=== PATIENT | male | born 1950 | race Caucasian/White ===

== ENCOUNTER → 2023-07-10 10:11 | Outpatient (REF) | payer MEDICARE, BC, SELFPAY | LOC: RAD 10:11 | PROVIDERS: ATTENDING PHYSICIAN Surgery Vascular Surgery; FAMILY PHYSICIAN Family Medicine | DX: I73.9 Peripheral vascular disease, unspecified (principal) | CPT/HCPCS: 93922; 93925 ==

== ENCOUNTER → 2023-07-12 08:43 | Outpatient (REF) | payer MEDICARE, BC, SELFPAY ==
[2023-07-12 12:59] LABS: ALT (SGPT) 27 U/L (0-50); AST (SGOT) 28 U/L (17-59); Albumin 3.8 g/dl (3.5-5.0); Alkaline Phosphatase 47 U/L (38-126); Blood Urea Nitrogen 25 mg/dl (9-20); Calcium 9.7 mg/dl (8.4-10.2); Carbon Dioxide 27 mmol/L (22-30); Chloride 102 mmol/L (98-107); Glucose 148 mg/dl (70-99); Potassium 4.9 mmol/L (3.5-5.1); Sodium 140 mmol/L (135-145); Total Bilirubin 0.7 mg/dl (0.2-1.3); Total Protein 6.3 g/dl (6.3-8.2); eGFR > 60.00
[2023-07-12 14:54] LABS: Glycohemoglobin (HgbA1c) 6.4 % (4.0-5.6)
== END ==
LOC: HWLAB 08:43
PROVIDERS: ATTENDING PHYSICIAN Family Medicine
DX: R73.01 Impaired fasting glucose (principal); Z12.5 Encounter for screening for malignant neoplasm of prostate
CPT/HCPCS: 36415; 80053; 83036; G0103

== ENCOUNTER → 2023-08-23 13:44 | Outpatient (REF) | payer MEDICARE, BC, SELFPAY ==
[2023-08-23 17:57] LABS: Microalbumin, Random Urine <0.6 mg/dl (0.6-1.7)
== END ==
LOC: CLAB 13:44
PROVIDERS: ATTENDING PHYSICIAN Family Medicine
DX: E11.51 Type 2 diabetes mellitus with diabetic peripheral angiopathy without gangrene (principal)
CPT/HCPCS: 82043; 82570

== ENCOUNTER → 2023-11-27 08:23 | Outpatient (REF) | payer MEDICARE, BC, SELFPAY ==
[2023-11-27 10:53] LABS: ALT (SGPT) 27 U/L (0-50); AST (SGOT) 29 U/L (17-59); Albumin 4.1 g/dl (3.5-5.0); Alkaline Phosphatase 57 U/L (38-126); Blood Urea Nitrogen 17 mg/dl (9-20); Calcium 9.4 mg/dl (8.4-10.2); Carbon Dioxide 26 mmol/L (22-30); Chloride 105 mmol/L (98-107); Glucose 132 mg/dl (70-99); HDL Cholesterol 37 mg/dl; LDL Cholesterol, Calculated 57 mg/dl; Potassium 4.7 mmol/L (3.5-5.1); Sodium 139 mmol/L (135-145); Total Bilirubin 0.5 mg/dl (0.2-1.3); Total Cholesterol 104 mg/dl (50-199); Total Protein 6.7 g/dl (6.3-8.2); Triglyceride 54 mg/dl (10-149); Very Low Density Lipoprotein 10 mg/dl (0-30); eGFR > 60.00
[2023-11-27 11:54] LABS: Glycohemoglobin (HgbA1c) 6.5 % (4.0-5.6)
== END ==
LOC: HWLAB 08:23
PROVIDERS: ATTENDING PHYSICIAN Family Medicine
DX: E11.51 Type 2 diabetes mellitus with diabetic peripheral angiopathy without gangrene (principal); E78.2 Mixed hyperlipidemia
CPT/HCPCS: 36415; 80053; 80061; 83036

== ENCOUNTER → 2024-02-08 08:47 | Outpatient (REF) | payer MEDICARE, BC, SELFPAY | LOC: DHVS 08:47 | PROVIDERS: ATTENDING PHYSICIAN Surgery Vascular Surgery | DX: I73.9 Peripheral vascular disease, unspecified (principal) | CPT/HCPCS: 93922; 93925 ==

== ENCOUNTER → 2024-02-28 12:43 | Outpatient (REF) | payer MEDICARE, BC, SELFPAY | LOC: HWRCS 12:43 | PROVIDERS: ATTENDING PHYSICIAN Internal Medicine Interventional Cardiology; FAMILY PHYSICIAN Family Medicine | DX: Z95.2 Presence of prosthetic heart valve (principal); I35.0 Nonrheumatic aortic (valve) stenosis | CPT/HCPCS: 93306 ==

== ENCOUNTER → 2024-03-25 09:01 | Outpatient (REF) | payer MEDICARE, BC, SELFPAY ==
[2024-03-25 13:34] LABS: ALT (SGPT) 30 U/L (0-50); AST (SGOT) 30 U/L (17-59); Albumin 4.3 g/dl (3.5-5.0); Alkaline Phosphatase 42 U/L (38-126); Blood Urea Nitrogen 19 mg/dl (9-20); Calcium 9.2 mg/dl (8.4-10.2); Carbon Dioxide 27 mmol/L (22-30); Chloride 105 mmol/L (98-107); Glucose 143 mg/dl (70-99); Potassium 4.7 mmol/L (3.5-5.1); Sodium 143 mmol/L (135-145); Total Bilirubin 0.6 mg/dl (0.2-1.3); Total Protein 6.7 g/dl (6.3-8.2); eGFR > 60.00
[2024-03-25 14:52] LABS: Glycohemoglobin (HgbA1c) 6.5 % (4.0-5.6)
== END ==
LOC: HWLAB 09:01
PROVIDERS: ATTENDING PHYSICIAN Family Medicine
DX: E11.51 Type 2 diabetes mellitus with diabetic peripheral angiopathy without gangrene (principal)
CPT/HCPCS: 36415; 80053; 83036

== ENCOUNTER 2024-06-12 01:42 | Inpatient (IN) | payer MEDICARE, BC, SELFPAY ==
[2024-06-11 17:23] VITALS: BP 136/77
[2024-06-11] MEDS: TYLENOL 650 MG PO (17:28)
[2024-06-11 17:49] LABS: % Basophils 0.3 % (0-2); % Eosinophils 0.8 % (0-6); % Immature Granulocytes 0.7 % (0-0.5); % Lymphocytes 7.8 % (20.5-51.1); % Neutrophils 88.4 % (42.2-75.2); Absolute Eosinophils 0.1 10^3/uL (0-0.7); Absolute Immature Granulocytes 0.1 10^3/uL (0-0.05); Absolute Lymphocytes 0.8 10^3/uL (1.2-3.4); Absolute Monocytes 0.2 10^3/uL (0.1-0.6); Absolute Neutrophils 9.3 10^3/uL (1.4-6.5); Hematocrit 39.5 % (39.0-52.0); Hemoglobin 13.2 g/dL (13.0-18.0); Mean Corp Hgb Conc. 33.4 g/dL (33.0-37.0); Mean Corpuscular Hgb 31.9 pg (27.0-31.0); Mean Corpuscular Volume 95.4 fL (80.0-94.0); Mean Platelet Volume 9.5 fL (7.4-10.4); Nucleated Red Blood Cells % 0 % (-); Platelet Count 172 10^3/uL (130-400); Red Blood Cell Count 4.14 10^6/uL (4.70-6.10); Red Cell Dist. Width 13.6 % (11.5-14.5); White Blood Cell Count 10.6 10^3/uL (4.8-10.8)
[2024-06-11 18:05] LABS: ALT (SGPT) 26 U/L (0-50); AST (SGOT) 30 U/L (17-59); Albumin 4.3 g/dl (3.5-5.0); Alkaline Phosphatase 45 U/L (38-126); Blood Urea Nitrogen 21 mg/dl (9-20); Calcium 9.5 mg/dl (8.4-10.2); Carbon Dioxide 22 mmol/L (22-30); Chloride 102 mmol/L (98-107); Glucose 168 mg/dl (70-99); Potassium 4.7 mmol/L (3.5-5.1); Sodium 136 mmol/L (135-145); Total Bilirubin 0.5 mg/dl (0.2-1.3); eGFR > 60.00
[2024-06-11 18:06] LABS: COVID-19 Antigen Negative (Negative)
[2024-06-11 20:50] VITALS: BP 114/61
[2024-06-11 20:52] VITALS: BMI 37.2
[2024-06-11 21:07] VITALS: BP 130/72
--- NOTE | 2024-06-11 21:12 | ED.GENMED ---
History of Present Illness
General
Chief Complaint: Heart Rate Problem
Source: patient
Exam Limitations: none
Time Seen by Provider: 06/11/24 20:51
History of Present Illness
History of Present Illness:
73yoM with a history of peripheral artery disease, aortic stenosis s/p valve replacement, hypertension, and obesity presenting for evaluation after an episode of shakiness. Patient started to have bilateral arm shakiness and chills around 3pm this
afternoon. He states this occurred after drinking a large decaf coffee with pumpkin spice cream and multiple Krimpets. Son states this appeared to be shaking chills and called EMS. Patient also reports shortness of breath during this episode. He now
feels much better after drinking fluids in the waiting room. He denies any current dyspnea. No chest pain or leg swelling. Of note, patient has been having an ongoing cough since .
Past History
Past History
ED Past Medical History: HTN, Valvular disease and Other (Diverticulosis, Kidney stones)
ED Past Surgical History: Other (Hernia repair)
Social History
Tobacco: Former smoker
Alcohol: Former
Drug: None
Personal:
Living: with family
Employment: Employed ([employer])
Family History
Family History: CAD (Mother with [place] at 57 No aneurysm)
Phy Exam
General Physical Exam
General Presentation: no apparent distress
General age: appears stated age
General Skin: warm and dry
General Habitus: elderly and obese
General Mental: alert
Cardiovascular Exam
Cardiovascular Exam: no edema and tachycardia (HR 110-120 throughout exam. Sinus tachycardia on monitor.)
Pulmonary Exam
Pulmonary Exam: lungs clear, no respiratory distress, no rales, no crackles and no rhonchi
Neurological Exam
Neurological Exam: alert
Da[place]an Coma Scale
Eye Opening: Spontaneous
Verbal Response: Oriented
Motor Response: Obeys Commands
GCS Total Score: 15
Skin Exam
Skin Exam: normal color and warm/dry
Psychiatric Exam
Psychiatric Exam: normal mood/affect
Course
Orders/Labs/Results
Orders:
Orders
06/11/24 17:20
EKG [Electrocardiogram (*1)] Urgent
Reason for Study: Tachycardia
EKG- Treatment ONCE
06/11/24 17:27
Acetaminophen [Tylenol] 650 mg .ROUTE .STK-MED ONE
06/11/24 17:28
Acetaminophen [Tylenol] 650 mg PO NOW STA
06/11/24 17:32
COVID-19 Antigen Urgent
Source: Nasal Swab
TSH Urgent
Comment: ADDON
Influenza A+B Rapid Molecular Urgent
JOSEPH Source: Nasal Swab
Specimen Description:
06/11/24 17:41
Complete Blood Count/With Diff Urgent
Comprehensive Metabolic Panel Urgent
Magnesium Urgent
Comment: ADDON
06/11/24 21:07
Cardiac Monitoring- Treatment ONCE
CR Chest - 2 Views Urgent
Comment:
Reason For Exam: SOB, cough
06/11/24 21:15
Add On- LAB Urgent
Tests Added?: TSH, magnesium
D-Dimer Urgent
PTT Urgent
Comment: ADDED
06/11/24 21:31
Magnesium Sulfate 2 Gram/50 ml [Magnesium Sulfate] 2 gram in 50 ml IV NOW
06/11/24 21:44
CT Chest PE Study Urgent
Comment:
Reason For Exam: SOB, elevated D-dimer
06/11/24 21:53
Troponin I Urgent
06/11/24 22:30
Electrocardiogram (*1) Urgent
Reason for Study: Shortness of Breath
EKG- Treatment ONCE
06/11/24 23:00
Flush (0.9% Sodium Chloride) [Flush (Nss)] See Dose Instructions IV PER PROTOCOL
06/11/24 23:22
Heparin 10,000 units IV NOW STA
Nursing to Place Non Medication Order As Directed
Physician Order: PTT 6 hours after initial start of Heparin infusion
Above order entered?: Yes
06/11/24 23:30
Heparin 43344 Units/250 ml 25,000 units in 250 ml IV PER PROTOCOL
Weight to be used for heparin protocol in kilograms (kg):: 127.7
Protocol:: DVT/PE
PTT Goal Range to be used:: PTT 73 to 111 seconds
Order type:: Initial
INITIAL Infusion Dose (UNITS/KG/hr) & then follow protocol:: 18 units/kg/hr
Infusion Dose in UNITS/hr & then follow protocol (UNITS/hr):: 2,000
INFUSION RATE in mL/hr & then follow protocol (mL/hr):: 20
For DVT/PE algorithm, re-bolus for low PTT?: Yes
PTT less than or equal to 64 seconds:: Re-bolus 80 units/kg (max 10,000units). Increase by 500 units/hr
(+ 5mL/hr)
PTT 64.1 to 72.9 seconds:: Re-bolus 40 units/kg (max 5,000 units). Increase by 300 units/hr
(+ 3mL/hr)
PTT 73 to 111 seconds:: Target Range. No change in rate.
PTT 111.1 to 130.9 seconds:: Decrease rate by 300 units/hr (- 3 mL/hr)
PTT 131 to 199.9 seconds:: HOLD for 1 hr. Then decrease by 400 units/hr (- 4mL/hr)
PTT greater than or equal to 200 seconds:: HOLD for 2 hrs & Notify Provider. Then decrease by 500 units/hr
(- 5mL/hr)
Lab follow-up:: Each change, PTT q6h until 2 consecutive are therapeutic. Then
PTT daily.
06/11/24 23:33
Add On- LAB Urgent
Comments:: PTT
Tests Added?: PTT
06/11/24 23:41
Heparin 10,000 units IV PRN PRN
06/11/24 23:44
Heparin 5,000 units IV PRN PRN
06/12/24 01:12
Admit/Transfer Patient As Directed
Co-Sign Provider:
Level of Care: Inpatient admission
Assign to:: Telemetry
Physician / Group: Alex
Diagnosis: PE
Reason for Telemetry: Chest Pain syndromes
Date to Stop Telemetry: 06/14/24
Time to Stop Telemetry: 11:00
Reason for Hospitalization: PE
Expected length of stay greater than two midnights?: Yes
ELOS- Estimated Length of Stay in days: 2
I certify the patient meets the requirements for IP care: Yes
PRN Pain Medication Management As Directed
May give lesser potent ordered pain med per pt: Yes
preference::
Protocol:: Medication orders for pain may be administered in a
manner that supports deferring to patient preference
when the pt is:
- Requesting an ordered lesser potent pain medication.
Least to most potent pain medications are defined
as: acetaminophen < NSAID < tramadol < opioids
(morphine, oxycodone, hydromorphone).
- Requesting a lesser dose of the same medication IF
ORDERED.
- Requesting a less intrusive route of administration
if both routes are prescribed by the provider (PO <
IV).
06/12/24 01:13
Code Status As Directed
Resuscitation Status: Full Code
06/12/24 01:44
Acetaminophen [Tylenol] 650 mg PO Q4HPRN PRN
Ondansetron Injectable [Zofran] 4 mg IV Q6HPRN PRN
06/12/24 01:44
Heparin Protocol- PTT Orders As Directed
PTT per Heparin protocol: -Obtain CBC and baseline PTT - if not already collected.
-Obtain PTT 6 hours from start of infusion. Then, every 6 hours until 2 consecutive
PTT's are therapeutic. Then, PTT Daily.
-With each rate change, obtain PTT every 6 hours until 2 consecutive PTT's are
therapeutic. Then, PTT Daily.
Activity As Directed
Activity Level: Ambulate
With Assistance
Bladder Scan As Directed
Follow Bladder Retention/Intermittent Cath Algorithm?: Yes
PRN if no void in __ hours: 6
Frequency: Per Retention Algorithm
If Bladder Scan Result >: 400
then:: Straight cath
EKG with chest pain [ECG as needed] As Directed
ECG as needed for:: Chest Pain
I/O [Intake/ Output] As Directed
Frequency: Per unit guidelines
Notify MD As Directed
Notify physician if: PTT is greater than or equal to 200.
Straight Cath As Directed
Frequency: Per Retention Algorithm
Additional Instructions: straight cath as needed per acute urinary retention algorithm for 24 hrs
Additional Instructions: for bladder scan greater than 400 mL
Vital Signs As Directed
Frequency: Per unit guidelines
Oxygen Therapy [O2 Therapy] [RESP] Routine
Titrate/Wean O2 to maintain O2 sat greater than (%): 94
Ot Eval And Treat Routine
PT Consult [Pt Eval And Treat] Routine
Activity Level: Ambulate
With Assistance
US Periph Venous LOWER Ext Alvarado Routine
Comment: Not urgent. Already on anticoagulation.
Reason For Exam: LE Weakness, PE
06/12/24 02:11
Glycohemoglobin (HgbA1c) Routine
Troponin I Q6H
06/12/24 04:52
Basic Metabolic Panel IN AM
06/12/24 06:00
EKG [Electrocardiogram (*1)] IN AM
Reason for Study: Chest Pain
Regular
At Your Request: Full Participation
06/12/24 07:19
Urinalysis Reflex To Culture Urgent
Date Specimen was Collected: 06/12/24
Time Specimen was Collected: 07:17
06/12/24 07:40
Troponin I Q6H
06/12/24 08:00
Amlodipine Besylate/Benazepril [Lotrel 10 mg/20 mg] 1 capsule PO DAILY
Aspirin Low Dose EC [Aspir Low (Enteric Coated)] 81 mg PO DAILY
Atorvastatin [Lipitor] 20 mg PO DAILY
Doxazosin Mesylate [Cardura] 8 mg PO DAILY
Multivitamin [Theragran] 1 tablet PO DAILY
06/12/24 13:44
Troponin I Q6H
06/14/24 06:00
Complete Blood Count/No Diff Q2D
Comment: notify provider: Platelet count < 130,000 or decrease by 50% from baseline
06/14/24 11:00
DC Protocol for Telemetry ONCE
06/16/24 06:00
Complete Blood Count/No Diff Q2D
Comment: notify provider: Platelet count < 130,000 or decrease by 50% from baseline
06/18/24 06:00
Complete Blood Count/No Diff Q2D
Comment: notify provider: Platelet count < 130,000 or decrease by 50% from baseline
06/20/24 06:00
Complete Blood Count/No Diff Q2D
Comment: notify provider: Platelet count < 130,000 or decrease by 50% from baseline
06/22/24 06:00
Complete Blood Count/No Diff Q2D
Comment: notify provider: Platelet count < 130,000 or decrease by 50% from baseline
06/24/24 06:00
Complete Blood Count/No Diff Q2D
Comment: notify provider: Platelet count < 130,000 or decrease by 50% from baseline
06/26/24 06:00
Complete Blood Count/No Diff Q2D
Comment: notify provider: Platelet count < 130,000 or decrease by 50% from baseline
06/28/24 06:00
Complete Blood Count/No Diff Q2D
Comment: notify provider: Platelet count < 130,000 or decrease by 50% from baseline
Abnormal Lab Results
06/11/24 06/11/24 06/11/24
17:41 21:15 21:53
RBC 4.14 L 10^6/uL
(4.70-6.10)
MCV 95.4 H fL
(80.0-94.0)
MCH 31.9 H pg
(27.0-31.0)
Abs Immat Gran (auto) 0.1 H 10^3/uL
(0-0.05)
Absolute Neuts (auto) 9.3 H 10^3/uL
(1.4-6.5)
Absolute Lymphs (auto) 0.8 L 10^3/uL
(1.2-3.4)
Immature Gran % 0.7 H %
(0-0.5)
Neutrophils % 88.4 H %
(42.2-75.2)
Lymphocytes % 7.8 L %
(20.5-51.1)
D-Dimer 2.73 H ug/mlFEU
(0.00-0.50)
BUN 21 H mg/dl
(9-20)
Glucose 168 H mg/dl
(70-99)
Magnesium 1.4 L mg/dl
(1.6-2.3)
Troponin I 0.235 H* ng/ml
06/11/24 17:41
06/11/24 17:41
Vital Signs
Initial and Last Documented VS:
Initial Vital Signs
Temp Pulse Resp BP Pulse Ox
100.2 F 140 20 136/77 95
06/11/24 17:23 06/11/24 17:23 06/11/24 17:23 06/11/24 17:23 06/11/24 17:23
Last Documented Vital Signs
Temp Pulse Resp BP Pulse Ox
98 F 96 20 105/65 95
06/12/24 07:15 06/12/24 09:09 06/12/24 07:15 06/12/24 09:09 06/12/24 07:15
MDM/Problems Addressed
MDM/Problems Addressed:
73yoM here after an episode shakiness, chills, and SOB this afternoon. Symptoms now mostly resolved. HR 140 in triage and temperature 100.2. HR 110-120 throughout initial exam. Sinus tachycardia noted on monitor. Differential diagnosis includes but
is not limited to: viral illness, pneumonia, sepsis, ACS, PE
Initial ED plan: Basic labs and COVID/flu testing obtained in triage which are overall unremarkable. EKG shows sinus tachycardia without ischemic changes. Will check TSH, magnesium, troponin, D-dimer, and CXR.
*EKG
Interpreted by ED Provider?: Yes
EKG Intrepretation Date: 06/11/24
Heart Rate: 130
Rate: tachycardiac
Rhythm: sinus
Davy: normal axis
Interval: normal interval
QRS Pattern: normal QRS
Ischemia: no ischemia
*Critical Care Note
Total Time (30-74mins, 75-104mins- exclusive of procedures): Not Applicable
Update Note
Update Note:
Magnesium 1.4 which was replaced. Troponin elevated at 0.2. Repeat EKG obtained and again no ischemic changes noted. D-dimer elevated and CTA chest subsequently obtained. Imaging is limited due contrast timing and artifact. Per discussion with
radiology, there is a possible PE seen in the right upper lobe. Heparin gtt initiated and patient admitted for further management.
ED Attending Note
-
Portions of this chart may have been created with voice recognition software.� Occasional wrong word or��sound alike� substitutions may have occurred due to the inherent limitations of voice recognition software.
Discharge Plan
Departure
Patient Disposition: Admit
Date of Disposition: 06/11/24
Time of Disposition: 23:32
Presentation/result/management discussed w/ accepting MD/DO: Hospitalist
Discharge Problem:
Pulmonary embolism, Elevated troponin
Interventions
Interventions:
*Risk Screen - Suicide Last Done: 06/11/24 17:23
*General Assessment Last Done: 06/11/24 17:23
*Neglect/Abuse Screening Last Done: 06/11/24 17:23
ED- Fall Risk Assessment Last Done: 06/12/24 04:09
*ED COVID-19 Vaccine History Last Done: 06/11/24 17:23
*Nursing Disposition Last Done: 06/12/24 04:09
ED- Cardiac Assessment Last Done: 06/11/24 20:54
ED- Pulmonary Assessment Last Done: 06/11/24 20:54
Discharge Date and Time
Discharge Date/Time: 06/12/24 04:10
[2024-06-11 21:29] LABS: Magnesium 1.4 mg/dl (1.6-2.3)
[2024-06-11 21:33] LABS: D-Dimer 2.73 ug/mlFEU (0.00-0.50)
[2024-06-11 22:02] VITALS: BP 121/77
[2024-06-11] MEDS: MAGNESIUM SULFATE 50 IV (22:04)
[2024-06-11 22:26] LABS: Troponin I 0.235 ng/ml
[2024-06-11 23:21] VITALS: BP 122/61
[2024-06-11 23:50] LABS: APTT 24.2 Sec (23.4-35.0)
[2024-06-12] VITALS (12 sets, daily range): BP systolic 85–171; BP diastolic 54–84; PULSE 101; O2SAT 97; BMI 36.5
[2024-06-12] MEDS: HEPARIN 25000 UNITS/250 ML IV (00:14)
[2024-06-12] MEDS: HEPARIN 10000 UNITS IV (00:15)
--- NOTE | 2024-06-12 01:16 | HPS.HSE ---
Family Physician
-
Family Physician: Turner Guardado
Chief Complaint
-
Shaking
History of Present Illness
Patient is a 73y M with PMH significant for ASCVD / PAD, obesity and hypertension who presents to ED complaining of shaking chills this afternoon. Patient states that he had just consumed a large [employer] coffee with extra sugar and extra
cream as well as a pack of pastries. Shortly thereafter he developed shaking all over and felt cold. His symptoms persisted for about 30-40 minutes and he presented to the ED for further evaluation.
Patient states that he felt nauseated and had two, small episodes of non-bloody emesis at home and in the ambulance.
Patient denies any recent cough, fever, abdominal pain or symptoms.
He has chronic LE weakness and gait dysfunction, but notes that today his legs felt especially weak and he had trouble ambulating.
He notes shortness of breath with exertion and overwhelming fatigue. He denies any chest pain or palpitations.
At the time of my examination, patient is resting comfortably and has no complaints.
No recent surgery or recent travel. He is somewhat sedentary given his ambulatory issues.
No personal history of DVT / PE.
Medical History
Past Medical History
Past Medical History: Reports Other
Additional Past Medical History:
Severe Aortic Stenosis
ASCVD
Hypertension
Nephrolithiasis
DJD / DDD
Obesity
Sensorineural Hearing Loss
Past Surgical History: Reports Other
Additional Past Surgical History:
Umbilical Hernia Repair
Inguinal Hernia Repair
TAVR
Left Femoral Endarterectomy
Left Fem-Fem Bypass
Social History
Tobacco: Former Smoker (Quit smoking in 1997.)
Alcohol: None
Drug: None
Personal:
Family History
Family History: Other (Father: EtOH Mother: CAD)
Allergies / Home Medications
Allergies reflects when Allergies were last updated in [facility].
Home Medications with original date entered in [facility]
Allergy/Medication List:
Allergies
Allergy/AdvReac Type Severity Reaction Status Date / Time
No Known Drug Allergies Allergy Unknown Verified 06/11/24 21:56
Home Medications
aspirin 81 mg tablet,delayed release 81 mg PO DAILY Blood clot prevention/tx 01/24/16
doxazosin 8 mg tablet 8 mg PO DAILY Urinary issue 01/24/16
amlodipine 10 mg-benazepril 20 mg capsule 1 cap PO DAILY Blood pressure 11/25/21
multivitamin 1 tab PO DAILY Supplement 09/15/22
atorvastatin 20 mg tablet 20 mg PO DAILY PAD #30 tabs 09/29/22
Review of Systems
-
History Source: Patient
A 12 point ROS was completed and negative except as noted: Yes
Constitutional: Reports Fatigue and Chills; Denies Fever
EENT: Denies Sore Throat
Respiratory: Reports Trouble Breathing; Denies Cough
Cardiac: Denies Chest Pain, Diaphoresis, Palpitations or Syncope
Abdomen/GI: Reports Nausea and Vomiting; Denies Abdominal Pain or Diarrhea
: Denies Dysuria or Flank Pain
Musculoskeletal: Denies Joint Pain or Edema
Neurological: Reports Weakness; Denies Dizzy or Headache
Psych: Reports Depression; Denies Anxiety
Physical Exam
Vital Signs
Vital Signs
Temp Pulse Resp BP Pulse Ox
98.8 F 102 16 103/62 97
06/11/24 20:50 06/12/24 00:30 06/12/24 00:30 06/12/24 00:00 06/12/24 00:30
Physical Exam
General: Other (73y M in no acute distress.)
HEENT: Moist mucous membranes, PERRLA and Other (Thick neck.)
Respiratory: Clear; No Wheezes, Rales or Rhonchi
Cardiac: S1/S2 and Tachycardia; No Murmur
GI: Non Tender, Non Distended, Normal Bowel Sounds and Other (Obese)
Musculoskeletal: No Clubbing, No Cyanosis and Other (Trace pedal edema. No calf tenderness / cords.)
Neuro: AO x 3
Laboratory Results
-
06/11/24 17:41
06/11/24 17:41
Laboratory Results
APTT Cancelled 06/11/24 23:22
Total Bilirubin 0.5 mg/dl (0.2-1.3) 06/11/24 17:41
AST 30 U/L (17-59) 06/11/24 17:41
ALT 26 U/L (0-50) 06/11/24 17:41
Alkaline Phosphatase 45 U/L (38-126) 06/11/24 17:41
Troponin I 0.235 ng/ml H* 06/11/24 21:53
Impression/Plan
-
A/P: Patient is a 73y M with PMH significant for ASCVD, s/p TAVR and obesity who presents to ED complaining of shaking chills this afternoon.
Possible RUL Pulmonary Embolism
- Admit for further evaluation and treatment.
- CTA in the ED this evening with filling defect / possible PE in the RUL.
- Recent symptoms of dyspnea / fatigue - though no chest pain.
- Mild tachycardia noted in the ED.
- Continue IV heparin for now - change to DAC for 3-6 months of total therapy.
- Check LE dopplers in the AM for completeness.
Shaking Chills
- Unclear etiology - though seems temporally related to very large sugar and caffeine ingestion.
- Follow temperature curve and monitor for any new / focal symptoms.
- CXR unremarkable. COVID / flu negative.
- Check UA.
- Follow for any recurrent symptoms.
ASCVD / PAD
- Chronic LE weakness / fatigue secondary to PAD.
- s/p revascularization surgery in 2022 without significant improvement.
- Continue current CV med regimen including ASA, statin, etc.
- PT / OT evaluations for gait / balance.
Benign Hypertension
- Stable. Continue current regimen with holding parameters.
Hypomagnesemia
- Replacement ordered in the ED.
Obesity due to excess calories
- Affects all aspects of care.
- Encourage healthy diet and increased exercise with goal of weight loss.
DVT Prophylaxis: IV Heparin
Code Status: Full
[2024-06-12 03:27] LABS: Troponin I 0.233 ng/ml
--- NOTE | 2024-06-12 04:43 | W.PN.UPDATE ---
Update Note
Progress Note Update
Reported by the nursing staff that the patient had hematuria started that am with bright red blood. Vital signs within normal limit. Will hold heparin drip, monitor h&h and urology consult was placed.
--- NOTE | 2024-06-12 04:59 | PTCARENOTE ---
Received patient from ED via stretcher. Patient ambulated from stretcher to bed x1 assist. Upon arrival to the floor, patient voided in the bathroom and reported voiding bright red blood. Patient flushed urine before RN could see but blood noted on
underwear and around penis. VSS, offers no complaints of pain. MEDICAL ASSOCIATE made aware, orders to hold IV heparin, Q6 H&H x4, and urology consult added. Patient updated on plan of care. Oriented patient to room and placed call weiss within reach.
[2024-06-12 05:26] LABS: Hematocrit 36.2 % (39.0-52.0); Hemoglobin 12.2 g/dL (13.0-18.0)
[2024-06-12 05:49] LABS: Blood Urea Nitrogen 21 mg/dl (9-20); Carbon Dioxide 22 mmol/L (22-30); Chloride 98 mmol/L (98-107); Estimated Creatinine Clearance 93 ml/min; Glucose 133 mg/dl (70-99); Potassium 4.5 mmol/L (3.5-5.1); Sodium 132 mmol/L (135-145); eGFR > 60.00
[2024-06-12 07:35] LABS: Urine Albumin Trace (Neg - Trace); Urine Bilirubin Negative (Negative); Urine Character Clear (Clear); Urine Color Yellow; Urine Glucose Negative (Negative); Urine Ketone Negative (Negative); Urine Leukocyte Negative (Negative); Urine Nitrite Negative (Negative); Urine Occult Blood 4+ (Negative); Urine Specific Gravity 1.015 (<1.030); Urine Urobilinogen Negative (Neg - 1+)
[2024-06-12 08:17] LABS: Urine Red Blood Cell 26-30 /HPF (0-2); Urine White Cell 0-2 /HPF (0-5)
--- NOTE | 2024-06-12 08:27 | W.PN.HOSP.TC ---
Today's Communication/Plan
-
see bold
Assessment / Plan
Assessment / Plan
73y M with PMH significant for ASCVD, s/p TAVR and obesity who presents to ED complaining of shaking chills this afternoon.
Possible RUL Pulmonary Embolism
- Anticoagulation held secondary to hematuria
- Lower extremity Dopplers negative for DVT
- Unclear if patient actually has PE, consult pulmonology
Hematuria
- Urology consulted
- CT urogram negative
Hypomagnesemia
-Repleted and resolved
Shaking Chills
- Likely due to drinking coffee plus eating sugar
- Resolved
ASCVD / PAD
- Chronic LE weakness / fatigue secondary to PAD.
- s/p revascularization surgery in 2022 without significant improvement.
- Continue current CV med regimen including ASA, statin, etc.
- PT / OT evaluations for gait / balance.
Benign Hypertension
- Stable. Continue current regimen with holding parameters.
Hypomagnesemia
- Replacement ordered in the ED.
Obesity due to excess calories
- Affects all aspects of care.
- Encourage healthy diet and increased exercise with goal of weight loss.
DVT prophylaxis�SCDs secondary to hematuria
Physical Exam
General: Obese, no acute distress
HEENT: Normocephalic, Atraumatic, EOMI, MMM
Respiratory: Clear to Auscultation bilaterally
Cardiac: Normal S1/S2, Regular Rate and Rhythm
GI: Soft, Nontender, Nondistended, Normal Bowel Sounds
Extremities: No Clubbing, Cyanosis, or Edema
Neuro: Nonfocal/Grossly Intact
Psych: Calm, Cooperative
Derm: No Visible lesions
Anticipated Discharge: Within 24 hours
Subjective/Interval History
-
Date of Service: June 12, 2024
Patient reports feeling tired. Chills resolved.
Objective Data
-
Labs:
Laboratory Results
06/11/24 06/11/24 06/12/24
21:15 23:22 04:52
Hgb 12.2 L
Hct 36.2 L
APTT 24.2 Cancelled
Sodium 132 L
Potassium 4.5
Chloride 98
Carbon Dioxide 22
BUN 21 H
Creatinine 1.0
Glucose 133 H
Calcium 9.0
06/12/24 06/12/24 06/12/24
06:15 10:45 16:45
Hgb Pending Pending
Hct Pending Pending
APTT Cancelled
Sodium
Potassium
Chloride
Carbon Dioxide
BUN
Creatinine
Glucose
Calcium
06/12/24
22:45
Hgb Pending
Hct Pending
APTT
Sodium
Potassium
Chloride
Carbon Dioxide
BUN
Creatinine
Glucose
Calcium
Vital Signs:
Vital Signs
Temp Pulse Resp BP Pulse Ox
98.1 F 107 18 122/68 97
06/12/24 04:27 06/12/24 04:27 06/12/24 04:27 06/12/24 04:27 06/12/24 05:06
--- NOTE | 2024-06-12 08:46 | CON.PUL ---
Consultation
Consultation Request
Date/Time Consultation Requested: 06/12/2024830
Date/Time Consultation Performed: 06/12/2024844
Requesting Provider: Dr. Chaney
Performing Provider: Dr. Hernandez
Reason for Consultation: Possible PE
Medical History
-
Chief Complaint: Chills/body aches
History of Present Illness:
73-year-old male former tobacco smoker (quit 1997) with a past medical history of severe aortic stenosis s/p TAVR (01/2022), PAD with history of left femoral endarterectomy interposition bypass graft, DM type II, major depressive disorder, valvular
heart disease, history of COVID-19 (09/2021), nonobstructive CAD, hypertension, hyperlipidemia, history of kidney stone and IBS who presents with shaking chills and body aches. He apparently had just eaten pastries and a large [employer] coffee
with extra sugar/cream prior to his symptoms starting. Symptoms lasted for about 30-40 minutes before coming to the ER. He also endorsed nausea/vomiting (nonbloody). No prior cough, fevers, abdominal pain or difficulty urinating/penile discharge.
He also reported shortness of breath/fatigue without chest pain or palpitations. No recent travel. Initially in the ER he had a low-grade fever to 100.2 �F, tachycardic to 140, breathing at 20 breaths/min, BP 136/77 and saturating 95% on room
air. Initial labs showed Hb 13.2, platelet count 172, D-dimer 2.73, magnesium 1.4, initial troponin 0.235, TSH 3, and COVID-19 antigen negative. Flu A/B swab also negative. CXR showed no acute cardiopulmonary process. CTA chest showed diminished
contrast bolus with respiratory motion degradation with questionable filling defect in the right upper lobe. No evidence of RV strain. Also several small pulmonary nodules which have remained stable compared to prior CT TAVR from November 2021. Given
concern for possible acute PE, he was started on heparin drip, and admitted to telemetry. Pulmonary service now consulted for additional management/recommendations.
When I saw the patient today he was resting in bed on room air breathing comfortably. He mainly endorses fatigue that he's has since he had COVID in 2021. He has been told that he has possible long COVID syndrome. He denies shortness of breath
currently at rest, also denies chest pain, lower extremity pain, or any personal history of clots. He had some burning when he peed last night but that is now resolved. Also no more body shakes. Currently denies AGUSTIN, abdominal pain, nausea,
vomiting, fevers or chills. No family history of clots.
PMHx: Hyperlipidemia, hypertension, IBS, left knee osteoarthritis, history of kidney stone, impaired fasting glucose, history of severe aortic stenosis s/p TAVR, PAD, DM type II, MDD, PVD, mitral valve calcification, history of acute MR, tricuspid
regurgitation, pulmonary valve regurgitation, personal history of COVID-19 (09/2021), nonobstructive CAD, former tobacco smoker (quit 1997), FOND DU LAC
PSHx: Umbilical hernia repair, right inguinal hernia repair, robotic assisted repair of a recurrent right inguinal hernia with mesh, transfemoral approach TAVR (01/2022), L5-S1 ILESI, left femoral endarterectomy interposition bypass graft from [place] to
femoral bifurcation
Past Medical History
Past Medical History: Other (Above as per HPI)
Past Surgical History: Other (Above as per HPI)
Social History
Tobacco: Former Smoker (COVID-19 98, otherwise has a [id number] history)
Alcohol: None
Drug: None
Environmental Exposures: Exposed to agent orange through history of [place] war
Family History
Family History: CAD (Mother: History of WA) and Other (Father: History of alcohol abuse; Sister: Bicuspid aortic valve)
Allergies / Home Medications
Allergies
Allergy/AdvReac Type Severity Reaction Status Date / Time
No Known Drug Allergies Allergy Unknown Verified 06/11/24 21:56
Home Medications
�Medication �Instructions �Recorded �Confirmed �Last Taken �Type
aspirin 81 mg tablet,delayed 81 mg PO DAILY Blood clot 01/24/16 06/11/2409/27/23 07:00 History
release prevention/tx
doxazosin 8 mg tablet 8 mg PO DAILY Urinary issue 01/24/16 06/11/24 09/27/22 07:00 History
amlodipine 10 mg-benazepril 20 mg 1 cap PO DAILY Blood pressure 11/25/21 06/11/24 09/27/22 07:00 History
capsule
multivitamin 1 tab PO DAILY Supplement 09/15/22 06/11/24 09/26/22 08:00 History
atorvastatin 20 mg tablet 20 mg PO DAILY PAD #30 tabs 09/29/22 06/11/24 Unknown Rx
Review of Systems
-
History Source: Patient
All other systems: Negative unless noted
Vitals / Labs / Diagnostic Testing
Vital Signs
Temp Pulse Resp BP Pulse Ox
98 F 102 20 130/68 95
06/12/24 07:15 06/12/24 07:15 06/12/24 07:15 06/12/24 07:15 06/12/24 07:15
Lab Data
06/12/24 22:45
06/12/24 04:52
Laboratory Results
06/11/24 06/11/24 06/12/24
21:15 23:22 06:15
APTT 24.2 Cancelled Cancelled
Microbiology
06/11/24 17:32 Nasal Swab Influenza Types A & B (BENJAMIN) - Final
Negative for Influenza A & B, NAAT
Negative results must be combined with clinical observations
and patient history.
Nucleic Acid Amplification test (NAAT)performed on the
[employer] platform.
Diagnostic Testing:
Physical Exam
-
HEENT: Normocephalic and Anicteric
Cardiovascular: S1/S2, Murmur (PRAVEENA heard best at [facility]) and Peripheral Edema (+1 LE pitting edema b/l)
Respiratory: Wheeze (negative), Rales (negative), Rhonchi (negative) and Non-Labored Respirations
GI: Soft, Distended (Abdominal obesity), Non Tender and Normal Bowel Sounds
Neurology: AO x 3 and Tremors (negative)
Skin: Warm, Dry and Other (Chronic venous stasis dermatitis changes in the bilateral lower extremities)
General: Respiratory Distress (negative), Comfortable, Chills (negative), Sweats (negative) and Good Appetite
Assessment
-
Assessment: 73-year-old male former tobacco smoker (quit 1997) with a past medical history of severe aortic stenosis s/p TAVR (01/2022), PAD with history of left femoral endarterectomy interposition bypass graft, DM type II, major depressive
disorder, valvular heart disease, history of COVID-19 (09/2021), nonobstructive CAD, hypertension, hyperlipidemia, history of kidney stone and IBS who presents with shaking chills and body aches. He apparently had just eaten pastries and a large
[employer] coffee with extra sugar/cream prior to his symptoms starting. Symptoms lasted for about 30-40 minutes before coming to the ER. He also endorsed nausea/vomiting (nonbloody). No prior cough, fevers, abdominal pain or difficulty
urinating/penile discharge. He also reported shortness of breath/fatigue without chest pain or palpitations. No recent travel. Initially in the ER he had a low-grade fever to 100.2 �F, tachycardic to 140, breathing at 20 breaths/min, BP 136/77
and saturating 95% on room air. Initial labs showed Hb 13.2, platelet count 172, D-dimer 2.73, magnesium 1.4, initial troponin 0.235, TSH 3, and COVID-19 antigen negative. Flu A/B swab also negative. CXR showed no acute cardiopulmonary process.
CTA chest showed diminished contrast bolus with respiratory motion degradation with questionable filling defect in the right upper lobe. No evidence of RV strain. Also several small pulmonary nodules which have remained stable compared to prior CT
TAVR from November 2021. Given concern for possible acute PE, he was started on heparin drip, and admitted to telemetry. Pulmonary service now consulted for additional management/recommendations.
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
acute MR, tricuspid regurgitation, pulmonary valve regurgitation, personal history of COVID-19 (09/2021), nonobstructive CAD, former tobacco smoker (quit 1997), FOND DU LAC
Impression:
#Possible segmental PE involving right upper lobe
#Hematuria after being on heparin drip
#Multiple pulmonary nodules (stable, including 6 mm nodule in the posterior right upper lobe, and 2 nodules of 10 mm +8 mm are intrafissural lymph nodes at the right middle lobe, and do not need follow-up)
#Elevated troponin likely due to demand ischemia with type II WA in the setting of tachycardia (initially heart rate to 140 in ER)
#Centrilobular emphysema with suspected COPD
#Acute anemia
#Hyponatremia (mild)
#DM type II (HbA1c: 6.7 on 06/12/2024)
#Former tobacco smoker (quit 1997 with [id number] history)
#History of severe aortic stenosis s/p TAVR
#Personal history of COVID-19 (09/2021)
#Nonobstructive CAD
#PAD
#History depression
#History of hypertension/hyperlipidemia
#History of kidney stone
Plan:
- Given patient's SOB + elevated D-dimer, CTA chest was performed on 06/11/2024 however there was respiratory motion degradation and poor contrast bolus timing and is unable to clearly rule out a acute PE
- Heparin drip was started but unfortunately he developed hematuria so it is now off
- I have low suspicion for a clinically significant PE considering that he is not hypoxic and only borderline tachycardic, however his troponin was elevated and so was proBNP (2069)
- We should check lower extremity duplex + transthoracic echo and if there is presence of a DVT then he may need a retrievable IVC filter depending how his hematuria progresses
- CT urography done today shows no acute pathology in the abdomen/pelvis
- I believe that his initial tachycardia and shakiness was due to acute surgery and sugar/caffeine from him consuming a large coffee and multiple pastries prior to arrival
- His shakiness and tachycardia have now resolved --> continue to monitor
- Maintain SpO2 >90-94% with supplemental O2 as needed
- Incentive spirometer encouraged q1hr while awake
- Troponin peaked at 0.2351 06/11/2024 � no longer need to continue trending
- Replete electrolytes with K>4, Mg>2
- Maintain euglycemia with goal BG >100 and <180
- prn nebulized bronchodilators - not currently bronchospastic
- DVT ppx: SCDs for now given his hematuria
Pulmonary service will continue to follow along. I will also arrange for outpatient PFTs.
Data:
CT urography 06/12/2024:
No acute pathology of the abdomen or pelvis identified.
Hepatic fatty infiltration. Stable
Small bilateral parapelvic renal cysts. Stable on the right.
New on the left.
CTA Chest 06/11/2024:
Limited. Diminished contrast bolus in the segmental and subsegmental vessels in the upper and lower lobes, as well as respiratory motion degradation in the lower lobes.
No central pulmonary artery filling defect to suggest pulmonary embolism.
[place] subtle questionable filling defect in the right upper lobe proximal anterior segmental pulmonary artery, though uncertain if artifact or actual pulmonary embolism.
Total time spent today was 58 minutes for this encounter. Time includes reviewing laboratory test/imaging results, reviewing pertinent medical records, obtaining and reviewing medical history, performing an appropriate exam, ordering medications,
tests and procedures. Time also includes documentation of this encounter, coordinating patient care and communicating with other healthcare professionals. Total time does not include separately billed tests performed on this date of service.
[2024-06-12 08:58] LABS: Troponin I 0.208 ng/ml
[2024-06-12] MEDS: THERAGRAN 1 TABLET PO (09:15)
[2024-06-12] MEDS: LIPITOR 20 MG PO (09:15)
[2024-06-12 09:37] LABS: Glycohemoglobin (HgbA1c) 6.7 % (4.0-5.6)
[2024-06-12 09:52] LABS: NT-proBNP 2070 pg/ml
--- NOTE | 2024-06-12 10:00 | PTCARENOTE ---
Pt's BP 85/61 this am after working with physical therapy. Pt is asymptomatic. Rechecked pt's BP after a few minutes, 105/65. Remains asymptomatic. Dr. Nancy Chaney aware, see hold orders for BP meds, will monitor.
--- NOTE | 2024-06-12 11:10 | CONS.URO ---
Consultation
-
Performing Provider: Wili
Reason for Consultation: Hematuria
Medical History
History of Present Illness
73M with past urologic history of kidney stones, BPH
On doxazosin at baseline
Admitted for sudden shaking chills, weakness, fatigue
Workup revealed a possible small PE on CT and he was started on heparin
Overnight he developed acute onset of gross hematuria with some dysuria. This resolved as of this AM with heparin stopped
He no longer has dysuria or other discomfort
No flank pain or other symptoms similar to prior kidney stone episode
Past Medical History
Past Medical History: Other (Severe Aortic Stenosis ASCVD Hypertension Nephrolithiasis DJD / DDD Obesity Sensorineural Hearing Loss)
Past Surgical History: Other (Umbilical Hernia Repair Inguinal Hernia Repair TAVR Left Femoral Endarterectomy Left Fem-Fem Bypass)
Social History
Tobacco: Former Smoker
Alcohol: None
Drug: None
Family History
Family History: Reviewed & Not Pertinent
Allergies/Home Medications
Allergies
Allergy/AdvReac Type Severity Reaction Status Date / Time
No Known Drug Allergies Allergy Unknown Verified 06/11/24 21:56
Home Medications
�Medication �Instructions �Recorded �Confirmed �Type
aspirin 81 mg tablet,delayed 81 mg PO DAILY Blood clot 01/24/16 06/11/24 History
release prevention/tx
doxazosin 8 mg tablet 8 mg PO DAILY Urinary issue 01/24/16 06/11/24 History
amlodipine 10 mg-benazepril 20 mg 1 cap PO DAILY Blood pressure 11/25/21 06/11/24 History
capsule
multivitamin 1 tab PO DAILY Supplement 09/15/22 06/11/24 History
atorvastatin 20 mg tablet 20 mg PO DAILY PAD #30 tabs 09/29/22 06/11/24 Rx
Physical Exam
Vital Signs
Vital Signs
Temp Pulse Resp BP Pulse Ox
98 F 96 20 105/65 95
06/12/24 07:15 06/12/24 09:09 06/12/24 07:15 06/12/24 09:09 06/12/24 07:15
Lab / Testing Results
Laboratory Results
06/12/24 22:45
06/12/24 04:52
Physical Exam
General: Well Developed, Well Nourished and No Apparent Distress
Respiratory: Clear and Non Labored Respirations
GI: Soft and Non Tender
Genito-urinary: No Costovertebral Tend
Skin: Warm and Dry
Neuro: AO x 3
Psych: Calm and Intact Judgement
Assessment / Plan
-
73M admitted with shaking chills and fatigue
Possible small PE on CT chest
Developed sudden onset gross hematuria
- Hold heparin pending workup
- Pulm consulted to help determine likelihood of PE vs artifact on imaging
- CT Urogram to evaluate upper urinary tract
- If PE is considered likely and patient needs to be on anticoagulation, will proceed to OR today for cystoscopy plus any necessary intervention if source of hematuria is found
- Urinalysis
- NPO for now
Data Reviewed
-
Lab Data: Labs Reviewed
[2024-06-12 11:28] LABS: Magnesium 1.8 mg/dl (1.6-2.3)
[2024-06-12] MEDS: LOTREL 10 MG/20 MG 1 CAPSULE PO (14:07)
--- NOTE | 2024-06-12 14:39 | CM ---
Patient seen bedside.
IA completed.
Patient lives with his son in a 1 story rancher with son.
patient is retired, drives.
patient uses a cane to ambulate.
patient had VN in the past, denies needs at this time.
IMM completed.
PCP: DR Guardado
Ph[facility]: [facility]
Plan: home no needs.
--- NOTE | 2024-06-12 15:02 | W.PN.UPDATE ---
Update Note
Progress Note Update
Negative DVT study and PE considered unlikely by pulmonology
CT urogram unremarkable
With no need for anticoagulation, will cancel procedure for today
Regular diet
[2024-06-12 15:03] LABS: Troponin I 0.137 ng/ml
--- NOTE | 2024-06-12 17:00 | PTCARENOTE ---
Pt's urine pink at the start of the shift, turning yellow until early afternoon and has stayed yellow. No evidence of hematuria. Will continue to monitor.
[2024-06-12 18:02] LABS: Hemoglobin 12.2 g/dL (13.0-18.0)
[2024-06-12] MEDS: BENADRYL 50 MG PO (22:27)
[2024-06-12] MEDS: MELATONIN 5 MG PO (22:27)
[2024-06-13 03:33] VITALS: BP 142/74
[2024-06-13 06:00] VITALS: BMI 34.9
[2024-06-13 07:15] VITALS: BP 140/63
--- NOTE | 2024-06-13 08:35 | W.PN.HOSP.TC ---
Today's Communication/Plan
-
Discharge today
Assessment / Plan
Assessment / Plan
73y M with PMH significant for ASCVD, s/p TAVR and obesity who presents to ED complaining of shaking chills this afternoon.
Possible RUL Pulmonary Embolism
- Chest CT shows '[place] subtle questionable filling defect in the right upper lobe proximal anterior segmental pulmonary artery, though uncertain if artifact or actual pulmonary embolism.'
- Started on IV heparin upon admission, anticoagulation held secondary to hematuria
- Lower extremity Dopplers negative for DVT
- Appreciate pulmonology input, patient is unlikely to have a PE
� Medically stable for discharge off of anticoagulation, follow-up with pulmonology in the office
Hematuria in the setting of receiving IV heparin
- Appreciate urology input, CT urogram negative
- Hematuria resolved now off of IV heparin, follow-up with urology in the office
Hypomagnesemia
-Repleted and resolved
Shaking Chills
- Likely due to drinking coffee plus eating sugar
- Resolved
ASCVD / PAD
- Chronic LE weakness / fatigue secondary to PAD.
- s/p revascularization surgery in 2022 without significant improvement.
- Continue current CV med regimen including ASA, statin, etc.
- PT / OT evaluations for gait / balance.
Benign Hypertension
- Stable. Continue current regimen with holding parameters.
Hypomagnesemia
- Replacement ordered in the ED.
Obesity due to excess calories
- Affects all aspects of care.
- Encourage healthy diet and increased exercise with goal of weight loss.
DVT prophylaxis�SCDs secondary to hematuria
Physical Exam
General: Obese, no acute distress
HEENT: Normocephalic, Atraumatic, EOMI, MMM
Respiratory: Clear to Auscultation bilaterally
Cardiac: Normal S1/S2, Regular Rate and Rhythm
GI: Soft, Nontender, Nondistended, Normal Bowel Sounds
Extremities: No Clubbing, Cyanosis, or Edema
Neuro: Nonfocal/Grossly Intact
Psych: Calm, Cooperative
Derm: No Visible lesions
Anticipated Discharge: Today
Subjective/Interval History
-
Date of Service: June 13, 2024
Hematuria resolved. No chest pain, no shortness of breath. No chills. No fever, no vomiting. He is requesting discharge.
Objective Data
-
Labs:
Laboratory Results
06/13/24
06:00
WBC Pending
Hgb Pending
Hct Pending
Plt Count Pending
Sodium Pending
Potassium Pending
Chloride Pending
Carbon Dioxide Pending
BUN Pending
Creatinine Pending
Glucose Pending
Calcium Pending
Vital Signs:
Vital Signs
Temp Pulse Resp BP Pulse Ox
98.3 F 92 20 142/74 96
06/13/24 03:33 06/13/24 03:33 06/13/24 03:33 06/13/24 03:33 06/13/24 03:33
I&O
06/12/24 06/13/24 06/14/24
06:59 06:59 06:59
Intake Total 1860 / 1860
Output Total 200 / 200
Balance 1660 / 1660
[2024-06-13] MEDS: THERAGRAN 1 TABLET PO (08:57)
[2024-06-13] MEDS: CARDURA 8 MG PO (08:57)
[2024-06-13] MEDS: LIPITOR 20 MG PO (08:58)
[2024-06-13] MEDS: LOTREL 10 MG/20 MG 1 CAPSULE PO (08:58)
[2024-06-13] MEDS: FLUSH (NSS) 1 FLUSH IV (08:58)
--- NOTE | 2024-06-13 09:03 | W.PN.PUL3 ---
Today's Communication / Plan
-
Up OOB as tolerated
Monitor for recurrence of hematuria
No need to treat for an acute PE given normal RV size and function on echo and no DVT seen on lower extremity duplex, essentially ruling out an acute PE
Outpatient PFTs will be arranged
Patient is being prepared for discharge home. No additional recommendations at this time. Pulmonary service will now sign off. Please reconsult if there are any additional questions/concerns, or if patient's respiratory status deteriorates. I
will also arrange for outpatient PFTs.
Assessment
-
Assessment: 73-year-old male former tobacco smoker (quit 1997) with a past medical history of severe aortic stenosis s/p TAVR (01/2022), PAD with history of left femoral endarterectomy interposition bypass graft, DM type II, major depressive
disorder, valvular heart disease, history of COVID-19 (09/2021), nonobstructive CAD, hypertension, hyperlipidemia, history of kidney stone and IBS who presents with shaking chills and body aches. He apparently had just eaten pastries and a large
[employer] coffee with extra sugar/cream prior to his symptoms starting. Symptoms lasted for about 30-40 minutes before coming to the ER. He also endorsed nausea/vomiting (nonbloody). No prior cough, fevers, abdominal pain or difficulty
urinating/penile discharge. He also reported shortness of breath/fatigue without chest pain or palpitations. No recent travel. Initially in the ER he had a low-grade fever to 100.2 �F, tachycardic to 140, breathing at 20 breaths/min, BP 136/77
and saturating 95% on room air. Initial labs showed Hb 13.2, platelet count 172, D-dimer 2.73, magnesium 1.4, initial troponin 0.235, TSH 3, and COVID-19 antigen negative. Flu A/B swab also negative. CXR showed no acute cardiopulmonary process.
CTA chest showed diminished contrast bolus with respiratory motion degradation with questionable filling defect in the right upper lobe. No evidence of RV strain. Also several small pulmonary nodules which have remained stable compared to prior CT
TAVR from November 2021. Given concern for possible acute PE, he was started on heparin drip, and admitted to telemetry. Pulmonary service now consulted for additional management/recommendations.
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
Impression:
#Radiographic suspicion for segmental PE involving right upper lobe --> clinically unlikely to have an acute PE
#Hematuria s/p heparin drip - hematuria now resolved
#Multiple pulmonary nodules (stable, including 6 mm nodule in the posterior right upper lobe, and 2 nodules of 10 mm +8 mm are intrafissural lymph nodes at the right middle lobe, and do not need follow-up)
#Elevated troponin likely due to demand ischemia with type II WI in the setting of tachycardia (initially heart rate to 140 in ER)
#Centrilobular emphysema with suspected COPD
#Acute anemia - stable
#Hyponatremia (mild) - resolved
#DM type II (HbA1c: 6.7 on 06/12/2024)
#Former tobacco smoker (quit 1997 with [id number] history)
#History of severe aortic stenosis s/p TAVR
#Personal history of COVID-19 (09/2021)
#Nonobstructive CAD
#PAD
#History depression
#History of hypertension/hyperlipidemia
#History of kidney stone
Plan:
- Given patient's SOB + elevated D-dimer, CTA chest was performed on 06/11/2024 however there was respiratory motion degradation and poor contrast bolus timing and is unable to clearly rule out a acute PE
- Heparin drip was started but unfortunately he developed hematuria so it is now off
- I have low suspicion for a clinically significant PE considering that he is not hypoxic and only borderline tachycardic, however his troponin was elevated and so was proBNP (2069)
- Lower extremity duplex was negative for DVT; transthoracic echo on 06/12/2023 showed normal RV size and function with preserved LVEF of 55-60% with evidence of well-seated transcatheter aortic valve replacement. PASP was within normal limits at 20
mmHg. This essentially rules out an acute PE
- CT urography done yesterday shows no acute pathology in the abdomen/pelvis
- I believe that his initial tachycardia and shakiness was due to acute surgery and sugar/caffeine from him consuming a large coffee and multiple pastries prior to arrival
- His shakiness and tachycardia have now resolved --> continue to monitor
- Maintain SpO2 >90-94% with supplemental O2 as needed
- Incentive spirometer encouraged q1hr while awake
- Troponin peaked at 0.2351 06/11/2024 � no longer need to continue trending
- Replete electrolytes with K>4, Mg>2
- Maintain euglycemia with goal BG >100 and <180
- prn nebulized bronchodilators - not currently bronchospastic
- DVT ppx: SCDs for now given his hematuria
Patient is being prepared for discharge home. No additional recommendations at this time. Pulmonary service will now sign off. Thank you for allowing us to be involved in the care of this patient. Please reconsult if there are any additional
questions/concerns, or if patient's respiratory status deteriorates. I will also arrange for outpatient PFTs.
Data:
CT urography 06/12/2024:
No acute pathology of the abdomen or pelvis identified.
Hepatic fatty infiltration. Stable
Small bilateral parapelvic renal cysts. Stable on the right.
New on the left.
CTA Chest 06/11/2024:
Limited. Diminished contrast bolus in the segmental and subsegmental vessels in the upper and lower lobes, as well as respiratory motion degradation in the lower lobes.
No central pulmonary artery filling defect to suggest pulmonary embolism.
Vashon subtle questionable filling defect in the right upper lobe proximal anterior segmental pulmonary artery, though uncertain if artifact or actual pulmonary embolism.
Total time spent today was 27 minutes for this encounter. Time includes reviewing laboratory test/imaging results, reviewing pertinent medical records, obtaining and reviewing medical history, performing an appropriate exam, ordering medications,
tests and procedures. Time also includes documentation of this encounter, coordinating patient care and communicating with other healthcare professionals. Total time does not include separately billed tests performed on this date of service.
Subjective Data
-
Date of Service:
Date of Service: June 13, 2024
Chief Complaint: Pulmonary Follow Up
Subjective:
Patient seen and evaluated today at bedside. Denies shortness of breath or chest pain. Eager to go home. Denies AGUSTIN, abdominal pain, nausea, fevers or chills.
Review of Systems
General: Other (Negative unless mentioned above)
Objective Data
Data Reviewed
Vital Signs / I&O / Oxygen:
Vital Signs
Temp Pulse Resp BP Pulse Ox
98 F 83 20 140/63 96
06/13/24 07:15 06/13/24 08:58 06/13/24 07:15 06/13/24 08:58 06/13/24 08:54
Intake and Output
06/12/24 06/13/24 06/14/24
06:59 06:59 06:59
Intake Total 1860 / 1860
Output Total 200 / 200
Balance 1660 / 1660
SaO2 96
Physical Exam
General: Respiratory Distress (negative), Comfortable, Chills (negative) and Sweats (negative)
HEENT: Normocephalic and Anicteric
Cardiovascular: S1-S2, Murmur (PRAVEENA heard best at RUSB) and Peripheral Edema (Trace lower extremity pitting edema bilaterally)
Respiratory: Clear, Wheeze (negative), Crackles (negative), Rhonchi (negative) and Non-Labored Respirations
GI: Soft, Distended (Abdominal obesity), Non Tender and Normal Bowel Sounds
Neurology: AO x 3 and Tremors (negative)
Skin: Warm, Dry, Cyanosis (negative) and Jaundice (negative)
Labs/Micro/Reports
Lab Data
06/13/24 09:01
Microbiology
06/11/24 17:32 Nasal Swab Influenza Types A & B (BENJAMIN) - Final
Negative for Influenza A & B, NAAT
Negative results must be combined with clinical observations
and patient history.
Nucleic Acid Amplification test (NAAT)performed on the
ice platform.
[2024-06-13 09:38] LABS: Hematocrit 37.2 % (39.0-52.0); Hemoglobin 12.6 g/dL (13.0-18.0); Mean Corp Hgb Conc. 33.9 g/dL (33.0-37.0); Mean Corpuscular Hgb 32.2 pg (27.0-31.0); Mean Corpuscular Volume 95.1 fL (80.0-94.0); Mean Platelet Volume 9.7 fL (7.4-10.4); Platelet Count 155 10^3/uL (130-400); Red Blood Cell Count 3.91 10^6/uL (4.70-6.10); Red Cell Dist. Width 14.1 % (11.5-14.5); White Blood Cell Count 13.5 10^3/uL (4.8-10.8)
--- NOTE | 2024-06-13 09:52 | W.DCSUMMARY ---
Discharge Summary
Discharge Data
Date of Admission: 06/12/24
Date of Discharge: 06/13/24
-
Pending Results: No
Hospital Course
Discharge diagnosis:
Pulmonary embolism ruled out
Hematuria in the setting of receiving intravenous heparin
Hypomagnesemia
Shaking chills
Coronary artery disease
Peripheral artery disease
Essential hypertension
Hepatic steatosis
Renal cysts
Obesity due to excess calories
Consults: Pulmonology, cardiology
Chest CT:
Limited. Diminished contrast bolus in the segmental and subsegmental vessels in the upper and lower lobes, as well as respiratory motion degradation in the lower lobes.
No central pulmonary artery filling defect to suggest pulmonary embolism.
Lincoln subtle questionable filling defect in the right upper lobe proximal anterior segmental pulmonary artery, though uncertain if artifact or actual pulmonary embolism.
CT urogram:
No acute pathology of the abdomen or pelvis identified.
Hepatic fatty infiltration. Stable
Small bilateral parapelvic renal cysts. Stable on the right.
New on the left.
Lower extremity Dopplers:
No sonographic evidence for lower extremity venous thrombosis.
Hospital course:
73-year-old male with a past medical history of CAD, PAD, hypertension, and obesity presented with shaking chills after drinking a large [employer] coffee and eating a tasty cake. His infectious workup was negative. Patient had a chest CT in
the ER that was concerning for possible PE. He was started on IV heparin drip.
By the following day, his shaking chills resolved. However, he developed hematuria. His IV heparin drip was discontinued. He was seen in conjunction with pulmonology. Lower extremity Dopplers were negative for DVT. Pulmonology ruled out PE, so
patient does not need anticoagulation.
Patient was seen in conjunction with urology for his hematuria. CT urogram was negative. His hematuria resolved. Patient is medically stable and cleared by both pulmonology and urology for discharge. He can follow-up with pulmonology in the
office for PFTs, and urology in the office for further workup of his transient hematuria.
Disposition: Home self-care
Discharge planning: Required 43 minutes
Discharge Plan
-
Patient Disposition: Home with Home Care
Discharge Diagnosis/Procedures: Shaking chills, transient hematuria
Condition: Good
Diet: Low Fat and Low Cholesterol
Activity: As tolerated
Driving Restrictions: As prior to admission
Activity Restrictions/Additional Instructions:
Follow-up with your primary care doctor in 1 week, pulmonology and urology in the office as directed.
To complete the testing for blood in the urine, you will need a bladder scope procedure
Please schedule an appointment with Dr. Rasheed in the next 2-4 weeks to discuss
[facility]: [phone]
Referrals:
Wes Hernandez MD [Active] - in two to four weeks (full PFTs on day of office visit)
Jon Rasheed MD [Active] - in two to four weeks
Turner Guardado MD [Family Provider] - in one week
Prescriptions:
Continued
aspirin 81 MG tablet,delayed release (DR/EC)
81 mg PO DAILY
doxazosin 8 MG tablet
8 mg PO DAILY
amlodipine-benazepril 1 EACH capsule
1 cap PO DAILY
multivitamin Tablet
1 tab PO DAILY
atorvastatin 20 mg tablet
20 mg PO DAILY Qty: 30 0RF
Rx Instructions:
Resume
Discharge Orders:
Discharge Patient (As Directed); Ordered 06/13/24
Ordered By: Stalin Chaney
Discharge Date and Time
Discharge Date/Time: 06/13/24 10:55
Print Language: UZBEK
[2024-06-13 11:27] LABS: Blood Urea Nitrogen 20 mg/dl (9-20); Calcium 9.1 mg/dl (8.4-10.2); Carbon Dioxide 25 mmol/L (22-30); Chloride 102 mmol/L (98-107); Estimated Creatinine Clearance 91 ml/min; Glucose 144 mg/dl (70-99); Magnesium 2.2 mg/dl (1.6-2.3); Potassium 4.5 mmol/L (3.5-5.1); Sodium 138 mmol/L (135-145); eGFR > 60.00
== END 2024-06-13 10:55 | disposition home health service (06) | DRG 176 ==
LOC: 4 EAST ACU 01:42
PROVIDERS: Nurse Practitioner Family; Physician Assistant; ADMITTING PHYSICIAN Hospitalist; ATTENDING PHYSICIAN Family Medicine; CONSULT PHYSICIAN Internal Medicine Critical Care Medicine; CONSULT PHYSICIAN Urology; EMERGENCY PHYSICIAN Student in an Organized Health Care Education/Training Program; FAMILY PHYSICIAN Family Medicine
DX: I26.99 Other pulmonary embolism without acute cor pulmonale (principal); E87.1 Hypo-osmolality and hyponatremia; Z87.891 Personal history of nicotine dependence; I25.10 Atherosclerotic heart disease of native coronary artery without angina pectoris; I10 Essential (primary) hypertension; E83.42 Hypomagnesemia; E66.09 Other obesity due to excess calories; Z68.34 Body mass index [BMI] 34.0-34.9, adult; N20.0 Calculus of kidney; Z11.52 Encounter for screening for COVID-19
CPT/HCPCS: 93308; 71046; 71275; 74178; 80048; 80053; 81003; 81015; 83036; 83735; 83880; 84443; 84484; 85014; 85018; 85025; 85027; 85379; 85730; 87502; 87811; 93005; 93321; 93325; 93970; 96365; 96366; 96367; 97116; 97162; 97166; 99285; Q9967

== ENCOUNTER 2024-06-15 23:31 | Inpatient (IN) | payer MEDICARE, BC, SELFPAY ==
[2024-06-15] MEDS: TYLENOL/FEVERALL 650 MG RECTAL (19:06)
--- NOTE | 2024-06-15 19:12 | ED.GENMED ---
History of Present Illness
General
Chief Complaint: Change in Mental Status
Source: patient and ambulance crew
Exam Limitations: none
Time Seen by Provider: 06/15/24 19:04
Nursing documentation reviewed up to this point in time: agreed with
History of Present Illness
History of Present Illness:
The patient is a 73-year-old man who reportedly was ' acting weird' while on the phone with his daughter. According to paramedics, his daughter went to check up on him and he had an altered mental status. His blood sugar was found to be low and he
was given juice. On arrival, patient found to have a fever of 105. Patient awake but seems confused at times. He does not remember the course of events of today. He denies headache, shortness of breath, chest pain and sore throat.
Past History
Past History
ED Past Medical History: HTN, Valvular disease and Other (Diverticulosis, Kidney stones)
ED Past Surgical History: Cardiac (TAVR) and Other (Hernia repair)
Social History
Tobacco: Former smoker
Alcohol: Former
Drug: None
Personal: Other
Living: with family (Patient says he lives with his son)
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
Family History
Family History: CAD (Mother with ID at 57 No aneurysm)
Review of Systems
Review of Systems
Allergies reviewed?: Yes
All Other Systems: Not applicable (Limited due to confusion)
Constitutional: Reports fever and fatigue
EENT: Reports no symptoms
Respiratory: Reports no symptoms
Cardiac: Reports no symptoms
ABD/GI: Reports no symptoms
: Reports no symptoms
Musculoskeletal: Reports no symptoms
Skin: Reports no symptoms
Neurological: Reports other
Phy Exam
Physical Exam
Physical Exam:
Physical Exam
General: Patient appears flushed and tired but conversational. Occasionally says things that do not make sense but generally follows simple commands
Neck: supple. no meningeal signs. normal psoterior pharynx
Heart: Tachycardic,
Lungs: no acute respiratory distress. clear bilaterally
Abdomen: normal bowel sounds. not tender. no CVAT
Neuro: alert and orientedx3. no focal neurological deficits
Skin: no rash
Psychiatric: well kept. interactive and cooperative
Extremities: no edema. no calf tenderness. negative homans. good distal pulses
Course
Orders/Labs/Results
Orders:
Orders
06/15/24 19:02
Acetaminophen [Tylenol/Feverall] 650 mg .ROUTE .STK-MED ONE
06/15/24 19:04
Acetaminophen [Tylenol/Feverall] 650 mg RECTAL NOW STA
06/15/24 19:11
0.9% Sodium Chloride 1000 ml [Nss] 1,000 ml IV BOLUS
06/15/24 19:12
Electrocardiogram (*1) Urgent
Reason for Study: Tachycardia
EKG- Treatment ONCE
06/15/24 19:31
COVID-19 Antigen Urgent
Source: Nasal Swab
Complete Blood Count/With Diff Urgent
Comprehensive Metabolic Panel Urgent
Lactic Acid Urgent
Urinalysis Reflex To Culture Urgent
Date Specimen was Collected: 06/15/24
Time Specimen was Collected: 19:23
Urine Microscopic Reflex Cult Urgent
Influenza A+B Rapid Molecular Urgent
JOSEPH Source: Nasal Swab
Specimen Description:
06/15/24 19:36
CR Chest - 2 Views Urgent
Comment:
Reason For Exam: fever
Abnormal Lab Results
06/15/24
19:31
WBC 13.8 H 10^3/uL
(4.8-10.8)
RBC 3.85 L 10^6/uL
(4.70-6.10)
Hgb 12.3 L g/dL
(13.0-18.0)
Hct 35.9 L %
(39.0-52.0)
MCH 31.9 H pg
(27.0-31.0)
Abs Immat Gran (auto) 0.1 H 10^3/uL
(0-0.05)
Absolute Neuts (auto) 12.6 H 10^3/uL
(1.4-6.5)
Absolute Lymphs (auto) 0.4 L 10^3/uL
(1.2-3.4)
Absolute Monos (auto) 0.7 H 10^3/uL
(0.1-0.6)
Immature Gran % 0.6 H %
(0-0.5)
Neutrophils % 91.3 H %
(42.2-75.2)
Lymphocytes % 2.8 L %
(20.5-51.1)
Sodium 129 L D mmol/L
(135-145)
Chloride 97 L mmol/L
(98-107)
Carbon Dioxide 21 L mmol/L
(22-30)
Glucose 164 H mg/dl
(70-99)
Urine Ketones Trace A
(Negative)
Ur Occult Blood Reflex 1+ A
(Negative)
Urine Bacteria (Reflex) Few A
(Negative)
06/15/24 19:31
06/15/24 19:31
Vital Signs
Initial and Last Documented VS:
Initial Vital Signs
Pulse Resp BP Pulse Ox
114 23 163/70 94
06/15/24 19:39 06/15/24 19:39 06/15/24 19:39 06/15/24 19:39
Last Documented Vital Signs
Temp Pulse Resp BP Pulse Ox
103.2 F H 93 19 123/64 95
06/15/24 21:00 06/15/24 21:30 06/15/24 21:30 06/15/24 21:00 06/15/24 21:30
MDM/Problems Addressed
Differential Diagnosis Includes:
Pneumonia, UTI, COVID, influenza
MDM/Problems Addressed:
Patient presents with acute confusion, hypoglycemia, and fever
Chronic conditions affecting care: DM
Acute Exacerbation and/or Progression of Chronic Illness: DM
*Radiology
Radiology exam reviewed: preliminary read by ED provider (Chest x-ray reviewed by me. Left lower lobe pneumonia) and radiology read reviewed
*Pulse Oximetry
Patient hypoxic: no
*EKG
Interpreted by ED Provider?: Yes
Interpretation: abnormal
Comparison EKG: no changes
Rate: tachycardiac
Rhythm: sinus
Kasson: normal axis
Interval: normal interval
QRS Pattern: normal QRS
Ischemia: no ischemia
*Vice President [employer] Engineering Interpretation
Rate: tachycardiac
Interpretation: abnormal
Rhythm: sinus
*Critical Care Note
Total Time (30-74mins, 75-104mins- exclusive of procedures): 35 minutes
comment:
35 minutes critical care given to the patient including frequent reassessments of his mental status, heart rate, reviewing his recent hospitalization and speaking to patient and family
Data Reviewed
Review of Other/Old Records Reveals: Discharge Summary (Discharge summary reviewed from June 13, 2024 which shows that patient was admitted for chills and transient hematuria)
ED Attending Note
-
Portions of this chart may have been created with voice recognition software.� Occasional wrong word or��sound alike� substitutions may have occurred due to the inherent limitations of voice recognition software.
Discharge Plan
Departure
Patient Disposition: Admit
Date of Disposition: 06/15/24
Time of Disposition: 21:51
Admit to: Med/Surg
Presentation/result/management discussed w/ accepting MD/DO: Hospitalist
Patient with high blood pressure during this ER visit?: Yes
Condition: Good
Covid-19: Negative COVID-19
Discharge Problem:
Hospital acquired PNA, Acute hyponatremia, Altered mental status
Prescriptions:
No Action
aspirin 81 MG tablet,delayed release (DR/EC)
81 mg PO DAILY
doxazosin 8 MG tablet
8 mg PO DAILY
amlodipine-benazepril 1 EACH capsule
1 cap PO DAILY
multivitamin Tablet
1 tab PO DAILY
atorvastatin 20 mg tablet
20 mg PO DAILY Qty: 30 0RF
Rx Instructions:
Resume
Referrals:
Turenr Guardado MD [Family Provider] -
Interventions
Interventions:
*Risk Screen - Suicide Last Done: 06/15/24 20:38
*General Assessment Last Done: 06/15/24 19:14
*Neglect/Abuse Screening Last Done: 06/15/24 20:00
ED- Fall Risk Assessment Last Done: 06/15/24 20:00
*ED COVID-19 Vaccine History Last Done: 06/15/24 19:14
ED- Pulmonary Assessment Last Done: 06/15/24 20:00
ED- Neurological Assessment Last Done: 06/15/24 20:00
ED- Cardiac Assessment Last Done: 06/15/24 20:00
Discharge Date and Time
Print Language: MALAY
[2024-06-15] MEDS: NSS 1000 IV (19:29)
[2024-06-15 19:39] VITALS: BP 163/70
[2024-06-15 19:52] LABS: % Basophils 0.5 % (0-2); % Eosinophils 0.1 % (0-6); % Immature Granulocytes 0.6 % (0-0.5); % Lymphocytes 2.8 % (20.5-51.1); % Monocytes 4.7 % (1.7-9.3); % Neutrophils 91.3 % (42.2-75.2); Absolute Basophils 0.1 10^3/uL (0-0.2); Absolute Immature Granulocytes 0.1 10^3/uL (0-0.05); Absolute Lymphocytes 0.4 10^3/uL (1.2-3.4); Absolute Monocytes 0.7 10^3/uL (0.1-0.6); Absolute Neutrophils 12.6 10^3/uL (1.4-6.5); Hematocrit 35.9 % (39.0-52.0); Hemoglobin 12.3 g/dL (13.0-18.0); Mean Corp Hgb Conc. 34.3 g/dL (33.0-37.0); Mean Corpuscular Hgb 31.9 pg (27.0-31.0); Mean Corpuscular Volume 93.2 fL (80.0-94.0); Mean Platelet Volume 9.6 fL (7.4-10.4); Nucleated Red Blood Cells % 0 % (-); Platelet Count 140 10^3/uL (130-400); Red Blood Cell Count 3.85 10^6/uL (4.70-6.10); Red Cell Dist. Width 13.7 % (11.5-14.5); White Blood Cell Count 13.8 10^3/uL (4.8-10.8)
[2024-06-15 19:56] LABS: Urine Albumin Trace (Neg - Trace); Urine Bilirubin Negative (Negative); Urine Character Clear (Clear); Urine Color Yellow; Urine Glucose Negative (Negative); Urine Ketone Trace (Negative); Urine Leukocyte Negative (Negative); Urine Nitrite Negative (Negative); Urine Occult Blood 1+ (Negative); Urine Urobilinogen Negative (Neg - 1+)
[2024-06-15 20:00] VITALS: BP 166/63
[2024-06-15 20:01] LABS: Urine Bacteria Few (Negative); Urine Red Blood Cell 0-2 /HPF (0-2); Urine Squamous Cell 0-2 /LPF (Few); Urine White Cell 0-2 /HPF (0-5)
[2024-06-15 20:05] LABS: Lactic Acid 1.2 mmol/L (0.7-2.0)
[2024-06-15 20:16] LABS: COVID-19 Antigen Negative (Negative)
[2024-06-15 20:17] LABS: ALT (SGPT) 27 U/L (0-50); AST (SGOT) 31 U/L (17-59); Albumin 3.7 g/dl (3.5-5.0); Alkaline Phosphatase 50 U/L (38-126); Blood Urea Nitrogen 19 mg/dl (9-20); Calcium 8.6 mg/dl (8.4-10.2); Carbon Dioxide 21 mmol/L (22-30); Chloride 97 mmol/L (98-107); Glucose 164 mg/dl (70-99); Potassium 4.1 mmol/L (3.5-5.1); Sodium 129 mmol/L (135-145); Total Protein 6.4 g/dl (6.3-8.2); eGFR > 60.00
[2024-06-15 21:00] VITALS: BP 123/64
[2024-06-15 22:00] VITALS: BP 110/63
[2024-06-15 22:06] VITALS: BMI 36.8
[2024-06-15] MEDS: ZOSYN 100 IV (22:36)
--- NOTE | 2024-06-15 22:54 | HPS.HSE ---
Family Physician
-
Family Physician: Turner Guardado
Chief Complaint
-
Shaking chills and confusion
History of Present Illness
This is a 73-year-old with past medical history significant for CAD, PAD, hypertension and obesity who presents to the Emergency Department with recurrent episode of shaking chills.
Patient reports arising today and started having shaking chills. He measured a temperature of 105 at home. He denies any cough. He denies any chest pain. He denies any order or intra-abdominal or urinary process. Patient had a similar
presentation about a week ago for which she was admitted to the hospital. At that time he had shaking chills and fever and had a CT PE study. There was question of PE but ultimately it was ruled out. He had an episode of hematuria and urology
also saw the patient and his hematuria resolved. They did not require further anticoagulation and he was discharged after the second day. He reports not having any cough since discharge from the hospital. He denies any lower extremity swelling.
He denies any palpitations. Patient denies any sore throat, sinus congestions, neck pain or stiffness.
In the emergency department patient was febrile to 103.2, oxygen saturation was 96%. Blood pressure was 110/63 with a pulse of 90. He had leukocytosis to 13,000, hemoglobin and platelets were normal. Sodium was 129 with rest of electrolytes and
BUN/creatinine otherwise normal. UA was negative. COVID test and influenza were negative. Chest x-ray shows a left lower lobe opacity.
Medical History
Past Medical History
Past Medical History: Reports CAD, Valvular Disease (Aortic stenosis status post TAVR) and Other
Additional Past Medical History:
Kidney stones
Past Surgical History: Reports Cardiac (TAVR) and Other (Hernia repair)
Social History
Tobacco: Former Smoker
Alcohol: None
Drug: None
Personal: Other
Living: With Family
Employment: Retired
Family History
Family History: Not pertinent
Allergies / Home Medications
Allergies reflects when Allergies were last updated in [facility].
Home Medications with original date entered in [facility]
Allergy/Medication List:
Allergies
Allergy/AdvReac Type Severity Reaction Status Date / Time
No Known Drug Allergies Allergy Unknown Verified 06/11/24 21:56
Home Medications
aspirin 81 mg tablet,delayed release 81 mg PO DAILY Blood clot prevention/tx 01/24/16
doxazosin 8 mg tablet 8 mg PO DAILY Urinary issue 01/24/16
amlodipine 10 mg-benazepril 20 mg capsule 1 cap PO DAILY Blood pressure 11/25/21
multivitamin 1 tab PO DAILY Supplement 09/15/22
atorvastatin 20 mg tablet 20 mg PO DAILY PAD #30 tabs 09/29/22
Review of Systems
-
History Source: Patient
Constitutional: Reports Fever and Chills
EENT: Reports No Symptoms
Respiratory: Reports No Symptoms
Cardiac: Reports No Symptoms
Abdomen/GI: Reports No Symptoms
: Reports No Symptoms
Musculoskeletal: Reports No Symptoms
Skin: Reports No Symptoms
Neurological: Reports No Symptoms
Endocrine: Reports No Symptoms
Hematologic/Lymphatic: Reports No Symptoms
Psych: Reports No Symptoms
Physical Exam
Vital Signs
Vital Signs
Temp Pulse Resp BP Pulse Ox
103.2 F H 85 20 110/63 97
06/15/24 21:00 06/15/24 22:45 06/15/24 22:45 06/15/24 22:00 06/15/24 22:45
Physical Exam
General: Well Developed, Well Nourished, No Apparent Distress, Comfortable and Conversant
HEENT: NormoCephalic, Anicteric, Moist mucous membranes and Atraumatic
Respiratory: Clear
Cardiac: S1/S2 and Regular Rhythm
Breast: Deferred by me
GI: Soft, Non Tender, Normal Bowel Sounds and Distended
Rectal: Deferred by Provider
Genito-urinary: Deferred by me
Musculoskeletal: No Clubbing, No Cyanosis and No Edema
Skin: Warm
Neuro: AO x 3 and Nonfocal/grossly intact
Hematologic/Lymphatic: No Lymphadenopathy
Psych: Calm
Laboratory Results
-
06/15/24 19:31
06/15/24:
Laboratory Results
Lactic Acid 1.2 mmol/L (0.7-2.0) 06/15/24:
Total Bilirubin 1.0 mg/dl (0.2-1.3) 06/15/24
AST 31 U/L (17-59) 06/15/24
ALT 27 U/L (0-50) 06/15/24
Alkaline Phosphatase 50 U/L (38-126) 06/15/24:
Data Reviewed
-
Diagnostic Radiology: Image Personally Visualized and interpreted and Report Reviewed by me
Lab Data: Labs Reviewed by me
Old Records: Reviewed
Impression/Plan
-
IMPRESSION:
This is a 73-year-old with with past medical history of CAD, status post TAVR, obesity, BPH presenting to the emergency department with shaking chills and fever to as high as 103.2 in the ED. He is not hypoxic. Chest x-ray does show a left
lower lobe opacity. UA is clear. COVID and flu are negative. Was initially confused but now appears to be in normal mental status. Labs notable for a sodium of 129 but otherwise unremarkable. Does have leukocytosis. Patient was seen in the
hospital about a week ago with shaking chills. At the time there was concern for PE but it was negative. He also had hematuria which resolved. Patient was in the hospital overnight for at least 2 days.
PLAN:
Pneumonia -although no cough or shortness of breath, he does have a high fever and left lower lobe opacity with recent hospitalization. Leukocytosis w/ left shift
- admit to med/surg
- check procal
- start vanc/cefepime/doxycycline for now
- blood cultures sent
- check esr, if elevated, will get consider cardiac imaging, recent echo with well seated valves and normal ef.
- given severity of fever and subtle pneumonia (no cough, sob, cp, 'mild left lower lobe), will consult ID
Hyponatremia - Suspect due to acute infection and possible siadh. Acute. HD stable without signs of significant hypovolemia
- give NS overnight, checking urine na and osm
- repeat lytes in am determine if fluid restriction or hypertonic. No indication for either immediately
ASCVD / PAD
- Continue ASA, statin, etc.
Benign Hypertension
- Stable. Continue current regimen with holding parameters.
DVT PPX - lovenox sq
Code status - Full code
[2024-06-15 23:00] VITALS: BP 151/73
[2024-06-15] MEDS: VANCOCIN 540 MG IV (23:20)
[2024-06-16 00:23] LABS: Osmolality Urine 601 mOsm/kg (300-900)
[2024-06-16 00:28] LABS: Urine Sodium 111 mmol/L (30-90)
[2024-06-16] MEDS: NSS 1000 IV ×3 (01:09→20:23)
[2024-06-16] MEDS: ZITHROMAX INFUSION 250 IV (01:09)
[2024-06-16] MEDS: MAXIPIME 2000 MG IV (04:27)
[2024-06-16] MEDS: STERILE WATER FOR INJECTION 10 ML IV (04:29)
[2024-06-16 04:30] VITALS: BP 162/72
[2024-06-16 06:56] LABS: Blood Urea Nitrogen 18 mg/dl (9-20); Calcium 8.1 mg/dl (8.4-10.2); Carbon Dioxide 24 mmol/L (22-30); Chloride 102 mmol/L (98-107); Estimated Creatinine Clearance 103 ml/min; Glucose 160 mg/dl (70-99); Potassium 4.2 mmol/L (3.5-5.1); Sodium 134 mmol/L (135-145); eGFR > 60.00
--- NOTE | 2024-06-16 07:29 | PHA.VAN.IN ---
Assessment
- Assessment
Renal Function: Appears similar to baseline
Maximum Temperature: 103.2 - 06/15/23 @2100
Concomitant Antimicrobials: azithromycin,cefepime
AUC Dosing Plan
- Dosing Variables
Dosing Weight (kg): 126
Dosing CrCl (ml/min): 100
Vd coefficient (L/kg): 0.6
- Empiric Dosing
Initial / Loading Dose: 2000 mg - given 06/15 2319
Maintenance Regimen: 1500 mg q12h - to start this AM
Estimated AUC (mcg*h/mL): 484
Estimated Peak (mcg*h/mL): 30.5
Estimated Trough (mcg/ml): 12.2
Estimated Half Life (H): 7.9
- Monitoring
No levels ordered at this time: consider levels when pt nears steady state
Pharmacokinetics Vancomycin I
- -
Patient Age: 73
Patient Sex: Male
Vancomycin Day #: 1
Indication: Pulmonary/Respiratory
Requesting Provider: Dariusz
Height / Weight:
Height 6 ft 1 in
Actual Weight 126.6 kg
Pertinent Past Medical History: obesity
- Vital Signs / Lab Results
Temp Pulse Resp BP Pulse Ox
99.1 F 110 22 162/72 96
06/16/24 04:30 06/16/24 04:30 06/16/24 04:30 06/16/24 04:30 06/16/24 04:30
Lab Results - Hematology
06/15/24
19:31
WBC 13.8 H
Lab Results - Chemistry
06/15/24 06/16/24
19:31 06:26
BUN 19 18
Creatinine 0.9 0.9
Estimated Creat Clear 103
Albumin 3.7
06/15/24
19:31
Lactic Acid 1.2
Lab Results - Urine
06/15/24
19:31
Urine Nitrite (Reflex) Negative
Leukocyte Esterase Rfl Negative
Urine WBC (Reflex) 0-2
Ur Squamous Epith Cells 0-2
Urine Bacteria (Reflex) Few A
Microbiology Results
06/15/24 19:31 Influenza Types A & B (BENJAMIN) - Final
Nasal Swab Negative for Influenza A & B, NAAT
Negative results must be combined with clinical observations
and patient history.
Nucleic Acid Amplification test (NAAT)performed on the
[employer] platform.
[2024-06-16 08:37] LABS: Erythrocyte Sed Rate 31 mm/hour (0-20)
[2024-06-16 08:48] VITALS: BP 95/76
[2024-06-16 08:48] LABS: Hematocrit 34.9 % (39.0-52.0); Hemoglobin 11.9 g/dL (13.0-18.0); Mean Corp Hgb Conc. 34.1 g/dL (33.0-37.0); Mean Corpuscular Hgb 31.8 pg (27.0-31.0); Mean Corpuscular Volume 93.3 fL (80.0-94.0); Mean Platelet Volume 10.3 fL (7.4-10.4); Platelet Count 145 10^3/uL (130-400); Red Blood Cell Count 3.74 10^6/uL (4.70-6.10); Red Cell Dist. Width 13.8 % (11.5-14.5); White Blood Cell Count 11.6 10^3/uL (4.8-10.8)
--- NOTE | 2024-06-16 09:06 | W.PN.HOSP.TC ---
Today's Communication/Plan
-
Hold antibiotics
Blood cultures
ID consult
Assessment / Plan
Assessment / Plan
Gen-AAOx3, NAD, obese
HEENT-NC, AT, anicteric, clear oral mm
Neck-supple
CV-reg, no M, +S1/S2
Lungs-clear B/L
Abd-soft, NT, ND
Ext-no edema
Musculoskeletal-no cyanosis, clubbing
Skin-warm and dry
Neuro-grossly non-focal
Psych-calm, cooperative
Acute metabolic encephalopathy - likely due to sepsis. Mental status improved.
Sepsis -no clear source. Questionable left lower lobe infiltrate on chest x-ray but minimal pulmonary symptoms. He states he had a sore throat and mild cough since Thanksgi. Denies significant shortness of breath.
Given TAVR, I am most concerned for bacteremia, prosthetic valve endocarditis. Check blood cultures. Unfortunately not sent previously. Hold antibiotics. Consult ID.
Hyponatremia -likely hypovolemic. Improving.
DM2 without hyperglycemia -seems like a new diagnosis for him. Hemoglobin A1c 6.7% recently. Glucose 160 this morning. Not on meds. Use low resistance NovoLog scale for now.
Hx /TAVR
CAD - stable.
Hyperlipidemia -atorvastatin.
Essential hypertension
Hx Nephrolithiasis
Obesity due to excess calories
Full code
Anticipated Discharge: > 48 hours
Subjective/Interval History
-
Date of Service: June 16, 2024
Patient seen and examined. Feeling better. No complaints currently.
Objective Data
-
Labs:
Laboratory Results
06/16/24
06:26
WBC 11.6 H
Hgb 11.9 L
Hct 34.9 L
Plt Count 145
Sodium 134 L
Potassium 4.2
Chloride 102
Carbon Dioxide 24
BUN 18
Creatinine 0.9
Glucose 160 H
Calcium 8.1 L
Vital Signs:
Vital Signs
Temp Pulse Resp BP Pulse Ox
98.7 F 95 22 95/76 96
06/16/24 08:48 06/16/24 08:48 06/16/24 08:48 06/16/24 08:48 06/16/24 04:30
Review of Systems
-
History Source: Patient
All other systems: Reviewed and negative
[2024-06-16] MEDS: CARDURA 8 MG PO (09:11)
[2024-06-16 09:13] VITALS: BP 127/57
[2024-06-16] MEDS: LOTREL 10 MG/20 MG 1 CAPSULE PO (09:14)
[2024-06-16] MEDS: ASPIR LOW (ENTERIC COATED) 81 MG PO (09:14)
[2024-06-16] MEDS: LIPITOR 20 MG PO (09:14)
--- NOTE | 2024-06-16 10:57 | PTCARENOTE ---
pt aaox3. states having a headache. asa given as ordered. pt oob to bathroom self. inc or urine and stool. ivf running as ordered. room air bretah sounds clear.
[2024-06-16 13:02] LABS: Glucose - Point of Care 142 mg/dl (70-99)
--- NOTE | 2024-06-16 13:14 | CON.ID ---
Consultation
-
Date/Time Consultation Requested: 06/15/24 23:35
Date/Time Consultation Performed: 06/16/24 13:15
Requesting Provider: Dr Arzola
Performing Provider: Dr Larson
Reason for Consultation: atypical pneumonia
Chief Complaint / Past History
Chief Complaint
Shaking chills and confusion
History of Present Illness
Mr Noriega is a 73 year old male with history notable for CAD, s/p TAVR (2021), history of renal stones who presented here last night for fevers (105 at home) chills. Of note he also had similar episode with shaking chills 06/12/24 with nausea with
emesis and difficulty ambulating, fatigue. No chest pains or palpitations. He was started on heparin drip and developed hematuria, no penile discharge. He was seen here admitted, CTA negative for PE with pulmonary nodules stable since 2021, covid
and influenza screens negative, CXR unremarkable, UA without pyuria, UT urogram negative, there were no further fevers or shaking or chills attributed to high sugar meal taken shortly before arrival and patient was discharged. He returned home on
06/13 however on 06/15 he noted relapse of fevers to 105 at home and shaking chills. No headache, cough, sinus tenderness, sore throat, sinus congestions, neck pain, nausea, vomiting, diarrhea, constipation, dysuria, ulcers on the penis, rashes, new
joint pains, further hematuria, lower extremity swelling. Spends time with sons dog who is healthy, no farms animals or other animal exposures. 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
PTSA/anxiety. Never known to have lyme disease. 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 Was exposed to agent orange in [place].
Since arrival here Tmax is 103.2 orally, BP stable, wbc initially 13.8 today 11.6, hgb 11.9, plt 145, L shift noted, esr 31, na initially 129 today 134, co2 initially 21 now 24, cr 0.9, lactic acid 1.2, t bili 1.0, ast 31, alt 27, alk phos 50, a
procalcitonin was sent not yet resulted, UA no pyuria, covid ag negative x2 (06/11 and 06/15), blood cultures x2 in progress, legionella urinary ag negative, influenza pcr negative, mrsa screen negative, 06/15 CXR: mild LLL pneumonia vs atelectasis, CT
with oral and IV contrast a/p 06/12 fatty liver, atelectasis vs scarring of the LLL and lingula, 06/12 venous US of the LE: no dvt, 06/11 CT chest PE: no definite PE or infiltrate. Had doses of azithromycin, zosyn, vancomycin so far this admission,
currently no antibiotics ordered.
Past History
Additional Past Medical History:
Severe Aortic Stenosis
ASCVD
Hypertension
Nephrolithiasis
DJD / DDD
Obesity
Sensorineural Hearing Loss
Additional Past Surgical History:
Umbilical Hernia Repair
Inguinal Hernia Repair
TAVR
Left Femoral Endarterectomy
Left Fem-Fem Bypass
Allergy History:
No Known Drug Allergies Allergy (Verified 06/11/24 21:56)
Unknown
Medications Reviewed: Yes
Social History
Tobacco: Former Smoker
Alcohol: None
Drug: None
Employment: Other ( with exposure to agent orange during [place] war )
Family History
Family History: Not Pertinent
Review of Systems
Review of Systems
General: Fever and Chills
All systems: All other systems were reviewed and were negative
Vital Signs
Temp Pulse Resp BP Pulse Ox
98.7 F 95 22 127/57 96
06/16/24 08:48 06/16/24 08:48 06/16/24 08:48 06/16/24 09:14 06/16/24 04:30
Physical Exam
Physical Exam
Constitutional: No Acute Distress and Obese
Cardiovascular: Regular Rate and S1/S2; Negative Murmur or Rub
Pulmonary: Clear and Symmetric; Negative Wheezes, Rales or Rhonchi
Gastrointestinal: Soft, Non Tender, Non Distended and Normal Bowel Sounds
Skin: Warm and Dry; Negative Rash or Jaundice
Lab / Diagnostic Study Results
06/16/24 06:26
06/16/24 06:
Abs Immat Gran (auto) 0.1 10^3/uL (0-0.05) H 06/15/24:31
Absolute Neuts (auto) 12.6 10^3/uL (1.4-6.5) H 06/15/24:
Absolute Lymphs (auto) 0.4 10^3/uL (1.2-3.4) L 06/15/24:
Absolute Monos (auto) 0.7 10^3/uL (0.1-0.6) H 06/15/24:
Absolute Basos (auto) 0.1 10^3/uL (0-0.2) 06/15/24:
Immature Gran % 0.6 % (0-0.5) H 06/15/24:
Neutrophils % 91.3 % (42.2-75.2) H 06/15/24:
Lymphocytes % 2.8 % (20.5-51.1) L 06/15/24:
Monocytes % 4.7 % (1.7-9.3) 06/15/24:
Eosinophils % 0.1 % (0-6) 06/15/24:
Basophils % 0.5 % (0-2) 06/15/24
ESR 31 mm/hour (0-20) H 06/16/24 06:26
Lactic Acid 1.2 mmol/L (0.7-2.0) 06/15/24
Ur Squamous Epith Cells 0-2 /LPF (Few) 06/15/24
Microbiology Results
Micro:
06/16/24 09:30 Nasal Screen MRSA (PCR) - Final
Nose MRSA not detected - performed by PCR methodology.
06/16/24 10:18 Blood Culture - Pending
Blood/Venous
06/16/24 09:30 Blood Culture - Pending
Blood/Venous
06/15/24 19:31 Legionella Urinary Antigen - Final
Urine Negative for Legionella pneumophila Serogroup 1 antigen.
A negative result does not rule out the possiblity of
Legionella infection due to other serogroups or species of
Legionella. Clinical correlation is recommended.
06/15/24 19:31 Influenza Types A & B (BENJAMIN) - Final
Nasal Swab Negative for Influenza A & B, NAAT
Negative results must be combined with clinical observations
and patient history.
Nucleic Acid Amplification test (NAAT)performed on the
[employer] platform.
Assessment / Plan
FUO
H/o TAVR
- blood cultures x2 in progress
- imaging: CTA chest, CT a/p with iv and oral contrast, CXR, 06/12/24 TTE: no definitive cause of fevers
- agree unlikely to have pneumonia given lack of respiratory symptoms
- EKG no new blocks
- covid, flu, legionella testing negative
- HIV screen offered, patient declined, monogamous for decades, currently celibate
- babesia smear, lyme progressive, anaplasma pcr
- GARFIELD, RF ordered; monospot not indicated in this age range
- qft gold - works at a [employer]
- ferritin
- serum protein electrophoresis
- will follow up procalcitonin as it was already sent, however outside of sepsis and pneumonia difficult to interpret; unlikely pneumonia given history
- trial of doxycycline 100 mg PO BID starting this evening
- follow fever curve, would follow overnight, can consider discharge tomorrow with PRN vs standing tylenol for fevers while workup ongoing.
--- NOTE | 2024-06-16 13:46 | PTCARENOTE ---
report sent to floor pt transferred with belongings.
[2024-06-16 13:54] VITALS: BP 126/72; BMI 35.1
[2024-06-16 14:00] VITALS: BP 126/72
[2024-06-16 16:52] LABS: Glucose - Point of Care 125 mg/dl (70-99)
[2024-06-16] MEDS: LOVENOX 40 MG SC (17:13)
--- NOTE | 2024-06-16 18:34 | PTCARENOTE ---
pt presents from ED via stretcher this afternoon. pt is AAO*3, vss room air. pt denies any pain at this time. pt oriented to the room. call weiss within the reach. plan of care ongoing.
[2024-06-16 19:18] LABS: Rheumatoid Agglutinin Less Than 10 IU (<10 IU)
[2024-06-16] MEDS: VIBRAMYCIN 100 MG PO (20:23)
[2024-06-16 21:12] LABS: Glucose - Point of Care 129 mg/dl (70-99)
[2024-06-16 23:29] VITALS: BP 149/74
[2024-06-17 06:00] VITALS: BMI 34.7
[2024-06-17 06:53] LABS: % Basophils 0.5 % (0-2); % Eosinophils 1.5 % (0-6); % Immature Granulocytes 1.1 % (0-0.5); % Lymphocytes 21.9 % (20.5-51.1); Absolute Eosinophils 0.1 10^3/uL (0-0.7); Absolute Immature Granulocytes 0.1 10^3/uL (0-0.05); Absolute Lymphocytes 1.6 10^3/uL (1.2-3.4); Absolute Neutrophils 4.5 10^3/uL (1.4-6.5); Hemoglobin 11.3 g/dL (13.0-18.0); Mean Corp Hgb Conc. 34.2 g/dL (33.0-37.0); Mean Corpuscular Hgb 32.4 pg (27.0-31.0); Mean Corpuscular Volume 94.6 fL (80.0-94.0); Mean Platelet Volume 9.7 fL (7.4-10.4); Nucleated Red Blood Cells % 0 % (-); Platelet Count 131 10^3/uL (130-400); Red Blood Cell Count 3.49 10^6/uL (4.70-6.10); Red Cell Dist. Width 13.9 % (11.5-14.5); White Blood Cell Count 7.3 10^3/uL (4.8-10.8)
[2024-06-17 07:05] VITALS: BP 137/64
[2024-06-17 07:11] LABS: Glucose - Point of Care 134 mg/dl (70-99)
[2024-06-17 07:12] LABS: Blood Urea Nitrogen 16 mg/dl (9-20); Calcium 8.3 mg/dl (8.4-10.2); Carbon Dioxide 25 mmol/L (22-30); Chloride 106 mmol/L (98-107); Estimated Creatinine Clearance 113 ml/min; Glucose 143 mg/dl (70-99); Potassium 4.2 mmol/L (3.5-5.1); Sodium 139 mmol/L (135-145); eGFR > 60.00
[2024-06-17 07:29] LABS: Procalcitonin 5.03 ng/ml (0.0-0.25)
[2024-06-17] MEDS: ASPIR LOW (ENTERIC COATED) 81 MG PO (08:48)
[2024-06-17] MEDS: VIBRAMYCIN 100 MG PO (08:48)
[2024-06-17] MEDS: CARDURA 8 MG PO (08:48)
[2024-06-17] MEDS: LIPITOR 20 MG PO (08:49)
[2024-06-17] MEDS: LOTREL 10 MG/20 MG 1 CAPSULE PO (08:52)
[2024-06-17] MEDS: NSS IV (09:02)
--- NOTE | 2024-06-17 09:45 | W.PN.ID1 ---
Date of Service
Date of Service: June 17, 2024
Today's Communication
- trial of doxycycline 100 mg PO BID x14 days
- can consider discharge with PRN tylenol for fevers while workup ongoing, follow up in my office in one week
Assessment / Plan
FUO
H/o TAVR
- blood cultures x2 in progress - NGTD
- imaging: CTA chest, CT a/p with iv and oral contrast, CXR, 06/12/24 TTE: no definitive cause of fevers
- agree unlikely to have pneumonia given lack of respiratory symptoms
- EKG no new blocks
- covid, flu, legionella testing negative
- HIV screen offered, patient declined, monogamous for decades, currently celibate
- babesia smear prelim negative, lyme progressive pending, anaplasma pcr pending
- GARFIELD pending, RF negative; monospot not indicated in this age range
- qft gold - works at a [employer] - pnding
- ferritin - normal
- serum protein electrophoresis - pending
- elevated procalcitonin - unclear significance
- trial of doxycycline 100 mg PO BID x14 days
- can consider discharge with PRN tylenol for fevers while workup ongoing, follow up in my office in one week
Chief Complaint
-: Fever (FUO)
Subjective / Review of Systems
no further fevers recorded x24 hours
bp stable
headache yesterday am
has appetite
has been intentionally trying to loose weight with dietary changes and has lost about 20 lbs in the last month
no complaints
walking the halls
spoke with adult daughter, stay at home mom of one toddler, says she will not be able to check in on him. patient lives with adult son.
Vital Signs / Physical Exam
Vital Signs
Vital Signs
Temp Pulse Resp BP Pulse Ox
98.2 F 87 20 137/64 99
06/17/24 07:05 06/17/24 07:05 06/17/24 07:05 06/17/24 07:05 06/17/24 07:05
Physical Exam
Constitutional: No Acute Distress and Obese
Cardiovascular: Regular Rate and S1/S2; Negative Murmur or Rub
Pulmonary: Clear and Symmetric; Negative Wheezes or Rales
Gastrointestinal: Soft, Non Tender, Non Distended and Normal Bowel Sounds
Skin: Warm and Dry; Negative Rash or Jaundice
Objective Data
Lab Data
Lab Results
06/17/24 06:39
06/17/24 06:39
ESR 31 mm/hour (0-20) H 06/16/24 06:26
Estimated Creat Clear 113 ml/min 06/17/24 06:39
Lactic Acid 1.2 mmol/L (0.7-2.0) 06/15/24 19:31
Total Bilirubin 1.0 mg/dl (0.2-1.3) 06/15/24 19:31
AST 31 U/L (17-59) 06/15/24 19:31
ALT 27 U/L (0-50) 06/15/24 19:31
Alkaline Phosphatase 50 U/L (38-126) 06/15/24 19:31
C-Reactive Protein 167.20 mg/L (0.0-10.00) H 06/16/24 16:04
Most recent labs reviewed.
notre resolved leukocytosis and L shift
ferritin 326
procalctionin 5
UA 0-2 wbc/hpf
RF negative
GARFIELD and serum protein electrophoresis pending
lyme and qft gold pending
babesia smear neg
Micro Results:
06/16/24 16:04 Blood Parasites Smear - Preliminary
Blood/Venous
06/16/24 09:30 Nasal Screen MRSA (PCR) - Final
Nose MRSA not detected - performed by PCR methodology.
06/16/24 10:18 Blood Culture - Pending
Blood/Venous
06/16/24 09:30 Blood Culture - Pending
Blood/Venous
06/15/24 19:31 Legionella Urinary Antigen - Final
Urine Negative for Legionella pneumophila Serogroup 1 antigen.
A negative result does not rule out the possiblity of
Legionella infection due to other serogroups or species of
Legionella. Clinical correlation is recommended.
06/15/24 19:31 Influenza Types A & B (BENJAMIN) - Final
Nasal Swab Negative for Influenza A & B, NAAT
Negative results must be combined with clinical observations
and patient history.
Nucleic Acid Amplification test (NAAT)performed on the
[employer] platform.
Care Review
Plan reviewed with: Physician (Dr Encarnacion- discussion with daughter, plan)
--- NOTE | 2024-06-17 11:32 | W.PN.HOSP.TC ---
Today's Communication/Plan
-
Discharge
Assessment / Plan
Assessment / Plan
Gen-AAOx3, NAD, obese
HEENT-NC, AT, anicteric, clear oral mm
Neck-supple
CV-reg, no M, +S1/S2
Lungs-clear B/L
Abd-soft, NT, ND
Ext-no edema
Musculoskeletal-no cyanosis, clubbing
Skin-warm and dry
Neuro-grossly non-focal
Psych-calm, cooperative
Acute metabolic encephalopathy - likely due to sepsis. Mental status improved.
Sepsis -no clear source. Questionable left lower lobe infiltrate on chest x-ray but minimal pulmonary symptoms. He states he had a sore throat and mild cough since Thanksgi. Denies significant shortness of breath.
Given TAVR, I am most concerned for bacteremia, prosthetic valve endocarditis. Blood cultures negative so far but unfortunately were drawn after antibiotic administration.
Empiric doxycycline initiated by ID.
Hyponatremia -likely hypovolemic. Resolved.
DM2 without hyperglycemia -not a new diagnosis. Patient aware and states his PCP has been monitoring as an outpatient. Hemoglobin A1c 6.7% recently. Glucose 143 this morning. Not on meds. Use low resistance NovoLog scale for now. Outpatient
follow-up with PCP next week. Diet, exercise, weight loss discussed with patient.
Hx /TAVR
CAD - stable.
Hyperlipidemia -atorvastatin.
Essential hypertension
Hx Nephrolithiasis
Obesity due to excess calories
Full code
Dispo -medically stable for discharge today. Outpatient follow-up with PCP and ID.
Daughter updated on the phone. All questions answered.
32 minutes spent in discharge process.
Anticipated Discharge: Today
Subjective/Interval History
-
Date of Service: June 17, 2024
Patient seen and examined. Feeling much better. No complaints.
Objective Data
-
Labs:
Laboratory Results
06/17/24
06:39
WBC 7.3
Hgb 11.3 L
Hct 33.0 L
Plt Count 131
Sodium 139
Potassium 4.2
Chloride 106
Carbon Dioxide 25
BUN 16
Creatinine 0.8
Glucose 143 H
Calcium 8.3 L
Vital Signs:
Vital Signs
Temp Pulse Resp BP Pulse Ox
98.2 F 87 20 137/64 99
06/17/24 07:05 06/17/24 07:05 06/17/24 07:05 06/17/24 07:05 06/17/24 07:05
I&O
06/16/24 06/17/24 06/18/24
06:59 06:59 06:59
Intake Total 780 / 780 360 / 360
Balance 780 / 780 360 / 360
Review of Systems
-
History Source: Patient
All other systems: Reviewed and negative
--- NOTE | 2024-06-17 11:41 | W.DS.TRANS ---
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
-
Discharge Instructions:
Discharge Diagnosis/Procedures Fever of unknown origin
Diet Low Cholesterol,Low Fat
Activity As tolerated
Driving Restrictions As prior to admission
Bathing Restrictions None
Instructions:
Stand-Alone Forms:
Changes to Home Medications: No
Discharge Medications:
DC Medications w/original date entered in [employer]
aspirin 81 mg tablet,delayed release 81 mg PO DAILY Blood clot prevention/tx 01/24/16
doxazosin 8 mg tablet 8 mg PO DAILY Urinary issue 01/24/16
amlodipine 10 mg-benazepril 20 mg capsule 1 cap PO DAILY Blood pressure 11/25/21
multivitamin 1 tab PO DAILY Supplement 09/15/22
atorvastatin 20 mg tablet 20 mg PO DAILY PAD #30 tabs 09/29/22
doxycycline hyclate 100 mg capsule 100 mg PO Q12 #26 caps 06/17/24
Home Medication Changes
Pending Results: No
[2024-06-17 11:52] LABS: Glucose - Point of Care 127 mg/dl (70-99)
[2024-06-17 13:31] VITALS: BP 132/67
--- NOTE | 2024-06-17 14:44 | CM ---
Alert awake oriented patient who lives with his son Gt who lives in a 1 story home with 2 step to enter and bed and bathroom on first floor. He is independent in driving and in all activities of daily living.He was offered VN he declined need.His
Dgt Shanel will drive him home today. Agrees with dc today.
[facility]N hx / No SNF history
Pharmacy [facility]
PCP DR Guardado
PLAN Home Declined VN
[2024-06-18 21:53] LABS: ANA, IgG Reflex to HEp-2 None Detected (None Detected)
[2024-06-19 06:00] LABS: Quantiferon Mitogen minus NIL 9.97 IU/mL; Quantiferon NIL 0.03 IU/mL; Quantiferon TB Gold Plus Negative (Negative)
[2024-06-19 13:31] LABS: Lyme Antibody Screen, EIA Negative (Negative)
== END 2024-06-17 15:36 | disposition home or self-care (01) | DRG 871 ==
LOC: 4 EAST ACU 23:31
PROVIDERS: ADMITTING PHYSICIAN Internal Medicine; ATTENDING PHYSICIAN Hospitalist; EMERGENCY PHYSICIAN Emergency Medicine; FAMILY PHYSICIAN Family Medicine; OTHER PHYSICIAN Student in an Organized Health Care Education/Training Program
DX: A41.89 Other specified sepsis (principal); G93.41 Metabolic encephalopathy; E87.1 Hypo-osmolality and hyponatremia; I25.10 Atherosclerotic heart disease of native coronary artery without angina pectoris; I10 Essential (primary) hypertension; E11.9 Type 2 diabetes mellitus without complications; E78.5 Hyperlipidemia, unspecified; E66.09 Other obesity due to excess calories; Z79.82 Long term (current) use of aspirin; Z11.52 Encounter for screening for COVID-19; Z87.891 Personal history of nicotine dependence; Z68.34 Body mass index [BMI] 34.0-34.9, adult
CPT/HCPCS: 71046; 80048; 80053; 81003; 81015; 82728; 82962; 83605; 83935; 84145; 84155; 84165; 84300; 85025; 85027; 85652; 86038; 86140; 86430; 86480; 86618; 87015; 87040; 87207; 87449; 87502; 87641; 87811; 93005; 96361; 96374; 99291

== ENCOUNTER 2024-06-20 14:37 | Inpatient (IN) | payer MEDICARE, BC, SELFPAY ==
[2024-06-20] VITALS (11 sets, daily range): BP systolic 87–145; BP diastolic 53–86; BMI 36.5; BMI 35.4
--- NOTE | 2024-06-20 11:31 | ED.GENMED ---
ED Provider Triage
<Nicola Dash PA-C - Last Filed: 06/20/24 11:32>
-
Patient seen by provider in Triage?: Seen in Triage
73-year-old male presents for reevaluation was just discharged 2 days ago. Now has a fever. Temp at triage is 102.1. He is hypotensive and tachycardic at triage.
Ordered septic workup however patient was sent right back to her room.
Seen by healthcare provider triage but warrants further assessment
History of Present Illness
<Nicola Dash PA-C - Last Filed: 06/20/24 11:32>
General
Chief Complaint: Fever
Time Seen by Provider: 06/20/24 11:30
<Nicolette Guerrero PA-C - Last Filed: 06/21/24 15:08>
General
Source: patient
Exam Limitations: none
Nursing documentation reviewed up to this point in time: agreed with
History of Present Illness
History of Present Illness:
73 y/o M with h/o s/p valve replacement
hre 06/11-06/13 for fever/rigors and elevated troponin; was heparinized after possible PE on ct, then he had hematuria during hospitalization
the PE was r/o and hematuria resolved; d/c without any antibiotics
returned 06/15 for fever/AMS; they interpreted his CXR as pna and he was treated with antibiotics and admitted
his blood cutures were drawn after abx started;
they were negative
he had extensive w/u including ID consult and no obvious source identified;
he was emprically started on doxy pending tick borne testing
he has been taking doxy since discharge but today after eating breakfast developed shaking chills again . temp 102
his daughter said he is a little confuse
dhe is feeling very thirsty
no headache, neck pain, rash, chest pain, sob, abdominal pain, vomiting, diarrhea, dysuria
Past History
<Nicola Dash PA-C - Last Filed: 06/20/24 11:32>
Past History
ED Past Medical History: HTN, Valvular disease and Other (Diverticulosis, Kidney stones)
ED Past Surgical History: Cardiac (TAVR) and Other (Hernia repair)
Social History
Tobacco: Former smoker
Alcohol: Former
Drug: None
Personal: Other
Living: with family (Patient says he lives with his son)
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
Family History
Family History: CAD (Mother with HI at 57 No aneurysm)
Review of Systems
<Nicolette Guerrero PA-C - Last Filed: 06/21/24 15:08>
Review of Systems
Allergies reviewed?: Yes
All Other Systems: Not applicable
Phy Exam
<Nicolette Guerrero PA-C - Last Filed: 06/21/24 15:08>
Physical Exam
Physical Exam:
GENERAL: Alert, mild confusion;
HEAD: NCAT
EYE: pupils equal and reactive, no nystagmus
NECK: Supple,full rom, nontender
ENT: o/p clr, EXTREMELY DRY
CARDIAC: tacycardia, mild murmur. no edema
LUNGS: Clear breath sounds bilaterally, no acute respiratory distress, no wheezes/rales/rhonchi
ABDOMEN: Soft, without focal tenderness, no r/g, no cvat
NEUROLOGICAL: Alert and orientedx 4,
SKIN: Warm and dry,
MUSCULOSKELETAL: mild edema, nontender
PSYCH: Normal and appropriate interaction.
Sepsis
<Nicola Dash PA-C - Last Filed: 06/20/24 11:32>
Sepsis Screen
Sepsis Screen: Possible Sepsis
Date: 06/20/24
Time: 11:31
<Nicolette Guerrero PA-C - Last Filed: 06/21/24 15:08>
Sepsis Screening
Sepsis Assessment: Severe Sepsis
Sepsis Screening: Hypotension
Sepsis Screen
Sepsis Screen: Severe Sepsis
Date: 06/21/24
Time: 15:08
Course
<Nicola Dash PA-C - Last Filed: 06/20/24 11:32>
Orders/Labs/Results
Orders:
Orders
06/20/24 11:30
CR Chest - 2 Views Urgent
Comment:
Reason For Exam: fever
06/20/24 11:48
COVID-19 Antigen Urgent
Source: Nasal Swab
Complete Blood Count/With Diff Urgent
Comprehensive Metabolic Panel Urgent
Lactic Acid Q4H
Comment: CANCEL 2nd LACTIC ACID IF 1st LACTIC ACID IS LESS THAN 2
Blood Culture Q30M
JOSEPH Source: Blood/Venous
Specimen Description:
Influenza A+B Rapid Molecular Urgent
JOSEPH Source: Nasal Swab
Specimen Description:
0.9% Sodium Chloride 1000 ml [Nss] 1,000 ml IV BOLUS
Ibuprofen [Motrin] 600 mg PO NOW STA
06/20/24 11:53
Consult Infectious Disease [INFECTIOUS DISEASE CONSULT] Urgent
Consulting Provider: Winnie Osborne
Was physician already notified: Yes
06/20/24 12:12
Urinalysis Reflex To Culture Urgent
Date Specimen was Collected: 06/20/24
Time Specimen was Collected: 12:11
06/20/24 13:13
Blood Culture Q30M
JOSEPH Source: Blood/Venous
Specimen Description:
06/20/24 14:12
0.9% Sodium Chloride 1000 ml [Nss] 1,000 ml IV BOLUS
06/20/24 14:14
Admit/Transfer Patient As Directed
Co-Sign Provider:
Level of Care: Inpatient admission
Assign to:: IMU- Intermediate Care
Physician / Group: Alysha
Diagnosis: Septic shock
Reason for Hospitalization: IVF, ID consult, FUO work up
Expected length of stay greater than two midnights?: Yes
ELOS- Estimated Length of Stay in days: 3
I certify the patient meets the requirements for IP care: Yes
PRN Pain Medication Management As Directed
May give lesser potent ordered pain med per pt: Yes
preference::
Protocol:: Medication orders for pain may be administered in a
manner that supports deferring to patient preference
when the pt is:
- Requesting an ordered lesser potent pain medication.
Least to most potent pain medications are defined
as: acetaminophen < NSAID < tramadol < opioids
(morphine, oxycodone, hydromorphone).
- Requesting a lesser dose of the same medication IF
ORDERED.
- Requesting a less intrusive route of administration
if both routes are prescribed by the provider (PO <
IV).
06/20/24 14:18
Code Status As Directed
Resuscitation Status: Full Code
06/20/24 14:20
Rapid Strep Group A Urgent
JOSEPH Source: Throat/Pharynx
Specimen Description:
Date Specimen was Collected: 06/20/24
Time Specimen was Collected: 14:03
06/20/24 Dinner
Regular
At Your Request: Full Participation
06/20/24 17:47
Acetaminophen [Tylenol] 650 mg PO Q6HPRN PRN
06/20/24 18:19
0.9% Sodium Chloride 1000 ml [Nss] 1,000 ml IV 100 mls/hr
Enoxaparin Sodium [Lovenox] 40 mg SC QPM
06/20/24 18:19
CARDIOLOGY CONSULT Routine
Consulting Provider: Rg Welch
Was physician already notified: Yes
Activity As Directed
Activity Level: Ambulate
DX Deep Vein Thrombosis Video Routine
06/21/24 04:06
CBC/With Diff [Complete Blood Count/With Diff] IN AM
CMP [Comprehensive Metabolic Panel] IN AM
06/22/24 06:00
CBC/With Diff [Complete Blood Count/With Diff] IN AM
06/23/24 06:00
CBC/With Diff [Complete Blood Count/With Diff] IN AM
Abnormal Lab Results
06/20/24
11:48
WBC 19.7 H 10^3/uL
(4.8-10.8)
RBC 3.86 L 10^6/uL
(4.70-6.10)
Hgb 12.4 L g/dL
(13.0-18.0)
Hct 35.9 L %
(39.0-52.0)
MCH 32.1 H pg
(27.0-31.0)
Abs Immat Gran (auto) 0.1 H 10^3/uL
(0-0.05)
Absolute Neuts (auto) 18.8 H 10^3/uL
(1.4-6.5)
Absolute Lymphs (auto) 0.4 L 10^3/uL
(1.2-3.4)
Immature Gran % 0.7 H %
(0-0.5)
Neutrophils % 95.7 H %
(42.2-75.2)
Lymphocytes % 2.0 L %
(20.5-51.1)
Monocytes % 1.2 L %
(1.7-9.3)
BUN 21 H mg/dl
(9-20)
Glucose 131 H mg/dl
(70-99)
06/20/24 11:48
06/20/24 11:48
Vital Signs
Initial and Last Documented VS:
Initial Vital Signs
Temp Pulse Resp BP Pulse Ox
38.8 C H 127 16 98/73 96
06/20/24 11:23 06/20/24 11:23 06/20/24 11:23 06/20/24 11:23 06/20/24 11:23
Last Documented Vital Signs
Temp Pulse Resp BP Pulse Ox
36.4 C 87 23 115/86 94
06/21/24 11:31 06/21/24 10:00 06/21/24 10:00 06/21/24 08:00 06/21/24 10:53
<Nicolette Guerrero PA-C - Last Filed: 06/21/24 15:08>
Orders/Labs/Results
Orders:
Orders
06/20/24 11:30
CR Chest - 2 Views Urgent
Comment:
Reason For Exam: fever
06/20/24 11:48
COVID-19 Antigen Urgent
Source: Nasal Swab
Complete Blood Count/With Diff Urgent
Comprehensive Metabolic Panel Urgent
Lactic Acid Q4H
Comment: CANCEL 2nd LACTIC ACID IF 1st LACTIC ACID IS LESS THAN 2
Blood Culture Q30M
JOSEPH Source: Blood/Venous
Specimen Description:
Influenza A+B Rapid Molecular Urgent
JOSEPH Source: Nasal Swab
Specimen Description:
0.9% Sodium Chloride 1000 ml [Nss] 1,000 ml IV BOLUS
Ibuprofen [Motrin] 600 mg PO NOW STA
06/20/24 11:53
Consult Infectious Disease [INFECTIOUS DISEASE CONSULT] Urgent
Consulting Provider: Winnie Osborne
Was physician already notified: Yes
06/20/24 12:12
Urinalysis Reflex To Culture Urgent
Date Specimen was Collected: 06/20/24
Time Specimen was Collected: 12:11
06/20/24 13:13
Blood Culture Q30M
JOSEPH Source: Blood/Venous
Specimen Description:
06/20/24 14:12
0.9% Sodium Chloride 1000 ml [Nss] 1,000 ml IV BOLUS
06/20/24 14:14
Admit/Transfer Patient As Directed
Co-Sign Provider:
Level of Care: Inpatient admission
Assign to:: IMU- Intermediate Care
Physician / Group: Alysha
Diagnosis: Septic shock
Reason for Hospitalization: IVF, ID consult, FUO work up
Expected length of stay greater than two midnights?: Yes
ELOS- Estimated Length of Stay in days: 3
I certify the patient meets the requirements for IP care: Yes
PRN Pain Medication Management As Directed
May give lesser potent ordered pain med per pt: Yes
preference::
Protocol:: Medication orders for pain may be administered in a
manner that supports deferring to patient preference
when the pt is:
- Requesting an ordered lesser potent pain medication.
Least to most potent pain medications are defined
as: acetaminophen < NSAID < tramadol < opioids
(morphine, oxycodone, hydromorphone).
- Requesting a lesser dose of the same medication IF
ORDERED.
- Requesting a less intrusive route of administration
if both routes are prescribed by the provider (PO <
IV).
06/20/24 14:18
Code Status As Directed
Resuscitation Status: Full Code
06/20/24 14:20
Rapid Strep Group A Urgent
JOSEPH Source: Throat/Pharynx
Specimen Description:
Date Specimen was Collected: 06/20/24
Time Specimen was Collected: 14:03
06/20/24 Dinner
Regular
At Your Request: Full Participation
06/20/24 17:47
Acetaminophen [Tylenol] 650 mg PO Q6HPRN PRN
06/20/24 18:19
0.9% Sodium Chloride 1000 ml [Nss] 1,000 ml IV 100 mls/hr
Enoxaparin Sodium [Lovenox] 40 mg SC QPM
06/20/24 18:19
CARDIOLOGY CONSULT Routine
Consulting Provider: Rg Welch
Was physician already notified: Yes
Activity As Directed
Activity Level: Ambulate
DX Deep Vein Thrombosis Video Routine
06/21/24 04:06
CBC/With Diff [Complete Blood Count/With Diff] IN AM
CMP [Comprehensive Metabolic Panel] IN AM
06/22/24 06:00
CBC/With Diff [Complete Blood Count/With Diff] IN AM
06/23/24 06:00
CBC/With Diff [Complete Blood Count/With Diff] IN AM
Abnormal Lab Results
06/20/24
11:48
WBC 19.7 H 10^3/uL
(4.8-10.8)
RBC 3.86 L 10^6/uL
(4.70-6.10)
Hgb 12.4 L g/dL
(13.0-18.0)
Hct 35.9 L %
(39.0-52.0)
MCH 32.1 H pg
(27.0-31.0)
Abs Immat Gran (auto) 0.1 H 10^3/uL
(0-0.05)
Absolute Neuts (auto) 18.8 H 10^3/uL
(1.4-6.5)
Absolute Lymphs (auto) 0.4 L 10^3/uL
(1.2-3.4)
Immature Gran % 0.7 H %
(0-0.5)
Neutrophils % 95.7 H %
(42.2-75.2)
Lymphocytes % 2.0 L %
(20.5-51.1)
Monocytes % 1.2 L %
(1.7-9.3)
BUN 21 H mg/dl
(9-20)
Glucose 131 H mg/dl
(70-99)
06/20/24 11:48
06/20/24 11:48
Vital Signs
Initial and Last Documented VS:
Initial Vital Signs
Temp Pulse Resp BP Pulse Ox
38.8 C H 127 16 98/73 96
06/20/24 11:23 06/20/24 11:23 06/20/24 11:23 06/20/24 11:23 06/20/24 11:23
Last Documented Vital Signs
Temp Pulse Resp BP Pulse Ox
36.4 C 87 23 115/86 94
06/21/24 11:31 06/21/24 10:00 06/21/24 10:00 06/21/24 08:00 06/21/24 10:53
<Nicolette Guerrero PA-C - Last Filed: 06/21/24 15:08>
MDM/Problems Addressed
Differential Diagnosis Includes:
bacteremia, endocarditis,
MDM/Problems Addressed:
kaleigh barton Jr 73 y/o M h/o AVR, cad; admitted 06/11-06/13 for rigors, no fever, elevated troponin but cleared, INDY neg; d/c home
returned 06/15-06/17 ([facility]) for fever to 105;treated for pna; blood cultures drawn before abx, were neg;
india saw him durng that admission; recommended doxy pending tick borne w/u (periph smear neg, babesia neg, no source identified)
has been on doxy and spiked fever today with mild confusion, transient hypotension but bp stable;
pt defervesced;
soft bp 100/50s
wbc back up from 13 to 19
lactate normal
ua neg
cxr indep reviewed clear
infectiuos disease dr osborne aware; blood cx, urine cx, pending
<Nicolette Guerrero PA-C - Last Filed: 06/21/24 15:08>
*Critical Care Note
Total Time (30-74mins, 75-104mins- exclusive of procedures): Not Applicable
ED Attending Note
<Nicola Dash PA-C - Last Filed: 06/20/24 11:32>
-
Portions of this chart may have been created with voice recognition software.� Occasional wrong word or��sound alike� substitutions may have occurred due to the inherent limitations of voice recognition software.
Discharge Plan
Departure
Patient Disposition: Admit
Date of Disposition: 06/20/24
Time of Disposition:
Admit to: Telemetry
Presentation/result/management discussed w/ accepting MD/DO: Hospitalist
Condition: Fair
Covid-19: Negative COVID-19
Discharge Problem:
Fever, unknown origin
Interventions
Interventions:
*Risk Screen - Suicide Last Done: 06/20/24 11:23
*Neglect/Abuse Screening Last Done: 06/20/24 11:23
ED- Fall Risk Assessment Last Done: 06/20/24 13:28
*ED COVID-19 Vaccine History Last Done: 06/20/24 20:13
*Nursing Disposition Last Done: 06/20/24 19:58
ED- Neurological Assessment Last Done: 06/20/24 12:18
ED-Skin Assessment Last Done: 06/20/24 12:18
Discharge Date and Time
Discharge Date/Time: 06/20/24 19:59
[2024-06-20] MEDS: NSS 1000 IV ×3 (11:57→19:09)
[2024-06-20] MEDS: MOTRIN 600 MG PO (12:00)
[2024-06-20 12:08] LABS: % Basophils 0.3 % (0-2); % Eosinophils 0.1 % (0-6); % Immature Granulocytes 0.7 % (0-0.5); % Monocytes 1.2 % (1.7-9.3); % Neutrophils 95.7 % (42.2-75.2); Absolute Basophils 0.1 10^3/uL (0-0.2); Absolute Immature Granulocytes 0.1 10^3/uL (0-0.05); Absolute Lymphocytes 0.4 10^3/uL (1.2-3.4); Absolute Monocytes 0.2 10^3/uL (0.1-0.6); Absolute Neutrophils 18.8 10^3/uL (1.4-6.5); Hematocrit 35.9 % (39.0-52.0); Hemoglobin 12.4 g/dL (13.0-18.0); Mean Corp Hgb Conc. 34.5 g/dL (33.0-37.0); Mean Corpuscular Hgb 32.1 pg (27.0-31.0); Mean Platelet Volume 9.5 fL (7.4-10.4); Nucleated Red Blood Cells % 0 % (-); Platelet Count 224 10^3/uL (130-400); Red Blood Cell Count 3.86 10^6/uL (4.70-6.10); Red Cell Dist. Width 13.5 % (11.5-14.5); White Blood Cell Count 19.7 10^3/uL (4.8-10.8)
[2024-06-20 12:16] LABS: Lactic Acid 1.9 mmol/L (0.7-2.0)
[2024-06-20 12:17] LABS: ALT (SGPT) 41 U/L (0-50); AST (SGOT) 36 U/L (17-59); Albumin 3.8 g/dl (3.5-5.0); Alkaline Phosphatase 48 U/L (38-126); Blood Urea Nitrogen 21 mg/dl (9-20); Calcium 9.2 mg/dl (8.4-10.2); Carbon Dioxide 26 mmol/L (22-30); Chloride 100 mmol/L (98-107); Estimated Creatinine Clearance 93 ml/min; Glucose 131 mg/dl (70-99); Potassium 4.5 mmol/L (3.5-5.1); Sodium 135 mmol/L (135-145); Total Protein 6.7 g/dl (6.3-8.2); eGFR > 60.00
[2024-06-20 12:25] LABS: COVID-19 Antigen Negative (Negative)
[2024-06-20 13:17] LABS: Urine Albumin Trace (Neg - Trace); Urine Bilirubin Negative (Negative); Urine Character Clear (Clear); Urine Color Yellow; Urine Glucose Negative (Negative); Urine Ketone Negative (Negative); Urine Leukocyte Negative (Negative); Urine Nitrite Negative (Negative); Urine Occult Blood Negative (Negative); Urine Urobilinogen Negative (Neg - 1+)
--- NOTE | 2024-06-20 14:22 | HPS.HSE ---
Family Physician
-
Family Physician: Turner Guardado
Chief Complaint
-
Fever, chills
History of Present Illness
73-year-old man recently hospitalized twice for fever evaluation and discharged on a course of doxycycline for possible tickborne illness.
Return today for recurrence of fever and chills.
When he left the hospital on June 17 he was feeling great.
Other than fever he has not had any new symptoms. Denies confusion.
Medical History
Past Medical History
Past Medical History: Reports Other
Additional Past Medical History:
DM2
Aortic stenosis
CAD
PAD
Hyperlipidemia
Essential hypertension
Nephrolithiasis
Obesity
Past Surgical History: Reports Other
Additional Past Surgical History:
TAVR -January 2022
Hernia repair
Left femoral endarterectomy and bypass -September 2022.
Social History
Tobacco: Former Smoker
Alcohol: None
Drug: None
Family History
Family History: Not pertinent
Allergies / Home Medications
Allergies reflects when Allergies were last updated in [facility].
Home Medications with original date entered in [facility]
Allergy/Medication List:
Allergies
Allergy/AdvReac Type Severity Reaction Status Date / Time
No Known Drug Allergies Allergy Unknown Verified 06/20/24 11:22
Home Medications
aspirin 81 mg tablet,delayed release 81 mg PO DAILY Blood clot prevention/tx 01/24/16
doxazosin 8 mg tablet 8 mg PO DAILY Urinary issue 01/24/16
amlodipine 10 mg-benazepril 20 mg capsule 1 cap PO DAILY Blood pressure 11/25/21
multivitamin 1 tab PO DAILY Supplement 09/15/22
atorvastatin 20 mg tablet 20 mg PO DAILY PAD #30 tabs 09/29/22
doxycycline hyclate 100 mg capsule 100 mg PO Q12 #26 caps 06/17/24
Review of Systems
-
History Source: Patient
A 12 point ROS was completed and negative except as noted: Yes
Physical Exam
Vital Signs
Vital Signs
Temp Pulse Resp BP Pulse Ox
98.1 F 108 23 104/55 95
06/20/24 13:20 06/20/24 13:15 06/20/24 13:15 06/20/24 13:00 06/20/24 13:00
Physical Exam
General: Well Developed, Well Nourished, No Apparent Distress and Comfortable
HEENT: NormoCephalic, Anicteric and Moist mucous membranes
Respiratory: Clear
Cardiac: S1/S2 and Regular Rhythm
Breast: Deferred by me
GI: Soft, Non Tender and Non Distended
Genito-urinary: Deferred by me
Musculoskeletal: No Clubbing, No Cyanosis, Edema, Left Lower Extremity and Edema, Right Lower Extremity
Skin: Warm and Dry
Neuro: AO x 3
Hematologic/Lymphatic: No Lymphadenopathy
Psych: Calm
Laboratory Results
-
06/20/24 11:48
06/20/24 11:48
Laboratory Results
Lactic Acid Cancelled 06/20/24 15:30
Total Bilirubin 1.0 mg/dl (0.2-1.3) 06/20/24 11:48
AST 36 U/L (17-59) 06/20/24 11:48
ALT 41 U/L (0-50) 06/20/24 11:48
Alkaline Phosphatase 48 U/L (38-126) 06/20/24 11:48
Impression/Plan
-
Septic shock -unclear source. FUO workup noted during last hospitalization, discharged on empiric doxycycline without a clear diagnosis.
Admit to IMU. Continue IV fluid bolus for hypotension. Vasopressors if blood pressure does not improve. Blood cultures drawn in the ER. Hold antibiotics for now pending ID consult.
Workup thus far has been unremarkable. Transthoracic echocardiogram done recently was negative. Will consult cardiology for consideration of INDY to get a better look at his TAVR, although so far blood cultures from last hospitalization have been
negative. Unfortunately, antibiotics were administered during his last hospitalization prior to blood culture draw.
Check lower extremity venous Doppler ultrasound given lower extremity edema.
Infectious disease has requested heme/onc consult for FUO workup.
CAD -stable.
PAD -stable.
Aortic stenosis -s/p TAVR 2021.
Hyperlipidemia -Lipitor.
Essential hypertension -hold meds for hypotension.
Nephrolithiasis
Obesity due to excess calories
Full code
Daughter updated at the bedside.
--- NOTE | 2024-06-20 14:48 | CON.ID ---
Consultation
-
Date/Time Consultation Requested: 06/20/24 11:53
Date/Time Consultation Performed: 06/20/24 14:48
Requesting Provider: Yolanda BURGESS
Performing Provider: Dr Larson
Reason for Consultation: FUO
Chief Complaint / Past History
Chief Complaint
fevers and chills
History of Present Illness
Mr Noriega is a 73 year old male with history notable for CAD, s/p TAVR (2021), history of renal stones who presented here last night for fevers (105 at home) chills. Of note he also had similar episode with shaking chills 06/12/24 with nausea with
emesis and difficulty ambulating, fatigue. Reassessed here inpatient 06/15 he noted relapse of fevers to 105 at home and shaking chills. No other symptoms on ROS at that time. FUO workup started, blood cultures from that visit no growth to date at
4 days, babesia smear negative, GARFIELD negative, RF negative, qft gold negative, ferritin normal, covid ag negative, serum protein electrophoresis normal, CTA chest, CT a/p with iv and oral contrast, CXR, 06/12/24 TTE: no definitive cause of fevers.
Leukocytosis and fevers resolved on doxycycline and he was discharged 06/17. Then today, his daughter called to check on him and felt that he was altered, EMS called, found blood glucose low, gave juice and transported here. RN on arrival did note
that he was confused saying he was not wet when he had urinated on himself. On arrival found to be febrile to 105.0 and confused. Patient is now responding appropriately to questions. Redid ID ROS and patient still reports no: headache, cough,
sinus tenderness, sore throat, sinus congestions, neck pain, nausea, vomiting, diarrhea, constipation, dysuria, ulcers on the penis, new rashes, new joint pains, similar to last visit. Has never had a colonoscopy 'I didnt want to.' reportedly
fainted after colonoscopy due to dehydration making him hesitant. Never had a FIT test or alternative assessment for colon cancer. PSAs have been normal.
Spends time with sons dog who is healthy, no farms animals or other animal exposures. 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 Never known to have lyme disease. 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 Was exposed to agent orange in [place].
Since arrival this visit wbc count 19.7, hgb 12.4, plt 224, L shift is noted, na 135, K 4.5, cr 1.0, lactic acid 1.9, t bili 1.0, ast 36, alt 41, alk phos 48, ua no pyuria, covid ag remains negative, CXR: no active CP disease noted, a group A strep
swab was done, negative, blood cultures x2 in progress from today, previous blood cultures no growth to date at 4 days,
Past History
Additional Past Medical History:
DM2
Aortic stenosis
CAD
PAD
Hyperlipidemia
Essential hypertension
Nephrolithiasis
Obesity
Additional Past Surgical History:
TAVR -January 2022
Hernia repair
Left femoral endarterectomy and bypass -September 2022.
Allergy History:
No Known Drug Allergies Allergy (Verified 06/20/24 11:22)
Unknown
Medications Reviewed: Yes
Social History
Tobacco: Former Smoker
Alcohol: None
Drug: None
Family History
Family History: Not Pertinent
Review of Systems
Review of Systems
General: Fever and Chills
All systems: All other systems were reviewed and were negative
Vital Signs
Temp Pulse Resp BP Pulse Ox
98.1 F 94 14 87/53 95
06/20/24 13:20 06/20/24 14:30 06/20/24 14:30 06/20/24 14:00 06/20/24 13:00
Physical Exam
Physical Exam
Constitutional: No Acute Distress
Cardiovascular: Regular Rate and S1/S2; Negative Murmur or Rub
Pulmonary: Clear and Symmetric; Negative Wheezes, Rales or Rhonchi
Gastrointestinal: Soft, Non Tender, Non Distended and Normal Bowel Sounds
Skin: Warm and Dry; Negative Rash or Jaundice
Neurological: Awake and Alert
Psychological: Calm; Negative Confused
Lab / Diagnostic Study Results
06/20/24 11:48
06/20/24 11:48
Abs Immat Gran (auto) 0.1 10^3/uL (0-0.05) H 06/20/24 11:48
Absolute Neuts (auto) 18.8 10^3/uL (1.4-6.5) H 06/20/24 11:48
Absolute Lymphs (auto) 0.4 10^3/uL (1.2-3.4) L 06/20/24 11:48
Absolute Monos (auto) 0.2 10^3/uL (0.1-0.6) 06/20/24 11:48
Absolute Basos (auto) 0.1 10^3/uL (0-0.2) 06/20/24 11:48
Immature Gran % 0.7 % (0-0.5) H 06/20/24 11:48
Neutrophils % 95.7 % (42.2-75.2) H 06/20/24 11:48
Lymphocytes % 2.0 % (20.5-51.1) L 06/20/24 11:48
Monocytes % 1.2 % (1.7-9.3) L 06/20/24 11:48
Eosinophils % 0.1 % (0-6) 06/20/24 11:48
Basophils % 0.3 % (0-2) 06/20/24 11:48
Lactic Acid Cancelled 06/20/24 15:30
Microbiology Results
Micro:
06/20/24 14:20 Streptococcus Screen (JOSEPH) - Pending
Throat/Pharynx Streptococcus Rapid Screen - Final
Rapid Strep Screen (Group A) Negative
06/20/24 13:13 Blood Culture - Pending
Blood/Venous
06/20/24 11:48 Influenza Types A & B (BENJAMIN) - Final
Nasal Swab Negative for Influenza A & B, NAAT
Negative results must be combined with clinical observations
and patient history.
Nucleic Acid Amplification test (NAAT)performed on the
[employer] NOW platform.
06/20/24 11:48 Blood Culture - Pending
Blood/Venous
Assessment / Plan
FUO - interval between fevers may be increasing (06/12, 06/15, 06/20)
Leukocytosis
H/o TAVR
H/o left femoral endarterectomy interposition bypass graft
- blood cultures x2 06/16 no growth to date (note previous antibiotics vanc/ceftriaxone/zosyn/azithromycin) the day before; repeat blood cultures x2 today 06/20
- INDY reasonable culture negative endocarditis would be on the differential
- imaging: CTA chest, CT a/p with iv and oral contrast, CXR, 06/12/24 TTE: no definitive cause of fevers
- EKG no new blocks
- covid, flu, testing repeated today and remains negative
- HIV screen offered, patient declined, monogamous for decades, currently celibate
- babesia smear negative, lyme negative, anaplasma/ehrlichia pcr negative
- GARFIELD negative, RF negative; monospot not indicated in this age range
- qft gold - negative
- ferritin - normal
- serum protein electrophoresis - pending
- elevated procalcitonin 06/17 - repeat today along with ESR and CRP
- mrsa pcr negative 06/16
- PSA 07/12/23 normal
- never had a colonoscopy - daughter asks if it could be done here and states she doesnt believe he would follow through outpatient
- agree with stopping doxycycline
- could have responded to previous ceftriaxone, will restart this visit
- consider hematology input for FUO as well
Care Review
Plan reviewed with: Physician (Dr Alysha CARABALLO)
--- NOTE | 2024-06-20 15:22 | CON.CAR ---
Addendum entered and electronically signed by Rg Welch MD 06/20/24 16:10:
73-year-old man with history of TAVR in 2021. He was admitted June 11 for fever, discharge, readmitted on June 15 with a temp of 105 and discharged June 17, now readmitted again. Cultures have apparently been negative, ID has requested a
transesophageal echo.
PMH: TAVR January 2022, nonobstructive CAD at the time of catheterization, left femoral endarterectomy September 2022, hypertension, hyperlipidemia, sensory neural deafness
Social: Ex-smoker, no alcohol, retired, Reported as
Allergies/meds: Per summary screen
Blood pressure 96/60, pulse 85, resp rate 17, afebrile, hard of hearing, appears somewhat anxious, daughter at bedside, head neck exam unremarkable, lungs are clear, soft systolic murmur at base, no obvious stigmata of endocarditis, abdomen benign,
extremities without clubbing cyanosis or edema distal pulses are palpable
White count is 19.7, hemoglobin is 12.4, BUN and creatinine are 21 and 1.0
Echocardiogram June 12 trace mitral regurgitation, MAC, no aortic regurgitation with 29 mm evolute transcatheter aortic valve, normal right heart, mild TR
Micro: Cultures are negative, influenza A negative, strep negative, thick smear for parasites negative, Legionella negative, MRSA negative, COVID-negative, TB negative, Lyme negative, RF, NAYA and SPEP, GARFIELD all negative, CRP markedly elevated,
procalcitonin is also elevated
Troponin during first admission 0.23
Impression: See below
Plan:
Major issue is recurrent fever with negative cultures, indirect evidence suggest bacterial infection
Given history of transcatheter aortic valve, we will proceed with transesophageal echo on Sunday
With detectable troponin, also proBNP 2069 during initial evaluation, this raises the possibility of an endovascular infection with extension into annulus, possibly of aortic valve. Recheck troponin and EKG in AM.
Original Note:
Consultation
Consultation Request
Date/Time Consultation Performed: 06/20/24
Requesting Provider: Dr. Hawley
Performing Provider: Deirdre Terrell PA-C for Dr. LISA Welch
Reason for Consultation: INDY
Medical History
-
Chief Complaint: fever/chills
History of Present Illness:
Patient is a 73-year-old male with past medical history of hypertension, hyperlipidemia, PVD status post left femoral endarterectomy 09/2022, severe status post TAVR 01/2022 with nonobstructive CAD by cath preprocedure who has now had 3 admissions
for fever of unknown origin. He was admitted 06/11 - 06/13/2024 for chills. Temp on arrival was 100.2. He underwent infectious workup which was unrevealing and also underwent CT a to rule out PE which was negative and was discharged. He then
presented back with recurrent fever up to 105F and chills on 06/15 and was admitted through 06/17/2024. He was discharged on course of doxycycline. He reports for the last 2 days he felt great, however today developed fever and chills again.
Cardiology consulted as ID has recommended INDY for evaluation of fever. During initial admission, trop peaked at 0.23 but no CP.
PMH:
Severe status post TAVR 01/2022
Nonobstructive CAD by cath 2021
PVD status post left femoral endarterectomy 09/2022
Hypertension
Hyperlipidemia
Sensorineural Hearing Loss
Past Medical History
Past Medical History: Other (in HPI)
Social History
Tobacco: Former Smoker
Alcohol: None
Employment: Retired
Family History
Family History: CAD (IN in mother at 57)
Allergies / Home Medications
Allergy/AdvReac Type Severity Reaction Status Date / Time
No Known Drug Allergies Allergy Unknown Verified 06/20/24 11:22
�Medication �Instructions �Recorded �Confirmed �Type
aspirin 81 mg tablet,delayed 81 mg PO DAILY Blood clot 01/24/16 06/20/24 History
release prevention/tx
doxazosin 8 mg tablet 8 mg PO DAILY Urinary issue 01/24/16 06/20/24 History
multivitamin 1 tab PO DAILY Supplement 09/15/22 06/20/24 History
doxycycline hyclate 100 mg capsule 100 mg PO Q12 #26 caps 06/17/24 06/20/24 Rx
acetaminophen 325 mg tablet 650 mg PO Q6HPRN PRN mild pain 06/20/24 06/20/24 History
(Tylenol)
amlodipine 10 mg-benazepril 20 mg 1 cap PO DAILY 06/20/24 06/20/24 History
capsule
atorvastatin 20 mg tablet 20 mg PO DAILY 06/20/24 06/20/24 History
Review of Systems
-
History Source: Patient and Family
All other systems: Negative unless noted
Physical Exam
Vital Signs
Temp Pulse Resp BP Pulse Ox
97.7 F 90 18 96/60 95
06/20/24 15:11 06/20/24 15:15 06/20/24 15:15 06/20/24 15:11 06/20/24 13:00
Lab Results
06/20/24 11:48
06/20/24 11:48
Physical Exam
General: No Apparent Distress and Comfortable
HEENT: Normocephalic, Anicteric and Moist Mucous Membranes
Respiratory: Other (no audible wheezes)
Cardiac: S1/S2 and Regular Rhythm
Skin: Warm and Dry
Neuro: AO x 3
Impression / Plan
-
Primary Machine Operator Hop Worker: Dr. Nielsen
Assessment:
Recurrent admissions for FUO
Leukocytosis
Elevated trop 06/12/24
Severe status post TAVR 01/2022
Nonobstructive CAD by cath 2021
PVD status post left femoral endarterectomy 09/2022
Hypertension
Hyperlipidemia
Sensorineural Hearing Loss
ECHO 06/12/24: EF 55 to 60%, mild MAC, status post number 29 mm evolute R, well-seated with peak/mean gradients 14/9 mmHg, no AR seen, mild TR, PAP 28 mmHg, no significant change compared to prior
Plan:
-This is now third ER visit/admission for fever of unknown origin since 06/11/2024. ID workup ongoing
-Previously tested COVID, flu, and strep negative. Chest CT negative for PE. Chest x-ray without acute abnormalities. UA within normal limits. CT of the abdomen and pelvis without acute abnormalities noted. He was last discharged on course of
doxycycline for possible Lyme disease, however unfortunately recurred with fever earlier today. TTE 06/12/2024 with results as above
-ID requested cardiology consultation for INDY. Procedure described with patient and daughter at bedside. N.p.o. for INDY on 06/23/2024
-Supportive care ongoing
-He had elevated troponin which peaked at 0.23 on 06/12/2024. Last cath in 2021 with nonobstructive CAD. Could consider for outpatient ischemic eval once recovered
Data Reviewed
-
EKG: Tracing Personally Visualized and interpreted
Radiology: Report Reviewed by me
CT Scan: Report Reviewed by me
Medical Tests (Nuc Med, Echo etc): Report Reviewed by me
Labs: Labs Reviewed by me
Old Records: Reviewed
[2024-06-20] MEDS: TYLENOL 650 MG PO (17:53)
[2024-06-20] MEDS: ROCEPHIN 2000 MG IV (19:05)
[2024-06-20] MEDS: LOVENOX SC ×2 (19:06→19:54)
[2024-06-20] MEDS: STERILE WATER FOR INJECTION 20 ML IV (19:06)
[2024-06-20 19:18] LABS: Procalcitonin 3.22 ng/ml (0.0-0.25)
[2024-06-20 19:52] LABS: Erythrocyte Sed Rate 31 mm/hour (0-20)
--- NOTE | 2024-06-20 22:00 | PTCARENOTE ---
Received verbal and written report from DANIEL Magallanes. Pt arrived to IMU from ED via stretcher. Pt walked to the bed with a standby assist, pt had generalized weakness during ambulation. Pt reports using a single point cane at home PRN. Pt aaox3. Sinus
tach on monitor. 96% on RA. Pt admission and assessment completed (see worklist). NSS infusing @ 100 mL/hr. Pt resting in bed with call weiss in reach.
--- NOTE | 2024-06-20 23:35 | PTCARENOTE ---
Pt's blood cx's came back, both of which are positive. Pt rx'd IV Rocephin Q24. Pt voided yellow urine with some blood clots. Notified MOHIT Hare of both. No new Rx's at this time.
--- NOTE | 2024-06-20 23:49 | PTCARENOTE ---
Pt's blood cx's came back, both of which are positive. Pt rx'd IV Rocephin Q24. Pt voided yellow urine with some blood clots. Notified MOHIT Hare of both.
[2024-06-21] VITALS (21 sets, daily range): BP systolic 101–152; BP diastolic 53–86; BMI 34.8
[2024-06-21 01:01] LABS: Glucose - Point of Care 152 mg/dl (70-99)
[2024-06-21 04:49] LABS: % Basophils 0.4 % (0-2); % Eosinophils 0.1 % (0-6); % Immature Granulocytes 0.9 % (0-0.5); % Lymphocytes 7.1 % (20.5-51.1); % Monocytes 4.3 % (1.7-9.3); % Neutrophils 87.2 % (42.2-75.2); Absolute Basophils 0.1 10^3/uL (0-0.2); Absolute Immature Granulocytes 0.2 10^3/uL (0-0.05); Absolute Lymphocytes 1.2 10^3/uL (1.2-3.4); Absolute Monocytes 0.8 10^3/uL (0.1-0.6); Absolute Neutrophils 15.4 10^3/uL (1.4-6.5); Hematocrit 33.4 % (39.0-52.0); Hemoglobin 11.2 g/dL (13.0-18.0); Mean Corp Hgb Conc. 33.5 g/dL (33.0-37.0); Mean Corpuscular Hgb 31.5 pg (27.0-31.0); Mean Corpuscular Volume 94.1 fL (80.0-94.0); Mean Platelet Volume 9.7 fL (7.4-10.4); Nucleated Red Blood Cells % 0 % (-); Platelet Count 163 10^3/uL (130-400); Red Blood Cell Count 3.55 10^6/uL (4.70-6.10); Red Cell Dist. Width 13.6 % (11.5-14.5); White Blood Cell Count 17.6 10^3/uL (4.8-10.8)
[2024-06-21 05:11] LABS: ALT (SGPT) 40 U/L (0-50); AST (SGOT) 37 U/L (17-59); Albumin 3.1 g/dl (3.5-5.0); Alkaline Phosphatase 51 U/L (38-126); Blood Urea Nitrogen 18 mg/dl (9-20); Calcium 8.5 mg/dl (8.4-10.2); Carbon Dioxide 23 mmol/L (22-30); Chloride 106 mmol/L (98-107); Estimated Creatinine Clearance 113 ml/min; Glucose 135 mg/dl (70-99); Potassium 4.4 mmol/L (3.5-5.1); Sodium 138 mmol/L (135-145); Total Bilirubin 0.6 mg/dl (0.2-1.3); Total Protein 5.8 g/dl (6.3-8.2); eGFR > 60.00
[2024-06-21 05:46] LABS: NT-proBNP 1300 pg/ml; Troponin I 0.189 ng/ml
--- NOTE | 2024-06-21 05:51 | PTCARENOTE ---
Troponin 0.189. MOHIT Hare notified.
--- NOTE | 2024-06-21 06:33 | CON.ONC ---
Addendum entered and electronically signed by Amanda Farley MD 06/21/24 15:33:
Consult was performed before order was cancelled today.
Pt seen and examined, chart reviewed.
Leukocytosis, thrombocytopenia attributable to infection, possible endocarditis.
We will sign off, please call if further Q's.
Original Note:
Impression
Impression
Fever, chills, leukocytosis with ANC 15.2
Bcx with gram positive cocci x 2
mild asymptomatic macrocytic anemia -suspect competent of inflammation with elevated ESR and CRP. SPEP with normal pattern. No iron deficiency with ferritin >300
Plan
Plan
abx and further evaluation of gram positive cocci bacteremia per ID
recommend routine malignancy screening with PCP upon hospital recovery
With fever and positive blood culture, I do not believe further hematologic/oncologic evaluation for fever is warranted at this time. We will sign off at this time, however, please feel free to reach out for any further questions or concerns.
Patient History
History of Present Illness
73yo M with persistent recurrent fevers presented to for evaluation of fever and chills. He had a fever to 105F with chills, AMS, and hypoglycemia at home which prompted him to return to the hospital fo futher evaluation. He had a similar
presentation 06/12/2024 with fever, chills, nausea, vomiting, and general weakness. His fever evaluation at that time showed blood cultures with no growth, Babesia smear negative, GARFIELD negative, RF negative, quantiferon gold negative, covid negative.
He also had a CTA chest, CT a/p w contrast, and TTE that revealed no definitive etiology of fevers. He was discharged on doxycycline 06/17/2024.
On admission his labs revealed a wbc count 19.7, hgb 12.4, plt 224, cr 1.0, lactic acid 1.9, t bili 1.0, ast 36, alt 41, alk phos 48, ua no pyuria, covid negative, CXR: no active CP disease noted, a group A strep negative, and repeat Bcx show gram
stain anaerobic and aerobic with gram positive cocci in chains.
Clinically, he denies headache, cough, sinus tenderness, sore throat, sinus congestions, neck pain, nausea, vomiting, diarrhea, constipation, or dysuria. He denies changes in appetite, bowel patterns, or unintentional weight loss. He has never had a
colonoscopy or cologard.
Past-Medical/Surgical History
PMH
DM2
Aortic stenosis
CAD
PAD
Hyperlipidemia
Essential hypertension
Nephrolithiasis
Obesity
PSH
TAVR -January 2022
Hernia repair
Left femoral endarterectomy and bypass -September 2022.
Social former smoker, denies ETOH or recreational drugs. Retired. Former , agent orange exposure in [place]
Patient Medication
�Medication �Instructions �Recorded �Confirmed �Last Taken �Type
aspirin 81 mg tablet,delayed 81 mg PO DAILY Blood clot 01/24/16 06/20/24 06/20/24 History
release prevention/tx
doxazosin 8 mg tablet 8 mg PO DAILY Urinary issue 01/24/16 06/20/24 06/20/24 History
multivitamin 1 tab PO DAILY Supplement 09/15/22 06/20/24 06/20/24 History
doxycycline hyclate 100 mg capsule 100 mg PO Q12 #26 caps 06/17/24 06/20/24 06/20/24 Rx
acetaminophen 325 mg tablet 650 mg PO Q6HPRN PRN mild pain 06/20/24 06/20/24 06/20/24 History
(Tylenol)
amlodipine 10 mg-benazepril 20 mg 1 cap PO DAILY 06/20/24 06/20/24 06/20/24 History
capsule
atorvastatin 20 mg tablet 20 mg PO DAILY 06/20/24 06/20/24 06/20/24 History
Active Medications
Generic Name Dose Route Start Last Admin
Trade Name Freq PRN Reason Stop Dose Admin
Acetaminophen 650 mg 06/20/24 17:47 06/20/24 17:53
Acetaminophen 325 Mg Tablet PO 07/18/24 17:46 650 mg
Q6HPRN PRN Administration
mild pain/ fever>100.5F
Ceftriaxone Sodium 2,000 mg 06/20/24 18:00 06/20/24 19:05
Ceftriaxone 2,000 Mg/20 Ml Vial IV 2,000 mg
Q24H DONOVAN Administration
Enoxaparin Sodium 40 mg 06/20/24 18:19 06/20/24 19:54
Enoxaparin Sodium 40 Mg/0.4 Ml Syringe SC 07/18/24 18:18 Not Given
QPM DONOVAN
Sodium Chloride 1,000 mls @ 100 mls/hr 06/20/24 18:19 06/20/24 19:09
Nss IV 06/21/24 14:18 1,000 mls
.Q10H DONOVAN Administration
Sodium Chloride 0 flush 06/20/24 19:00
Sodium Chloride 0.9% (Flush) Syringe IV 07/18/24 18:59
PER PROTOCOL DONOVAN
Sterile Water 20 ml 06/20/24 18:00 06/20/24 19:06
Sterile Water For Injection 20 Ml Vial IV 07/18/24 17:59 20 ml
Q24H DONOVAN Administration
Review of Systems
-
ROS notable for HPI, otherwise negative
Physical Exam
-
General: No Apparent Distress
HEENT: Moist Mucous Membranes; Negative Jaundice
Cardiology: Normal Sinus Rhythm
Pulmonary: Clear
GI: Soft
Extremities: Pulses Present; Negative Edema
Neurology: Other (speech clear, A&O3)
Skin: Warm
Psych: Calm
Labs
Lab Results
WBC 17.6 10^3/uL (4.8-10.8) H 06/21/24 04:06
RBC 3.55 10^6/uL (4.70-6.10) L 06/21/24 04:06
Hgb 11.2 g/dL (13.0-18.0) L 06/21/24 04:06
Hct 33.4 % (39.0-52.0) L 06/21/24 04:06
MCV 94.1 fL (80.0-94.0) H 06/21/24 04:06
MCH 31.5 pg (27.0-31.0) H 06/21/24 04:06
MCHC 33.5 g/dL (33.0-37.0) 06/21/24 04:06
RDW 13.6 % (11.5-14.5) 06/21/24 04:06
Plt Count 163 10^3/uL (130-400) D 06/21/24 04:06
MPV 9.7 fL (7.4-10.4) 06/21/24 04:06
Abs Immat Gran (auto) 0.2 10^3/uL (0-0.05) H 06/21/24 04:06
Absolute Neuts (auto) 15.4 10^3/uL (1.4-6.5) H 06/21/24 04:06
Absolute Lymphs (auto) 1.2 10^3/uL (1.2-3.4) 06/21/24 04:06
Absolute Monos (auto) 0.8 10^3/uL (0.1-0.6) H 06/21/24 04:06
Absolute Eos (auto) 0.0 10^3/uL (0-0.7) 06/21/24 04:06
Absolute Basos (auto) 0.1 10^3/uL (0-0.2) 06/21/24 04:06
Immature Gran % 0.9 % (0-0.5) H 06/21/24 04:06
Neutrophils % 87.2 % (42.2-75.2) H 06/21/24 04:06
Lymphocytes % 7.1 % (20.5-51.1) L 06/21/24 04:06
Monocytes % 4.3 % (1.7-9.3) 06/21/24 04:06
Eosinophils % 0.1 % (0-6) 06/21/24 04:06
Basophils % 0.4 % (0-2) 06/21/24 04:06
Creatinine 0.8 mg/dL (0.7-1.3) 06/21/24 04:06
Vital Signs
Vital Signs
Temp Pulse Resp BP Pulse Ox
98.6 F 74 17 113/54 90
06/21/24 03:15 06/21/24 05:30 06/21/24 05:30 06/21/24 05:00 06/21/24 05:30
--- NOTE | 2024-06-21 08:20 | W.PN.HOSP.TC ---
Today's Communication/Plan
-
Recheck urinalysis
Assessment / Plan
Assessment / Plan
Gen-AAOx3, NAD
HEENT-NC, AT, anicteric, clear oral mm
Neck-supple
CV-reg, no M, +S1/S2
Lungs-clear B/L
Abd-soft, NT, ND
Ext-no edema
Musculoskeletal-no cyanosis, clubbing
Skin-warm and dry
Neuro-grossly non-focal
Psych-calm, cooperative
Septic shock -positive blood cultures 06/20 for gram-positive cocci in chains noted. Concern for prosthetic valve endocarditis. Awaiting INDY on Sunday. ID and cardiology following. Currently on empiric ceftriaxone that was started last night.
Shock resolved. Blood pressures improved. Did not require vasopressors.
Afebrile today. WBCs trending down. Patient looks and feels great.
Elevated procalcitonin noted but trending down. CRP elevated.
Troponin elevation -suspect acute nonischemic myocardial injury due to sepsis. Troponins were elevated during last hospitalization as well.
Hematuria -noted by nursing. Urinalysis yesterday negative, will repeat today. Reportedly had clots in his urine. This is suggestive of bleeding within the bladder.
CAD -stable.
PAD -stable.
Aortic stenosis -s/p TAVR 2021.
Hyperlipidemia -Lipitor.
Essential hypertension -hold meds for hypotension.
Nephrolithiasis
Obesity due to excess calories
Full code
Anticipated Discharge: > 48 hours
Subjective/Interval History
-
Date of Service: June 21, 2024
Patient seen and examined. Feeling better. No complaints.
Objective Data
-
Labs:
Laboratory Results
06/21/24
04:06
WBC 17.6 H
Hgb 11.2 L
Hct 33.4 L
Plt Count 163 D
Sodium 138
Potassium 4.4
Chloride 106
Carbon Dioxide 23
BUN 18
Creatinine 0.8
Glucose 135 H
Calcium 8.5
Total Bilirubin 0.6
AST 37
ALT 40
Alkaline Phosphatase 51
Vital Signs:
Vital Signs
Temp Pulse Resp BP Pulse Ox
98.6 F 74 17 113/54 90
06/21/24 03:15 06/21/24 05:30 06/21/24 05:30 06/21/24 05:00 06/21/24 05:30
I&O
06/20/24 06/21/24 06/22/24
06:59 06:59 06:59
Intake Total 240 / 240
Output Total 800 / 800
Balance -560 / -560
Review of Systems
-
History Source: Patient
All other systems: Reviewed and negative
--- NOTE | 2024-06-21 09:14 | W.PN.ID1 ---
Date of Service
Date of Service: June 21, 2024
Today's Communication
add ampicillin
continue ceftriaxone
would complete colonoscopy prior to dc
Assessment / Plan
Gram Positive Bacteremia - GPCs in chains
Fevers
Leukocytosis
- repeat blood cultures x2 today
- blood cultures x2 06/20, two separate sets both with gpcs in chains - cause of fevers
- for INDY sunday
- CT a/p with IV contrast - no gross lesions
- would complete colonoscopy - ideally before discharge; patient refusing to consider it this weekend, but willing to do early next week
- UA negative x2
- add ampicillin pending ID of the gram positive
- continue ceftriaxone
- follow fever curve, bp stable, blood cultures and above studies
Chief Complaint
-: Fever and Leukocytosis
Subjective / Review of Systems
febrile to 102
bp stable
blood cultures became positive in two seperate sets overnight
in good spirits
Vital Signs / Physical Exam
Vital Signs
Vital Signs
Temp Pulse Resp BP Pulse Ox
98.6 F 74 17 113/54 90
06/21/24 03:15 06/21/24 05:30 06/21/24 05:30 06/21/24 05:00 06/21/24 05:30
Physical Exam
Constitutional: No Acute Distress and Chronically Ill
Cardiovascular: Regular Rate and S1/S2; Negative Murmur or Rub
Pulmonary: Clear and Symmetric; Negative Wheezes or Rales
Gastrointestinal: Soft, Non Tender, Non Distended and Normal Bowel Sounds
Skin: Warm and Dry; Negative Rash or Jaundice
Objective Data
Lab Data
Lab Results
06/21/24 04:06
06/21/24 04:06
ESR 31 mm/hour (0-20) H 06/20/24 18:36
Estimated Creat Clear 113 ml/min 06/21/24 04:06
Lactic Acid Cancelled 06/20/24 15:30
Total Bilirubin 0.6 mg/dl (0.2-1.3) 06/21/24 04:06
AST 37 U/L (17-59) 06/21/24 04:06
ALT 40 U/L (0-50) 06/21/24 04:06
Alkaline Phosphatase 51 U/L (38-126) 06/21/24 04:06
C-Reactive Protein 58.30 mg/L (0.0-10.00) H 06/20/24 18:36
Most recent labs reviewed.
Micro Results:
06/20/24 11:48 Blood Culture - Preliminary
Blood/Venous Positive culture in progress
Gram Stain - Preliminary
06/20/24 13:13 Blood Culture - Preliminary
Blood/Venous Positive culture in progress
Gram Stain - Preliminary
06/20/24 14:20 Streptococcus Screen (JOSEPH) - Pending
Throat/Pharynx Streptococcus Rapid Screen - Final
Rapid Strep Screen (Group A) Negative
06/20/24 11:48 Influenza Types A & B (BENJAMIN) - Final
Nasal Swab Negative for Influenza A & B, NAAT
Negative results must be combined with clinical observations
and patient history.
Nucleic Acid Amplification test (NAAT)performed on the
[employer] platform.
[2024-06-21] MEDS: NSS 1000 IV (12:07)
[2024-06-21] MEDS: STERILE WATER FOR INJECTION 20 ML IV ×2 (12:08→21:01)
[2024-06-21] MEDS: AMPICILLIN 108 MG IV ×3 (12:08→21:01)
[2024-06-21] MEDS: ROCEPHIN 2000 MG IV ×2 (12:08→21:01)
--- NOTE | 2024-06-21 14:59 | PTCARENOTE ---
"Assumed care of patient at beginning of this shift from previous RN; cannot verify accuracy of vital signs prior to 0700. Patient Ox3, 1 assist to BR. Per patient and report from previous RN, patient had blood clots in his urine. Reviewed with "Deyanira"Alysha who ordered repeat u/a. New condom cath/bag set up as patient states he cannot use the urinal. Repeat BC completed prior to antibiotics today. See worklist for full assessment and vital signs."
[2024-06-21] MEDS: LOVENOX 40 MG SC (17:16)
[2024-06-21 18:10] LABS: Urine Albumin Negative (Neg - Trace); Urine Bilirubin Negative (Negative); Urine Character Clear (Clear); Urine Color Yellow; Urine Glucose Negative (Negative); Urine Ketone Negative (Negative); Urine Leukocyte Negative (Negative); Urine Nitrite Negative (Negative); Urine Occult Blood Negative (Negative); Urine Urobilinogen Negative (Neg - 1+)
[2024-06-21] MEDS: TYLENOL 650 MG PO (21:22)
[2024-06-22] VITALS (22 sets, daily range): BP systolic 103–157; BP diastolic 60–132; BMI 34.4
[2024-06-22] MEDS: AMPICILLIN 108 MG IV ×3 (00:36→08:23)
[2024-06-22 05:08] LABS: % Basophils 0.5 % (0-2); % Eosinophils 1.8 % (0-6); % Immature Granulocytes 0.4 % (0-0.5); % Lymphocytes 21.1 % (20.5-51.1); % Monocytes 9.1 % (1.7-9.3); % Neutrophils 67.1 % (42.2-75.2); Absolute Basophils 0.1 10^3/uL (0-0.2); Absolute Eosinophils 0.2 10^3/uL (0-0.7); Absolute Lymphocytes 2.1 10^3/uL (1.2-3.4); Absolute Monocytes 0.9 10^3/uL (0.1-0.6); Absolute Neutrophils 6.7 10^3/uL (1.4-6.5); Hematocrit 33.8 % (39.0-52.0); Hemoglobin 11.5 g/dL (13.0-18.0); Mean Corpuscular Volume 94.2 fL (80.0-94.0); Mean Platelet Volume 9.8 fL (7.4-10.4); Nucleated Red Blood Cells % 0 % (-); Platelet Count 197 10^3/uL (130-400); Red Blood Cell Count 3.59 10^6/uL (4.70-6.10); Red Cell Dist. Width 13.8 % (11.5-14.5)
--- NOTE | 2024-06-22 08:22 | W.PN.CARDCBS ---
Today's Communication / Plan
-
Transesophageal echo in the a.m.
Impression / Plan
-
Primary Manager Project: Dr. Nielsen
Assessment:
Strep agalactiae bacteremia, suspicion for prosthetic valve endocarditis
Elevated trop 06/12/24
Severe status post TAVR 01/2022
Nonobstructive CAD by cath 2021
PVD status post left femoral endarterectomy 09/2022
Hypertension
Hyperlipidemia
Sensorineural Hearing Loss
ECHO 06/12/24: EF 55 to 60%, mild MAC, status post number 29 mm evolute R, well-seated with peak/mean gradients 14/9 mmHg, no AR seen, mild TR, PAP 28 mmHg, no significant change compared to prior
Plan:
He looks well and feels well, but he has strep agalactiae in blood cultures and there is high level of suspicion for prosthetic valve endocarditis. He is is scheduled for transesophageal echo in a.m. Strategy should be prolonged intravenous
antibiotics in the hopes of eradication of presumed PVE without surgery
Detectable troponin of some concern for annular involvement. proBNP is modestly elevated.
Will await transesophageal echocardiography.
Clinical summary 73-year-old man with history of TAVR in 2021. He was admitted June 11 for fever, discharged, readmitted on June 15 with a temp of 105 and discharged June 17, now readmitted again. Cultures have apparently been negative, ID
has requested a transesophageal echo. Subsequent to this admission, blood cultures now growing out gram-positive cocci in chains
PMH: TAVR January 2022, nonobstructive CAD at the time of catheterization, left femoral endarterectomy September 2022, hypertension, hyperlipidemia, sensorineural deafness
Progress Note - Manager Project
Subjective
Date of Service: June 22, 2024:
Current meds: Lovenox, ceftriaxone, ampicillin, atorvastatin, aspirin 81 mg a day
143/67, pulse 74, respirate 19, afebrile, sats 96%
Intake and output -500 mL
Blood cultures: group B strep agalactiae
EKG June 11, borderline first-degree AV block, repeat EKG pending
White count is 10.0, hemoglobin 11.5, CMP was essentially normal on admission though troponin was 0.189, proBNP 1300, glucose 135
Objective
Labs:
06/22/24 04:09
06/21/24 04:06
Labs
Hgb 11.5 g/dL (13.0-18.0) L 06/22/24 04:09
Hct 33.8 % (39.0-52.0) L 06/22/24 04:09
Plt Count 197 10^3/uL (130-400) D 06/22/24 04:09
Sodium 138 mmol/L (135-145) 06/21/24 04:06
Potassium 4.4 mmol/L (3.5-5.1) 06/21/24 04:06
BUN 18 mg/dl (9-20) 06/21/24 04:06
Creatinine 0.8 mg/dL (0.7-1.3) 06/21/24 04:06
Glucose 135 mg/dl (70-99) H 06/21/24 04:06
Troponins
06/21/24
04:06
Troponin I 0.189 H*
Vital Signs and I&O:
Vital Signs
Temp Pulse Resp BP Pulse Ox
36.7 C 74 19 143/67 96
06/22/24 04:55 06/22/24 06:00 06/22/24 06:00 06/22/24 06:00 06/22/24 03:00
Vital Signs
Temp Pulse Resp BP Pulse Ox
36.7 C 74 19 143/67 96
06/22/24 04:55 06/22/24 06:00 06/22/24 06:00 06/22/24 06:00 06/22/24 03:00
Intake & Output
0106/21/24 06/22/24 06/23/24
07:59 07:59 07:59 07:59
Intake Total 240 / 240 1884 / 1884
Output Total 800 / 800 2400 / 2400
Balance -560 / -560 -516 / -516
Physical Exam
Physical Exam
No distress head neck exam unremarkable, no evidence of splinter hemorrhages lungs clear, regular rate and rhythm without obvious murmur, abdomen benign, extremities without clubbing cyanosis or edema
--- NOTE | 2024-06-22 08:23 | W.PN.HOSP.TC ---
Today's Communication/Plan
-
Continue antibiotics
N.p.o. after midnight
INDY tomorrow
Assessment / Plan
Assessment / Plan
Gen-AAOx3, NAD
HEENT-NC, AT, anicteric, clear oral mm
Neck-supple
CV-reg, no M, +S1/S2
Lungs-clear B/L
Abd-soft, NT, ND
Ext-no edema
Musculoskeletal-no cyanosis, clubbing
Skin-warm and dry
Neuro-grossly non-focal
Psych-calm, cooperative
Septic shock -due to group B strep. Blood cultures positive on 06/20, repeat cultures pending. Continue IV ceftriaxone, ampicillin per ID. Concerning for prosthetic valve endocarditis, does have a TAVR. INDY scheduled for Friday 06/23. N.p.o.
after midnight.
Leukocytosis resolved. Afebrile. Shock resolved.
Troponin elevation -suspect acute nonischemic myocardial injury due to sepsis. Troponins were elevated during last hospitalization as well.
Hematuria -noted by nursing. Urinalysis yesterday negative, will repeat today. Reportedly had clots in his urine. This is suggestive of bleeding within the bladder.
CAD -stable.
PAD -stable.
Aortic stenosis -s/p TAVR 2021.
Hyperlipidemia -Lipitor.
Essential hypertension -hold meds for hypotension.
Nephrolithiasis
Obesity due to excess calories
Full code
Anticipated Discharge: > 48 hours
Subjective/Interval History
-
Date of Service: June 22, 2024
Patient seen and examined. No complaints.
Objective Data
-
Labs:
Laboratory Results
06/22/24
04:09
WBC 10.0
Hgb 11.5 L
Hct 33.8 L
Plt Count 197 D
Vital Signs:
Vital Signs
Temp Pulse Resp BP Pulse Ox
98.0 F 74 19 143/67 96
06/22/24 04:55 06/22/24 06:00 06/22/24 06:00 06/22/24 06:00 06/22/24 03:00
I&O
06/21/24 06/22/24 06/23/24
06:59 06:59 06:59
Intake Total 240 / 240 1884 / 1884
Output Total 800 / 800 2400 / 2400
Balance -560 / -560 -516 / -516
Review of Systems
-
History Source: Patient
All other systems: Reviewed and negative
[2024-06-22] MEDS: ASPIR LOW (ENTERIC COATED) 81 MG PO (08:24)
--- NOTE | 2024-06-22 09:10 | W.PN.ID1 ---
Date of Service
Date of Service: June 22, 2024
Today's Communication
- stopped ampicillin
- continue ceftriaxone - plan 4 week course followed by suppression
- for INDY tomorrow
- outpatient colonoscopy, ideally while on IV antibiotics
Assessment / Plan
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
Fevers
Leukocytosis
TAVR
- repeat blood cultures x2 06/21 - no growth todate
- blood cultures x2 06/20 GBS - cause of fevers
- for INDY sunday; previous TTE not revealing
- CT a/p with IV contrast - no gross lesions
- would complete colonoscopy - patient now confirms that he is willing to get it done, recommend outpatient while on IV antibiotics
- UA negative x2
- stopped ampicillin
- continue ceftriaxone - plan 4 week course followed by suppression
- follow fever curve, bp stable, blood cultures and above studies
Chief Complaint
-: Fever and Leukocytosis
Subjective / Review of Systems
afebrile
bp stable
'I feel great'
Vital Signs / Physical Exam
Vital Signs
Vital Signs
Temp Pulse Resp BP Pulse Ox
97.2 F 86 22 143/67 96
06/22/24 07:15 06/22/24 08:00 06/22/24 08:00 06/22/24 06:00 06/22/24 03:00
Physical Exam
Constitutional: No Acute Distress
Cardiovascular: Regular Rate and S1/S2; Negative Murmur or Rub
Pulmonary: Clear and Symmetric; Negative Wheezes or Rales
Gastrointestinal: Soft, Non Tender, Non Distended and Normal Bowel Sounds
Skin: Warm and Dry; Negative Rash or Jaundice
Objective Data
Lab Data
Lab Results
06/22/24 04:09
06/21/24 04:06
ESR 31 mm/hour (0-20) H 06/20/24 18:36
Estimated Creat Clear 113 ml/min 06/21/24 04:06
Lactic Acid Cancelled 06/20/24 15:30
Total Bilirubin 0.6 mg/dl (0.2-1.3) 06/21/24 04:06
AST 37 U/L (17-59) 06/21/24 04:06
ALT 40 U/L (0-50) 06/21/24 04:06
Alkaline Phosphatase 51 U/L (38-126) 06/21/24 04:06
C-Reactive Protein 58.30 mg/L (0.0-10.00) H 06/20/24 18:36
Most recent labs reviewed.
Micro Results:
06/20/24 13:13 Blood Culture - Preliminary
Blood/Venous Streptococcus agalactiae
Gram Stain - Preliminary
06/20/24 11:48 Blood Culture - Preliminary
Blood/Venous Streptococcus agalactiae
Gram Stain - Final
06/21/24 12:04 Blood Culture - Pending
Blood/Venous
06/20/24 14:20 Streptococcus Screen (JOSEPH) - Preliminary
Throat/Pharynx Culture in Progress
Streptococcus Rapid Screen - Final
Rapid Strep Screen (Group A) Negative
06/21/24 10:39 Blood Culture - Pending
Blood/Venous
06/20/24 11:48 Influenza Types A & B (BENJAMIN) - Final
Nasal Swab Negative for Influenza A & B, NAAT
Negative results must be combined with clinical observations
and patient history.
Nucleic Acid Amplification test (NAAT)performed on the
[employer] platform.
[2024-06-22] MEDS: ROCEPHIN 2000 MG IV ×2 (09:55→22:20)
[2024-06-22] MEDS: STERILE WATER FOR INJECTION 20 ML IV ×2 (09:56→22:20)
--- NOTE | 2024-06-22 16:29 | CM ---
Patient with Dx Septic shock, Concerning for prosthetic valve endocarditis. Plan INDY tomorrow. Room air. Receiving IV ceftriaxone. Per nursing assessment; ambulatory in room.
Messages with Dr Larson; patient will need 4 wks of IV Abx. Per , plan ceftriaxone 2 gm IV q 24; will adjust dose tomorrow.
Met with patient who was too hard of hearing to easily converse with - his hearing aides are at home.
Spoke with patient's daughter Shanel;
the patient resides with his son in a 1 story house with 2 BEATRIZ.
He was independent in ADLs and ambulation without using an assistive device.
The patient is active and volunteers at the [employer].
He is a [place] Vet that sustained hearing loss, is disabled and uses hearing aides.
DME - RW
No prior VN or SNF.
PCP - Turner Guardado
Pharmacy - [facility]
Informed daughter that patient could probably go to the [facility]fusion [facility] for his IV Abx after d/c as they will be once/day and she is relieved about that as she says patient would need assistance with home infusion as he is forgetful, son cannot
assist as he is needle phobic, and daughter lives half hour away/works/has toddler. She will discuss with patient later.
Plan referral to Infusion Center once script is available.
[2024-06-22] MEDS: LOVENOX 40 MG SC (17:58)
[2024-06-23] VITALS (10 sets, daily range): BP systolic 123–147; BP diastolic 66–107; BMI 34.6; BMI 33.8
--- NOTE | 2024-06-23 01:48 | PTCARENOTE ---
Assumed care of patient from daytime RN. Pt aaox3 and KIVALINA. Pt NSR on monitor. OOB with a one person assist to chair and bathroom. Pt resting in bed with call weiss in reach.
[2024-06-23 04:41] LABS: % Basophils 0.6 % (0-2); % Eosinophils 2.1 % (0-6); % Immature Granulocytes 0.4 % (0-0.5); % Lymphocytes 25.3 % (20.5-51.1); % Monocytes 9.3 % (1.7-9.3); % Neutrophils 62.3 % (42.2-75.2); Absolute Eosinophils 0.2 10^3/uL (0-0.7); Absolute Lymphocytes 1.8 10^3/uL (1.2-3.4); Absolute Monocytes 0.7 10^3/uL (0.1-0.6); Absolute Neutrophils 4.4 10^3/uL (1.4-6.5); Hematocrit 34.2 % (39.0-52.0); Hemoglobin 11.6 g/dL (13.0-18.0); Mean Corp Hgb Conc. 33.9 g/dL (33.0-37.0); Mean Corpuscular Volume 94.2 fL (80.0-94.0); Mean Platelet Volume 9.8 fL (7.4-10.4); Nucleated Red Blood Cells % 0 % (-); Platelet Count 221 10^3/uL (130-400); Red Blood Cell Count 3.63 10^6/uL (4.70-6.10); Red Cell Dist. Width 13.7 % (11.5-14.5); White Blood Cell Count 7.1 10^3/uL (4.8-10.8)
[2024-06-23] MEDS: LIPITOR 20 MG PO (08:52)
[2024-06-23] MEDS: ASPIR LOW (ENTERIC COATED) 81 MG PO (08:52)
--- NOTE | 2024-06-23 09:58 | W.PN.HOSP.TC ---
Today's Communication/Plan
-
For INDY today
Stable for med surge
Discharge home tomorrow
Assessment / Plan
Assessment / Plan
Septic shock -due to group B strep. Blood cultures positive on 06/20, repeat cultures NTD. ID recommends 4 weeks of IV Rocephin. Had a TAVR.
Leukocytosis resolved. Afebrile. Shock resolved.
For INDY today
Stable for med surge
Discharge home tomorrow
Troponin elevation -suspect acute nonischemic myocardial injury due to sepsis. Troponins were elevated during last hospitalization as well.
Hematuria -noted by nursing. Urinalysis yesterday negative, will repeat today. Reportedly had clots in his urine. This is suggestive of bleeding within the bladder.
CAD -stable.
PAD -stable.
Aortic stenosis -s/p TAVR 2021.
Hyperlipidemia -Lipitor.
Essential hypertension -hold meds for hypotension.
Nephrolithiasis
Obesity due to excess calories
DVT prophylaxis�subcu Lovenox
Full code
Total time spent to see the patient on the floor, examine the patient, review data and lab results, discuss treatment plan with patient, nursing staff around 39 minutes.
Physical Exam
General: Obese, no acute distress
HEENT: Normocephalic, Atraumatic, EOMI, MMM
Respiratory: Clear to Auscultation bilaterally
Cardiac: Normal S1/S2, Regular Rate and Rhythm
GI: Soft, Nontender, Nondistended, Normal Bowel Sounds
Extremities: No Clubbing, Cyanosis, or Edema
Neuro: Nonfocal/Grossly Intact
Psych: Calm, Cooperative
Derm: No Visible lesions
Anticipated Discharge: Within 24 hours
Subjective/Interval History
-
Date of Service: June 23, 2024
Denies chest pain, shortness of breath. No fever, no vomiting.
Objective Data
-
Labs:
Laboratory Results
06/23/24
03:57
WBC 7.1
Hgb 11.6 L
Hct 34.2 L
Plt Count 221
Vital Signs:
Vital Signs
Temp Pulse Resp BP Pulse Ox
97.8 F 85 17 145/80 94
06/23/24 03:51 06/23/24 04:00 06/23/24 04:00 06/23/24 04:00 06/23/24 04:00
I&O
06/22/24 06/23/24 06/24/24
06:59 06:59 06:59
Intake Total 1884 / 1884 1390 / 1390
Output Total 2400 / 2400
Balance -516 / -516 1390 / 1390
--- NOTE | 2024-06-23 10:37 | W.PN.ID1 ---
Date of Service
Date of Service: June 23, 2024
Today's Communication
- for INDY today; previous TTE not revealing
- for PICC line placement
- continue ceftriaxone 2 gm IV q24 hours - plan 4 week course followed by suppression - script given to case specialist
- outpatient colonoscopy - referral sent to GI front desk agent
Assessment / Plan
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
Fevers
Leukocytosis
TAVR
- repeat blood cultures x2 06/21 - no growth to date
- blood cultures x2 06/20 GBS - cause of fevers
- for INDY today; previous TTE not revealing
- for PICC line placement
- continue ceftriaxone 2 gm IV q24 hours - plan 4 week course followed by suppression - script given to case specialist
- outpatient colonoscopy - referral sent to GI front desk agent
- follow up in my clinic in about 4 weeks to discuss suppression
Chief Complaint
-: Fever and Leukocytosis
Subjective / Review of Systems
afebrile
bp stable
awaiting INDY
Vital Signs / Physical Exam
Vital Signs
Vital Signs
Temp Pulse Resp BP Pulse Ox
97.8 F 85 17 145/80 94
06/23/24 03:51 06/23/24 04:00 06/23/24 04:00 06/23/24 04:00 06/23/24 04:00
Physical Exam
Constitutional: No Acute Distress
Cardiovascular: Regular Rate and S1/S2; Negative Murmur or Rub
Pulmonary: Clear and Symmetric; Negative Wheezes or Rales
Gastrointestinal: Soft, Non Tender, Non Distended and Normal Bowel Sounds
Skin: Warm and Dry; Negative Rash or Jaundice
Objective Data
Lab Data
Lab Results
06/23/24 03:57
06/21/24 04:06
ESR 31 mm/hour (0-20) H 06/20/24 18:36
Estimated Creat Clear 113 ml/min 06/21/24 04:06
Lactic Acid Cancelled 06/20/24 15:30
Total Bilirubin 0.6 mg/dl (0.2-1.3) 06/21/24 04:06
AST 37 U/L (17-59) 06/21/24 04:06
ALT 40 U/L (0-50) 06/21/24 04:06
Alkaline Phosphatase 51 U/L (38-126) 06/21/24 04:06
C-Reactive Protein 58.30 mg/L (0.0-10.00) H 06/20/24 18:36
Most recent labs reviewed.
Micro Results:
06/20/24 11:48 Blood Culture - Final
Blood/Venous Streptococcus agalactiae
Gram Stain - Final
06/21/24 12:04 Blood Culture - Preliminary
Blood/Venous No Growth in 24 hours- Final report to follow
06/20/24 14:20 Streptococcus Screen (JOSEPH) - Final
Throat/Pharynx No Beta Hemolytic Streptococci Isolated
Streptococcus Rapid Screen - Final
Rapid Strep Screen (Group A) Negative
06/21/24 10:39 Blood Culture - Preliminary
Blood/Venous No Growth in 24 hours- Final report to follow
06/20/24 13:13 Blood Culture - Preliminary
Blood/Venous Streptococcus agalactiae
Gram Stain - Preliminary
06/20/24 11:48 Influenza Types A & B (BENJAMIN) - Final
Nasal Swab Negative for Influenza A & B, NAAT
Negative results must be combined with clinical observations
and patient history.
Nucleic Acid Amplification test (NAAT)performed on the
[employer] platform.
[2024-06-23] MEDS: ROCEPHIN IV (11:07)
[2024-06-23] MEDS: STERILE WATER FOR INJECTION IV (11:08)
--- NOTE | 2024-06-23 12:21 | W.PN.CARDCBS ---
Today's Communication / Plan
-
INDY done today without evidence of vegetation.
Cont IV abx course as per ID.
Trop peak 0.2, cont medical therapy of nonMI trop.
Last cath in 2021 with nonobstructive CAD.
Could consider for outpatient ischemic eval once recovered
Cont supportive care
will arrange outpt cardiac follow up.
Please recall if needed
Impression / Plan
-
Primary Building Maintenance Repairer: Dr. Nielsen
Impression:
Strep agalactiae bacteremia, suspicion for prosthetic valve endocarditis
Elevated trop peak 0.2
Severe status post TAVR 01/2022
Nonobstructive CAD by cath 2021
PVD status post left femoral endarterectomy 09/2022
Hypertension
Hyperlipidemia
Sensorineural Hearing Loss
ECHO 06/12/24: EF 55 to 60%, mild MAC, status post number 29 mm evolute R, well-seated with peak/mean gradients 14/9 mmHg, no AR seen, mild TR, PAP 28 mmHg, no significant change compared to prior
Plan:
INDY done today without evidence of vegetation.
Cont IV abx course as per ID.
Trop peak 0.2, cont medical therapy of nonMI trop.
Last cath in 2021 with nonobstructive CAD.
Could consider for outpatient ischemic eval once recovered
Cont supportive care
will arrange outpt cardiac follow up.
Please recall if needed
Additional hx: Previously tested COVID, flu, and strep negative. Chest CT negative for PE. Chest x-ray without acute abnormalities. UA within normal limits. CT of the abdomen and pelvis without acute abnormalities noted. He was last
discharged on course of doxycycline for possible Lyme disease, however unfortunately recurred with fever earlier today. TTE 06/12/2024 with results as above
Clinical summary 73-year-old man with history of TAVR in 2021. He was admitted June 11 for fever, discharged, readmitted on June 15 with a temp of 105 and discharged June 17, now readmitted again. Cultures have apparently been negative, ID
has requested a transesophageal echo. Subsequent to this admission, blood cultures now growing out gram-positive cocci in chains
PMH: TAVR January 2022, nonobstructive CAD at the time of catheterization, left femoral endarterectomy September 2022, hypertension, hyperlipidemia, sensorineural deafness
Progress Note - Building Maintenance Repairer
Subjective
Date of Service: June 23, 2024
Pt seen and examined. No complaints. No chest pain or shortness of breath.
Objective
Labs:
06/23/24 03:57
06/21/24 04:06
Labs
Hgb 11.6 g/dL (13.0-18.0) L 06/23/24 03:57
Hct 34.2 % (39.0-52.0) L 06/23/24 03:57
Plt Count 221 10^3/uL (130-400) 06/23/24 03:57
Sodium 138 mmol/L (135-145) 06/21/24 04:06
Potassium 4.4 mmol/L (3.5-5.1) 06/21/24 04:06
BUN 18 mg/dl (9-20) 06/21/24 04:06
Creatinine 0.8 mg/dL (0.7-1.3) 06/21/24 04:06
Glucose 135 mg/dl (70-99) H 06/21/24 04:06
Troponins
06/21/24
04:06
Troponin I 0.189 H*
Vital Signs and I&O:
Vital Signs
Temp Pulse Resp BP Pulse Ox
97.8 F 85 17 145/80 94
06/23/24 03:51 06/23/24 04:00 06/23/24 04:00 06/23/24 04:00 06/23/24 04:00
Vital Signs
Temp Pulse Resp BP Pulse Ox
97.8 F 85 17 145/80 94
06/23/24 03:51 06/23/24 04:00 06/23/24 04:00 06/23/24 04:00 06/23/24 04:00
Intake & Output
06/21/24 06/22/24 06/23/24 06/24/24
06:59 06:59 06:59 06:59
Intake Total 240 / 240 1884 / 1884 1390 / 1390
Output Total 800 / 800 2400 / 2400
Balance -560 / -560 -516 / -516 1390 / 1390
Physical Exam
Physical Exam
General: No acute distress, AAOX3
Neck: Negative JVD
Heart: Regular, Negative S3 positive S1/S2, Negative S4, No murmur
Lungs: CTA b/l, negative wheezes/rales/rhonchi
Abd: Positive BS, NT/ND, neg rebound/rigidity/guarding
Ext: Negative cyanosis/clubbing/edema
Neuro: nonfocal
[2024-06-23] MEDS: STERILE WATER FOR INJECTION 20 ML IV (13:15)
[2024-06-23] MEDS: ROCEPHIN 2000 MG IV (13:16)
--- NOTE | 2024-06-23 15:11 | CM ---
Addendum entered by Ladan Gonzales RN 06/23/24 15:38:
Provided written Infusion Schedule, [facility] Address and Phone # to patient, and copy given to son.
Original Note:
Patient with Dx Septic shock, suspicion for prosthetic valve endocarditis. INDY today. PICC placed today. Room air. Receiving IV ceftriaxone.
Script received from Dr Larson for ceftriaxone 2 gm IV q 24h, start date day after d/c, end date 07/18/24. Script placed in chart.
Spoke with KAMLESH Rivas; updated script faxed. Dr Larson faxed [facility] Reaction Sheet. They can access PICC info in chart. Patient is cleared to start at D Wed, 10:45am, and Sat-Sun in ED at 7am.
Met with patient and son Gt; both agree to d/c tomorrow to home with [facility]fusion [facility] week 10:45am/ED weekends 7:00am for IV Abx. IMM completed. Patient unhappy about schedule as he preferred afternoon infusion times, so he could continue
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 Patient will drive himself home tomorrow.
Plan home tomorrow with [facility] for IV Abx.
[2024-06-23] MEDS: LOVENOX 40 MG SC (18:20)
--- NOTE | 2024-06-23 21:46 | PTCARENOTE ---
Pt transferred to 4th floor. Report given. No assessment changes.
[2024-06-23] MEDS: ANESTHETIC LOZENGE 1 LOZENGE PO (22:04)
--- NOTE | 2024-06-23 22:24 | PTCARENOTE ---
Patient transferred from IMU via wheelchair. AAOx3. Pleasant and cooperative with care. Vitals stable. Requested throat lozenge due to soreness from INDY earlier in day. Call weiss within reach. Oriented to unit.
[2024-06-24] MEDS: STERILE WATER FOR INJECTION 20 ML IV (05:54)
[2024-06-24] MEDS: ROCEPHIN 2000 MG IV (05:55)
[2024-06-24 07:36] VITALS: BP 144/77
--- NOTE | 2024-06-24 09:14 | W.PN.HOSP.TC ---
Today's Communication/Plan
-
Discharge today
Assessment / Plan
Assessment / Plan
Septic shock -due to group B strep with concern for probable endocarditis.
Blood cultures positive on 06/20, repeat cultures NTD. ID recommends 4 weeks of IV Rocephin. Had a TAVR.
Leukocytosis resolved. Afebrile. Shock resolved.
06/23 INDY negative for vegetation
Stable for med surge
Discharge home tomorrow
Troponin elevation -suspect acute nonischemic myocardial injury due to sepsis. Troponins were elevated during last hospitalization as well.
Hematuria -noted by nursing. Urinalysis yesterday negative, will repeat today. Reportedly had clots in his urine. This is suggestive of bleeding within the bladder.
CAD -stable.
PAD -stable.
Aortic stenosis -s/p TAVR 2021.
Hyperlipidemia -Lipitor.
Essential hypertension -blood pressure sure elevated, resume blood pressure medications upon discharge
Nephrolithiasis
Obesity due to excess calories
DVT prophylaxis�subcu Lovenox
Full code
Physical Exam
General: Obese, no acute distress
HEENT: Normocephalic, Atraumatic, EOMI, MMM
Respiratory: Clear to Auscultation bilaterally
Cardiac: Normal S1/S2, Regular Rate and Rhythm
GI: Soft, Nontender, Nondistended, Normal Bowel Sounds
Extremities: No Clubbing, Cyanosis, or Edema
Neuro: Nonfocal/Grossly Intact
Psych: Calm, Cooperative
Derm: No Visible lesions
Anticipated Discharge: Today
Subjective/Interval History
-
Date of Service: June 24, 2024
Patient denies chest pain, denies shortness of breath. No fever, no vomiting. Patient is eager for discharge today.
Objective Data
-
Vital Signs:
Vital Signs
Temp Pulse Resp BP Pulse Ox
98.7 F 75 18 144/77 98
06/24/24 07:36 06/24/24 07:36 06/24/24 07:36 06/24/24 07:36 06/24/24 07:36
I&O
06/23/24 06/24/24 06/25/24
06:59 06:59 06:59
Intake Total 1390 / 1390 240 / 240
Balance 1390 / 1390 240 / 240
--- NOTE | 2024-06-24 10:24 | W.DCSUMMARY ---
Discharge Summary
Discharge Data
Date of Admission: 06/20/24
Date of Discharge: 06/24/24
-
Pending Results: No
Hospital Course
Discharge diagnosis:
Septic shock
Group B streptococcus bacteremia with concern for endocarditis
Fever
Leukocytosis
Transient hematuria
Nonischemic myocardial injury troponin elevation
Coronary artery disease
Peripheral artery disease
Aortic stenosis status post valve replacement
Essential hypertension
Obesity due to excess calories
Consults: ID, cardiology
INDY:
Normal left ventricular size, thickness, and systolic function. Left
ventricular ejection fraction is 55-60%.
No left atrial appendage thrombus.
Mild mitral regurgitation.
Mild tricuspid regurgitation.
Well-seated #29 mm Evolut TAVR. Trace aortic regurgitation. No evidence of
vegetation.
Mild atherosclerotic plaque along the descending thoracic aorta not mobile.
Compared to the previous 2 D study there is no significant change.
Hospital course:
73-year-old male with a past medical history of hypertension, hyperlipidemia, and obesity presented with fever and chills, and was found to have septic shock secondary to group B streptococcus bacteremia with concern for endocarditis. Patient was
seen in conjunction with ID, and treated with IV antibiotics. His antibiotics were transitioned to IV Rocephin.
Patient has a history of aortic stenosis, and had a TAVR done in 2021. He was seen in conjunction with cardiology. He had a INDY, which was negative for vegetation. ID is concerned about probable endocarditis. ID recommends a 4-week course of IV
Rocephin, followed by immune suppression. ID also recommends an outpatient colonoscopy, ideally while on IV antibiotics. He has been referred to GI for outpatient colonoscopy.
Patient's blood pressure medications were held initially secondary to septic shock. His hypotension resolved. His blood pressure became elevated on the day of discharge. He can resume his usual blood pressure medications upon discharge.
Patient is medically stable for discharge. He needs to follow-up with his primary care doctor in 1 week, GI in the office in 2-3 weeks for outpatient colonoscopy, and ID in the office in 3-4 weeks.
Disposition: Home self-care
Discharge planning: Required 41 minutes
Discharge Plan
-
Patient Disposition: Home (Routine Discharge)
Discharge Diagnosis/Procedures: Bacteremia with probable endocarditis
Condition: Good
Diet: Low Fat and Low Cholesterol
Activity: As tolerated
Driving Restrictions: As prior to admission
Activity Restrictions/Additional Instructions:
Continue IV Rocephin for 4 weeks.
You need an outpatient colonoscopy.
Follow-up with the ID doctor in 2-3 weeks, and your family doctor in 1 week.
Referrals:
Turner Guardado MD [Family Provider] - in one week
Winnie Larson MD [Active] - in two to three weeks
Prescriptions:
New
ceftriaxone 2 gram Recon Soln
2,000 mg IV Q24H 28 Days Qty: 0 0RF
Continued
aspirin 81 MG tablet,delayed release (DR/EC)
81 mg PO DAILY
doxazosin 8 MG tablet
8 mg PO DAILY
multivitamin Tablet
1 tab PO DAILY
amlodipine-benazepril 10-20 mg Capsule
1 cap PO DAILY
acetaminophen [Tylenol] 325 mg Tablet
650 mg PO Q6HPRN PRN (Reason: mild pain)
atorvastatin 20 mg tablet
20 mg PO DAILY
Discontinued
doxycycline hyclate 100 mg Capsule
100 mg PO Q12 Qty: 26 0RF
Discharge Orders:
Discharge Patient (As Directed); Ordered 06/24/24
Ordered By: Stalin Chaney
Discharge Date and Time
Discharge Date/Time: 06/24/24 11:26
Print Language: PORTUGUESE
--- NOTE | 2024-06-24 10:31 | W.PN.ID1 ---
Date of Service
Date of Service: June 24, 2024
Today's Communication
stable for dc from ID perspective
Assessment / Plan
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
Fevers
Leukocytosis
TAVR
- repeat blood cultures x2 06/21 - no growth to date; no further blood cultures needed, expect 06/21 will likely remain clear
- blood cultures x2 06/20 GBS - cause of fevers
- for INDY no definitive vegetation
- for PICC line placement
- continue ceftriaxone 2 gm IV q24 hours - plan 4 week course followed by suppression - script given to family independence case manager
- outpatient colonoscopy - referral sent to GI front desk representative
- follow up in my clinic in about 4 weeks to discuss suppression
- stable for dc from ID perspective
Chief Complaint
-: Fever and Leukocytosis
Subjective / Review of Systems
afebrile
bp stable
some mild sore throat post INDY
Vital Signs / Physical Exam
Vital Signs
Vital Signs
Temp Pulse Resp BP Pulse Ox
98.7 F 75 18 144/77 98
06/24/24 07:36 06/24/24 07:36 06/24/24 07:36 06/24/24 07:36 06/24/24 07:36
Physical Exam
Constitutional: No Acute Distress and Chronically Ill
Cardiovascular: Regular Rate and S1/S2; Negative Murmur or Rub
Pulmonary: Clear and Symmetric; Negative Wheezes or Rales
Gastrointestinal: Soft, Non Tender, Non Distended and Normal Bowel Sounds
Skin: Warm and Dry; Negative Rash or Jaundice
Lines: PICC
Objective Data
Lab Data
Lab Results
06/23/24 03:57
06/21/24 04:06
ESR 31 mm/hour (0-20) H 06/20/24 18:36
Estimated Creat Clear 113 ml/min 06/21/24 04:06
Lactic Acid Cancelled 06/20/24 15:30
Total Bilirubin 0.6 mg/dl (0.2-1.3) 06/21/24 04:06
AST 37 U/L (17-59) 06/21/24 04:06
ALT 40 U/L (0-50) 06/21/24 04:06
Alkaline Phosphatase 51 U/L (38-126) 06/21/24 04:06
C-Reactive Protein 58.30 mg/L (0.0-10.00) H 06/20/24 18:36
Most recent labs reviewed.
Micro Results:
06/24/24 06:29 Blood Culture - Pending
Blood/Venous
06/21/24 12:04 Blood Culture - Preliminary
Blood/Venous No Growth in 48 hours- Final report to follow
06/21/24 10:39 Blood Culture - Preliminary
Blood/Venous No Growth in 48 hours- Final report to follow
06/20/24 11:48 Blood Culture - Final
Blood/Venous Streptococcus agalactiae
Gram Stain - Final
06/20/24 14:20 Streptococcus Screen (JOSEPH) - Final
Throat/Pharynx No Beta Hemolytic Streptococci Isolated
Streptococcus Rapid Screen - Final
Rapid Strep Screen (Group A) Negative
06/20/24 13:13 Blood Culture - Preliminary
Blood/Venous Streptococcus agalactiae
Gram Stain - Preliminary
06/20/24 11:48 Influenza Types A & B (BENJAMIN) - Final
Nasal Swab Negative for Influenza A & B, NAAT
Negative results must be combined with clinical observations
and patient history.
Nucleic Acid Amplification test (NAAT)performed on the
[employer] platform.
--- NOTE | 2024-06-24 10:38 | CM ---
CM reviewed chart, patient seen bedside. Patient for discharge today, scheduled with Infusion Center to start tomorrow. Patient daughter to transport home. CM will continue to follow for all discharge planning needs.
Plan; home with [facility] for IV antibiotics.
OID
[2024-06-24] MEDS: ASPIR LOW (ENTERIC COATED) 81 MG PO (10:58)
[2024-06-24] MEDS: LIPITOR 20 MG PO (10:58)
[2024-06-24 11:20] VITALS: BP 139/80
== END 2024-06-24 11:26 | disposition home or self-care (01) | DRG 314 ==
LOC: 4 WEST ACU 14:37
PROVIDERS: Physician Assistant; ADMITTING PHYSICIAN Hospitalist; ATTENDING PHYSICIAN Family Medicine; CONSULT PHYSICIAN Internal Medicine Cardiovascular Disease; CONSULT PHYSICIAN Student in an Organized Health Care Education/Training Program; EMERGENCY PHYSICIAN Emergency Medicine; FAMILY PHYSICIAN Family Medicine; OTHER PHYSICIAN Nurse Practitioner Acute Care
PROC: 02HV33Z Insertion of Infusion Device into Superior Vena Cava, Percutaneous Approach (ICD-10-PCS; 2024-06-20)
DX: T82.6XXA Infection and inflammatory reaction due to cardiac valve prosthesis, initial encounter (principal); A41.9 Sepsis, unspecified organism; R65.21 Severe sepsis with septic shock; I5A Non-ischemic myocardial injury (non-traumatic); I25.10 Atherosclerotic heart disease of native coronary artery without angina pectoris; E11.51 Type 2 diabetes mellitus with diabetic peripheral angiopathy without gangrene; Z95.2 Presence of prosthetic heart valve; E78.5 Hyperlipidemia, unspecified; I10 Essential (primary) hypertension; N20.0 Calculus of kidney; E66.09 Other obesity due to excess calories; Z68.33 Body mass index [BMI] 33.0-33.9, adult; I35.0 Nonrheumatic aortic (valve) stenosis; Z87.891 Personal history of nicotine dependence; Z79.82 Long term (current) use of aspirin; H90.5 Unspecified sensorineural hearing loss; Z82.49 Family history of ischemic heart disease and other diseases of the circulatory system; Z79.899 Other long term (current) drug therapy; Z11.52 Encounter for screening for COVID-19; Z87.442 Personal history of urinary calculi; F41.9 Anxiety disorder, unspecified; Z77.098 Contact with and (suspected) exposure to other hazardous, chiefly nonmedicinal, chemicals; D53.9 Nutritional anemia, unspecified; K57.30 Diverticulosis of large intestine without perforation or abscess without bleeding
CPT/HCPCS: 71045; 71046; 80053; 81003; 82962; 83605; 83880; 84145; 84484; 85025; 85652; 86140; 87040; 87070; 87077; 87147; 87205; 87502; 87811; 87880; 93005; 93312; 93320; 93325; 93970; 96360; 96361; 99284

== ENCOUNTER 2024-07-11 10:36 | Outpatient (RCR) | payer MEDICARE, BC, SELFPAY ==
[2024-06-25 10:45] VITALS: BP 136/74
[2024-06-25] MEDS: ROCEPHIN 70 MG IV (10:48)
[2024-06-26 11:00] VITALS: BP 137/72
[2024-06-26] MEDS: ROCEPHIN 70 MG IV (11:11)
[2024-06-27] MEDS: ROCEPHIN 70 MG IV (11:18)
[2024-06-28 07:37] VITALS: BP 120/71
[2024-06-28] MEDS: ROCEPHIN 70 MG IV (07:52)
[2024-06-29 07:01] VITALS: BP 141/78
[2024-06-29] MEDS: ROCEPHIN 70 MG IV (07:29)
[2024-06-30 10:55] VITALS: BP 127/70
[2024-06-30] MEDS: ROCEPHIN 70 MG IV (11:29)
[2024-06-30 12:34] LABS: % Basophils 0.6 % (0-2); % Eosinophils 1.9 % (0-6); % Immature Granulocytes 0.4 % (0-0.5); % Lymphocytes 22.6 % (20.5-51.1); % Neutrophils 64.5 % (42.2-75.2); Absolute Eosinophils 0.1 10^3/uL (0-0.7); Absolute Lymphocytes 1.5 10^3/uL (1.2-3.4); Absolute Monocytes 0.7 10^3/uL (0.1-0.6); Absolute Neutrophils 4.4 10^3/uL (1.4-6.5); Hematocrit 33.4 % (39.0-52.0); Hemoglobin 10.9 g/dL (13.0-18.0); Mean Corp Hgb Conc. 32.6 g/dL (33.0-37.0); Mean Corpuscular Hgb 31.6 pg (27.0-31.0); Mean Corpuscular Volume 96.8 fL (80.0-94.0); Mean Platelet Volume 9.4 fL (7.4-10.4); Platelet Count 289 10^3/uL (130-400); Red Blood Cell Count 3.45 10^6/uL (4.70-6.10); Red Cell Dist. Width 13.7 % (11.5-14.5); White Blood Cell Count 6.8 10^3/uL (4.8-10.8)
[2024-06-30 12:46] LABS: ALT (SGPT) 30 U/L (0-50); AST (SGOT) 25 U/L (17-59); Albumin 3.6 g/dl (3.5-5.0); Alkaline Phosphatase 48 U/L (38-126); Blood Urea Nitrogen 21 mg/dl (9-20); Calcium 8.9 mg/dl (8.4-10.2); Carbon Dioxide 26 mmol/L (22-30); Chloride 103 mmol/L (98-107); Glucose 117 mg/dl (70-99); Potassium 4.6 mmol/L (3.5-5.1); Sodium 137 mmol/L (135-145); Total Bilirubin 0.4 mg/dl (0.2-1.3); Total Protein 6.5 g/dl (6.3-8.2); eGFR > 60.00
[2024-07-01 10:15] VITALS: BP 116/69
[2024-07-01] MEDS: ROCEPHIN 70 MG IV (10:15)
[2024-07-02 10:45] VITALS: BP 143/77
[2024-07-02] MEDS: ROCEPHIN 70 MG IV (10:53)
[2024-07-03 10:45] VITALS: BP 109/65
[2024-07-03] MEDS: ROCEPHIN 70 MG IV (10:54)
[2024-07-04 10:40] VITALS: BP 136/73
[2024-07-04] MEDS: ROCEPHIN 70 MG IV (10:46)
[2024-07-05] MEDS: ROCEPHIN 70 MG IV (07:05)
[2024-07-05 08:19] VITALS: BP 124/90
[2024-07-06 07:10] VITALS: BP 146/79
[2024-07-06] MEDS: ROCEPHIN 70 MG IV (07:10)
[2024-07-07 10:45] VITALS: BP 135/64
[2024-07-07] MEDS: ROCEPHIN 70 MG IV (10:49)
[2024-07-07 11:13] LABS: % Eosinophils 3.6 % (0-6); % Immature Granulocytes 0.4 % (0-0.5); % Lymphocytes 25.2 % (20.5-51.1); % Monocytes 10.4 % (1.7-9.3); % Neutrophils 59.4 % (42.2-75.2); Absolute Basophils 0.1 10^3/uL (0-0.2); Absolute Eosinophils 0.3 10^3/uL (0-0.7); Absolute Lymphocytes 1.8 10^3/uL (1.2-3.4); Absolute Monocytes 0.7 10^3/uL (0.1-0.6); Absolute Neutrophils 4.2 10^3/uL (1.4-6.5); Hematocrit 34.6 % (39.0-52.0); Hemoglobin 11.3 g/dL (13.0-18.0); Mean Corp Hgb Conc. 32.7 g/dL (33.0-37.0); Mean Corpuscular Hgb 31.5 pg (27.0-31.0); Mean Corpuscular Volume 96.4 fL (80.0-94.0); Mean Platelet Volume 9.4 fL (7.4-10.4); Nucleated Red Blood Cells % 0 % (-); Platelet Count 194 10^3/uL (130-400); Red Blood Cell Count 3.59 10^6/uL (4.70-6.10); Red Cell Dist. Width 13.9 % (11.5-14.5); White Blood Cell Count 7.1 10^3/uL (4.8-10.8)
[2024-07-07 11:33] LABS: ALT (SGPT) 21 U/L (0-50); AST (SGOT) 23 U/L (17-59); Albumin 3.8 g/dl (3.5-5.0); Alkaline Phosphatase 52 U/L (38-126); Blood Urea Nitrogen 20 mg/dl (9-20); Calcium 9.4 mg/dl (8.4-10.2); Carbon Dioxide 28 mmol/L (22-30); Chloride 103 mmol/L (98-107); Glucose 122 mg/dl (70-99); Potassium 4.6 mmol/L (3.5-5.1); Sodium 136 mmol/L (135-145); Total Bilirubin 0.2 mg/dl (0.2-1.3); Total Protein 6.9 g/dl (6.3-8.2); eGFR > 60.00
[2024-07-08 10:25] VITALS: BP 130/73
[2024-07-08] MEDS: ROCEPHIN 70 MG IV (10:38)
[2024-07-09 10:20] VITALS: BP 116/63
[2024-07-09] MEDS: ROCEPHIN 70 MG IV (10:26)
[2024-07-10] MEDS: ROCEPHIN 70 MG IV (10:49)
[2024-07-10 10:55] VITALS: BP 135/74
[2024-07-11] MEDS: ROCEPHIN 70 MG IV (11:01)
[2024-07-11 11:04] VITALS: BP 128/74
== END 2024-07-11 12:59 | disposition home or self-care (01) ==
LOC: OID 10:36
PROVIDERS: ATTENDING PHYSICIAN Student in an Organized Health Care Education/Training Program; FAMILY PHYSICIAN Family Medicine
DX: I33.9 Acute and subacute endocarditis, unspecified (principal)
CPT/HCPCS: 36591; 80053; 85025; 96365

== ENCOUNTER 2024-07-18 10:27 | Outpatient (RCR) | payer MEDICARE, BC, SELFPAY ==
[2024-07-12] MEDS: ROCEPHIN 70 MG IV (07:23)
[2024-07-12 07:29] VITALS: BP 114/62
[2024-07-13 07:15] VITALS: BP 98/75
[2024-07-13] MEDS: ROCEPHIN 70 MG IV (07:15)
[2024-07-14 10:40] VITALS: BP 110/67
[2024-07-14] MEDS: ROCEPHIN 70 MG IV (10:57)
[2024-07-14 11:08] LABS: % Basophils 0.4 % (0-2); % Eosinophils 2.8 % (0-6); % Immature Granulocytes 0.3 % (0-0.5); % Lymphocytes 21.1 % (20.5-51.1); % Monocytes 10.2 % (1.7-9.3); % Neutrophils 65.2 % (42.2-75.2); Absolute Eosinophils 0.2 10^3/uL (0-0.7); Absolute Lymphocytes 1.4 10^3/uL (1.2-3.4); Absolute Monocytes 0.7 10^3/uL (0.1-0.6); Absolute Neutrophils 4.4 10^3/uL (1.4-6.5); Hematocrit 34.3 % (39.0-52.0); Hemoglobin 11.2 g/dL (13.0-18.0); Mean Corp Hgb Conc. 32.7 g/dL (33.0-37.0); Mean Corpuscular Hgb 31.5 pg (27.0-31.0); Mean Corpuscular Volume 96.6 fL (80.0-94.0); Mean Platelet Volume 9.3 fL (7.4-10.4); Platelet Count 168 10^3/uL (130-400); Red Blood Cell Count 3.55 10^6/uL (4.70-6.10); Red Cell Dist. Width 13.8 % (11.5-14.5); White Blood Cell Count 6.8 10^3/uL (4.8-10.8)
[2024-07-14 11:24] LABS: ALT (SGPT) 20 U/L (0-50); AST (SGOT) 23 U/L (17-59); Albumin 3.8 g/dl (3.5-5.0); Alkaline Phosphatase 52 U/L (38-126); Blood Urea Nitrogen 22 mg/dl (9-20); Calcium 9.2 mg/dl (8.4-10.2); Carbon Dioxide 27 mmol/L (22-30); Chloride 105 mmol/L (98-107); Glucose 109 mg/dl (70-99); Potassium 4.6 mmol/L (3.5-5.1); Sodium 139 mmol/L (135-145); Total Bilirubin 0.5 mg/dl (0.2-1.3); Total Protein 6.7 g/dl (6.3-8.2); eGFR > 60.00
[2024-07-15 10:10] VITALS: BP 138/80
[2024-07-15] MEDS: ROCEPHIN 70 MG IV (10:12)
[2024-07-16] MEDS: ROCEPHIN 70 MG IV (10:57)
[2024-07-16 11:06] VITALS: BP 127/63
[2024-07-17 10:35] VITALS: BP 115/62
[2024-07-17] MEDS: ROCEPHIN 70 MG IV (10:46)
[2024-07-18 10:36] VITALS: BP 105/65
[2024-07-18] MEDS: ROCEPHIN 70 MG IV (10:43)
== END 2024-07-21 10:07 | disposition home or self-care (01) ==
LOC: OID 10:27
PROVIDERS: ATTENDING PHYSICIAN Student in an Organized Health Care Education/Training Program; FAMILY PHYSICIAN Family Medicine
DX: I33.9 Acute and subacute endocarditis, unspecified (principal)
CPT/HCPCS: 36589; 36591; 80053; 85025; 96365

== ENCOUNTER → 2024-08-12 08:49 | Outpatient (REF) | payer MEDICARE, BC, SELFPAY | LOC: RAD 08:49 | PROVIDERS: ATTENDING PHYSICIAN Surgery Vascular Surgery; FAMILY PHYSICIAN Family Medicine | DX: I73.9 Peripheral vascular disease, unspecified (principal) | CPT/HCPCS: 93922; 93925 ==

== ENCOUNTER → 2024-09-02 08:30 | Outpatient (REF) | payer MEDICARE, BC, SELFPAY ==
[2024-09-02 12:58] LABS: ALT (SGPT) 20 U/L (0-50); AST (SGOT) 24 U/L (17-59); Albumin 4.1 g/dl (3.5-5.0); Alkaline Phosphatase 53 U/L (38-126); Blood Urea Nitrogen 20 mg/dl (9-20); Calcium 9.6 mg/dl (8.4-10.2); Carbon Dioxide 28 mmol/L (22-30); Chloride 106 mmol/L (98-107); Glucose 148 mg/dl (70-99); HDL Cholesterol 36 mg/dl; LDL Cholesterol, Calculated 54 mg/dl; Potassium 4.6 mmol/L (3.5-5.1); Sodium 142 mmol/L (135-145); Total Bilirubin 0.6 mg/dl (0.2-1.3); Total Cholesterol 109 mg/dl (50-199); Total Protein 6.9 g/dl (6.3-8.2); Triglyceride 96 mg/dl (10-149); Very Low Density Lipoprotein 19 mg/dl (0-30); eGFR > 60.00
[2024-09-02 13:10] LABS: Microalbumin, Random Urine 5.8 mg/dl (0.6-1.7); Microalbumin/creatinine Ratio 19.7 mg/g
[2024-09-02 13:22] LABS: Glycohemoglobin (HgbA1c) 6.4 % (4.0-5.6)
[2024-09-02 13:43] LABS: PSA, Total - Screen 3.96 ng/ml (0.0-4.0)
== END ==
LOC: HWLAB 08:30
PROVIDERS: ATTENDING PHYSICIAN Family Medicine
DX: E11.51 Type 2 diabetes mellitus with diabetic peripheral angiopathy without gangrene (principal); Z12.5 Encounter for screening for malignant neoplasm of prostate; E78.2 Mixed hyperlipidemia
CPT/HCPCS: 36415; 80053; 80061; 82043; 82570; 83036; G0103

== ENCOUNTER 2024-09-19 18:17 | Inpatient (IN) | payer MEDICARE, BC, SELFPAY ==
[2024-09-19] VITALS (8 sets, daily range): BP systolic 109–132; BP diastolic 51–69; BMI 35.9
[2024-09-19 13:18] LABS: % Basophils 0.4 % (0-2); % Eosinophils 0.4 % (0-6); % Immature Granulocytes 0.3 % (0-0.5); % Lymphocytes 11.7 % (20.5-51.1); % Monocytes 6.2 % (1.7-9.3); Absolute Lymphocytes 1.1 10^3/uL (1.2-3.4); Absolute Monocytes 0.6 10^3/uL (0.1-0.6); Absolute Neutrophils 7.8 10^3/uL (1.4-6.5); Hematocrit 36.8 % (39.0-52.0); Hemoglobin 12.5 g/dL (13.0-18.0); Mean Corpuscular Hgb 31.5 pg (27.0-31.0); Mean Corpuscular Volume 92.7 fL (80.0-94.0); Mean Platelet Volume 9.9 fL (7.4-10.4); Nucleated Red Blood Cells % 0 % (-); Platelet Count 173 10^3/uL (130-400); Red Blood Cell Count 3.97 10^6/uL (4.70-6.10); Red Cell Dist. Width 13.9 % (11.5-14.5); White Blood Cell Count 9.7 10^3/uL (4.8-10.8)
[2024-09-19 13:36] LABS: ALT (SGPT) 19 U/L (0-50); AST (SGOT) 27 U/L (17-59); Albumin 3.7 g/dl (3.5-5.0); Alkaline Phosphatase 54 U/L (38-126); Blood Urea Nitrogen 20 mg/dl (9-20); Calcium 9.7 mg/dl (8.4-10.2); Carbon Dioxide 24 mmol/L (22-30); Chloride 106 mmol/L (98-107); Glucose 138 mg/dl (70-99); Potassium 4.5 mmol/L (3.5-5.1); Sodium 137 mmol/L (135-145); Total Protein 6.7 g/dl (6.3-8.2); eGFR > 60.00
[2024-09-19 13:50] LABS: Troponin I 0.542 ng/ml
--- NOTE | 2024-09-19 14:19 | EDRN ---
Franky POTTS was just in room w/ pt.
--- NOTE | 2024-09-19 14:24 | ED.GENMED ---
History of Present Illness
<Franky Damico PA-C - Last Filed: 09/19/24 16:15>
General
Chief Complaint: Breathing Problem
Time Seen by Provider: 09/19/24 14:06
History of Present Illness
History of Present Illness:
Patient is a 73-year-old male with past medical history of prior tobacco use, sleep apnea, hypertension, hyperlipidemia, diverticulosis, history of kidney stones, anxiety, PTSD, history of TAVR in 2021, history of left-sided endarterectomy in 2022,
and history of sepsis secondary to group B streptococcus bacteremia/endocarditis in June 2024 seen by ID and treated with IV antibiotics discharged with PICC line currently on oral amoxicillin here today for evaluation of approximately 5 days of
progressively worsening dyspnea on exertion. Patient feels that he is short of breath just walking several steps from his bedroom to the bathroom. He also endorses a nonspecific upper back pain worse along his right upper back and shoulder region.
He has had no chest pain. He reports more recent onset of mild swelling along his ankles but denies unilateral lower extremity swelling or pain in his lower extremities. No fevers. No cough. No vomiting or diarrhea. No abdominal pain. The
patient does report several days ago having an episode of spitting up small amounts of blood but this was short-lived and self resolved lasting less than 10 minutes. He denies prior history of PE or DVT. He is not currently on anticoagulation. He
denies acute complaints or problems otherwise. No recent surgeries. No active cancer.
Past History
<Franky Damico PA-C - Last Filed: 09/19/24 16:15>
Past History
ED Past Medical History: HTN, Valvular disease and Other (Diverticulosis, Kidney stones)
ED Past Surgical History: Cardiac (TAVR) and Other (Hernia repair)
Social History
Tobacco: Former smoker
Alcohol: Former
Drug: None
Personal: Other
Living: with family (Patient says he lives with his son)
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
Family History
Family History: CAD (Mother with [place] at 57 No aneurysm)
Review of Systems
<Franky Damico PA-C - Last Filed: 09/19/24 16:15>
Review of Systems
All Other Systems: ROS reviewed and negative except as documented in HPI and ROS
Phy Exam
<Franky Damico PA-C - Last Filed: 09/19/24 16:15>
Physical Exam
Physical Exam:
GENERAL: Alert , in no apparent distress
EYE: pupils equal and reactive
NECK: Supple, no significant adenopathy.
ENT: o/p clr, mmm.
CARDIAC: Regular rate and rhythm .
LUNGS: Clear breath sounds bilaterally, no acute respiratory distress, no wheezes/rales/rhonchi
ABDOMEN: Soft, without focal tenderness, no r/g, no cvat
NEUROLOGICAL: Alert and oriented, no focal neuro deficits
SKIN: Warm and dry, skin intact.
MUSCULOSKELETAL: Well-perfused. Mild swelling along the pedal regions bilaterally. No tenderness including along the calves. No palpable cord. No overlying skin changes.
PSYCH: Normal and appropriate interaction.
Scores
<Franky Damico PA-C - Last Filed: 09/19/24 16:15>
Heart Failure Risk
Heart Failure Risk Score: Yes
History of Stroke or TIA: No
History of intubation for respiratory distress: No
Heart rate on ED arrival >/= 110: No
SaO2 <90% on arrival on room air: No
HR >/=110 during 3min walk test (or too ill to perform test): No
ECG has acute ischemic changes: No
Urea >/=12mmol/L (BUN 33.6mg/dL): No
Serum CO2>/=35mmol/L: No
Troponin I or T elevated to [place] Level (0.4mg/dL): Yes
NT-proBNP >/=5,000ng/L (5,000pg/ml): No
HF Risk Score: 2
Admission Status: MEDIUM RISK 9.2% Consider observation or discharge to home with homecare & f/u visit to PCP/Supervisor [employer], or SNF for treatment
Course
<Franky Damico PA-C - Last Filed: 09/19/24 16:15>
Orders/Labs/Results
Orders:
Orders
09/19/24 12:48
Electrocardiogram (*1) Urgent
Reason for Study: Shortness of Breath
EKG- Treatment ONCE
09/19/24 13:00
Chest [CR Chest - 2 Views ] Urgent
Comment:
Reason For Exam: TRAN, SOB
09/19/24 13:09
Complete Blood Count/With Diff Urgent
Comprehensive Metabolic Panel Urgent
Troponin I Urgent
09/19/24 14:19
CT Chest PE Study Urgent
Comment:
Reason For Exam: sob 5 days
09/19/24 14:28
COVID-19 Antigen Urgent
Source: Nasal Swab
NT-proBNP Urgent
PTT Urgent
Prothrombin Time Urgent
09/19/24 15:36
Aspirin 325 mg PO NOW STA
Furosemide [Lasix] 40 mg IV ONCE ONE
09/19/24 16:09
Electrocardiogram (*1) Urgent
Reason for Study: Shortness of Breath
Troponin I Stat
Abnormal Lab Results
09/19/24
13:09
RBC 3.97 L 10^6/uL
(4.70-6.10)
Hgb 12.5 L g/dL
(13.0-18.0)
Hct 36.8 L %
(39.0-52.0)
MCH 31.5 H pg
(27.0-31.0)
Absolute Neuts (auto) 7.8 H 10^3/uL
(1.4-6.5)
Absolute Lymphs (auto) 1.1 L 10^3/uL
(1.2-3.4)
Neutrophils % 81.0 H %
(42.2-75.2)
Lymphocytes % 11.7 L %
(20.5-51.1)
Glucose 138 H mg/dl
(70-99)
Troponin I 0.542 H* ng/ml
09/19/24 13:09
09/19/24 13:09
Vital Signs
Initial and Last Documented VS:
Initial Vital Signs
Temp Pulse Resp BP Pulse Ox
98.0 F 102 18 121/66 98
09/19/24 12:53 09/19/24 12:53 09/19/24 12:53 09/19/24 12:53 09/19/24 12:53
Last Documented Vital Signs
Temp Pulse Resp BP Pulse Ox
98.0 F 91 21 132/69 93
09/19/24 12:53 09/19/24 14:30 09/19/24 14:30 09/19/24 14:16 09/19/24 14:30
<Jose Alfredo Tracy MD - Last Filed: 09/19/24 15:57>
Orders/Labs/Results
Orders:
Orders
09/19/24 12:48
Electrocardiogram (*1) Urgent
Reason for Study: Shortness of Breath
EKG- Treatment ONCE
09/19/24 13:00
Chest [CR Chest - 2 Views ] Urgent
Comment:
Reason For Exam: TRAN, SOB
09/19/24 13:09
Complete Blood Count/With Diff Urgent
Comprehensive Metabolic Panel Urgent
Troponin I Urgent
09/19/24 14:19
CT Chest PE Study Urgent
Comment:
Reason For Exam: sob 5 days
09/19/24 14:28
COVID-19 Antigen Urgent
Source: Nasal Swab
NT-proBNP Urgent
PTT Urgent
Prothrombin Time Urgent
09/19/24 15:36
Aspirin 325 mg PO NOW STA
Furosemide [Lasix] 40 mg IV ONCE ONE
09/19/24 16:09
Electrocardiogram (*1) Urgent
Reason for Study: Shortness of Breath
Troponin I Stat
Abnormal Lab Results
09/19/24
13:09
RBC 3.97 L 10^6/uL
(4.70-6.10)
Hgb 12.5 L g/dL
(13.0-18.0)
Hct 36.8 L %
(39.0-52.0)
MCH 31.5 H pg
(27.0-31.0)
Absolute Neuts (auto) 7.8 H 10^3/uL
(1.4-6.5)
Absolute Lymphs (auto) 1.1 L 10^3/uL
(1.2-3.4)
Neutrophils % 81.0 H %
(42.2-75.2)
Lymphocytes % 11.7 L %
(20.5-51.1)
Glucose 138 H mg/dl
(70-99)
Troponin I 0.542 H* ng/ml
09/19/24 13:09
09/19/24 13:09
Vital Signs
Initial and Last Documented VS:
Initial Vital Signs
Temp Pulse Resp BP Pulse Ox
98.0 F 102 18 121/66 98
09/19/24 12:53 09/19/24 12:53 09/19/24 12:53 09/19/24 12:53 09/19/24 12:53
Last Documented Vital Signs
Temp Pulse Resp BP Pulse Ox
98.0 F 91 21 132/69 93
09/19/24 12:53 09/19/24 14:30 09/19/24 14:30 09/19/24 14:16 09/19/24 14:30
<Franky Damico PA-C - Last Filed: 09/19/24 16:15>
MDM/Problems Addressed
Differential Diagnosis Includes:
Patient is a 73-year-old male with past medical history of prior tobacco use, sleep apnea, hypertension, hyperlipidemia, diverticulosis, history of kidney stones, anxiety, PTSD, history of TAVR in 2021, history of left-sided endarterectomy in 2022,
and history of sepsis secondary to group B streptococcus bacteremia/endocarditis in June 2024 seen by ID and treated with IV antibiotics discharged with PICC line currently on oral amoxicillin here today for evaluation of approximately 5 days of
progressively worsening dyspnea on exertion. Overall, patient appears very well. Vital signs remarkable for a mildly elevated heart rate to 102. Blood pressure normal at 121/66. Normal respiratory rate of 18. Normal oxygen saturation on room
air 98%. Screening labs were obtained in triage which revealed mild anemia with a hemoglobin of 12.5. Glucose slightly elevated at 138. Troponin 0.542. A chest x-ray was obtained which reveals small new bilateral pleural effusions with increased
bronchovascular markings within the perihilar regions bilaterally which may represent mild pulmonary edema. There is also a subtle more focal opacity in the right upper lobe which may be related to the same process with pneumonia also a
consideration. Patient made aware of findings. Given progressively worsening shortness of breath associated with elevated troponin and a reported episode of coughing up blood I am concerned for a possible pulmonary embolism and therefore will
obtain a CT PE study. Will also add a BNP.
09/19/2024 16:01: CT scan reveals no PE. There is findings consistent with congestive heart failure/pulmonary edema. There are also additional pulmonary nodules. Patient made aware. We will provide IV diuresis as well as aspirin. Will repeat
EKG/troponin. Will admit for monitoring with cardiology consultation.
<Franky Damico PA-C - Last Filed: 09/19/24 16:15>
*Critical Care Note
Total Time (30-74mins, 75-104mins- exclusive of procedures): Not Applicable
ED Attending Note
<Franky Damico PA-C - Last Filed: 09/19/24 16:15>
-
Portions of this chart may have been created with voice recognition software.� Occasional wrong word or��sound alike� substitutions may have occurred due to the inherent limitations of voice recognition software.
<Jose Alfredo Tracy MD - Last Filed: 09/19/24 15:57>
ED Attending Note
Patient seen and examined by attending physician: Yes
ED Attending Note:
I have seen and evaluated the patient with a [id number] encounter. I have spoken to the advance practicer provider and involved in the medical history, the physical exam, medical decision making.
Evaluation and management service: agree unless noted differently below.
Results interpretation: agree unless noted differently below.
Focused HPI: 73-year-old male with history as noted presents to the ER for evaluation of exertional shortness of breath. He has a known history of aortic valve replacement that was complicated by endocarditis requiring admission in June. He
sees Dr. Nielsen for cardiology. He says over the past week or so he has had progressive dyspnea on exertion. He says it has gotten to the point where he cannot walk more than a few steps without being winded. He has not have any chest pain; he
says he did have some back/shoulder pain associated with nausea when he went and walked around the grocery store a few days ago. He denies any palpitations. Has not noticed any weight gain. Denies any significant swelling in the legs. He denies
similar symptoms in the past.
Physical exam: Awake and alert not in distress. Heart rate in the 90s, respiratory rate normal, pulse ox normal on room air. Afebrile. He has a systolic murmur on heart auscultation. Breath sounds diminished at the lung bases. Trace edema on
the feet. No JVD.
Medical Decision Makin-year-old male presents with progressive exertional dyspnea x 1 week. Vitals and exam as above. CBC and CMP no clinically significant abnormalities. proBNP markedly elevated. Troponin elevated. Chest x-ray and CTA
chest reviewed�no PE but signs consistent with congestive heart failure. Will treat with aspirin, Lasix. Trend troponin. Admit for continued management of suspected new onset CHF.
Discharge Plan
Departure
Patient Disposition: Admit
Presentation/result/management discussed w/ accepting MD/DO: Hospitalist
Discharge Problem:
Acute congestive heart failure
Prescriptions:
No Action
aspirin 81 MG tablet,delayed release (DR/EC)
81 mg PO DAILY
doxazosin 8 MG tablet
8 mg PO DAILY
multivitamin Tablet
1 tab PO DAILY
amlodipine-benazepril 10-20 mg Capsule
1 cap PO DAILY
acetaminophen [Tylenol] 325 mg Tablet
650 mg PO Q6HPRN PRN (Reason: mild pain)
atorvastatin 20 mg tablet
20 mg PO DAILY
ceftriaxone 2 gram Recon Soln
2,000 mg IV Q24H 28 Days Qty: 0 0RF
ibuprofen [Advil] 200 mg Tablet
200 mg PO DAILY PRN (Reason: pain)
Referrals:
Turner Guardado MD [Family Provider] -
Interventions
Interventions:
*Risk Screen - Suicide Last Done: 09/19/24 14:34
*General Assessment Last Done: 09/19/24 14:33
*Neglect/Abuse Screening Last Done: 09/19/24 14:34
*ED- Fall Risk Assessment Last Done: 09/19/24 14:33
*ED COVID-19 Vaccine History Last Done: 09/19/24 14:33
ED- Cardiac Assessment Last Done: 09/19/24 14:25
ED- Pulmonary Assessment Last Done: 09/19/24 14:25
Discharge Date and Time
Print Language: ROMANIAN
[2024-09-19 14:45] LABS: INR 1.09; PT 14.4 Sec (11.4-14.6)
[2024-09-19 14:46] LABS: APTT 28.1 Sec (23.4-35.0)
[2024-09-19 15:00] LABS: COVID-19 Antigen Negative (Negative)
[2024-09-19 15:19] LABS: NT-proBNP 4150 pg/ml
[2024-09-19] MEDS: LASIX 40 MG IV (16:18)
[2024-09-19] MEDS: ASPIRIN 325 MG PO (16:20)
--- NOTE | 2024-09-19 16:25 | EDRN ---
repeat troponin drawn and sent
[2024-09-19 16:56] LABS: Troponin I 0.556 ng/ml
--- NOTE | 2024-09-19 17:31 | HPS.HSE ---
Family Physician
-
Family Physician: Turner Guardado
Chief Complaint
-
Shortness of Breath
History of Present Illness
Patient is a 73 y/o male past medical history of severe s/p TAVR and recent endocarditis maintained on amoxicillin who presents with shortness of breath. Patient reports increasing dyspnea on exertion over the past 4 days. He reports slight
lower extremity edema which seems to improve with elevation. He reports he has been eating healthy but notes he has not lost any weight and expresses concern that he is retaining fluid. He denies chest pain.
Medical History
Past Medical History
Past Medical History: Reports Other
Additional Past Medical History:
Severe Aortic Stenosis
ASCVD
Hypertension
Nephrolithiasis
DJD / DDD
Obesity
Sensorineural Hearing Loss
Past Surgical History: Reports Other
Additional Past Surgical History:
Umbilical Hernia Repair
Inguinal Hernia Repair
TAVR
Left Femoral Endarterectomy
Left Fem-Fem Bypass
Social History
Tobacco: Former Smoker (Quit smoking in 1997.)
Alcohol: None
Drug: None
Personal:
Family History
Family History: Other (Father: EtOH Mother: CAD)
Allergies / Home Medications
Allergies reflects when Allergies were last updated in [facility].
Home Medications with original date entered in [facility]
Allergy/Medication List:
Allergies
Allergy/AdvReac Type Severity Reaction Status Date / Time
No Known Drug Allergies Allergy Unknown Verified 09/19/24 12:52
Home Medications
aspirin 81 mg tablet,delayed release 81 mg PO DAILY Blood clot prevention/tx 01/24/16
doxazosin 8 mg tablet 8 mg PO DAILY Urinary issue 01/24/16
multivitamin 1 tab PO DAILY Supplement 09/15/22
acetaminophen 325 mg tablet (Tylenol) 650 mg PO Q6HPRN PRN mild pain 06/20/24
amlodipine 10 mg-benazepril 20 mg capsule 1 cap PO DAILY Blood Pressure 06/20/24
atorvastatin 20 mg tablet 20 mg PO DAILY High Cholesterol 06/20/24
amoxicillin 500 mg tablet 500 mg PO BID 09/19/24
Review of Systems
-
A 12 point ROS was completed and negative except as noted: Yes
Constitutional: Denies Fever or Chills
Respiratory: Reports Trouble Breathing; Denies Cough
Cardiac: Denies Chest Pain or Palpitations
Physical Exam
Vital Signs
Vital Signs
Temp Pulse Resp BP Pulse Ox
98.0 F 86 21 123/61 96
09/19/24 12:53 09/19/24 17:02 09/19/24 17:02 09/19/24 17:02 09/19/24 17:02
Physical Exam
General: Comfortable and Conversant (Slight conversation dyspnea)
HEENT: Anicteric and Moist mucous membranes
Respiratory: Clear and Non Labored Respirations
Cardiac: S1/S2, Regular Rhythm and Murmur (III/ Systolic Murmur)
GI: Soft, Non Tender and Other (Protuberant)
Rectal: Deferred by Provider
Musculoskeletal: No Clubbing, No Cyanosis and Other (Trace / +1 pitting edema bilateral lower extremities)
Skin: Warm and Dry
Neuro: Awake, Alert, Oriented and Nonfocal/grossly intact
Psych: Calm
Laboratory Results
-
09/19/24 13:09
09/19/24 13:09
Laboratory Results
PT 14.4 Sec (11.4-14.6) 09/19/24 14:28
INR 1.09 09/19/24 14:28
APTT 28.1 Sec (23.4-35.0) 09/19/24 14:28
Total Bilirubin 1.0 mg/dl (0.2-1.3) 09/19/24 13:09
AST 27 U/L (17-59) 09/19/24 13:09
ALT 19 U/L (0-50) 09/19/24 13:09
Alkaline Phosphatase 54 U/L (38-126) 09/19/24 13:09
Troponin I 0.556 ng/ml H* 09/19/24 16:17
Data Reviewed
-
CT Scan: Report Reviewed by me
Lab Data: Labs Reviewed by me
Impression/Plan
-
Acute Heart Failure with Preserved EF
-Consult Cardiology
-Recheck echocardiogram given his recent endocarditis
-Patient reports urinating multiple times already following Lasix given in ED
-Continue Lasix 40mg IV Daily
Hx Endocarditis
-Continue suppressive amoxicillin
ASCVD
-Continue aspirin
Essential Hypertension
-Continue amlodipine / benazepril, and doxazosin
Hyperlipidemia
-Continue atorvastatin
Hx Aortic Stenosis s/p TAVR
DVT proph: Lovenox
Code Status: Full Code
--- NOTE | 2024-09-19 17:59 | W.PN.UPDATE ---
Update Note
Progress Note Update
This note serves as an addendum to the H&P by supplier manager YUSRA
Yu KOENIG
73M HX f severe s/p TAVR and recent endocarditis maintained on amoxicillin who presents with shortness of breath.
PE
General: Comfortable and Conversant
HEENT: Anicteric and Moist mucous membranes
Respiratory: Clear and Non Labored Respirations
Cardiac: S1/S2, RRR and Systolic Murmur
GI: Soft, Non Tender and Other (Protuberant)
Rectal: Deferred by Provider
MS: Trace / +1 pitting edema bilateral lower extremities
Skin: Warm and Dry
Neuro: Awake, Alert, Oriented and Nonfocal/grossly intact
Psych: Calm
EKG
NORMAL SINUS RHYTHM
MINIMAL VOLTAGE CRITERIA FOR LVH, MAY BE NORMAL VARIANT ( Sokolow-Duarte )
NONSPECIFIC ST ABNORMALITY
ABNORMAL ECG
WHEN COMPARED WITH ECG OF 19-SEP-2024 12:51,
NONSPECIFIC T WAVE ABNORMALITY, WORSE IN INFERIOR LEADS
CXR:
New small bilateral pleural effusions with increased bronchovascular markings within the perihilar regions bilaterally. Findings may represent mild pulmonary edema. There also is a subtle more focal opacities in the right upper lobe which may be
related to the same process with pneumonia also a consideration.
CT Chest PE Study
1. No evidence for pulmonary embolism.
2. Scattered ill-defined areas of ground glass bilaterally with small bilateral pleural effusions. Findings in keeping with pulmonary edema/congestive heart failure.
3. Unchanged 7 mm nodules in the posterior right upper lobe. Questionable new 8 mm nodule within the lateral left lower lobe versus groundglass opacity related to pulmonary edema. Consider short-term follow-up.
4. Hepatic steatosis.
ASSESSMENT & PLAN
Acute HF - HFpEF ?
-Consult Cardiology
-Recheck echocardiogram given his recent endocarditis
- urinating multiple times already following Lasix given in ED
-Continue Lasix 40mg IV Daily
Hx Endocarditis
s/p 28 days of IV CFTX and now on PO ABX
- 0n [employer]BB[employer] suppressive amoxicillin
ASCVD
- on [employer] aspirin
Essential Hypertension
- on [employer]OUNDER amlodipine / benazepril, and doxazosin
Hyperlipidemia
- on [employer] atorvastatin
Hx Aortic Stenosis s/p TAVR
DVT proph: Lovenox
Code Status: Full Code
IP TLM
--- NOTE | 2024-09-19 18:14 | CON.CAR ---
Consultation
Consultation Request
Date/Time Consultation Requested: 09/19/24 5:30pm
Date/Time Consultation Performed: 09/19/24 6:00pm
Requesting Provider: DELROY Maurer
Performing Provider: Paolo Fuchs MD
Reason for Consultation: CHF
Medical History
-
Chief Complaint: sob
History of Present Illness:
73-year-old male with past medical history of strep agalactiae bacteremia and possible prosthetic valve endocarditis, transcatheter aortic valve replacement January 2022, peripheral vascular use, hypertension hyperlipidemia presents with shortness of
breath for 4 to 5 days. He states he felt a fullness in his chest and also in his back for several days. He has noticed some weight gain, abdominal bloating, and lower extremity edema. He was having difficulty losing weight. He was having
orthopnea and difficulty sleeping at night with increased dyspnea on exertion. He has no fevers or sweats. He has been compliant with his amoxicillin which he was instructed to take forever. He has no new leg pains. He has no syncope. CT scan in
the emergency room revealed no pulmonary embolism but possible vascular congestion and congestive heart failure.
Past Medical History
Past Medical History: HTN, Hypercholesterolemia and Other (Status post transcatheter aortic valve replacement January 2022, strep agalactia bacteremia June 2024 with possible bioprosthetic valve endocarditis but unremarkable INDY, peripheral
vascular disease status post left femoral endarterectomy)
Past Surgical History: Other (TAVR 01/30, Left fem endarterectomy 01/31)
Social History
Tobacco: Non-Smoker
Alcohol: None
Drug: None
Employment: Retired
Family History
Family History: Hypertension
Allergies / Home Medications
Allergy/AdvReac Type Severity Reaction Status Date / Time
No Known Drug Allergies Allergy Unknown Verified 09/19/24 12:52
�Medication �Instructions �Recorded �Confirmed �Type
aspirin 81 mg tablet,delayed 81 mg PO DAILY Blood clot 01/24/16 09/19/24 History
release prevention/tx
doxazosin 8 mg tablet 8 mg PO DAILY Urinary issue 01/24/16 09/19/24 History
multivitamin 1 tab PO DAILY Supplement 09/15/22 09/19/24 History
acetaminophen 325 mg tablet 650 mg PO Q6HPRN PRN mild pain 06/20/24 09/19/24 History
(Tylenol)
amlodipine 10 mg-benazepril 20 mg 1 cap PO DAILY Blood Pressure 06/20/24 09/19/24 History
capsule
atorvastatin 20 mg tablet 20 mg PO DAILY High Cholesterol 06/20/24 09/19/24 History
amoxicillin 500 mg tablet 500 mg PO BID 09/19/24 09/19/24 History
Review of Systems
-
History Source: Patient
Constitutional: Weight Gain and Fatigue
EENT: No Symptoms
Respiratory: Cough and Trouble Breathing
Cardiac: Chest Pain
Abdomen/GI: No Symptoms
: No Symptoms
Musculoskeletal: No Symptoms
Skin: No Symptoms
Neurological: No Symptoms
Endocrine: No Symptoms
Hematologic/Lymphatic: No Symptoms
Physical Exam
Vital Signs
Temp Pulse Resp BP Pulse Ox
98.0 F 86 21 123/61 96
09/19/24 12:53 09/19/24 17:02 09/19/24 17:02 09/19/24 17:02 09/19/24 17:02
Lab Results
09/19/24 13:09
09/19/24 13:09
Troponin I 0.556 ng/ml H* 09/19/24 16:17
Kkd-[id number] Pept 4150 pg/ml 09/19/24 14:28
Physical Exam
General: Well Developed, Well Nourished and No Apparent Distress
HEENT: Normocephalic and Anicteric
Respiratory: Rhonchi and Non Labored Respirations
Cardiac: S1/S2, Regular Rhythm and Murmur (2/6 syst LSB)
GI: Soft, Non Tender and Distended
Genito-urinary: No Costovertebral Tender
Musculoskeletal: Edema (+1 edema)
Skin: Warm and Dry
Neuro: AO x 3
Psych: Calm
Impression / Plan
-
Assess:
Acute heart failure with preserved ejection fraction
Hx Strep agalactiae bacteremia, suspicion for prosthetic valve endocarditis 07/05 On chronic suppressive amoxicillin
Elevated trop peak 0.5
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
Nonobstructive CAD by cath 2021
PVD status post left femoral endarterectomy 09/2022
Hypertension
Hyperlipidemia
Sensorineural Hearing Loss
ECHO 06/12/24: EF 55 to 60%, mild MAC, status post number 29 mm evolute R, well-seated with peak/mean gradients 14/9 mmHg, no AR seen, mild TR, PAP 28 mmHg, no significant change compared to prior
INDY 06/23/24: LVEF 55 to 60%, mild MR, mild TR, #29 evolute TAVR with no evidence of vegetation and trace aortic regurgitation
Plan:
He presents with shortness of breath and acute heart failure with preserved ejection fraction. He has a recent history of possible endocarditis, although his transesophageal echo did not suggest this. He is on chronic suppression antibiotics and I
would continue the amoxicillin. Check blood cultures. Would start Lasix 40 mg IV twice daily and follow creatinine. Check CRP
Will add Toprol 25 mg daily. Okay to continue amlodipine/benazepril.
We will start with a repeat transthoracic echo to reevaluate his aortic valve and look for any change in ejection fraction or his transcatheter valve.
His troponin is now abnormal at 0.5. His EKG does have nonspecific T wave abnormalities. Recommend continuing aspirin, atorvastatin and will add Toprol. He remains on benazepril. His cardiac cath prior to transcatheter valve had nonobstructive
CAD but we may need to reevaluate his coronary arteries this admission as well. He has some atypical back pains but no clear chest tightness.
Data Reviewed
-
EKG: Report Reviewed by me
CT Scan: Report Reviewed by me
Medical Tests (Nuc Med, Echo etc): Report Reviewed by me
Labs: Labs Reviewed by me
Old Records: Reviewed
[2024-09-19] MEDS: LOVENOX 40 MG SC (20:22)
[2024-09-19] MEDS: AMOXIL 500 MG PO (20:22)
[2024-09-19 22:59] LABS: Troponin I 0.643 ng/ml
[2024-09-20 03:36] VITALS: BP 115/54
[2024-09-20 06:00] VITALS: BMI 35.6
[2024-09-20 07:15] VITALS: BP 125/48
[2024-09-20 07:45] LABS: Troponin I 0.504 ng/ml
[2024-09-20 07:54] LABS: TSH Reflex To Free T4 5.25 uIU/ml (0.47-4.68)
[2024-09-20 07:59] LABS: Hemoglobin 12.5 g/dL (13.0-18.0); Mean Corp Hgb Conc. 33.8 g/dL (33.0-37.0); Mean Corpuscular Hgb 31.5 pg (27.0-31.0); Mean Corpuscular Volume 93.2 fL (80.0-94.0); Mean Platelet Volume 10.2 fL (7.4-10.4); Platelet Count 179 10^3/uL (130-400); Red Blood Cell Count 3.97 10^6/uL (4.70-6.10); Red Cell Dist. Width 13.9 % (11.5-14.5); White Blood Cell Count 9.9 10^3/uL (4.8-10.8)
[2024-09-20 08:28] LABS: Free T4 1.07 ng/dl (0.78-2.19)
[2024-09-20 08:28] LABS: Blood Urea Nitrogen 22 mg/dl (9-20); Calcium 9.1 mg/dl (8.4-10.2); Carbon Dioxide 26 mmol/L (22-30); Chloride 108 mmol/L (98-107); Estimated Creatinine Clearance 89 ml/min; Glucose 155 mg/dl (70-99); Magnesium 1.9 mg/dl (1.6-2.3); Potassium 4.5 mmol/L (3.5-5.1); Sodium 141 mmol/L (135-145); eGFR > 60.00
[2024-09-20] MEDS: LOTREL 10 MG/20 MG 1 CAPSULE PO (08:56)
[2024-09-20] MEDS: FLOMAX 0.4 MG PO (08:56)
[2024-09-20] MEDS: ASPIR LOW (ENTERIC COATED) 81 MG PO (08:56)
[2024-09-20] MEDS: LASIX 40 MG IV (08:56)
[2024-09-20] MEDS: AMOXIL 500 MG PO ×2 (08:56→20:15)
[2024-09-20] MEDS: THERAGRAN 1 TABLET PO (08:56)
[2024-09-20] MEDS: LIPITOR 20 MG PO (08:56)
--- NOTE | 2024-09-20 09:24 | W.PN.CARDCBS ---
Today's Communication / Plan
-
Continue Lasix 40 mg IV daily
Plan for transthoracic echocardiogram on Sunday
Impression / Plan
-
Assess:
Acute heart failure with preserved ejection fraction
Hx Strep agalactiae bacteremia, suspicion for prosthetic valve endocarditis 07/05 On chronic suppressive amoxicillin
Elevated trop peak 0.5
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
Nonobstructive CAD by cath 2021
PVD status post left femoral endarterectomy 09/2022
Hypertension
Hyperlipidemia
Sensorineural Hearing Loss
ECHO 06/12/24: EF 55 to 60%, mild MAC, status post number 29 mm evolute R, well-seated with peak/mean gradients 14/9 mmHg, no AR seen, mild TR, PAP 28 mmHg, no significant change compared to prior
INDY 06/23/24: LVEF 55 to 60%, mild MR, mild TR, #29 evolute TAVR with no evidence of vegetation and trace aortic regurgitation
Plan:
He presented on 09/19/24 with shortness of breath and acute heart failure with preserved ejection fraction.
Maintain Lasix 40 mg IV daily which was initiated September 19, 2024 (no diuretic therapy as an outpatient)
Keep potassium between 4 and 5 and magnesium between 2 and 3
Maintain Toprol XL 25 mg daily which was initiated September 19, 2024
He has a recent history of possible endocarditis, although his transesophageal echo did not suggest this. He is on chronic suppression antibiotics
Continue chronic suppressive antibiotic therapy with amoxicillin.
Check blood cultures. Would start Lasix 40 mg IV twice daily and follow creatinine. Check CRP
Repeat transthoracic echo on Sunday to reevaluate his aortic valve and look for any change in ejection fraction or his transcatheter valve.
There is concern for acute coronary syndrome.
He has some atypical back pains but no clear chest tightness.
Presenting EKG does have nonspecific T wave abnormalities although no significant change on serial EKGs this admission
Troponin peaked at 0.643 and down to 0.5 this morning.
Added Toprol-XL 25 mg this admission
Maintain aspirin 81 mg daily
Maintain atorvastatin 20 mg daily
His cardiac cath (2021) prior to transcatheter valve had nonobstructive CAD but we may need to reevaluate his coronary arteries this admission as well.
He has essential hypertension and blood pressure is well-controlled
Maintain amlodipine/benazepril.
I also met with his daughter at the bedside. All of her questions and the patient's questions have been answered.
Total time spent today was 51 minutes in preparing to see the patient, seeing the patient and coordination of care. This included review of recent laboratory evaluations, cardiact testing, imaging studies, primary care rtecords, specialty
consultations, hospital records, as well as personally interviewing and examining the patient, which included discussion of their tests, review/ordering medications, and communicating with other healthcare professionals and also treatment planning
as well as counseling.
Progress Note - Sport Shoe Spike Assembler
Subjective
Date of Service: September 20, 2024
Breathing is much improved. No chest pain or palpitations.
Objective
Labs:
09/20/24 07:37
09/20/24 07:37
Labs
Hgb 12.5 g/dL (13.0-18.0) L 09/20/24 07:37
Hct 37.0 % (39.0-52.0) L 09/20/24 07:37
Plt Count 179 10^3/uL (130-400) 09/20/24 07:37
PT 14.4 Sec (11.4-14.6) 09/19/24 14:28
INR 1.09 09/19/24 14:28
APTT 28.1 Sec (23.4-35.0) 09/19/24 14:28
Sodium 141 mmol/L (135-145) 09/20/24 07:37
Potassium 4.5 mmol/L (3.5-5.1) 09/20/24 07:37
BUN 22 mg/dl (9-20) H 09/20/24 07:37
Creatinine 1.0 mg/dL (0.7-1.3) 09/20/24 07:37
Glucose 155 mg/dl (70-99) H 09/20/24 07:37
Troponins
09/19/24 09/19/24 09/19/24
13:09 16:17 22:26
Troponin I 0.542 H* 0.556 H* 0.643 H*
09/20/24
06:18
Troponin I 0.504 H*
Vital Signs and I&O:
Vital Signs
Temp Pulse Resp BP Pulse Ox
98 F 87 20 125/48 96
09/20/24 07:15 09/20/24 08:56 09/20/24 07:15 09/20/24 08:56 09/20/24 07:15
Vital Signs
Temp Pulse Resp BP Pulse Ox
98 F 87 20 125/48 96
09/20/24 07:15 09/20/24 08:56 09/20/24 07:15 09/20/24 08:56 09/20/24 07:15
Intake & Output
09/18/24 09/19/24 09/20/24 09/21/24
06:59 06:59 06:59 06:59
Intake Total 240 / 240
Output Total 1750 / 1750
Balance -1510 / -1510
Physical Exam
Physical Exam
Elderly gentleman laying in bed, no acute distress
Regular rate and rhythm normal S1 and S2 no S3, no S4 there is a grade 1/6 basal systolic ejection murmur, no rubs. Normal PMI
Lungs are clear to auscultation bilaterally without wheezes rales or
Extremities show trace pretibial edema bilaterally
Neurologic exam is grossly nonfocal
[2024-09-20 11:28] VITALS: BP 119/59
--- NOTE | 2024-09-20 12:39 | W.PN.HOSP.TC ---
Today's Communication/Plan
-
Monitor vital signs see plan
Continue with IV diuresis
Monitor volume status
Assessment / Plan
Assessment / Plan
General: Comfortable, no acute distress
HEENT: Anicteric and Moist mucous membranes
Respiratory: Clear and Non Labored Respirations
Cardiac: S1/S2, Regular Rhythm and Murmur (III/ Systolic Murmur)
GI: Soft, Non Tender
Musculoskeletal: No Clubbing, No Cyanosis and Other (Trace / +1 pitting edema bilateral lower extremities)
Neuro: Awake, Alert, Oriented and Nonfocal/grossly intact
Psych: Calm
Acute Heart Failure with Preserved EF
Cardiology following
Continue with IV Lasix
-Recheck echocardiogram given his recent endocarditis
Monitor volume status
Elevated troponin
Likely nonischemic myocardial injury
Monitor
Hx Endocarditis
Hx Strep agalactiae bacteremia, suspicion for prosthetic valve endocarditis 07/05 On chronic suppressive amoxicillin
ASCVD
-Continue aspirin
Essential Hypertension
-Continue amlodipine / benazepril, and doxazosin
Hyperlipidemia
-Continue atorvastatin
Hx Aortic Stenosis s/p TAVR
DVT proph: Lovenox
Code Status: Full Code
Anticipated Discharge: > 48 hours
Subjective/Interval History
-
Date of Service: September 20, 2024
Denies chest pain
Objective Data
-
Labs:
Laboratory Results
09/20/24 09/20/24
06:18 07:37
WBC Cancelled 9.9
Hgb Cancelled 12.5 L
Hct Cancelled 37.0 L
Plt Count Cancelled 179
Sodium Cancelled 141
Potassium Cancelled 4.5
Chloride Cancelled 108 H
Carbon Dioxide Cancelled 26
BUN Cancelled 22 H
Creatinine Cancelled 1.0
Glucose Cancelled 155 H
Calcium Cancelled 9.1
Vital Signs:
Vital Signs
Temp Pulse Resp BP Pulse Ox
97.9 F 86 22 119/59 95
09/20/24 11:28 09/20/24 11:28 09/20/24 11:28 09/20/24 11:28 09/20/24 11:28
I&O
09/19/24 09/20/24 09/21/24
06:59 06:59 06:59
Intake Total 240 / 240
Output Total 1750 / 1750
Balance -1510 / -1510
[2024-09-20 15:20] VITALS: BP 118/46
--- NOTE | 2024-09-20 17:14 | CM ---
Alert awake oriented patient who lives with his son Gt who lives in a 1 story home with 1 step to enter.He is independent in driving and in all activities of daily living.He uses a cane He was offered VN he declined need.
Has had [facility] hx / No SNF history
Pharmacy [facility]
PCP DR Guardado
PLAN Home Declined VN
[2024-09-20] MEDS: LOVENOX 40 MG SC (17:58)
[2024-09-20 19:34] VITALS: BP 120/60
[2024-09-20 23:46] VITALS: BP 119/73
[2024-09-21 03:42] VITALS: BP 108/58
[2024-09-21 06:00] VITALS: BMI 35.2
[2024-09-21 07:27] VITALS: BP 118/100
[2024-09-21 07:30] LABS: % Basophils 0.4 % (0-2); % Eosinophils 2.4 % (0-6); % Immature Granulocytes 1.3 % (0-0.5); % Lymphocytes 22.3 % (20.5-51.1); % Monocytes 7.7 % (1.7-9.3); % Neutrophils 65.9 % (42.2-75.2); Absolute Eosinophils 0.2 10^3/uL (0-0.7); Absolute Immature Granulocytes 0.1 10^3/uL (0-0.05); Absolute Monocytes 0.7 10^3/uL (0.1-0.6); Hematocrit 35.5 % (39.0-52.0); Mean Corp Hgb Conc. 33.8 g/dL (33.0-37.0); Mean Corpuscular Hgb 31.9 pg (27.0-31.0); Mean Corpuscular Volume 94.4 fL (80.0-94.0); Mean Platelet Volume 10.5 fL (7.4-10.4); Nucleated Red Blood Cells % 0 % (-); Platelet Count 190 10^3/uL (130-400); Red Blood Cell Count 3.76 10^6/uL (4.70-6.10); White Blood Cell Count 9.1 10^3/uL (4.8-10.8)
[2024-09-21 07:35] LABS: Blood Urea Nitrogen 28 mg/dl (9-20); Carbon Dioxide 27 mmol/L (22-30); Chloride 106 mmol/L (98-107); Estimated Creatinine Clearance 88 ml/min; Glucose 150 mg/dl (70-99); Potassium 4.3 mmol/L (3.5-5.1); Sodium 141 mmol/L (135-145); eGFR > 60.00
[2024-09-21] MEDS: LIPITOR 20 MG PO (08:09)
[2024-09-21] MEDS: THERAGRAN 1 TABLET PO (08:09)
[2024-09-21] MEDS: AMOXIL 500 MG PO ×2 (08:09→20:14)
[2024-09-21] MEDS: LOTREL 10 MG/20 MG PO (08:10)
[2024-09-21] MEDS: LASIX 40 MG IV (08:10)
[2024-09-21] MEDS: FLOMAX 0.4 MG PO (08:10)
[2024-09-21] MEDS: ASPIR LOW (ENTERIC COATED) 81 MG PO (08:10)
[2024-09-21 11:00] VITALS: BP 125/50
--- NOTE | 2024-09-21 11:57 | W.PN.CARDCBS ---
Today's Communication / Plan
-
Change to PO lasix
ECHO tomorow
Impression / Plan
-
Primary manager statistical programming Dr. Nielsen
Assess:
Acute heart failure with preserved ejection fraction
Hx Strep agalactiae bacteremia, suspicion for prosthetic valve endocarditis 07/05 On chronic suppressive amoxicillin
Elevated trop peak 0.5
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
Nonobstructive CAD by cath 2021
PVD status post left femoral endarterectomy 09/2022
Hypertension
Hyperlipidemia
Sensorineural Hearing Loss
ECHO 06/12/24: EF 55 to 60%, mild MAC, status post number 29 mm evolute R, well-seated with peak/mean gradients 14/9 mmHg, no AR seen, mild TR, PAP 28 mmHg, no significant change compared to prior
INDY 06/23/24: LVEF 55 to 60%, mild MR, mild TR, #29 evolute TAVR with no evidence of vegetation and trace aortic regurgitation
Plan:
He presented on 09/19/24 with shortness of breath and acute heart failure with preserved ejection fraction. Wt is down 3 lbs overnight and 13 lbs since admission. Slight bump in BUN Creat (08/07)
Will stop Lasix 40 mg IV daily (no diuretic therapy as an outpatient) but will initiate 40 mg Lasix oral
Keep potassium between 4 and 5 and magnesium between 2 and 3
Maintain Toprol XL 25 mg daily which was initiated September 19, 2024
He has a recent history of possible endocarditis, although his transesophageal echo did not suggest this. He is on chronic suppression antibiotics
Continue chronic suppressive antibiotic therapy with amoxicillin.
Check blood cultures. Would start Lasix 40 mg IV twice daily and follow creatinine. Check CRP
Repeat transthoracic echo on Sunday to reevaluate his aortic valve and look for any change in ejection fraction or his transcatheter valve.
There is concern for acute coronary syndrome.
He has some atypical back pains but no clear chest tightness.
Presenting EKG does have nonspecific T wave abnormalities although no significant change on serial EKGs this admission
Troponin peaked at 0.643 and down to 0.5 this morning.
Added Toprol-XL 25 mg this admission
Maintain aspirin 81 mg daily
Maintain atorvastatin 20 mg daily
His cardiac cath (2021) prior to transcatheter valve had nonobstructive CAD but we may need to reevaluate his coronary arteries this admission as well.
He has essential hypertension and blood pressure is well-controlled
Maintain amlodipine/benazepril.
Progress Note - Pipe And Tank Fabricator
Subjective
Date of Service: September 21, 2024
less SOB, no CP
Objective
Labs:
09/21/24 06:31
09/21/24 06:31
Labs
Hgb 12.0 g/dL (13.0-18.0) L 09/21/24 06:31
Hct 35.5 % (39.0-52.0) L 09/21/24 06:31
Plt Count 190 10^3/uL (130-400) 09/21/24 06:31
PT 14.4 Sec (11.4-14.6) 09/19/24 14:28
INR 1.09 09/19/24 14:28
APTT 28.1 Sec (23.4-35.0) 09/19/24 14:28
Sodium 141 mmol/L (135-145) 09/21/24 06:31
Potassium 4.3 mmol/L (3.5-5.1) 09/21/24 06:31
BUN 28 mg/dl (9-20) H 09/21/24 06:31
Creatinine 1.0 mg/dL (0.7-1.3) 09/21/24 06:31
Glucose 150 mg/dl (70-99) H 09/21/24 06:31
Troponins
09/19/24 09/19/24 09/19/24
13:09 16:17 22:26
Troponin I 0.542 H* 0.556 H* 0.643 H*
09/20/24
06:18
Troponin I 0.504 H*
Vital Signs and I&O:
Vital Signs
Temp Pulse Resp BP Pulse Ox
97.9 F 89 18 118/100 95
09/21/24 07:27 09/21/24 08:10 09/21/24 07:27 09/21/24 08:10 09/21/24 10:35
Vital Signs
Temp Pulse Resp BP Pulse Ox
97.9 F 89 18 118/100 95
09/21/24 07:27 09/21/24 08:10 09/21/24 07:27 09/21/24 08:10 09/21/24 10:35
Intake & Output
09/19/24 09/20/24 09/21/24 09/22/24
06:59 06:59 06:59 06:59
Intake Total 240 / 240 1600 / 1600
Output Total 1750 / 1750 1600 / 1600
Balance -1510 / -1510 0 / 0
Physical Exam
Physical Exam
Elderly gentleman laying in bed, no acute distress
Regular rate and rhythm normal S1 and S2 no S3, no S4 there is a grade 1/6 basal systolic ejection murmur, no rubs. Normal PMI
Lungs are clear to auscultation bilaterally without wheezes rales or
Extremities show trace pretibial edema bilaterally
Neurologic exam is grossly nonfocal
--- NOTE | 2024-09-21 12:02 | W.PN.HOSP.TC ---
Today's Communication/Plan
-
Monitor vitals
see plan
Continue with diuresis
Echo tomorrow
Cardiology following
Assessment / Plan
Assessment / Plan
General: Comfortable, no acute distress
HEENT: Anicteric and Moist mucous membranes
Respiratory: Clear and Non Labored Respirations
Cardiac: S1/S2, Regular Rhythm and Murmur (III/ Systolic Murmur)
GI: Soft, Non Tender
Musculoskeletal: No Clubbing, No Cyanosis and Other (Trace / +1 pitting edema bilateral lower extremities)
Neuro: Awake, Alert, Oriented and Nonfocal/grossly intact
Psych: Calm
Acute Heart Failure with Preserved EF
Cardiology following
Continue with diuresis
-Recheck echocardiogram given his recent endocarditis, echocardiogram tomorrow
Monitor volume status
Elevated troponin
Likely nonischemic myocardial injury
Monitor
Hx Endocarditis
Hx Strep agalactiae bacteremia, suspicion for prosthetic valve endocarditis 07/05 On chronic suppressive amoxicillin
ASCVD
-Continue aspirin
Essential Hypertension
-Continue amlodipine / benazepril, and doxazosin
Hyperlipidemia
-Continue atorvastatin
Hx Aortic Stenosis s/p TAVR
DVT proph: Lovenox
Code Status: Full Code
Anticipated Discharge: Within 24 hours
Subjective/Interval History
-
Date of Service: September 21, 2024
Denies chest pain
Objective Data
-
Labs:
Laboratory Results
09/21/24
06:31
WBC 9.1
Hgb 12.0 L
Hct 35.5 L
Plt Count 190
Sodium 141
Potassium 4.3
Chloride 106
Carbon Dioxide 27
BUN 28 H
Creatinine 1.0
Glucose 150 H
Calcium 9.0
Vital Signs:
Vital Signs
Temp Pulse Resp BP Pulse Ox
97.9 F 91 18 125/50 96
09/21/24 11:00 09/21/24 11:00 09/21/24 11:00 09/21/24 11:00 09/21/24 11:00
I&O
09/20/24 09/21/24 09/22/24
06:59 06:59 06:59
Intake Total 240 / 240 1600 / 1600
Output Total 1750 / 1750 1600 / 1600
Balance -1510 / -1510 0 / 0
[2024-09-21 15:07] VITALS: BP 134/60
[2024-09-21] MEDS: LOVENOX 40 MG SC (17:09)
[2024-09-21 19:31] VITALS: BP 125/58
[2024-09-21 23:55] VITALS: BP 125/58
[2024-09-22 03:43] VITALS: BP 129/55
[2024-09-22 06:00] VITALS: BMI 35.1
[2024-09-22 07:00] LABS: % Basophils 0.5 % (0-2); % Eosinophils 2.7 % (0-6); % Immature Granulocytes 0.6 % (0-0.5); % Lymphocytes 26.2 % (20.5-51.1); % Monocytes 7.4 % (1.7-9.3); % Neutrophils 62.6 % (42.2-75.2); Absolute Eosinophils 0.2 10^3/uL (0-0.7); Absolute Immature Granulocytes 0.1 10^3/uL (0-0.05); Absolute Lymphocytes 2.3 10^3/uL (1.2-3.4); Absolute Monocytes 0.7 10^3/uL (0.1-0.6); Absolute Neutrophils 5.6 10^3/uL (1.4-6.5); Hematocrit 39.8 % (39.0-52.0); Hemoglobin 13.5 g/dL (13.0-18.0); Mean Corp Hgb Conc. 33.9 g/dL (33.0-37.0); Mean Corpuscular Hgb 31.9 pg (27.0-31.0); Mean Corpuscular Volume 94.1 fL (80.0-94.0); Mean Platelet Volume 10.3 fL (7.4-10.4); Nucleated Red Blood Cells % 0 % (-); Platelet Count 179 10^3/uL (130-400); Red Blood Cell Count 4.23 10^6/uL (4.70-6.10); Red Cell Dist. Width 13.8 % (11.5-14.5); White Blood Cell Count 8.9 10^3/uL (4.8-10.8)
[2024-09-22 07:20] VITALS: BP 141/53
[2024-09-22 07:35] LABS: Troponin I 0.309 ng/ml
[2024-09-22 07:42] LABS: Blood Urea Nitrogen 24 mg/dl (9-20); Calcium 9.1 mg/dl (8.4-10.2); Carbon Dioxide 23 mmol/L (22-30); Chloride 107 mmol/L (98-107); Estimated Creatinine Clearance 88 ml/min; Glucose 148 mg/dl (70-99); Potassium 4.5 mmol/L (3.5-5.1); Sodium 141 mmol/L (135-145); eGFR > 60.00
[2024-09-22] MEDS: LOTREL 10 MG/20 MG 1 CAPSULE PO (07:50)
[2024-09-22] MEDS: AMOXIL 500 MG PO (07:50)
[2024-09-22] MEDS: ASPIR LOW (ENTERIC COATED) 81 MG PO (07:50)
[2024-09-22] MEDS: LIPITOR 20 MG PO (07:51)
[2024-09-22] MEDS: LASIX 40 MG PO (07:51)
[2024-09-22] MEDS: THERAGRAN 1 TABLET PO (07:51)
[2024-09-22] MEDS: FLOMAX 0.4 MG PO (07:51)
[2024-09-22 11:37] VITALS: BP 126/46
--- NOTE | 2024-09-22 12:39 | CM ---
Received notification that patient is medically stable for discharge. IMM provided. Reviewed it is signed and on chart. Patient stated that he will transport himself home.
Plan: Case management will continue to follow and assist with discharge planning. Home.
--- NOTE | 2024-09-22 13:03 | W.PN.CARDCBS ---
Addendum entered and electronically signed by Douglas Manzanares DO 09/22/24 14:41:
I saw and examined the patient.
The Popcorn Machine Operator's note was reviewed and I agree with the note.
Comment:
Plan:
He remains euvolemic, continue oral Lasix.
Follow-up echo showed preserved LV function with moderate valvular stenosis of his TAVR. Previous echo reviewed.
We discussed checking outpatient follow-up echo
Discussed heart failure teaching including low-sodium diet and checking daily weights and contact our office with weight gain.
Check BMP 1 week
Outpatient follow-up arranged
He is a of the [place] [employer].
Answered all questions.
Please recall if needed.
Addendum entered and electronically signed by Batsheva Umana PA-C 09/22/24 14:35:
GEN: No distress, awake, alert, oriented x3
HEENT: supple, anicteric, mmm
LUNGS: CTA b/l, no wheezes/rales
CV: Reg, S1/S2, 1/6 syst murmur
EXT: No clubbing, cyanosis, or edema
NEURO: Gross non-focal
SKIN: Warm, dry, no rash
Original Note:
Today's Communication / Plan
-
Check echo today.
Continue PO lasix
Consider addition of Toprol as OP.
BMP in 1 week
Follow up visit arranged
Impression / Plan
-
Primary cornice upholsterer: Dr. Nielsen
Impression:
Presented with SOB
Acute HFpEF
h/o Strep agalactiae bacteremia, suspicion for prosthetic valve endocarditis 06/2024
On chronic suppressive amoxicillin
Elevated trop peak 0.6
Severe s/p TAVR 01/2022 #29 Evolute
Nonobstructive CAD by cath 2021
PVD status post left femoral endarterectomy 09/2022
Hypertension
Hyperlipidemia
Sensorineural Hearing Loss
ECHO 06/12/2024: EF 55 to 60%, mild MAC, status post number 29 mm evolute R, well-seated with peak/mean gradients 14/9 mmHg, no AR seen, mild TR, PAP 28 mmHg, no significant change compared to prior
INDY 06/23/2024: LVEF 55 to 60%, mild MR, mild TR, #29 evolute TAVR with no evidence of vegetation and trace aortic regurgitation
Echo 09/22/2024: Study pending
Plan:
-Presented with SOB. Admitted with acute heart failure exacerbation.
-Diuresed with IV lasix this admission, transitioned to PO lasix 40mg daily 09/22
-Weight down another 1lb overnight, down to 258lbs on 09/22.
-Creat overall stable at 1.0. Check BMP in 1 week.
-Echo 06/2023 with preserved EF and stable TAVR as above. For repeat echo today, 09/22.
-Had planned to start Toprol 25mg daily this admission, but was never started. Consider starting at follow up visit
-Troponin elevation noted, managing as nonischemic myocardial infarction for now. Await echo as above.
-Continue aspirin, atorvastatin.
-Prior [facility] in 2021 w/ nonobstructive CAD.
-Continue amlodipine/benazepril.
-Follow up arranged.
Progress Note - College Counselor
Subjective
Date of Service: September 22, 2024
Objective
Labs:
09/22/24 06:16
09/22/24 06:16
Labs
Hgb 13.5 g/dL (13.0-18.0) 09/22/24 06:16
Hct 39.8 % (39.0-52.0) 09/22/24 06:16
Plt Count 179 10^3/uL (130-400) 09/22/24 06:16
PT 14.4 Sec (11.4-14.6) 09/19/24 14:28
INR 1.09 09/19/24 14:28
APTT 28.1 Sec (23.4-35.0) 09/19/24 14:28
Sodium 141 mmol/L (135-145) 09/22/24 06:16
Potassium 4.5 mmol/L (3.5-5.1) 09/22/24 06:16
BUN 24 mg/dl (9-20) H 09/22/24 06:16
Creatinine 1.0 mg/dL (0.7-1.3) 09/22/24 06:16
Glucose 148 mg/dl (70-99) H 09/22/24 06:16
Troponins
09/19/24 09/19/24 09/19/24
13:09 16:17 22:26
Troponin I 0.542 H* 0.556 H* 0.643 H*
09/20/24 09/22/24
06:18 06:16
Troponin I 0.504 H* 0.309 H*
Vital Signs and I&O:
Vital Signs
Temp Pulse Resp BP Pulse Ox
97.5 F 86 18 126/46 96
09/22/24 11:37 09/22/24 11:37 09/22/24 11:37 09/22/24 11:37 09/22/24 11:37
Vital Signs
Temp Pulse Resp BP Pulse Ox
97.5 F 86 18 126/46 96
09/22/24 11:37 09/22/24 11:37 09/22/24 11:37 09/22/24 11:37 09/22/24 11:37
Intake & Output
09/20/24 09/21/24 09/22/24 09/23/24
06:59 06:59 06:59 06:59
Intake Total 240 / 240 1600 / 1600 960 / 960
Output Total 1750 / 1750 1600 / 1600 1500 / 1500
Balance -1510 / -1510 0 / 0 -540 / -540
--- NOTE | 2024-09-22 13:36 | W.PN.HOSP.TC ---
Today's Communication/Plan
-
f/u TTE
discharge planning for home
Assessment / Plan
Assessment / Plan
Acute Heart Failure with Preserved EF
-Recheck echocardiogram given his recent endocarditis, echocardiogram result pending today
-LE swelling has improved
-IV lasix changed to oral lasix 40mg/d
Elevated troponin
-Likely nonischemic myocardial injury
-Monitor
Hx Endocarditis
Hx Strep agalactiae bacteremia, suspicion for prosthetic valve endocarditis 07/05 On chronic suppressive amoxicillin
ASCVD
-Continue aspirin
Essential Hypertension
-Continue amlodipine / benazepril, and doxazosin
Hyperlipidemia
-Continue atorvastatin
Hx Aortic Stenosis s/p TAVR
DVT proph: Lovenox
Code Status: Full Code
More than 30 minutes spent in discharge including
Final examination of the patient
Summarizing hospital stay
Instructions for continuing care to all relevant caregivers
Preparation of discharge records, prescriptions, and referral forms
Total time spent (in minutes): 39 mins
Anticipated Discharge: Today
Subjective/Interval History
-
Date of Service: September 22, 2024
Resting comfortably in bed
Denies chest discomfort/shortness of breath/palpitation
Objective Data
-
Labs:
Laboratory Results
09/22/24
06:16
WBC 8.9
Hgb 13.5
Hct 39.8
Plt Count 179
Sodium 141
Potassium 4.5
Chloride 107
Carbon Dioxide 23
BUN 24 H
Creatinine 1.0
Glucose 148 H
Calcium 9.1
Vital Signs:
Vital Signs
Temp Pulse Resp BP Pulse Ox
97.5 F 86 18 126/46 96
09/22/24 11:37 09/22/24 11:37 09/22/24 11:37 09/22/24 11:37 09/22/24 11:37
I&O
09/21/24 09/22/24 09/23/24
06:59 06:59 06:59
Intake Total 1600 / 1600 960 / 960
Output Total 1600 / 1600 1500 / 1500
Balance 0 / 0 -540 / -540
Review of Systems
-
Respiratory: Reports No Symptoms
Cardiac: Reports No Symptoms
Abdomen/GI: Reports No Symptoms
Physical Exam
-
General: Obese
HEENT: Negative Oxygen
Neuro: Awake, Alert and Oriented
--- NOTE | 2024-09-22 14:36 | W.DCSUMMARY ---
Discharge Summary
Discharge Data
Date of Admission: 09/19/24
Date of Discharge: 09/22/24
-
Pending Results: No
Hospital Course
Discharging Physician : Dr Brock Salazar
Disposition : Home
Primary care physician : Dr Turner Guardado
Principal Discharge diagnosis :
Acute on chronic diastolic heart failure
Nonischemic myocardial injury related troponin elevation
Chronic Discharge diagnosis :
History of prosthetic valve endocarditis
Coronary artery disease
Essential hypertension
Hyperlipidemia
History of aortic stenosis post transcatheter aortic valve replacement
Hospital Course :
Patient is a 73-year-old male with no mentioned past medical history came to ER for having new onset of shortness of breath. Patient was having exertional dyspnea. In ER examination patient was diagnosed to be in volume overload state. Patient
does have history of diastolic heart failure and not on any diuretics. Patient was started on IV diuretics therapy and cardiology was involved in care. Over the next 72hours, patient symptoms improved and at discharge patient was transitioned to
oral Lasix 40 mg daily. Patient has a history of recent prosthetic valve endocarditis and a repeat echocardiogram was done which did not show any new changes. Patient instructed to be maintained on amoxicillin 500mg twice daily dosing. Patient was
discharged to home with plan to follow up with cardiology in office.
Important imaging findings :
None
Procedure findings :
None
Discharge Plan
-
Patient Disposition: Home (Routine Discharge)
Discharge Diagnosis/Procedures: HF exacerbation, h/o prosthetic valve endocarditis
Condition: Fair
Diet: 2 Gram Sodium and Restrict fluids to 48 oz
Activity: As tolerated
Driving Restrictions: As prior to admission
Bathing Restrictions: OK to Shower
Instructions: *[facility] Heart Failure Instructions
Referrals:
Ana Cristina Melton PA-C [Specified Professional Personl] - 09/26/24 8:20 am (You have a follow up visit with Dr. Leavitt's Ana Cristina [facility], at the [facility]. Please call with questions. )
Turner Guardado MD [Family Provider] - in one week
Prescriptions:
New
furosemide 40 mg Tablet
40 mg PO DAILY Qty: 30 2RF
Continued
aspirin 81 MG tablet,delayed release (DR/EC)
81 mg PO DAILY
doxazosin 8 MG tablet
8 mg PO DAILY
multivitamin Tablet
1 tab PO DAILY
amlodipine-benazepril 10-20 mg Capsule
1 cap PO DAILY
acetaminophen [Tylenol] 325 mg Tablet
650 mg PO Q6HPRN PRN (Reason: mild pain)
atorvastatin 20 mg tablet
20 mg PO DAILY
amoxicillin 500 mg tablet
500 mg PO BID
Discharge Orders:
Discharge Patient (As Directed); Ordered 09/22/24
Ordered By: Brock Salazar
Discharge Date and Time
Print Language: NEPALI
--- NOTE | 2024-09-22 14:47 | PTCARENOTE ---
1345 Received patient this am AAOx3. TRAN escudero bilateral hearing aides. Pt off unit this am for Echo. Pt tolerated diet well. OOB ambulating with assistance x1 with single point cane. Pt offered no complaints. Made patient comfortable. Cont to
assess patient status.
--- NOTE | 2024-09-23 09:29 | W.HF.CON ---
Heart Failure
- LV Function
Left ventricular function study result: LV Ejection fraction >/= 50%
Ejection Fraction Percentage: 60-65
- ARNI
Patient already on ARNI: No
Heart Failure ARNI Not Indicated: LV Ejection Fraction >/= 40%
- ACEI/ARB
Patient already on ACEI/ARB: Yes
- Beta Jyoti
Patient already on Evidence Based Beta Jyoti: No
Heart Failure Evidence Based Beta Jyoti Not Indicated: LV Ejection Fraction > 40%
- Mineralocorticord Receptor Antagonist
Patient already on MRA: No
Heart Failure MRA Not Indicated: LV Ejection Fraction > 40%
- SGLT-2 Inhibitor
Patient already on SGLT-2 Inhibitor: No
Heart Failure SGLT-2 Inhibitor Not Indicated: LV Ejection Fraction >40%
- NYHA CHF Classification
NYHA CHF Classification Level: Class III - Symptoms w/ min exertion, interferes w/ nml daily activity
- ACC/AHA Stage
ACC/AHA Stage: Stage C: Symptomatic Heart Failure
== END 2024-09-22 14:38 | disposition home or self-care (01) | DRG 291 ==
LOC: 4 EAST ACU 18:17
PROVIDERS: Emergency Medicine; Internal Medicine; Internal Medicine Cardiovascular Disease; Physician Assistant; Physician Assistant Medical; ADMITTING PHYSICIAN Internal Medicine; ATTENDING PHYSICIAN Hospitalist; CONSULT PHYSICIAN Internal Medicine Cardiovascular Disease; EMERGENCY PHYSICIAN Emergency Medicine; FAMILY PHYSICIAN Family Medicine
DX: I11.0 Hypertensive heart disease with heart failure (principal); I50.33 Acute on chronic diastolic (congestive) heart failure; T82.6XXA Infection and inflammatory reaction due to cardiac valve prosthesis, initial encounter; I38 Endocarditis, valve unspecified; I5A Non-ischemic myocardial injury (non-traumatic); Y71.8 Miscellaneous cardiovascular devices associated with adverse incidents, not elsewhere classified; I25.10 Atherosclerotic heart disease of native coronary artery without angina pectoris; E78.00 Pure hypercholesterolemia, unspecified; H90.5 Unspecified sensorineural hearing loss; E66.9 Obesity, unspecified; Z68.35 Body mass index [BMI] 35.0-35.9, adult; Z79.899 Other long term (current) drug therapy
CPT/HCPCS: 71046; 71275; 80048; 80053; 83735; 83880; 84439; 84443; 84484; 85025; 85027; 85610; 85730; 86140; 87811; 93005; 93306; 96374; 99285; Q9967

== ENCOUNTER → 2024-10-02 13:07 | Outpatient (REF) | payer MEDICARE, BC, SELFPAY ==
[2024-10-02 16:36] LABS: Blood Urea Nitrogen 28 mg/dl (9-20); Calcium 9.5 mg/dl (8.4-10.2); Carbon Dioxide 23 mmol/L (22-30); Chloride 107 mmol/L (98-107); Glucose 127 mg/dl (70-99); Potassium 4.7 mmol/L (3.5-5.1); Sodium 141 mmol/L (135-145); eGFR > 60.00
== END ==
LOC: HWLAB 13:07
PROVIDERS: ATTENDING PHYSICIAN Physician Assistant Medical; FAMILY PHYSICIAN Family Medicine
DX: I50.32 Chronic diastolic (congestive) heart failure (principal)
CPT/HCPCS: 36415; 80048

== ENCOUNTER → 2024-12-17 14:02 | Outpatient (REF) | payer MEDICARE, BC, SELFPAY | LOC: HWRAD 14:02 | PROVIDERS: ATTENDING PHYSICIAN Internal Medicine; FAMILY PHYSICIAN Family Medicine | DX: R91.8 Other nonspecific abnormal finding of lung field (principal) | CPT/HCPCS: 71250 ==

== ENCOUNTER 2024-12-30 14:35 | Inpatient (IN) | payer MEDICARE, BC, SELFPAY ==
[2024-12-30] VITALS (15 sets, daily range): BP systolic 93–143; BP diastolic 40–86; BMI 32.0; BMI 31.8
--- NOTE | 2024-12-30 10:44 | ED.GENMED ---
History of Present Illness
General
Chief Complaint: Breathing Problem
Source: patient and family (Daughter)
Exam Limitations: none
Time Seen by Provider: 12/30/24 10:32
History of Present Illness
History of Present Illness:
Increase shortness of breath over the last few weeks. Does wax and wane for days. Worse the last 2 to 3 days. Worse at night. No chest pain no infectious symptoms. Patient has been on a higher dose of Lasix.
Past History
Past History
ED Past Medical History: CHF, HTN, Hypercholesterolemia, Valvular disease and Other (Diverticulosis, Kidney stones)
ED Past Surgical History: Cardiac (TAVR) and Other (Hernia repair)
Social History
Tobacco: Former smoker
Alcohol: Former
Drug: None
Personal: Other
Living: with family (Patient says he lives with his son)
Employment: Employed ([employer])
Family History
Family History: CAD (Mother with MN at 57 No aneurysm)
Review of Systems
Review of Systems
All Other Systems: Not applicable
Constitutional: Denies fever
ABD/GI: Reports no symptoms
Phy Exam
Physical Exam
Physical Exam:
GENERAL: Alert and oriented. Mild tachypnea at rest and with speaking
EYE: Orbits normal.
NECK: Supple, no significant adenopathy.
ENT: Pharynx without erythema
CARDIAC: Regular rate and rhythm with midsystolic murmur
LUNGS: Crackles in the bases. Mild tachypnea. No wheezing or rhonchi
ABDOMEN: Soft, without focal tenderness or distention
NEUROLOGICAL: Alert and oriented , grossly non-focal
SKIN: Warm and dry, no rash or lesion, no discoloration, skin intact.
MUSCULOSKELETAL: Trace pitting edema bilaterally
PSYCH: Normal and appropriate interaction.
Scores
Heart Failure Risk
Heart Failure Risk Score: Yes
History of Stroke or TIA: No
History of intubation for respiratory distress: No
Heart rate on ED arrival >/= 110: No
SaO2 <90% on arrival on room air: No
HR >/=110 during 3min walk test (or too ill to perform test): Yes
ECG has acute ischemic changes: No
Urea >/=12mmol/L (BUN 33.6mg/dL): No
Serum CO2>/=35mmol/L: No
Troponin I or T elevated to [place] Level (0.4mg/dL): No
NT-proBNP >/=5,000ng/L (5,000pg/ml): Yes
HF Risk Score: 3
Admission Status: HIGH RISK 15.9% Consider SNF treatment or admission to hospital
Course
Orders/Labs/Results
Orders:
Orders
12/30/24 10:25
EKG [Electrocardiogram (*1)] Urgent
Reason for Study: Shortness of Breath
12/30/24 10:26
EKG- Treatment ONCE
12/30/24 10:44
Cardiac Monitoring- Treatment ONCE
IV Insert/Care/Rem.- Treatment PRN
CR Chest - 2 Views Urgent
Comment:
Reason For Exam: sob
Pulse Ox/cont/shift [RESP] Stat
Quantity: 1
12/30/24 11:33
Basic Metabolic Panel Urgent
Complete Blood Count/With Diff Urgent
NT-proBNP Urgent
Troponin I Urgent
12/30/24 12:46
Furosemide [Lasix] 40 mg IV NOW STA
Abnormal Lab Results
12/30/24
11:33
RBC 3.96 L 10^6/uL
(4.70-6.10)
Hgb 12.2 L g/dL
(13.0-18.0)
Hct 37.7 L %
(39.0-52.0)
MCV 95.2 H fL
(80.0-94.0)
MCHC 32.4 L g/dL
(33.0-37.0)
RDW 14.6 H %
(11.5-14.5)
Abs Immat Gran (auto) 0.1 H 10^3/uL
(0-0.05)
Absolute Neuts (auto) 7.4 H 10^3/uL
(1.4-6.5)
Absolute Lymphs (auto) 0.9 L 10^3/uL
(1.2-3.4)
Immature Gran % 0.6 H %
(0-0.5)
Neutrophils % 81.7 H %
(42.2-75.2)
Lymphocytes % 10.4 L %
(20.5-51.1)
Glucose 132 H mg/dl
(70-99)
12/30/24 11:33
12/30/24 11:33
Vital Signs
Initial and Last Documented VS:
Initial Vital Signs
Temp Pulse Resp BP Pulse Ox
97.8 F 95 22 140/61 93
12/30/24 10:21 12/30/24 10:21 12/30/24 10:21 12/30/24 10:21 12/30/24 10:21
Last Documented Vital Signs
Temp Pulse Resp BP Pulse Ox
97.8 F 81 18 125/50 93
12/30/24 10:21 12/30/24 13:01 12/30/24 13:01 12/30/24 13:01 12/30/24 13:01
MDM/Problems Addressed
Differential Diagnosis Includes:
Patient presents with increased shortness of breath. Likely a primary cardiac issue. Doubt infectious. Workup in progress.
*Radiology
Radiology exam reviewed: radiology read reviewed (Increased pleural effusions. Mild CHF)
*Pulse Oximetry
SaO2: 93
Oxygen Mode of Delivery: Room air
Patient hypoxic: no
*EKG
Interpreted by ED Provider?: Yes
Interpretation: abnormal
Comparison EKG: changes noted
Heart Rate: 92
Rate: normal
Rhythm: sinus
[place]: normal axis
Interval: first degree heart block
QRS Pattern: left vent hypertrophy
Ischemia: non-specific ST changes
*Critical Care Note
Total Time (30-74mins, 75-104mins- exclusive of procedures): Not Applicable
Data Reviewed
Review of Other/Old Records Reveals: Labs, Records, Radiology Studies, Operative Reports and Testing
Update Note
Update Note:
Patient with apnea at rest. Refractory CHF outpatient management. Admit for further care
ED Attending Note
-
Portions of this chart may have been created with voice recognition software.� Occasional wrong word or��sound alike� substitutions may have occurred due to the inherent limitations of voice recognition software.
Discharge Plan
Departure
Patient Disposition: Admit
Date of Disposition: 12/30/24
Time of Disposition: 12:46
Presentation/result/management discussed w/ accepting MD/DO: Hospitalist
Discharge Problem:
Respiratory distress/CHF
Prescriptions:
No Action
aspirin 81 MG tablet,delayed release (DR/EC)
81 mg PO DAILY
multivitamin Tablet
1 tab PO DAILY
amlodipine-benazepril 10-20 mg Capsule
1 cap PO DAILY
acetaminophen [Tylenol] 325 mg Tablet
650 mg PO Q6HPRN PRN (Reason: mild pain)
atorvastatin 20 mg tablet
20 mg PO DAILY
amoxicillin 500 mg tablet
500 mg PO BID
furosemide 40 mg Tablet
40 mg PO DAILY Qty: 30 2RF
Referrals:
Turner Guardado MD [Family Provider, Family Practice]
Interventions
Interventions:
*Risk Screen - Suicide Last Done: 12/30/24 10:21
*General Assessment Last Done: 12/30/24 10:21
*Neglect/Abuse Screening Last Done: 12/30/24 11:21
*ED- Fall Risk Assessment Last Done: 12/30/24 11:21
*ED COVID-19 Vaccine History Last Done: 12/30/24 11:21
ED- Cardiac Assessment Last Done: 12/30/24 11:21
ED- Pulmonary Assessment Last Done: 12/30/24 12:30
Discharge Date and Time
Print Language: WALLISIAN
[2024-12-30 11:41] LABS: Hematocrit 37.7 % (39.0-52.0); Hemoglobin 12.2 g/dL (13.0-18.0); Mean Corp Hgb Conc. 32.4 g/dL (33.0-37.0); Mean Corpuscular Volume 95.2 fL (80.0-94.0); Nucleated Red Blood Cells % 0 % (-); Platelet Count 224 10^3/uL (130-400); Red Cell Dist. Width 14.6 % (11.5-14.5)
[2024-12-30 11:58] LABS: Blood Urea Nitrogen 18 mg/dl (9-20); Calcium 9.4 mg/dl (8.4-10.2); Carbon Dioxide 28 mmol/L (22-30); Chloride 105 mmol/L (98-107); Estimated Creatinine Clearance 104 ml/min; Glucose 132 mg/dl (70-99); Potassium 4.5 mmol/L (3.5-5.1); Sodium 138 mmol/L (135-145); eGFR > 60.00
[2024-12-30 12:09] LABS: Troponin I 0.022 ng/ml
[2024-12-30] MEDS: LASIX 40 MG IV ×2 (12:55→19:50)
--- NOTE | 2024-12-30 13:59 | HPS.HSE ---
Family Physician
-
Family Physician: Turner Guardado
Chief Complaint
-
SOB
History of Present Illness
74-year-old male with history of aortic stenosis s/p TAVR, HTN, CHF, who presents with 2 days of increased difficulty breathing, worse with exertion, fatigue, and orthopnea. He denies weight gain or increase in LE edema. patient notes that he
called his network program manager 1 week ago due to difficulty breathing and was advised to increase his oral Lasix from 40mg once daily to 60mg BID, and felt much improved. So 5 days ago he was advised to go down to 40mg BID (but he took 80mg once daily
instead), and 2 days ago he went back down to 40 mg daily of his own volition. After that he started noticing he was unable to sleep due to the SOB, and had severe dyspnea walking to the bathroom. His daughter is at bedside and notes that patient
is compliant with his low-sodium diet and watches his water intake as well as weighs himself daily. He denies recent chest pain, fevers, chills, viral illness, nausea/vomiting or other issues.
Medical History
Past Medical History
Past Medical History: Reports Other
Additional Past Medical History:
Severe Aortic Stenosis
ASCVD
Hypertension
Nephrolithiasis
DJD / DDD
Obesity
Sensorineural Hearing Loss
Past Surgical History: Reports Other
Additional Past Surgical History:
Umbilical Hernia Repair
Inguinal Hernia Repair
TAVR
Left Femoral Endarterectomy
Left Fem-Fem Bypass
Social History
Tobacco: Former Smoker (Quit smoking in 1997.)
Alcohol: None
Drug: None
Personal:
Family History
Family History: Other (Father: EtOH Mother: CAD)
Allergies / Home Medications
Allergies reflects when Allergies were last updated in [employer].
Home Medications with original date entered in [employer]
Allergy/Medication List:
Allergies
Allergy/AdvReac Type Severity Reaction Status Date / Time
No Known Drug Allergies Allergy Unknown Verified 12/30/24 10:25
Home Medications
aspirin 81 mg tablet,delayed release 81 mg PO DAILY Blood clot prevention/tx 01/24/16
multivitamin 1 tab PO DAILY Supplement 09/15/22
acetaminophen 325 mg tablet (Tylenol) 650 mg PO Q6HPRN PRN mild pain 06/20/24
amlodipine 10 mg-benazepril 20 mg capsule 1 cap PO DAILY Blood Pressure 06/20/24
atorvastatin 20 mg tablet 20 mg PO DAILY High Cholesterol 06/20/24
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
furosemide 40 mg tablet 40 mg PO DAILY Heart Failure #30 tabs 09/22/24
Review of Systems
-
A 12 point ROS was completed and negative except as noted: Yes
Constitutional: Reports Sleep Disturbance; Denies Night Sweats or Chills
EENT: Reports No Symptoms
Respiratory: Reports Cough and Trouble Breathing; Denies Hemoptysis
Cardiac: Reports No Symptoms; Denies Chest Pain, Diaphoresis or Palpitations
Abdomen/GI: Reports No Symptoms
: Reports No Symptoms
Musculoskeletal: Reports No Symptoms
Skin: Reports No Symptoms
Neurological: Reports No Symptoms
Endocrine: Reports No Symptoms
Hematologic/Lymphatic: Reports No Symptoms
Psych: Reports No Symptoms
Physical Exam
Vital Signs
Vital Signs
Temp Pulse Resp BP Pulse Ox
97.8 F 81 18 125/50 93
12/30/24 10:21 12/30/24 13:01 12/30/24 13:01 12/30/24 13:01 12/30/24 13:01
Physical Exam
General: Well Developed, Well Nourished, No Apparent Distress and Obese
HEENT: Anicteric, Moist mucous membranes, PERRLA and Hearing Impaired (Wearing hearing aid)
Respiratory: Decreased Breath Sounds (At bases); No Wheezes, Rales or Rhonchi
Cardiac: S1/S2, Regular Rhythm and Murmur (TAVR); No Rub
GI: Soft, Non Tender, Non Distended and Normal Bowel Sounds; No Organomegaly
Rectal: Deferred by Provider
Musculoskeletal: No Clubbing, No Cyanosis, Edema, Left Lower Extremity (1-2+ at ankle) and Edema, Right Lower Extremity (1-2+ at ankle)
Skin: Warm and Dry; No Rash
Neuro: Awake, AO x 3 and Nonfocal/grossly intact
Psych: Calm
Laboratory Results
-
12/30/24 11:33
12/30/24 11:33
Laboratory Results
Troponin I 0.022 ng/ml 12/30/24 11:33
Echo 09/22/24
Mild concentric left ventricular hypertrophy. Normal left ventricular chamber
size. Normal left ventricular systolic function. Left ventricular ejection
fraction is 60-65%.
Mild mitral regurgitation.
TAVR with peak/mean gradients across the aortic valve are 56/32 mmHg. Trace
aortic regurgitation.
Compared to the previous INDY from Jun 2024 , and 2D echo Jun 2024, TAVR
gradients are now noted to be in the moderate stenosis range.
Data Reviewed
-
Diagnostic Radiology: Image Personally Visualized and interpreted (CXR), Discussed with Patient and Discussed with Family
Lab Data: Labs Reviewed by me, Discussed with Patient and Discussed with Family
Old Records: Reviewed
Impression/Plan
-
IMPRESSION:
74-year-old male with CHF, HTN, s/p TAVR space presenting with SOB, found to have acute exacerbation of CHF.
PLAN:
1. Acute Exacerbation of Congestive Heart Failure with Preserved EF
Patient with significant orthopnea, and severe exertional dyspnea but is doing well upright at rest. Patient is stable, not requiring oxygen.
I reviewed his recent echocardiogram. CXR today c/w pulm edema.
Received IV Lasix in ED
Admit to telemetry
Continue with IV Lasix 40 mg twice daily until symptoms improved
Cont aspirin
CHF education given
Low-sodium diet, p.o. fluid restriction
Daily weights, I's and O's
Suspect patient will need higher dose of oral Lasix on discharge than his current prescription
2. Hx AV Endocarditis
Follows with outpatient ID
Continue suppressive amoxicillin lifelong
3. Essential Hypertension
BP controlled
Continue amlodipine/benazepril
4. Hyperlipidemia
Check lipid panel
Continue atorvastatin
5. Hx Aortic Stenosis s/p TAVR
Reviewed recent echo
Follow-up outpatient cardiology
6. Prediabetes
Mildly elevated BG
Check A1c
If abnormal consider SGLT2 inhibitor or GLP-1 receptor agonist
DVT proph: Lovenox
Code Status: Full Code
[2024-12-30] MEDS: AMOXIL 500 MG PO ×2 (14:28→19:51)
[2024-12-30] MEDS: LOVENOX 40 MG SC (19:50)
--- NOTE | 2024-12-30 20:00 | PTCARENOTE ---
Patient arrived from ED, via stretcher. Weight obtained via standing scale. VSS, NSR with first degree AV block, on telemetry. OOB independently. Patient belongings list completed. Additional belongings to include $51 in [place] that patient did not
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 No open wounds noted upon assessment yet, bilateral lower extremities are johanna with +1, pitting lower extremity edema. Patient oriented to room.
Bed in lowest position. Call weiss and personal belongings within reach.
[2024-12-31 03:23] VITALS: BP 90/53
[2024-12-31 06:00] VITALS: BMI 31.4
[2024-12-31 08:13] LABS: Hematocrit 37.9 % (39.0-52.0); Hemoglobin 12.4 g/dL (13.0-18.0); Mean Corp Hgb Conc. 32.7 g/dL (33.0-37.0); Mean Corpuscular Volume 95.7 fL (80.0-94.0); Platelet Count 216 10^3/uL (130-400); Red Cell Dist. Width 14.4 % (11.5-14.5)
[2024-12-31 08:19] VITALS: BP 122/50
[2024-12-31 08:49] LABS: Blood Urea Nitrogen 22 mg/dl (9-20); Calcium 9.3 mg/dl (8.4-10.2); Carbon Dioxide 29 mmol/L (22-30); Chloride 105 mmol/L (98-107); Estimated Creatinine Clearance 82 ml/min; Glucose 117 mg/dl (70-99); HDL Cholesterol 34 mg/dl; LDL Cholesterol, Calculated 63 mg/dl; Potassium 4.3 mmol/L (3.5-5.1); Sodium 141 mmol/L (135-145); Very Low Density Lipoprotein 18 mg/dl (0-30); eGFR > 60.00
[2024-12-31] MEDS: ASPIR LOW (ENTERIC COATED) 81 MG PO (09:17)
[2024-12-31] MEDS: ZESTRIL 20 MG PO (09:18)
[2024-12-31] MEDS: NORVASC 10 MG PO (09:27)
[2024-12-31] MEDS: LASIX 40 MG IV (09:28)
[2024-12-31] MEDS: AMOXIL 500 MG PO (09:30)
[2024-12-31] MEDS: THERAGRAN 1 TABLET PO (09:30)
[2024-12-31] MEDS: LIPITOR 20 MG PO (09:31)
[2024-12-31 09:32] LABS: Glycohemoglobin (HgbA1c) 5.5 % (4.0-5.6)
--- NOTE | 2024-12-31 10:07 | W.PN.HOSP.TC ---
Today's Communication/Plan
-
Discharge today
Assessment / Plan
Assessment / Plan
Assessment:
This is a 74 y/o male with a pmhx of Aortic stenosis s/p TAVR, essential hypertension, CHF who presented to the ED on 12/30/2024 with acute worsening of shortness of breath and was found to be fluid overloaded.
Plan:
Acute Exacerbation of congestive heart failure with preserved EF
-Chest X-ray in ED suggestive for pulmonary edema
-Total cholesterol 115, LDL 63, Triglycerides 92, HDL 34 on Lipid panel (12/31/2024)
-Patient is significantly improved today without shortness of breath while at rest or while walking
-Transitioned patient from IV to oral lasix
-Continue Lasix 40mg BID upon discharge
-Continue low sodium diet and PO fluid restriction at home
-Encouraged follow up with PCP
History of Aortic Valve Endocarditis S/p TAVR
-Continue suppressive amoxicillin
-Continue follow up with outpatient infectious disease physician
-Encouraged follow up with PCP
Essential hypertension
-Continue home medications (amlodipine/benzepril)
-Encouraged follow up with PCP
Hyperlipidemia
-Continue atorvastatin
-Encouraged follow up with PCP
Bilateral pleural Effusion
-Noted on Chest X-ray from 12/31/2024, L>R
-Left pleural effusion increased from prior study
-Patient current free of shortness of breath or chest pain
-Encouraged f/u with PCP
Anticipated Discharge: Today
Subjective/Interval History
-
Date of Service: December 31, 2024
Patient reports doing very well today. He denies any shortness of breath and says that he has been able to get up and move around without any difficulty, which is much better than he was prior to his admission. We reviewed the dosage of Lasix he had
been taking preceding this event of shortness of breath. He says he would like to continue to take a higher dose, as he does not feel that 40mg once a day was adequate to treat his symptoms. He states that he feels ready to leave the hospital today,
and that his son is available for transportation.
Objective Data
-
Labs:
Laboratory Results
12/31/24
07:48
WBC 9.3
Hgb 12.4 L
Hct 37.9 L
Plt Count 216
Sodium 141
Potassium 4.3
Chloride 105
Carbon Dioxide 29
BUN 22 H
Creatinine 1.0
Glucose 117 H
Calcium 9.3
Vital Signs:
Vital Signs
Temp Pulse Resp BP Pulse Ox
98.3 F 93 14 122/50 94
12/31/24 08:19 12/31/24 08:19 12/31/24 08:19 12/31/24 08:19 12/31/24 08:19
I&O
12/30/24 12/31/24 01/01/25
06:59 06:59 06:59
Intake Total 320 / 320
Balance 320 / 320
Review of Systems
-
History Source: Patient
Constitutional: Reports Weight Loss (Due to Lasix); Denies Weight Gain, Fatigue, Chills or Weakness
Respiratory: Denies Cough, Trouble Breathing or Wheezing
Cardiac: Denies Chest Pain, Diaphoresis or Palpitations
Abdomen/GI: Denies Abdominal Pain, Nausea, Vomiting or Diarrhea
Musculoskeletal: Denies Joint Pain, Muscle Pain or Edema
Neuro: Denies Dizzy, Headache, Weakness, Numbness or Lightheadedness
Physical Exam
-
General: Well Developed, Well Nourished, No Apparent Distress, Comfortable and Obese
HEENT: Normocephalic and Atraumatic
Respiratory: Clear to Auscultation
Cardiac: Regular Rhythm and S1/S2
Musculoskeletal: No Edema
Skin: Warm and Dry
Neuro: Awake, Alert and Oriented
Psych: Calm and Intact Judgement/Insight
--- NOTE | 2024-12-31 11:01 | W.DCSUMMARY ---
Documented by User: Roxi Downs DO, Resident 12/31/24 11:02
Discharge Summary
Discharge Data
Date of Admission: 12/30/24
Date of Discharge: 12/31/24
-
Pending Results: No
Hospital Course
This is a 74 y/o male with a smh of Aortic stenosis s/p TAVR, essential hypertension, CHF who presented to the ED on 12/30/2024 with acute worsening of shortness of breath. He had contacted his food stylist 1 week ago, and was advised to increase his
oral Lasix from 40mg once daily to 60mg BID. This improved his symptoms at the time, but he was advised to decrease his Lasix to 40mg BID. Two days ago he decreased his Lasix of his own volition to 40mg once daily. He began to experience difficulty
sleeping, severe shortness of breath at baseline and worsened while ambulating.
In the ED a chest X-ray showed pulmonary edema. He was given IV Lasix and admitted to the hospital. He continued to receive IV lasix 40mb BID, and his symptoms improved by 12/31/2024. He was found to be medically stable and discharged to home with
instructions to follow up with his PCP in less than one week, to follow up with his food stylist for his scheduled appointment in ~1 week, and to continue to take Lasix 40mb twice daily.
Discharge Plan
-
Patient Disposition: Home (Routine Discharge)
Discharge Diagnosis/Procedures: Acute Exacerbation of congestive heart failure with preserved EF, History of Aortic Valve Endocarditis S/p TAVR, Essential hypertension, Hyperlipidemia, Bilateral pleural Effusion
Condition: Good
Diet: 2 Gram Sodium, No added salt and Restrict fluids to 64 oz
Activity: No restrictions
Driving Restrictions: As prior to admission
Bathing Restrictions: None
Blood Work: BMP in 1 week
Referrals:
Turner Guardado MD [Family Provider, Family Practice] - in less than 1 week
Additional Discharge Medication Instructions: We are increasing the dose of furosemide (Lasix) you take from 40mg once a day to 40mg TWICE a day. Please follow up with your food stylist outpatient at your scheduled appointment in ~1 week.
Prescriptions:
Continued
aspirin 81 MG tablet,delayed release (DR/EC)
81 mg PO DAILY
multivitamin Tablet
1 tab PO DAILY
amlodipine-benazepril 10-20 mg Capsule
1 cap PO DAILY
acetaminophen [Tylenol] 325 mg Tablet
650 mg PO Q6HPRN PRN (Reason: mild pain)
atorvastatin 20 mg tablet
20 mg PO DAILY
amoxicillin 500 mg tablet
500 mg PO BID
Changed
furosemide 40 mg Tablet
40 mg PO BID Qty: 60 2RF
Discharge Orders:
Discharge Patient (As Directed); Ordered 12/31/24
Ordered By: Roxi Downs
Discharge Date and Time
Print Language: BRAZILIAN

Documented by User: Getachew Ochoa DO 12/31/24 12:17
Discharge Summary
Discharge Data
Date of Admission: 12/30/24
Date of Discharge: 12/31/24
Total time spent discharging patient (in min): 32
Discharge Plan
-
Patient Disposition: Home (Routine Discharge)
Discharge Diagnosis/Procedures: Acute Exacerbation of congestive heart failure with preserved EF, History of Aortic Valve Endocarditis S/p TAVR, Essential hypertension, Hyperlipidemia, Bilateral pleural Effusion
Condition: Good
Diet: 2 Gram Sodium, No added salt and Restrict fluids to 64 oz
Activity: No restrictions
Driving Restrictions: As prior to admission
Bathing Restrictions: None
Blood Work: BMP in 1 week
Referrals:
Turner Guardado MD [Family Provider, [facility]] - in less than 1 week
Additional Discharge Medication Instructions: We are increasing the dose of furosemide (Lasix) you take from 40mg once a day to 40mg TWICE a day. Please follow up with your food stylist outpatient at your scheduled appointment in ~1 week.
Prescriptions:
Continued
aspirin 81 MG tablet,delayed release (DR/EC)
81 mg PO DAILY
multivitamin Tablet
1 tab PO DAILY
amlodipine-benazepril 10-20 mg Capsule
1 cap PO DAILY
acetaminophen [Tylenol] 325 mg Tablet
650 mg PO Q6HPRN PRN (Reason: mild pain)
atorvastatin 20 mg tablet
20 mg PO DAILY
amoxicillin 500 mg tablet
500 mg PO BID
Changed
furosemide 40 mg Tablet
40 mg PO BID Qty: 60 2RF
Discharge Orders:
Discharge Patient (As Directed); Ordered 12/31/24
Ordered By: Roxi Downs
Discharge Date and Time
Print Language: BRAZILIAN
[2024-12-31 11:05] VITALS: BP 143/71
--- NOTE | 2024-12-31 14:14 | CM ---
manager of regulatory affairs reviewed patient's chart and met with patient and patient lives in a one story home with one step to enter, patient is independent with adl's and uses a cane with ambulation, patient drives, patient with congestive heart failure, and
cyanide case hardener offered patient visiting nurses, however patient declined visiting nurses.
PCP: Dr. Guardado
Pharmacy: [facility] in [place]
== END 2024-12-31 17:15 | disposition home or self-care (01) | DRG 291 ==
LOC: 4 WEST ACU 14:35
PROVIDERS: ADMITTING PHYSICIAN Internal Medicine; ATTENDING PHYSICIAN Internal Medicine; EMERGENCY PHYSICIAN Emergency Medicine; FAMILY PHYSICIAN Family Medicine
DX: I11.0 Hypertensive heart disease with heart failure (principal); I50.33 Acute on chronic diastolic (congestive) heart failure; Z95.2 Presence of prosthetic heart valve; I25.10 Atherosclerotic heart disease of native coronary artery without angina pectoris; Z87.442 Personal history of urinary calculi; E66.9 Obesity, unspecified; Z68.31 Body mass index [BMI] 31.0-31.9, adult; H90.5 Unspecified sensorineural hearing loss; Z87.891 Personal history of nicotine dependence; Z82.49 Family history of ischemic heart disease and other diseases of the circulatory system; Z79.82 Long term (current) use of aspirin; E78.00 Pure hypercholesterolemia, unspecified; R73.03 Prediabetes
CPT/HCPCS: 71046; 80048; 80061; 83036; 83880; 84484; 85025; 85027; 93005; 94760; 96374; 99285

== ENCOUNTER → 2025-01-06 11:34 | Outpatient (REF) | payer MEDICARE, BC, SELFPAY ==
[2025-01-06 15:49] LABS: Blood Urea Nitrogen 24 mg/dl (9-20); Calcium 9.4 mg/dl (8.4-10.2); Carbon Dioxide 29 mmol/L (22-30); Chloride 103 mmol/L (98-107); Glucose 115 mg/dl (70-99); Potassium 4.5 mmol/L (3.5-5.1); Sodium 138 mmol/L (135-145); eGFR > 60.00
== END ==
LOC: HWLAB 11:34
PROVIDERS: FAMILY PHYSICIAN Family Medicine
DX: I50.1 Left ventricular failure, unspecified (principal)
CPT/HCPCS: 36415; 80048

== ENCOUNTER → 2025-01-09 07:40 | Outpatient (REF) | payer MEDICARE, BC, SELFPAY ==
[2025-01-09 09:39] LABS: Blood Urea Nitrogen 21 mg/dl (9-20); Calcium 9.2 mg/dl (8.4-10.2); Carbon Dioxide 28 mmol/L (22-30); Chloride 105 mmol/L (98-107); Glucose 118 mg/dl (70-99); Potassium 4.2 mmol/L (3.5-5.1); Sodium 140 mmol/L (135-145); eGFR > 60.00
== END ==
LOC: HWLAB 07:40
PROVIDERS: ATTENDING PHYSICIAN Family Medicine
DX: I50.32 Chronic diastolic (congestive) heart failure (principal); J90 Pleural effusion, not elsewhere classified
CPT/HCPCS: 36415; 71046; 80048; 83880

== ENCOUNTER → 2025-01-29 10:15 | Outpatient (REF) | payer MEDICARE, BC, SELFPAY | LOC: HWRCS 10:15 | PROVIDERS: ATTENDING PHYSICIAN Internal Medicine Interventional Cardiology; FAMILY PHYSICIAN Family Medicine | DX: I35.1 Nonrheumatic aortic (valve) insufficiency (principal) | CPT/HCPCS: 93306 ==

== ENCOUNTER → 2025-02-02 10:38 | Outpatient (REF) | payer MEDICARE, BC, SELFPAY ==
[2025-02-02 13:47] LABS: ALT (SGPT) 17 U/L (0-50); AST (SGOT) 22 U/L (17-59); Albumin 4.2 g/dl (3.5-5.0); Alkaline Phosphatase 55 U/L (38-126); Blood Urea Nitrogen 28 mg/dl (9-20); Calcium 9.5 mg/dl (8.4-10.2); Carbon Dioxide 28 mmol/L (22-30); Chloride 103 mmol/L (98-107); Glucose 118 mg/dl (70-99); Potassium 4.7 mmol/L (3.5-5.1); Sodium 139 mmol/L (135-145); Total Protein 7.5 g/dl (6.3-8.2); eGFR > 60.00
== END ==
LOC: HWLAB 10:38
PROVIDERS: ATTENDING PHYSICIAN Internal Medicine Interventional Cardiology; FAMILY PHYSICIAN Family Medicine
DX: I10 Essential (primary) hypertension (principal); I50.32 Chronic diastolic (congestive) heart failure
CPT/HCPCS: 36415; 80053; 83880

== ENCOUNTER 2025-02-12 20:24 | Inpatient (IN) | payer MEDICARE, BC, SELFPAY ==
[2025-02-12] VITALS (10 sets, daily range): BP systolic 93–145; BP diastolic 40–93; BMI 31.7; BMI 29.3
--- NOTE | 2025-02-12 18:08 | ED.GENMED ---
History of Present Illness
General
Chief Complaint: Breathing Problem
Source: patient and family
Time Seen by Provider: 02/12/25 17:55
History of Present Illness
History of Present Illness:
This patient is a 74-year-old male with a prior medical history of bacteremia with concern for endocarditis although no vegetations seen at that time in June. He was placed on prolonged antibiotic therapy and is on chronic suppressive oral
antibiotics which he says he is compliant with. He presents the emergency department as directed by his goring cutter because he had a echo which shows rapid progression of aortic insufficiency. Patient has been symptomatic for some time getting
progressively worse. He describes increasing fatigue dyspnea on exertion, orthopnea, intermittent chest pressure, 35 pound weight loss, and overall feeling unwell. He denies fever, chills, diaphoresis, abdominal pain, vomiting. He was so short of
breath yesterday evening that he took an extra dose of Lasix.
Past History
Past History
ED Past Medical History: CHF, HTN, Hypercholesterolemia, Valvular disease and Other (Diverticulosis, Kidney stones)
ED Past Surgical History: Cardiac (TAVR) and Other (Hernia repair)
Social History
Tobacco: Former smoker
Alcohol: Former
Drug: None
Personal: Other
Living: with family (Patient says he lives with his son)
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
Family History
Family History: CAD (Mother with [place] at 57 No aneurysm)
Phy Exam
Physical Exam
Physical Exam:
GENERAL: Alert , in no apparent distress
EYE: pupils equal and reactive
NECK: Supple, no significant adenopathy.
ENT: o/p clr, mmm.
CARDIAC: Regular rate and rhythm, 2 out of 6 systolic murmur noted.
LUNGS: Clear breath sounds bilaterally, no acute respiratory distress, no wheezes/rales/rhonchi
ABDOMEN: Soft, without focal tenderness, no r/g, no cvat
NEUROLOGICAL: Alert and oriented, no focal neuro deficits
SKIN: Warm and dry, skin intact.
MUSCULOSKELETAL: Trace bilateral lower extremity edema, well perfused.
PSYCH: Normal and appropriate interaction.
Course
Orders/Labs/Results
Orders:
Orders
02/12/25 17:20
Electrocardiogram (*1) Urgent
Reason for Study: Shortness of Breath
EKG- Treatment ONCE
02/12/25 17:28
CR Chest - 2 Views Urgent
Comment:
Reason For Exam: SOB/TRAN for 3-4 days
02/12/25 17:57
Complete Blood Count/With Diff Urgent
Comprehensive Metabolic Panel Urgent
NT-proBNP Urgent
Prothrombin Time Urgent
Troponin I Urgent
02/12/25 18:30
CefTRIAXone [Rocephin] 2,000 mg IV NOW STA
02/12/25 18:37
Blood Culture Urgent
JOSEPH Source: Blood/Venous
Specimen Description:
Abnormal Lab Results
02/12/25
17:57
RBC 3.72 L 10^6/uL
(4.70-6.10)
Hgb 11.3 L g/dL
(13.0-18.0)
Hct 35.4 L %
(39.0-52.0)
MCV 95.2 H fL
(80.0-94.0)
MCHC 31.9 L g/dL
(33.0-37.0)
RDW 15.0 H %
(11.5-14.5)
Abs Immat Gran (auto) 0.1 H 10^3/uL
(0-0.05)
Absolute Neuts (auto) 7.2 H 10^3/uL
(1.4-6.5)
Absolute Lymphs (auto) 1.0 L 10^3/uL
(1.2-3.4)
Immature Gran % 0.6 H %
(0-0.5)
Neutrophils % 80.2 H %
(42.2-75.2)
Lymphocytes % 10.8 L %
(20.5-51.1)
PT 15.8 H Sec
(11.4-14.6)
BUN 37 H mg/dl
(9-20)
Glucose 113 H mg/dl
(70-99)
Troponin I 0.041 H* ng/ml
02/12/25 17:57
02/12/25 17:57
Vital Signs
Initial and Last Documented VS:
Initial Vital Signs
Temp Pulse Resp BP Pulse Ox
98.2 F 102 26 116/59 92
02/12/25 17:24 02/12/25 17:24 02/12/25 17:24 02/12/25 17:24 02/12/25 17:24
Last Documented Vital Signs
Temp Pulse Resp BP Pulse Ox
98.2 F 88 21 93/79 93
02/12/25 17:24 02/12/25 19:15 02/12/25 19:15 02/12/25 19:00 02/12/25 19:15
*Pulse Oximetry
SaO2: 88
Nasal Cannula flow liters per minute: 2
Oxygen Mode of Delivery: Room air
Update Note
Update Note:
Patient presents to the Emergency Department with ___fatigue shortness of breath and intermittent chest pain
Number and Complexity of Problems Addressed at the Encounter
� Chronic conditions affecting care:
� Acute Exacerbation and/or Progression of Chronic Illness:
� Differential Diagnosis includes: But not limited to bacteremia, endocarditis, heart failure, ACS, etc. etc.
Amount and/or Complexity of Data to be Reviewed and Analyzed
� I performed an independent evaluation of and my interpretation is:
EKG:
CT:
Xrays:
Laboratory Studies:
Other:
� Review of other/old records reveals: Patient was admitted June 2024 with septic shock and group B Streptococcus bacteremia, was discharged with Rocephin via PICC echo 01/29 SUMMARY
1. Normal left ventricular chamber size with mild LVH preserved LV function ejection fraction 60 to 65%.
2. At least moderate, eccentric, posteriorly directed mitral regurgitation.
3. TAVR with mean gradient 23 mmHg, moderate to severe paravalvular leak and regurgitation.
4. Mild to moderate tricuspid regurgitation with pulmonary artery pressure 58 mmHg.
5. Compared to a prior echo from September 2024, aortic regurgitation and tricuspid regurgitation were previously noted to be trace.
� Clinical information was obtained by an independent historian:
� Prescriptions/Medications Considered but not given:
� Further testing considered but not performed:
Risk of Complications and/or Morbidity or Mortality of Patient Management
� Social determinants of health affecting care:
� Discussion with other providers (PCP, Hospitalists, Consultants, etc):
� Escalation of care including admission/observation vs risk of discharge considered:
ED Attending Note
-
Portions of this chart may have been created with voice recognition software.� Occasional wrong word or��sound alike� substitutions may have occurred due to the inherent limitations of voice recognition software.
Discharge Plan
Departure
Patient Disposition: Admit
Date of Disposition: 02/12/25
Time of Disposition: 19:00
Presentation/result/management discussed w/ accepting MD/DO: Hospitalist
Discharge Problem:
Endocarditis, suspected
Prescriptions:
No Action
aspirin 81 MG tablet,delayed release (DR/EC)
81 mg PO DAILY
multivitamin Tablet
1 tab PO DAILY
amlodipine-benazepril 10-20 mg Capsule
1 cap PO DAILY
acetaminophen [Tylenol] 325 mg Tablet
650 mg PO Q6HPRN PRN (Reason: mild pain)
atorvastatin 20 mg tablet
20 mg PO DAILY
amoxicillin 500 mg tablet
500 mg PO BID
furosemide 40 mg Tablet
40 mg PO BID Qty: 60 2RF
Referrals:
UNKNOWN - PT DOES,NOT KNOW [Family Provider]
Interventions
Interventions:
*Risk Screen - Suicide Last Done: 02/12/25 17:24
*General Assessment Last Done: 02/12/25 17:24
*Neglect/Abuse Screening Last Done: 02/12/25 17:24
*ED- Fall Risk Assessment Last Done: 02/12/25 17:52
ED- Cardiac Assessment Last Done: 02/12/25 17:55
ED- Pulmonary Assessment Last Done: 02/12/25 17:52
Discharge Date and Time
Print Language: NEPALESE
[2025-02-12 18:18] LABS: Hematocrit 35.4 % (39.0-52.0); Hemoglobin 11.3 g/dL (13.0-18.0); Mean Corp Hgb Conc. 31.9 g/dL (33.0-37.0); Mean Corpuscular Volume 95.2 fL (80.0-94.0); Nucleated Red Blood Cells % 0 % (-); Platelet Count 248 10^3/uL (130-400); Red Cell Dist. Width 15.0 % (11.5-14.5)
[2025-02-12 18:29] LABS: INR 1.21; PT 15.8 Sec (11.4-14.6)
[2025-02-12 18:38] LABS: ALT (SGPT) 16 U/L (0-50); AST (SGOT) 22 U/L (17-59); Albumin 4.2 g/dl (3.5-5.0); Alkaline Phosphatase 58 U/L (38-126); Blood Urea Nitrogen 37 mg/dl (9-20); Calcium 9.6 mg/dl (8.4-10.2); Carbon Dioxide 25 mmol/L (22-30); Chloride 105 mmol/L (98-107); Estimated Creatinine Clearance 83 ml/min; Glucose 113 mg/dl (70-99); Potassium 4.5 mmol/L (3.5-5.1); Sodium 138 mmol/L (135-145); Total Protein 7.7 g/dl (6.3-8.2); eGFR > 60.00
[2025-02-12] MEDS: ROCEPHIN 2000 MG IV (18:38)
[2025-02-12 18:50] LABS: Troponin I 0.041 ng/ml
--- NOTE | 2025-02-12 19:18 | HPS.HSE ---
Family Physician
-
Family Physician: NOT KNOW UNKNOWN - PT DOES
Chief Complaint
-
Fatigue, dyspnea on exertion, orthopnea, chest pressure, weight loss
History of Present Illness
74-year-old male complaining of fatigue, dyspnea on exertion, orthopnea, intermittent chest pressure with 35 pound weight loss he was treated in June 2024 for endocarditis with prolonged antibiotic therapy Amoxicillin 500 mg twice daily. He has
had progression of AI on echo in December despite management. He denies current fever, chills, sore throat, headache, palpitations, cough, abdominal pain, nausea, vomiting, diarrhea. He had recent admission December 2024 for CHF. He has Past medical
history CHF preserved EF, aortic valve post TAVR 2021, strep bacteremia/endocarditis June 2024 on chronic suppressive therapy, new severe pulmonary HTN, severe AI December echo,, HTN, HLD nephrolithiasis, DJD/DDD, obesity, sensorineural hearing loss,
left femoral endarterectomy, left fem- fem bypass, former smoker quit 1997
Medical History
Past Medical History
Past Medical History: Reports Other
Additional Past Medical History:
Strep bacteremia in June 2024 with suspected vegetation
CHF new December 2024
Pulm HTN new January 02
Severe Aortic Stenosis
ASCVD
Hypertension
Nephrolithiasis
DJD / DDD
Obesity
Sensorineural Hearing Loss
Past Surgical History: Reports Other
Additional Past Surgical History:
Umbilical Hernia Repair
Inguinal Hernia Repair
TAVR
Left Femoral Endarterectomy
Left Fem-Fem Bypass
Social History
Tobacco: Former Smoker (Quit smoking in 1997.)
Alcohol: None
Drug: None
Personal:
Family History
Family History: Other (Father: EtOH Mother: CAD)
Allergies / Home Medications
Allergies reflects when Allergies were last updated in [facility].
Home Medications with original date entered in [facility]
Allergy/Medication List:
Allergies
Allergy/AdvReac Type Severity Reaction Status Date / Time
No Known Drug Allergies Allergy Unknown Verified 02/12/25 17:45
Home Medications
aspirin 81 mg tablet,delayed release 81 mg PO DAILY Blood clot prevention/tx 01/24/16
multivitamin 1 tab PO DAILY Supplement 09/15/22
acetaminophen 325 mg tablet (Tylenol) 650 mg PO Q6HPRN PRN mild pain 06/20/24
amlodipine 10 mg-benazepril 20 mg capsule 1 cap PO DAILY Blood Pressure 06/20/24
atorvastatin 20 mg tablet 20 mg PO DAILY High Cholesterol 06/20/24
furosemide 40 mg tablet 40 mg PO BID Heart Failure #60 tabs 12/31/24
amoxicillin 500 mg capsule 500 mg PO BID 02/12/25
Review of Systems
-
History Source: Patient
A 12 point ROS was completed and negative except as noted: Yes
Constitutional: Reports Weight Loss and Fatigue
EENT: Denies Sore Throat or Runny Nose
Respiratory: Reports Trouble Breathing and Other (orhtopnea); Denies Cough
Cardiac: Reports Chest Pain; Denies Diaphoresis, Palpitations or Syncope
Abdomen/GI: Denies Abdominal Pain, Nausea, Vomiting or Diarrhea
: Denies Dysuria, Frequency, Flank Pain, Incontinence or Difficulty Voiding
Musculoskeletal: Denies Joint Pain or Edema
Skin: Denies Itching or Rash
Neurological: Denies Dizzy or Headache
Endocrine: Reports No Symptoms
Hematologic/Lymphatic: Reports No Symptoms
Psych: Reports Calm
Physical Exam
Vital Signs
Vital Signs
Temp Pulse Resp BP Pulse Ox
98.2 F 89 16 123/49 92
02/12/25 17:24 02/12/25 18:45 02/12/25 18:45 02/12/25 18:00 02/12/25 18:45
Physical Exam
General: Comfortable and Conversant; No Pain, Fever or Chills
HEENT: NormoCephalic, Anicteric, Moist mucous membranes, PERRLA, Cade Conjunctivae and No Ptosis
Respiratory: Clear; No Wheezes, Rales or Rhonchi
Cardiac: S1/S2 and Regular Rhythm; No Murmur, Rub or Gallop
Breast: Deferred by me
GI: Soft, Non Tender, Non Distended and Normal Bowel Sounds
Genito-urinary: Deferred by me
Musculoskeletal: No Clubbing, No Cyanosis and No Edema
Skin: Warm and Dry; No Rash
Neuro: AO x 3, No Motor Deficits, Nonfocal/grossly intact and No Sensory Deficits; No Slurred Speech, Facial Droop or Tremors
Psych: Calm
Laboratory Results
-
02/12/25 17:57
02/12/25 17:57
Laboratory Results
PT 15.8 Sec (11.4-14.6) H 02/12/25 17:57
INR 1.21 02/12/25 17:57
Total Bilirubin 1.2 mg/dl (0.2-1.3) 02/12/25 17:57
AST 22 U/L (17-59) 02/12/25 17:57
ALT 16 U/L (0-50) 02/12/25 17:57
Alkaline Phosphatase 58 U/L (38-126) 02/12/25 17:57
Troponin I 0.041 ng/ml H* 02/12/25 17:57
Data Reviewed
-
Lab Data: Labs Reviewed by me
Impression/Plan
-
Impression/plan:
Admit to telemetry
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
#Status post TAVR due to endocarditis 2021
Treated for bacteremia trace AI since June 2024 on suppressive [id number] mg twice daily
Increased Sx's sob , orthopnea, cp, wt loss several months
Repeat echo December severe AI severe pulm HTN
- Consult ID who recommends IV Rocephin 2 g every 24 hours after cultures x 3
- Consult [facility] cardiology follows with Dr. Nielsen
- PT/OT
2D echo 01/29/2025:1. Normal left ventricular chamber size with mild LVH preserved LV function ejection fraction 60 to 65%.
2. At least moderate, eccentric, posteriorly directed mitral regurgitation.
3. TAVR with mean gradient 23 mmHg, moderate to severe paravalvular leak and regurgitation.
4. Mild to moderate tricuspid regurgitation with pulmonary artery pressure 58 mmHg.
5. Compared to a prior echo from September 2024, aortic regurgitation and tricuspid regurgitation were previously noted to be trace.
#Pulm HTN
#Acute on chronic persistent troponin elevation
Troponin 0.041 prior 0.022 December 2023 with peak 0.235 June 2024
-Trend troponin
-Continue aspirin 81 mg daily
#Acute on chronic anemia, macrocytic
Hgb 11.3 baseline appears 12.4
# Acute on Chronic heart failure
BNP 5600
I/O, daily weights
-Continue furosemide PO 40 mg twice daily
-Patient took 3 doses total of Lasix yesterday 02/11/2025 per cardiology recommendations
#HTN
-Continue amlodipine/benazepril with hold parameters
#HLD
Continue atorvastatin 20 mg daily
#Left femoral endarterectomy
#Left fem- fem bypass
Former smoker quit 1997
Other PMH:
nephrolithiasis
DJD/DDD
obesity
sensorineural hearing loss
DVT prophylaxis
Subcu Lovenox
Full code
--- NOTE | 2025-02-12 20:41 | W.PN.UPDATE ---
Update Note
Progress Note Update
This is an addendum to H&P written by Connie Loera on 02/12/2025. �Patient seen and examined independently with SOFTWARE PACKAGER.
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
hypertension, CHF, degenerative disease, obesity, sensorineural hearing loss, presenting with progressive shortness of breath, orthopnea and intermittent chest pressure, 35 pound weight loss and feeling unwell. �No fevers or chills.
Patient had TAVR for�severe aortic stenosis in 2021. �In June of this year he was found to have strep agalactiae bacteremia and possible prosthetic valve endocarditis was treated with antibiotics. �He followed up with his outreach manager Dr. Parks
who noticed a new diastolic murmur in December. �Echocardiogram from January showed at least moderate eccentric posteriorly directed mitral regurgitation. �TAVR with moderate to severe paravalvular leak and regurgitation. �Mild to moderate tricuspid
regurgitation with pulmonary artery pressure 58.
Vital signs normal.
Labs show cardiac BNP 5800. �Point 0.041. �Chronic anemia which is stable at 11.3. �Chest x-ray shows mild interstitial edema with increased small bilateral pleural effusions and adjacent atelectasis.
Patient with concern for dyspnea secondary to worsening aortic regurgitation concern for recurrent endocarditis. Blood cultures x 3, ceftriaxone, infectious disease consulted, cardiology consulted.
Not overtly volume overloaded can increase diuresis tomorrow as per cardiology.�
[2025-02-12 20:42] LABS: Troponin I 0.034 ng/ml
--- NOTE | 2025-02-12 22:00 | PTCARENOTE ---
Pt received from ED via stretcher at 2330. Pt pleasant, AAOx3, VSS, and able to ambulate into room with assistance. Pt came up on 2L of O2, increased to 4L as pt was dyspneic at rest and exertion. Pt absent of pain at this time. Pt receptive to room
and call weiss. Pt bed in lowest position and call weiss within reach. Pt educated on importance of call weiss usage, pt relays understanding and cooperation. Will continue with current plan of care.
[2025-02-13] VITALS (7 sets, daily range): BP systolic 99–121; BP diastolic 40–60; PULSE 82; O2SAT 98; BMI 29.3
[2025-02-13 03:05] LABS: Hematocrit 31.8 % (39.0-52.0); Hemoglobin 10.4 g/dL (13.0-18.0); Mean Corp Hgb Conc. 32.7 g/dL (33.0-37.0); Mean Corpuscular Volume 93.0 fL (80.0-94.0); Nucleated Red Blood Cells % 0 % (-); Platelet Count 216 10^3/uL (130-400); Red Cell Dist. Width 15.0 % (11.5-14.5)
[2025-02-13 03:27] LABS: ALT (SGPT) 15 U/L (0-50); AST (SGOT) 22 U/L (17-59); Albumin 3.6 g/dl (3.5-5.0); Alkaline Phosphatase 50 U/L (38-126); Blood Urea Nitrogen 33 mg/dl (9-20); Calcium 9.3 mg/dl (8.4-10.2); Carbon Dioxide 24 mmol/L (22-30); Chloride 109 mmol/L (98-107); Estimated Creatinine Clearance 93 ml/min; Glucose 117 mg/dl (70-99); Potassium 4.6 mmol/L (3.5-5.1); Sodium 139 mmol/L (135-145); Total Protein 6.7 g/dl (6.3-8.2); eGFR > 60.00
[2025-02-13 03:46] LABS: Troponin I 0.038 ng/ml
--- NOTE | 2025-02-13 03:47 | PTCARENOTE ---
Pt troponin level came back at 0.038. RITO Valadez notified via TT at 0347. No other orders at this time. Will continue with current plan of care.
--- NOTE | 2025-02-13 07:36 | CON.CAR ---
Addendum entered and electronically signed by Rg Nielsen MD 02/13/25 15:31:
Attending addendum: Patient seen and examined. He is well-known to me from outpatient setting. I have reviewed the PA note and prior findings on echocardiograms from 01/29/2025, 09/22/2024, 06/23/2024 (INDY) in 06/12/2024. He is admitted with
significant weight loss and malaise as well as exertional dyspnea occurring over the past several months. His most recent echocardiogram was notable for new moderate-severe aortic insufficiency. 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
endocarditis in June 2024 and completed IV antibiotics with chronic oral suppression with amoxicillin 500 mg p.o. twice daily since at least September 2024. He has noticed a marked decline in functional capacity over the past several weeks. During
a blood draw at the [facility] yesterday he needed to have a wheelchair from the parking lot into the facility because he was so short of breath. He denies any fevers or rigors.
GEN: AAO x 3.��Mild dyspnea conversation
HEENT:��NC/AT, sclera are anicteric,
NECK: Supple.��Normal JVP
LUNGS: Clear to bases bilaterally.��No wheezing
CV: Regular rate and rhythm.��Murmur: III/ murmur throughout the precordium
ABD : Soft bowel sounds present
EXT: No CCE
NEURO: No focal neurologic deficits�
RECOMMENDATIONS:
-Blood cultures pending. Not sure yield on blood cultures as he received ABx's in the ED and had been on oral suppression with amoxicillin
-I would ask ID for input
-He will need INDY early next week. Will discuss with INDY physician
-Consult CT surgery
-Likely would benefit from gentle diuresis.
Original Note:
Consultation
Consultation Request
Date/Time Consultation Requested: 02/12/2025
Date/Time Consultation Performed: 02/13/2025
Requesting Provider: 02/13/2025
Performing Provider: Ana Cristina Melton PA-C for Dr. Rg Nielsen
Reason for Consultation: Possible endocarditis,weakness, SOB
Medical History
-
History of Present Illness:
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 hyperlipidemia presents with
progressively worsening fatigue, weakness, shortness of breath, orthopnea and intermittent chest discomfort and weight loss. Patient was treated for presumed endocarditis with prolonged course of IV antibiotics and chronic treatment of amoxicillin
since June 2024. He was seen in cardiology office approximately 4 weeks ago and noted not feeling well and was found to have new diastolic murmur. He underwent an echocardiogram 01/29/2025 which showed new at least moderate mitral regurgitation
and moderate aortic insufficiency. Given progressively worsening symptoms and abnormal findings on echo it was recommended patient be hospitalized for evaluation. proBNP on admission 5800, troponin 0.041. Hemoglobin stable at 11.3. Chest x-ray
showed mild interstitial edema with increased bilateral pleural effusions and adjacent atelectasis. Blood cultures drawn in emergency department. Started on IV Rocephin.
At time of this evaluation patient resting comfortably in chair on oxygen. Still feels weak and dyspneic with activity. He denies recent fevers or chills. He reports he does often eat healthy choice frozen meals but tries to otherwise watch
sodium in his diet.
PMH:
h/o Strep agalactiae bacteremia, suspicion for prosthetic valve endocarditis 06/2024
On chronic suppressive amoxicillin
Severe
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
Nonobstructive CAD by cath 2021
PVD
status post left femoral endarterectomy with interposition of bypass graft from [employer] to femoral bifurcation 09/2022
Hypertension
Hyperlipidemia
Sensorineural Hearing Loss
Nephrolithiasis
DJD/DDD
Past Medical History
Past Medical History: HTN, Hypercholesterolemia and Other (Status post transcatheter aortic valve replacement January 2022, strep agalactia bacteremia June 2024 with possible bioprosthetic valve endocarditis but unremarkable INDY, peripheral
vascular disease status post left femoral endarterectomy)
Past Surgical History: Cardiac (TAVR 01/30) and Other (Left fem endarterectomy 01/31, umbilical hernia repair, inguinal hernia repair)
Social History
Tobacco: Former Smoker (Quit 1987)
Alcohol: None
Drug: None
Personal: ( in April 2023 of lung cancer)
Living: Alone
Employment: Retired
Family History
Family History: Other (Father ETOH abuse, Mother CAD)
Allergies / Home Medications
Allergy/AdvReac Type Severity Reaction Status Date / Time
No Known Drug Allergies Allergy Unknown Verified 02/12/25 17:45
�Medication �Instructions �Recorded �Confirmed �Type
aspirin 81 mg tablet,delayed 81 mg PO DAILY Blood clot 01/24/16 02/12/25 History
release prevention/tx
multivitamin 1 tab PO DAILY Supplement 09/15/22 02/13/25 History
acetaminophen 325 mg tablet 650 mg PO Q6HPRN PRN mild pain 06/20/24 02/12/25 History
(Tylenol)
amlodipine 10 mg-benazepril 20 mg 1 cap PO DAILY Blood Pressure 06/20/24 02/12/25 History
capsule
atorvastatin 20 mg tablet 20 mg PO DAILY High Cholesterol 06/20/24 02/12/25 History
furosemide 40 mg tablet 40 mg PO BID Heart Failure #60 tabs 12/31/24 02/12/25 Rx
amoxicillin 500 mg capsule 500 mg PO BID 02/12/25 02/12/25 History
Review of Systems
-
History Source: Patient
All other systems: Negative unless noted
Physical Exam
Vital Signs
Temp Pulse Resp BP Pulse Ox
98 F 91 18 105/40 97
02/13/25 03:00 02/13/25 03:00 02/13/25 03:00 02/13/25 03:00 02/13/25 03:00
GEN: No distress, awake, Ox3, sitting in chair on O2
HEENT: supple, anicteric, mmm
LUNGS: CTA, no wheezes/rales; on 3 lpm NC
CV: Reg, S1/S2, 2/6 diastolic murmur at apex, 1/6 systolic murmur at RSB
ABD: soft, BS+, NT/ND
EXT:+1 LE edema bilaterally
NEURO: Gross non-focal
SKIN: No rash, warm, dry, pink
Lab Results
02/13/25 02:58
02/13/25 02:58
Troponin I 0.038 ng/ml H* 02/13/25 02:58
Xln-I-Shotmyepqtl Pept 5800 pg/ml 02/12/25 17:57
Impression / Plan
-
PCP: Turner Guardado
Primary jet man: Dr. Nielsen
Impression:
Presented 02/13/2025 with generalized weakness, fatigue, shortness of breath
Concern for endocarditis with new moderate to severe AI and moderate to severe MR (new on echo 01/29/2025)
Acute on chronic heart failure with preserved ejection fraction, proBNP 5800
Abnormal troponin, suspect nonischemic myocardial injury secondary to acute heart failure
h/o Strep agalactiae bacteremia, suspicion for prosthetic valve endocarditis 06/2024
On chronic suppressive amoxicillin
Severe
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
Nonobstructive CAD by cath 2021
PVD
status post left femoral endarterectomy with interposition of bypass graft from [employer] to femoral bifurcation 09/2022
Hypertension
Hyperlipidemia
Pulmonary HTN on echo 01/29/2025
Sensorineural Hearing Loss
Nephrolithiasis
DJD/DDD
ECHO 06/12/2024: EF 55 to 60%, mild MAC, status post number 29 mm evolute R, well-seated with peak/mean gradients 14/9 mmHg, no AR seen, mild TR, PAP 28 mmHg, no significant change compared to prior
INDY 06/23/2024: LVEF 55 to 60%, mild MR, mild TR, #29 evolute TAVR with no evidence of vegetation and trace aortic regurgitation
Echo 09/22/2024: EF 60 to 65%. Mild MR. TAVR with peak/mean gradient 56/32 mmHg, moderate AAS, trace AI.
Echo 01/29/2025: EF 60 to 65%. Mild LVH. Moderate MR which originates through posterior leaflet. PISA radius is 0.9 cm with an ERO 32 mm2. TAVR with peak/mean gradient 43/23 mmHg with moderate to severe AI. Mild to moderate TR with PAP 58 mmHg.
Compared to prior echo from September 2024 AI and TR have now worsened. Previously both were trace
Cardiac catheterization December 2021: Nonobstructive CAD
Plan:
-Presented 02/13/2025 with progressively worsening generalized weakness, fatigue, shortness of breath.
-Concern for endocarditis with new moderate to severe AI and moderate to severe MR on outpatient echo 01/29/2025. He has known h/o Strep agalactiae bacteremia and was treated with IV antibiotics in June 2024 then maintained on amoxicillin 500 mg
twice daily following completion of antibiotics
- Blood cultures pending.
- Currently getting IV Rocephin
- Will need INDY once patient improved from heart failure standpoint, anticipate 02/16/2025
- ID has been consulted.
-Acute on chronic heart failure with preserved ejection fraction, proBNP 5800. This is higher than previous admissions
- Ongoing IV diuresis with Lasix 40 mg twice daily. {Outpatient dose of Lasix 40 mg p.o. twice daily orally}
- Monitor renal function and electrolytes with diuresis
- Creat stable at 0.8, potassium 4.6
-Abnormal troponin, peaked at 0.041. suspect nonischemic myocardial injury secondary to acute heart failure and possible endocarditis. He has non-obstructive CAD on cath in 2021.
- History of hypertension. Patient has lost over 35 pounds since September. May need to reduce antihypertensive agents with weight loss. On amlodipine 10 mg and lisinopril 20 mg as outpatient.
HPI 02/13/2025:
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 hyperlipidemia presents with
progressively worsening fatigue, weakness, shortness of breath, orthopnea and intermittent chest discomfort and weight loss. Patient was treated for presumed endocarditis with prolonged course of IV antibiotics and chronic treatment of amoxicillin
since June 2024. He was seen in cardiology office approximately 4 weeks ago and noted not feeling well and was found to have new diastolic murmur. He underwent an echocardiogram 01/29/2025 which showed new at least moderate mitral regurgitation
and moderate aortic insufficiency. Given progressively worsening symptoms and abnormal findings on echo it was recommended patient be hospitalized for evaluation. proBNP on admission 5800, troponin 0.041. Hemoglobin stable at 11.3. Chest x-ray
showed mild interstitial edema with increased bilateral pleural effusions and adjacent atelectasis. Blood cultures drawn in emergency department. Started on IV Rocephin.
At time of this evaluation patient resting comfortably in chair on oxygen. Still feels weak and dyspneic with activity. He denies recent fevers or chills. He reports he does often eat healthy choice frozen meals but tries to otherwise watch
sodium in his diet.
Data Reviewed
-
EKG: Report Reviewed by me, Discussed with Physician and Discussed with Patient
Radiology: Report Reviewed by me, Discussed with Physician and Discussed with Patient
Medical Tests (Nuc Med, Echo etc): Report Reviewed by me, Discussed with Physician and Discussed with Patient
Labs: Labs Reviewed by me, Discussed with Physician and Discussed with Patient
Old Records: Reviewed
--- NOTE | 2025-02-13 07:44 | W.PN.HOSP.TC ---
Today's Communication/Plan
-
Continue diuretic.
PT/OT.
INDY 02/16.
Continue Rocephin
Assessment / Plan
Assessment / Plan
Impression:
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
hypertension, CHF, degenerative disease, obesity, sensorineural hearing loss, presenting with progressive shortness of breath, orthopnea and intermittent chest pressure, 35 pound weight loss and feeling unwell. �No fevers or chills.
Patient had TAVR for�severe aortic stenosis in 2021. �In June of this year he was found to have strep agalactiae bacteremia and possible prosthetic valve endocarditis was treated with antibiotics. 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
who noticed a new diastolic murmur in December. �Echocardiogram from January showed at least moderate eccentric posteriorly directed mitral regurgitation. �TAVR with moderate to severe paravalvular leak and regurgitation. �Mild to moderate tricuspid
regurgitation with pulmonary artery pressure .
Seen by cardiology recommended INDY once improved heart failure perspective possible 02/16
Assessment/plan:
Concern for endocarditis with new moderate to severe AI and moderate to severe MR
#Status post TAVR due to endocarditis 2021
Treated for bacteremia trace AI since June 2024 on suppressive [id number] mg twice daily
Increased Sx's sob , orthopnea, cp, wt loss several months
Repeat echo December severe AI severe pulm HTN
- Consulted ID who recommends IV Rocephin 2 g every 24 hours after cultures x 3
- Consult [facility]ology follows with Dr. Nielsen
- PT/OT
2D echo 01/29/2025:1. Normal left ventricular chamber size with mild LVH preserved LV function ejection fraction 60 to 65%.
2. At least moderate, eccentric, posteriorly directed mitral regurgitation.
3. TAVR with mean gradient 23 mmHg, moderate to severe paravalvular leak and regurgitation.
4. Mild to moderate tricuspid regurgitation with pulmonary artery pressure 58 mmHg.
5. Compared to a prior echo from September 2024, aortic regurgitation and tricuspid regurgitation were previously noted to be trace.
Acute on Chronic diastolic heart failure
BNP 5600
I/O, daily weights
-Continue furosemide PO 40 mg twice daily
-Patient took 3 doses total of Lasix yesterday 02/11/2025 per cardiology recommendations
#Pulm HTN
Acute on chronic persistent troponin elevation
Troponin 0.041 prior 0.022 December 2023 with peak 0.235 June 2024
-Trend troponin
-Continue aspirin 81 mg daily
Acute on chronic anemia, macrocytic
Hgb 11.3 baseline appears 12.4
History of hypertension
Continue amlodipine/benazepril with hold parameters
History of hyperlipidemia
Continue atorvastatin 20 mg daily
#Left femoral endarterectomy
#Left fem- fem bypass
Former smoker quit 1997
Other PMH:
nephrolithiasis
DJD/DDD
obesity
sensorineural hearing loss
CODE STATUS: Full code
DVT prophylaxis: Lovenox
Diet: Regular diet
Disposition: INDY 02/16
Total time spent on today's encounter was 65 minutes which included time spent in counseling the patient/family regarding diagnosis and treatment plan as listed above, goals of care, and symptom management. Case was discussed with nursing staff,
specialists, and care coordinators/case management. All labs and imaging personally reviewed by me. Remainder the time spent in detailed review of previous records, lab data, imaging, and other medical provider documentation.
Anticipated Discharge: > 48 hours
Subjective/Interval History
-
Date of Service: February 13, 2025
Patient seen and examined at bedside, denies any chest pain , shortness of breath Improved, no abdominal pain, no nausea, no vomiting, no diarrhea or constipation.
lower extremity edema improved.
Objective Data
-
Labs:
Laboratory Results
02/13/25
02:58
WBC 9.9
Hgb 10.4 L
Hct 31.8 L
Plt Count 216
Sodium 139
Potassium 4.6
Chloride 109 H
Carbon Dioxide 24
BUN 33 H
Creatinine 0.8
Glucose 117 H
Calcium 9.3
Total Bilirubin 1.0
AST 22
ALT 15
Alkaline Phosphatase 50
Vital Signs:
Vital Signs
Temp Pulse Resp BP Pulse Ox
98 F 91 18 105/40 97
02/13/25 03:00 02/13/25 03:00 02/13/25 03:00 02/13/25 03:00 02/13/25 03:00
I&O
02/12/25 02/13/25 02/14/25
06:59 06:59 06:59
Intake Total 240 / 240
Balance 240 / 240
Physical Exam
-
General: Well Developed, Well Nourished, No Apparent Distress and Comfortable
HEENT: Normocephalic, Atraumatic, Moist Mucous Membranes, No Ptosis, PERRLA and Nose Appears Normal
Respiratory: Rales, Rhonchi and Non Labored Respirations
Cardiac: Regular Rhythm and S1/S2
Breast: Deferred by me
GI: Soft, Nontender, Nondistended and Normal Bowel Sounds
Genito-urinary: No Costovertebral Tender
Musculoskeletal: No Clubbing, No Cyanosis, Edema, Right Lower Extrem and Edema, Left Lower Extrem
Skin: Warm
Neuro: Awake, Alert, Oriented, AO x 3 and No Motor Deficits
Psych: Calm
Data Reviewed
-
Diagnostic Radiology: Image personally visualized and interpreted and Report Reviewed by me
CT Scan: Image personally visualized and interpreted and Report Reviewed by me
Ultrasound: Image personally visualized and interpreted and Report Reviewed by me
MRI: Image personally visualized and interpreted and Report Reviewed by me
Medical Tests (Nuc Med, Echo etc): Image personally visualized and interpreted and Report Reviewed by me
Labs: Labs Reviewed by me
Old Records: Reviewed
[2025-02-13] MEDS: ASPIR LOW (ENTERIC COATED) 81 MG PO (09:12)
[2025-02-13] MEDS: ZESTRIL PO (09:12)
[2025-02-13] MEDS: THERAGRAN 1 TABLET PO (09:12)
[2025-02-13] MEDS: LASIX 40 MG PO ×2 (09:12→15:06)
[2025-02-13] MEDS: NORVASC PO (09:12)
[2025-02-13] MEDS: LIPITOR 20 MG PO (09:12)
--- NOTE | 2025-02-13 09:41 | CON.ID ---
Consultation
-
Date/Time Consultation Requested: February 12, 20251935
Date/Time Consultation Performed: February 13, 2025 [id number]
Requesting Provider: Dr. Chinmay Cadet
Performing Provider: Dr. Magaly Taylor
Reason for Consultation: History of TAVR, endocarditis on chronic oral antibiotic now withCHF
Chief Complaint / Past History
Chief Complaint
Shortness of breath
History of Present Illness
74-year-old male with history of aortic stenosis status post TAVR 2021, hypertension, history of group B Streptococcus bacteremia in June 2024, INDY without obvious vegetation, with 4 weeks of IV ceftriaxone, followed by chronic suppression with
amoxicillin 500 mg twice daily, follows with his infectious disease physician Dr. Larson. However, since September 2024, he has been having progressive shortness of breath, fatigue, poor appetite, 35 pound weight loss. He was admitted September 2024
with acute on chronic diastolic heart failure. TTE at that time showed EF 60-65%, TAVR trace aortic regurgitation. He was again readmitted December 2024 with acute CHF, discharged to follow-up with cardiology. He had outpatient TTE 01/29 which showed
TAVR with moderate to severe paravalvular leak and regurgitation, new moderate mitral regurgitation. Over the past few days patient's shortness of breath became significantly worse. SOB worse when he was lying down. No fevers or chills. He
called his drill foreman who recommended hospital admission and therefore he came to the hospital February 12. Blood cultures x 3 obtained and he started on ceftriaxone. Patient reports he has been compliant with the amoxicillin. No recent dental
work done. He continues to have shortness of breath. No significant cough.
Past History
Additional Past Medical History:
s/p TAVR 2021
Group B strep bacteremia in June 2024 with suspected IE on suppressive amoxicillin (follows with Dr. Larson)
CHF new December 2024
Pulm HTN January 02
ASCVD
Hypertension
Nephrolithiasis
DJD / DDD
Obesity
Sensorineural Hearing Loss
PAD s/p Left Femoral Endarterectomy. Left Fem-Fem Bypass
Allergy History:
No Known Drug Allergies Allergy (Verified 02/12/25 17:45)
Unknown
Medications Reviewed: Yes
Current Antibiotics:
Ceftriaxone
Social History
Tobacco: Former Smoker
Alcohol: None
Drug: None
Personal:
Family History
Family History: Not Pertinent
Review of Systems
Review of Systems
General: Change in Appetite; Negative Fever or Chills
HEENT: Negative Sinus Problems or Headache
Cardiovascular: Dyspnea; Negative Chest Pain
Respiratory: Negative Cough or Sputum Production
Gasteroenterology: Negative Nausea, Vomiting or Diarrhea
Genital / Urological: Negative Dysuria or Flank Pain
Endocrine: Weakness and Fatigue
Neurological: Negative Dizziness
All systems: All other systems were reviewed and were negative
Vital Signs
Temp Pulse Resp BP Pulse Ox
97.8 F 90 16 102/51 97
02/13/25 07:00 02/13/25 07:00 02/13/25 07:00 02/13/25 07:00 02/13/25 09:17
Physical Exam
Physical Exam
Constitutional: Non-toxic
Head: Other (No frontal or maxillary sinus tenderness)
Eyes: No Conjunctival Hemorrhage and Sclera Anicteric
Cardiovascular: Regular Rate, S1/S2 and Murmur (3/6 RUSB)
Pulmonary: Rales (mild crackles bases)
Gastrointestinal: Soft, Non Tender and Non Distended
Genito-Urinary: Negative CVA Tenderness
Extremities: Negative Edema
Musculoskeletal: Negative Spinal Tenderness
Neurological: AO x 3
Lab / Diagnostic Study Results
02/13/25 02:58
02/13/25 02:58
Abs Immat Gran (auto) 0.0 10^3/uL (0-0.05) 02/13/25 02:58
Absolute Neuts (auto) 7.5 10^3/uL (1.4-6.5) H 02/13/25 02:58
Absolute Lymphs (auto) 1.5 10^3/uL (1.2-3.4) 02/13/25 02:58
Absolute Monos (auto) 0.7 10^3/uL (0.1-0.6) H 02/13/25 02:58
Absolute Basos (auto) 0.1 10^3/uL (0-0.2) 02/13/25 02:58
Immature Gran % 0.4 % (0-0.5) 02/13/25 02:58
Neutrophils % 75.8 % (42.2-75.2) H 02/13/25 02:58
Lymphocytes % 15.0 % (20.5-51.1) L 02/13/25 02:58
Monocytes % 7.3 % (1.7-9.3) 02/13/25 02:58
Eosinophils % 1.0 % (0-6) 02/13/25 02:58
Basophils % 0.5 % (0-2) 02/13/25 02:58
PT 15.8 Sec (11.4-14.6) H 02/12/25 17:57
INR 1.21 02/12/25 17:57
Microbiology Results
Micro:
02/12/25 20:00 Blood Culture - Pending
Blood/Venous
02/12/25 20:08 Blood Culture - Pending
Blood/Venous
02/12/25 18:37 Blood Culture - Pending
Blood/Venous
02/12/25 CXR: Mild interstitial edema with increased small bilateral pleural effusions and adjacent atelectasis.
Assessment / Plan
# New TAVR severe aortic insufficiency
# New MR
# acute on chronic CHF
# Hx Group B strep bacteremia (06/2024), suspected IE (INDY no gross vege), s/p 4 weeks ceftriaxone followed by suppressive amox 500mg bid; follow Dr. Larson
- Concern for relapse IE
- Follow repeat blood cx's x 3
- For INDY
- Will need eventual CTS evaluation.
- Ceftriaxone 2g IV q24h
# Conditions [employer]
s/p TAVR 2021
Group B strep bacteremia in June 2024 with suspected IE on suppressive amoxicillin (follows with Dr. Larson)
CHF new December 2024
Pulm HTN new January 02
ASCVD
Hypertension
Nephrolithiasis
DJD / DDD
Obesity
Sensorineural Hearing Loss
PAD s/p Left Femoral Endarterectomy. Left Fem-Fem Bypass
[2025-02-13 10:03] LABS: Troponin I 0.031 ng/ml
--- NOTE | 2025-02-13 12:00 | CM ---
Patient seen bedside, initial assessment completed. Patient is a 74-year-old male complaining of fatigue, dyspnea on exertion, orthopnea, intermittent chest pressure with 35 pound weight loss.
Patient resides w/ son in a single story rancher, 1 step to enter from the outside. Patient is independent w/ cane, independent w/ ADLs. Denies SNF/HC hx. Cardiac rehab 3 years following heart valve. OP therapy hx.
Address, points of contact and insurance verified
PCP: Turner Guardado
Pharmacy: [facility]
Therapy assessed, is determining SNF vs home. Patient is hopeful he can d/c home
Plan: CM will cont to follow for d/c needs
--- NOTE | 2025-02-13 14:10 | CONSULT.CT ---
Consultation
-
Date/Time Consultation Requested: 02/13/25
Date/Time Consultation Performed: 02/13/25
Requesting Provider: Morales
Performing Provider: Leticia Veloz PA-C for Dr. Dallin Pantoja
Reason for Consultation: endocarditis, hx TAVR 2021
Patient History
Physicians
Family Physician: Turner Guardado
Outpatient Flavor Tank Tender: Glenna
Inpatient Flavor Tank Tender: ISRRAEL
History of Present Illness
Patient is a 74-year-old male well-known to us who underwent a right transfemoral 29 mm Medtronic evolut TAVR on 01/12/[address] Pantoja. 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
TAVR valve. At that time echo demonstrated no significant vegetation and trace AI. He received a 4-week course of IV ceftriaxone followed by continued suppression with amoxicillin 500 mg p.o. twice daily for which patient reports compliance. In
September of this year he was readmitted for congestive heart failure, echo at that time demonstrated moderate stenosis of his TAVR valve with no significant AI. Repeat echo 2 weeks ago unfortunately now demonstrating moderate to severe paravalvular
leak with moderately elevated aortic valve gradients with a mean of 23 mmHg. Patient reports worsening chronic shortness of breath that has been intermittently temporarily improved by increasing his oral diuretics, but he now presents to the
hospital for further workup as his shortness of breath has become unmanageable.
At the bedside today he reports feeling somewhat better since admission, but remains on oxygen 3L nasal cannula. He denies fevers or chills or chest pain.
Past Medical History
h/o Strep agalactiae bacteremia, suspicion for prosthetic valve endocarditis 06/2024, on chronic suppressive amoxicillin 500mg BID
hx Severe s/p TAVR 01/2022 #29 Medtronic Evolut- Drs. Pantoja & Morales
PAD s/p left femoral endarterectomy with interposition of bypass graft from OFFICE MESSENGER to femoral bifurcation 09/2022
Hypertension
Hyperlipidemia
chronic heart failure with preserved EF
Sensorineural Hearing Loss
Nephrolithiasis
DJD/DDD
Past Surgical History
R transfemoral TAVR #29mm Medtronic Evolut 01/12/22 (Pantoja/Morales)
Left femoral endarterectomy wtih transposition graft 2022
umbilical hernia repair
inguinal hernia repair
Social History
Alcohol: None
Drug: None
Tobacco: Former Smoker (quit 25 years ago)
Personal: ( passed 2022)
Living: With Family (son lives with him)
Allergies
Allergy/AdvReac Type Severity Reaction Status Date / Time
No Known Drug Allergies Allergy Unknown Verified 02/12/25 17:45
Home Medications
�Medication �Instructions �Recorded �Confirmed �Type
aspirin 81 mg tablet,delayed 81 mg PO DAILY Blood clot 01/24/16 02/12/25 History
release prevention/tx
multivitamin 1 tab PO DAILY Supplement 09/15/22 02/13/25 History
acetaminophen 325 mg tablet 650 mg PO Q6HPRN PRN mild pain 06/20/24 02/12/25 History
(Tylenol)
amlodipine 10 mg-benazepril 20 mg 1 cap PO DAILY Blood Pressure 06/20/24 02/12/25 History
capsule
atorvastatin 20 mg tablet 20 mg PO DAILY High Cholesterol 06/20/24 02/12/25 History
furosemide 40 mg tablet 40 mg PO BID Heart Failure #60 tabs 12/31/24 02/12/25 Rx
amoxicillin 500 mg capsule 500 mg PO BID Infection 02/12/25 02/12/25 History
Review of Systems
-
History Source: Patient
General: Reports Weight Loss (36lb over past 6 months), Fatigue and Other (poor appetite); Denies Fever
HEENT: Reports No Symptoms
Respiratory: Reports SOB and TRAN
Cardiac: Reports Edema; Denies Chest Pain, Palpitations or Diaphoresis
Abdomen/GI: Reports No Symptoms
: Reports No Symptoms
Musculoskeletal: Reports No Symptoms
Skin: Reports No Symptoms
Neurological: Reports No Symptoms
Vascular: Reports No Symptoms
Physical Exam
Vital Signs
Temp 98 F 02/13/25 11:00
Temp route: Oral 02/13/25 11:00
Pulse 88 02/13/25 11:00
Rhythm: Normal sinus rhythm 02/13/25 09:17
Resp Rate 16 02/13/25 11:00
Blood pressure 115/52 02/13/25 11:00
Blood pressure extremity used: Left upper arm 02/13/25 11:00
Position: Lying 02/13/25 11:00
MAP (cuff-Sabiha Monitor) 76 02/12/25 20:02
SaO2 95 02/13/25 11:00
Nasal Cannula flow liters per minute 3 02/13/25 11:00
Oxygen Mode of Delivery Room air 02/12/25 20:00
Pulse Ox at Rest 98 02/13/25 10:08
Can the patient verbally communicate their pain? Yes 02/13/25 09:17
Actual Weight 100.868 kg 02/13/25 03:24
Body Mass Index (BMI) 29.3 02/13/25 03:24
Sitting- Blood Pressure 99/55 02/13/25 10:08
Sitting- Pulse 82 02/13/25 10:08
Heart rate after activity 98 02/13/25 10:08
Blood pressure after activity 108/56 02/13/25 10:08
Oxygen Saturation with Activity 91 02/13/25 10:08
Labs
02/13/25 02:58
02/13/25 02:58
PT 15.8 Sec (11.4-14.6) H 02/12/25 17:57
Troponin I 0.031 ng/ml 02/13/25 09:05
Sxq-G-Mbejntlcjbv Pept 5800 pg/ml 02/12/25 17:57
Exam
General: Well Developed, Well Nourished and No Apparent Distress
HEENT: Normocephalic
Respiratory: Clear; Negative Wheezes, Crackles or Rhonchi
Cardiac: Regular Rhythm and Murmur
GI: Soft and Non Tender
Skin: Warm and Dry
Neuro: Nonfocal/Grossly Intact
Extremities: Lower Level Edema (trace LLE edema)
Psych: Calm
Assessment / Plan
-
Recent strep bacteremia (06/2024) with concern for endocarditis status post TAVR in 2021, now with severe paravalvular bioprosthetic AI
Acute on chronic heart failure with preserved EF
Blood cultures from yesterday are still pending, no growth to date
Cardiology plans for INDY Sunday per patient
IV ceftriaxone per ID
We will continue to follow results of INDY Sunday.
Data Reviewed
-
Echo: Report Reviewed by me
Labs: Labs Reviewed by me
[2025-02-13] MEDS: LOVENOX 40 MG SC (17:23)
[2025-02-13] MEDS: ROCEPHIN 2000 MG IV (17:23)
[2025-02-14 07:10] VITALS: BP 123/59
[2025-02-14 07:52] LABS: Hematocrit 32.1 % (39.0-52.0); Hemoglobin 10.9 g/dL (13.0-18.0); Mean Corp Hgb Conc. 34.0 g/dL (33.0-37.0); Mean Corpuscular Volume 92.8 fL (80.0-94.0); Nucleated Red Blood Cells % 0 % (-); Platelet Count 219 10^3/uL (130-400); Red Cell Dist. Width 14.8 % (11.5-14.5)
[2025-02-14 08:21] LABS: ALT (SGPT) 15 U/L (0-50); AST (SGOT) 21 U/L (17-59); Albumin 3.8 g/dl (3.5-5.0); Alkaline Phosphatase 54 U/L (38-126); Blood Urea Nitrogen 30 mg/dl (9-20); Calcium 9.5 mg/dl (8.4-10.2); Carbon Dioxide 27 mmol/L (22-30); Chloride 105 mmol/L (98-107); Estimated Creatinine Clearance 83 ml/min; Glucose 118 mg/dl (70-99); Potassium 4.5 mmol/L (3.5-5.1); Sodium 139 mmol/L (135-145); Total Protein 7.0 g/dl (6.3-8.2); eGFR > 60.00
[2025-02-14] MEDS: LIPITOR 20 MG PO (08:35)
[2025-02-14] MEDS: ASPIR LOW (ENTERIC COATED) 81 MG PO (08:35)
[2025-02-14] MEDS: LASIX 40 MG PO (08:35)
[2025-02-14] MEDS: THERAGRAN 1 TABLET PO (08:35)
[2025-02-14] MEDS: ZESTRIL 20 MG PO (08:35)
[2025-02-14] MEDS: NORVASC 10 MG PO (08:36)
[2025-02-14 11:24] VITALS: BP 99/41
--- NOTE | 2025-02-14 12:23 | W.PN.CARDCBS ---
Today's Communication / Plan
-
Changed IV diuretic
INDY Sunday
I have no objection to low-dose anxiolytic or melatonin
Long discussion in terms of goals of care with patient and daughter
ID consult and antibiotics as you are
Impression / Plan
-
PCP: Turner Guardado
Primary strategic sourcing consultant: Dr. Nielsen
Impression:
Presented 02/13/2025 with generalized weakness, fatigue, shortness of breath
Concern for endocarditis with new moderate to severe AI and moderate to severe MR (new on echo 01/29/2025)
Acute on chronic heart failure with preserved ejection fraction, proBNP 5800
Abnormal troponin, suspect nonischemic myocardial injury secondary to acute heart failure
h/o Strep agalactiae bacteremia, suspicion for prosthetic valve endocarditis 06/2024
On chronic suppressive amoxicillin
Severe
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
Nonobstructive CAD by cath 2021
PVD
status post left femoral endarterectomy with interposition of bypass graft from V BELT BUILDER to femoral bifurcation 09/2022
Hypertension
Hyperlipidemia
Pulmonary HTN on echo 01/29/2025
Sensorineural Hearing Loss
Nephrolithiasis
DJD/DDD
ECHO 06/12/2024: EF 55 to 60%, mild MAC, status post number 29 mm evolute R, well-seated with peak/mean gradients 14/9 mmHg, no AR seen, mild TR, PAP 28 mmHg, no significant change compared to prior
INDY 06/23/2024: LVEF 55 to 60%, mild MR, mild TR, #29 evolute TAVR with no evidence of vegetation and trace aortic regurgitation
Echo 09/22/2024: EF 60 to 65%. Mild MR. TAVR with peak/mean gradient 56/32 mmHg, moderate AAS, trace AI.
Echo 01/29/2025: EF 60 to 65%. Mild LVH. Moderate MR which originates through posterior leaflet. PISA radius is 0.9 cm with an ERO 32 mm2. TAVR with peak/mean gradient 43/23 mmHg with moderate to severe AI. Mild to moderate TR with PAP 58 mmHg.
Compared to prior echo from September 2024 AI and TR have now worsened. Previously both were trace
Cardiac catheterization December 2021: Nonobstructive CAD
Plan:
-Presented 02/13/2025 with progressively worsening generalized weakness, fatigue, shortness of breath.
-Concern for endocarditis with new moderate to severe AI and moderate to severe MR on outpatient echo 01/29/2025. He has known h/o Strep agalactiae bacteremia and was treated with IV antibiotics in June 2024 then maintained on amoxicillin 500 mg
twice daily following completion of antibiotics
- Blood cultures pending.
- Currently getting IV Rocephin
- Will need INDY once patient improved from heart failure standpoint, anticipate 02/16/2025. I increased Lasix to 40 mg IV twice daily and changed to IV from p.o.
- ID has been consulted.
- I spoke with patient and daughter. She is upset that the echo was performed a few weeks ago and he has been struggling at home. We talked through treatment plan management and I took time to answer all their questions. He is open to intubation
if his respiratory status were to become worse. I did mention that he likely will need procedural evaluation pending the results of his INDY on Sunday.
-Acute on chronic heart failure with preserved ejection fraction, proBNP 5800. This is higher than previous admissions
- Monitor renal function and electrolytes with diuresis. I changed Lasix to IV
- Creat stable at 0.8, potassium 4.6
-His anxiety level is elevated and I have no objection to melatonin or low-dose anxiolytic as long as he is compensated from a respiratory perspective
-Abnormal troponin, peaked at 0.041. suspect nonischemic myocardial injury secondary to acute heart failure and possible endocarditis. He has non-obstructive CAD on cath in 2021.
- History of hypertension. Patient has lost over 35 pounds since September. May need to reduce antihypertensive agents with weight loss. On amlodipine 10 mg and lisinopril 20 mg as outpatient.
HPI 02/13/2025:
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 hyperlipidemia presents with
progressively worsening fatigue, weakness, shortness of breath, orthopnea and intermittent chest discomfort and weight loss. Patient was treated for presumed endocarditis with prolonged course of IV antibiotics and chronic treatment of amoxicillin
since June 2024. He was seen in cardiology office approximately 4 weeks ago and noted not feeling well and was found to have new diastolic murmur. He underwent an echocardiogram 01/29/2025 which showed new at least moderate mitral regurgitation
and moderate aortic insufficiency. Given progressively worsening symptoms and abnormal findings on echo it was recommended patient be hospitalized for evaluation. proBNP on admission 5800, troponin 0.041. Hemoglobin stable at 11.3. Chest x-ray
showed mild interstitial edema with increased bilateral pleural effusions and adjacent atelectasis. Blood cultures drawn in emergency department. Started on IV Rocephin.
At time of this evaluation patient resting comfortably in chair on oxygen. Still feels weak and dyspneic with activity. He denies recent fevers or chills. He reports he does often eat healthy choice frozen meals but tries to otherwise watch
sodium in his diet.
Progress Note - Recharger
Subjective
Date of Service: February 14, 2025
Dyspneic with any activity
Objective
Labs:
02/14/25 07:33
02/14/25 07:33
Labs
Hgb 10.9 g/dL (13.0-18.0) L 02/14/25 07:33
Hct 32.1 % (39.0-52.0) L 02/14/25 07:33
Plt Count 219 10^3/uL (130-400) 02/14/25 07:33
PT 15.8 Sec (11.4-14.6) H 02/12/25 17:57
INR 1.21 02/12/25 17:57
Sodium 139 mmol/L (135-145) 02/14/25 07:33
Potassium 4.5 mmol/L (3.5-5.1) 02/14/25 07:33
BUN 30 mg/dl (9-20) H 02/14/25 07:33
Creatinine 0.9 mg/dL (0.7-1.3) 02/14/25 07:33
Glucose 118 mg/dl (70-99) H 02/14/25 07:33
Troponins
02/12/25 02/12/25 02/13/25
17:57 20:08 02:58
Troponin I 0.041 H* 0.034 0.038 H*
02/13/25
09:05
Troponin I 0.031
Vital Signs and I&O:
Vital Signs
Temp Pulse Resp BP Pulse Ox
97.8 F 89 18 99/41 98
02/14/25 11:24 02/14/25 11:24 02/14/25 11:24 02/14/25 11:24 02/14/25 11:24
Vital Signs
Temp Pulse Resp BP Pulse Ox
97.8 F 89 18 99/41 98
02/14/25 11:24 02/14/25 11:24 02/14/25 11:24 02/14/25 11:24 02/14/25 11:24
Intake & Output
02/12/25 02/13/25 02/14/25 02/15/25
06:59 06:59 06:59 06:59
Intake Total 240 / 240 480 / 480
Balance 240 / 240 480 / 480
Physical Exam
Physical Exam
����Physical Exam
���������������������General:�Feels appears in mild to moderate respiratory distress
���������������������������Neck:��supple. no meningeal signs. normal psoterior pharynx
������������������������
���������������������������Heart:�Loud diastolic murmur with regular S1-S2
��������������������������Lungs: ��Rales at the bases
����������������������Abdomen:�normal bowel sounds. not tender. no CVAT
Abdomen is slightly distended suspicious for edema
��������������������������Neuro:��alert and oriented. no focal neurological deficits
������������������������������Skin: ��no rash
�����������������������Psychiatric:�well kept. interactive and cooperative
�����������������������Extremities:��no edema. no calf tenderness. negative homans. good distal pulses
��
�
--- NOTE | 2025-02-14 12:27 | W.PN.ID1 ---
Date of Service
Date of Service: February 14, 2025
Today's Communication
Continue ceftriaxone
Assessment / Plan
# New TAVR severe aortic insufficiency
# New MR
# acute on chronic CHF
# Hx Group B strep bacteremia (06/2024), suspected IE (INDY no gross vege), s/p 4 weeks ceftriaxone followed by suppressive amox 500mg bid; follows Dr. Larson
- Repeat blood cx's x 3 neg to date
- For INDY Sunday
- Eventual valve surgery per CTS
- Ceftriaxone 2g IV q24h (d3)
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
s/p TAVR 2021
Group B strep bacteremia in June 2024 with suspected IE on suppressive amoxicillin (follows with Dr. Larson)
CHF new December 2024
Pulm HTN January 02
ASCVD
Hypertension
Nephrolithiasis
DJD / DDD
Obesity
Sensorineural Hearing Loss
PAD s/p Left Femoral Endarterectomy. Left Fem-Fem Bypass
Chief Complaint
-: Other
Subjective / Review of Systems
Unable to sleep last night due to SOB. Also + sweats.
Vital Signs / Physical Exam
Vital Signs
Vital Signs
Temp Pulse Resp BP Pulse Ox
97.8 F 89 18 99/41 98
02/14/25 11:24 02/14/25 11:24 02/14/25 11:24 02/14/25 11:24 02/14/25 11:24
Physical Exam
Constitutional: No Acute Distress
Eyes: No Conjunctival Hemorrhage and Sclera Anicteric
Cardiovascular: Regular Rate, S1/S2 and Murmur (3/6 RUSB)
Pulmonary: Rales (bases)
Gastrointestinal: Soft, Non Tender, Non Distended and Normal Bowel Sounds
Extremities: Negative Edema
Neurological: AO x 3
Objective Data
Lab Data
Lab Results
02/14/25 07:33
02/14/25 07:33
PT 15.8 Sec (11.4-14.6) H 02/12/25 17:57
INR 1.21 02/12/25 17:57
Estimated Creat Clear 83 ml/min 02/14/25 07:33
Total Bilirubin 1.1 mg/dl (0.2-1.3) 02/14/25 07:33
AST 21 U/L (17-59) 02/14/25 07:33
ALT 15 U/L (0-50) 02/14/25 07:33
Alkaline Phosphatase 54 U/L (38-126) 02/14/25 07:33
Most recent labs reviewed.
Micro Results:
02/12/25 20:00 Blood Culture - Preliminary
Blood/Venous No Growth in 24 hours- Final report to follow
02/12/25 20:08 Blood Culture - Preliminary
Blood/Venous No Growth in 24 hours- Final report to follow
02/12/25 18:37 Blood Culture - Preliminary
Blood/Venous No Growth in 24 hours- Final report to follow
02/12/25 CXR: Mild interstitial edema with increased small bilateral pleural effusions and adjacent atelectasis.
--- NOTE | 2025-02-14 12:41 | W.PN.HOSP.TC ---
Today's Communication/Plan
-
Continue diuretic.
INDY 02/16.
Continue Rocephin
Assessment / Plan
Assessment / Plan
Impression:
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
hypertension, CHF, degenerative disease, obesity, sensorineural hearing loss, presenting with progressive shortness of breath, orthopnea and intermittent chest pressure, 35 pound weight loss and feeling unwell. �No fevers or chills.
Patient had TAVR for�severe aortic stenosis in 2021. �In June of this year he was found to have strep agalactiae bacteremia and possible prosthetic valve endocarditis was treated with antibiotics. 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
who noticed a new diastolic murmur in December. �Echocardiogram from January showed at least moderate eccentric posteriorly directed mitral regurgitation. �TAVR with moderate to severe paravalvular leak and regurgitation. �Mild to moderate tricuspid
regurgitation with pulmonary artery pressure .
Seen by cardiology recommended INDY once improved heart failure perspective possible 02/16
Assessment/plan:
Concern for endocarditis with new moderate to severe AI and moderate to severe MR
#Status post TAVR due to endocarditis 2021
Treated for bacteremia trace AI since June 2024 on suppressive [id number] mg twice daily
Increased Sx's sob , orthopnea, cp, wt loss several months
Repeat echo December severe AI severe pulm HTN
- Consulted ID who recommends IV Rocephin 2 g every 24 hours after cultures x 3
- Consult [facility] cardiology follows with Dr. Nielsen
- PT/OT
2D echo 01/29/2025:1. Normal left ventricular chamber size with mild LVH preserved LV function ejection fraction 60 to 65%.
2. At least moderate, eccentric, posteriorly directed mitral regurgitation.
3. TAVR with mean gradient 23 mmHg, moderate to severe paravalvular leak and regurgitation.
4. Mild to moderate tricuspid regurgitation with pulmonary artery pressure 58 mmHg.
5. Compared to a prior echo from September 2024, aortic regurgitation and tricuspid regurgitation were previously noted to be trace.
Acute on Chronic diastolic heart failure
BNP 5600
I/O, daily weights
-Continue furosemide PO 40 mg twice daily
-Patient took 3 doses total of Lasix yesterday 02/11/2025 per cardiology recommendations
#Pulm HTN
Acute on chronic persistent troponin elevation
Troponin 0.041 prior 0.022 December 2023 with peak 0.235 June 2024
-Trend troponin
-Continue aspirin 81 mg daily
Insomnia.
Added melatonin.
Ambien if no response with melatonin
Acute on chronic anemia, macrocytic
Hgb 11.3 baseline appears 12.4
History of hypertension
Continue amlodipine/benazepril with hold parameters
History of hyperlipidemia
Continue atorvastatin 20 mg daily
#Left femoral endarterectomy
#Left fem- fem bypass
Former smoker quit 1997
Other PMH:
nephrolithiasis
DJD/DDD
obesity
sensorineural hearing loss
CODE STATUS: Full code
DVT prophylaxis: Lovenox
Diet: Regular diet
Disposition: INDY 02/16
Total time spent on today's encounter was 65 minutes which included time spent in counseling the patient/family regarding diagnosis and treatment plan as listed above, goals of care, and symptom management. Case was discussed with nursing staff,
specialists, and care coordinators/case management. All labs and imaging personally reviewed by me. Remainder the time spent in detailed review of previous records, lab data, imaging, and other medical provider documentation.
Anticipated Discharge: > 48 hours
Subjective/Interval History
-
Date of Service: February 14, 2025
Patient has insomnia last night and feeling tired but otherwise no chest pain.
Shortness of breath secondary to anxiety.
Objective Data
-
Labs:
Laboratory Results
02/14/25
07:33
WBC 9.1
Hgb 10.9 L
Hct 32.1 L
Plt Count 219
Sodium 139
Potassium 4.5
Chloride 105
Carbon Dioxide 27
BUN 30 H
Creatinine 0.9
Glucose 118 H
Calcium 9.5
Total Bilirubin 1.1
AST 21
ALT 15
Alkaline Phosphatase 54
Vital Signs:
Vital Signs
Temp Pulse Resp BP Pulse Ox
97.8 F 89 18 99/41 98
02/14/25 11:24 02/14/25 11:24 02/14/25 11:24 02/14/25 11:24 02/14/25 11:24
I&O
02/13/25 02/14/25 02/15/25
06:59 06:59 06:59
Intake Total 240 / 240 480 / 480
Balance 240 / 240 480 / 480
Physical Exam
-
General: Well Developed, Well Nourished, No Apparent Distress and Comfortable
HEENT: Normocephalic, Atraumatic, Moist Mucous Membranes, No Ptosis, PERRLA and Nose Appears Normal
Respiratory: Rales, Rhonchi and Non Labored Respirations
Cardiac: Regular Rhythm and S1/S2
Breast: Deferred by me
GI: Soft, Nontender, Nondistended and Normal Bowel Sounds
Genito-urinary: No Costovertebral Tender
Musculoskeletal: No Clubbing, No Cyanosis, Edema, Right Lower Extrem and Edema, Left Lower Extrem
Skin: Warm
Neuro: Awake, Alert, Oriented, AO x 3 and No Motor Deficits
Psych: Calm
[2025-02-14 15:33] VITALS: BP 103/67
[2025-02-14 16:18] VITALS: BP 115/50; PULSE 87; O2SAT 94
[2025-02-14] MEDS: LASIX 40 MG IV (16:38)
[2025-02-14] MEDS: LOVENOX 40 MG SC (17:38)
[2025-02-14] MEDS: ROCEPHIN 2000 MG IV (17:39)
[2025-02-14] MEDS: STERILE WATER FOR INJECTION 20 ML IV (17:39)
[2025-02-14 19:00] VITALS: BP 108/46
[2025-02-14] MEDS: MELATONIN 5 MG PO (21:39)
[2025-02-14 23:00] VITALS: BP 117/58
[2025-02-15 05:10] VITALS: BMI 29.6
[2025-02-15 06:00] LABS: Hematocrit 34.1 % (39.0-52.0); Hemoglobin 10.5 g/dL (13.0-18.0); Mean Corp Hgb Conc. 30.8 g/dL (33.0-37.0); Mean Corpuscular Volume 97.2 fL (80.0-94.0); Nucleated Red Blood Cells % 0 % (-); Platelet Count 215 10^3/uL (130-400); Red Cell Dist. Width 15.0 % (11.5-14.5)
[2025-02-15 06:35] LABS: ALT (SGPT) 16 U/L (0-50); AST (SGOT) 21 U/L (17-59); Albumin 3.6 g/dl (3.5-5.0); Alkaline Phosphatase 53 U/L (38-126); Blood Urea Nitrogen 32 mg/dl (9-20); Calcium 9.2 mg/dl (8.4-10.2); Carbon Dioxide 28 mmol/L (22-30); Chloride 106 mmol/L (98-107); Estimated Creatinine Clearance 74 ml/min; Glucose 123 mg/dl (70-99); Potassium 4.7 mmol/L (3.5-5.1); Sodium 140 mmol/L (135-145); Total Protein 6.7 g/dl (6.3-8.2); eGFR > 60.00
[2025-02-15 07:37] VITALS: BP 123/50
[2025-02-15] MEDS: NORVASC 10 MG PO (08:44)
[2025-02-15] MEDS: LIPITOR 20 MG PO (08:44)
[2025-02-15] MEDS: LASIX 40 MG IV ×2 (08:44→15:41)
[2025-02-15] MEDS: ZESTRIL 20 MG PO (08:44)
[2025-02-15] MEDS: ASPIR LOW (ENTERIC COATED) 81 MG PO (08:44)
[2025-02-15] MEDS: THERAGRAN 1 TABLET PO (08:44)
--- NOTE | 2025-02-15 11:32 | W.PN.CARDCBS ---
Today's Communication / Plan
-
Continue IV diuresis
INDY on February 16
Likely will require intervention on his valve prior to discharge
Impression / Plan
-
PCP: Turner Guardado
Primary life insurance sales: Dr. Nielsen
Impression:
Presented 02/13/2025 with generalized weakness, fatigue, shortness of breath
Concern for endocarditis with new moderate to severe AI and moderate to severe MR (new on echo 01/29/2025)
Acute on chronic heart failure with preserved ejection fraction, proBNP 5800
Abnormal troponin, suspect nonischemic myocardial injury secondary to acute heart failure
h/o Strep agalactiae bacteremia, suspicion for prosthetic valve endocarditis 06/2024
On chronic suppressive amoxicillin
Severe
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
Nonobstructive CAD by cath 2021
PVD
status post left femoral endarterectomy with interposition of bypass graft from PROPERTY DAMAGE CLAIMS ADJUSTOR to femoral bifurcation 09/2022
Hypertension
Hyperlipidemia
Pulmonary HTN on echo 01/29/2025
Sensorineural Hearing Loss
Nephrolithiasis
DJD/DDD
ECHO 06/12/2024: EF 55 to 60%, mild MAC, status post number 29 mm evolute R, well-seated with peak/mean gradients 14/9 mmHg, no AR seen, mild TR, PAP 28 mmHg, no significant change compared to prior
INDY 06/23/2024: LVEF 55 to 60%, mild MR, mild TR, #29 evolute TAVR with no evidence of vegetation and trace aortic regurgitation
Echo 09/22/2024: EF 60 to 65%. Mild MR. TAVR with peak/mean gradient 56/32 mmHg, moderate AAS, trace AI.
Echo 01/29/2025: EF 60 to 65%. Mild LVH. Moderate MR which originates through posterior leaflet. PISA radius is 0.9 cm with an ERO 32 mm2. TAVR with peak/mean gradient 43/23 mmHg with moderate to severe AI. Mild to moderate TR with PAP 58 mmHg.
Compared to prior echo from September 2024 AI and TR have now worsened. Previously both were trace
Cardiac catheterization December 2021: Nonobstructive CAD
Plan:
-Presented 02/13/2025 with progressively worsening generalized weakness, fatigue, shortness of breath.
-Concern for endocarditis with new moderate to severe AI and moderate to severe MR on outpatient echo 01/29/2025. He has known h/o Strep agalactiae bacteremia and was treated with IV antibiotics in June 2024 then maintained on amoxicillin 500 mg
twice daily following completion of antibiotics
- Blood cultures pending.
- Currently getting IV Rocephin
- Will need INDY once patient improved from heart failure standpoint, he is n.p.o. after midnight for INDY on Sunday. I increased Lasix to 40 mg IV twice daily and changed to IV from p.o. he is much better after switch to IV Lasix
- ID has been consulted.
- I spoke with patient and daughter. She is upset that the echo was performed a few weeks ago and he has been struggling at home. We talked through treatment plan management and I took time to answer all their questions. He is open to intubation
if his respiratory status were to become worse. I did mention that he likely will need procedural evaluation pending the results of his INDY on Sunday.
-Acute on chronic heart failure with preserved ejection fraction, proBNP 5800. This is higher than previous admissions
- Monitor renal function and electrolytes with diuresis. I changed Lasix to IV
- Creat stable at 0.8, potassium 4.6
-His anxiety level is elevated and I have no objection to melatonin or low-dose anxiolytic as long as he is compensated from a respiratory perspective
-Abnormal troponin, peaked at 0.041. suspect nonischemic myocardial injury secondary to acute heart failure and possible endocarditis. He has non-obstructive CAD on cath in 2021.
- History of hypertension. Patient has lost over 35 pounds since September. May need to reduce antihypertensive agents with weight loss. On amlodipine 10 mg and lisinopril 20 mg as outpatient.
HPI 02/13/2025:
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 hyperlipidemia presents with
progressively worsening fatigue, weakness, shortness of breath, orthopnea and intermittent chest discomfort and weight loss. Patient was treated for presumed endocarditis with prolonged course of IV antibiotics and chronic treatment of amoxicillin
since June 2024. He was seen in cardiology office approximately 4 weeks ago and noted not feeling well and was found to have new diastolic murmur. He underwent an echocardiogram 01/29/2025 which showed new at least moderate mitral regurgitation
and moderate aortic insufficiency. Given progressively worsening symptoms and abnormal findings on echo it was recommended patient be hospitalized for evaluation. proBNP on admission 5800, troponin 0.041. Hemoglobin stable at 11.3. Chest x-ray
showed mild interstitial edema with increased bilateral pleural effusions and adjacent atelectasis. Blood cultures drawn in emergency department. Started on IV Rocephin.
At time of this evaluation patient resting comfortably in chair on oxygen. Still feels weak and dyspneic with activity. He denies recent fevers or chills. He reports he does often eat healthy choice frozen meals but tries to otherwise watch
sodium in his diet.
Progress Note - Developmental Services Worker
Subjective
Date of Service: February 15, 2025
Breathing is improved today
Objective
Labs:
02/15/25 04:11
02/15/25 04:11
Labs
Hgb 10.5 g/dL (13.0-18.0) L 02/15/25 04:11
Hct 34.1 % (39.0-52.0) L 02/15/25 04:11
Plt Count 215 10^3/uL (130-400) 02/15/25 04:11
PT 15.8 Sec (11.4-14.6) H 02/12/25 17:57
INR 1.21 02/12/25 17:57
Sodium 140 mmol/L (135-145) 02/15/25 04:11
Potassium 4.7 mmol/L (3.5-5.1) 02/15/25 04:11
BUN 32 mg/dl (9-20) H 02/15/25 04:11
Creatinine 1.0 mg/dL (0.7-1.3) 02/15/25 04:11
Glucose 123 mg/dl (70-99) H 02/15/25 04:11
Troponins
02/12/25 02/12/25 02/13/25
17:57 20:08 02:58
Troponin I 0.041 H* 0.034 0.038 H*
02/13/25
09:05
Troponin I 0.031
Vital Signs and I&O:
Vital Signs
Temp Pulse Resp BP Pulse Ox
97.5 F 90 20 123/50 93
02/15/25 07:37 02/15/25 07:37 02/15/25 07:37 02/15/25 07:37 02/15/25 07:37
Vital Signs
Temp Pulse Resp BP Pulse Ox
97.5 F 90 20 123/50 93
02/15/25 07:37 02/15/25 07:37 02/15/25 07:37 02/15/25 07:37 02/15/25 07:37
Intake & Output
02/13/25 02/14/25 02/15/25 02/16/25
06:59 06:59 06:59 06:59
Intake Total 240 / 240 480 / 480 240 / 240
Balance 240 / 240 480 / 480 240 / 240
Physical Exam
Physical Exam
����Physical Exam
���������������������General:��no apparent distress, not acutely ill
���������������������������Neck:��supple. no meningeal signs. normal psoterior pharynx
������������������������
���������������������������Heart:��s1/s2 regular rate and rhythm, diastolic murmur 2 out of 6
��������������������������Lungs: ��no acute respiratory distress. clear bilaterally
����������������������Abdomen:�normal bowel sounds. not tender. no CVAT
��������������������������Neuro:��alert and oriented. no focal neurological deficits
������������������������������Skin: ��no rash
�����������������������Psychiatric:�well kept. interactive and cooperative
�����������������������Extremities:��no edema. no calf tenderness. negative homans. good distal pulses
��
�
[2025-02-15 11:45] VITALS: BP 88/39
--- NOTE | 2025-02-15 12:22 | W.PN.ID1 ---
Date of Service
Date of Service: February 15, 2025
Today's Communication
Await INDY. Continue ceftriaxone.
Assessment / Plan
# New TAVR severe aortic insufficiency
# New MR
# acute on chronic CHF
# Hx Group B strep bacteremia (06/2024), suspected IE (INDY no gross vege), s/p 4 weeks ceftriaxone followed by suppressive amox 500mg bid; follows Dr. Larson
- Repeat blood cx's x 3 neg to date
- For INDY tomorrow
- Cardiothoracic following.
- Ceftriaxone 2g IV q24h (d4)
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
s/p TAVR 2021
Group B strep bacteremia in June 2024 with suspected IE on suppressive amoxicillin (follows with Dr. Larson)
CHF new December 2024
Pulm HTN January 02
ASCVD
Hypertension
Nephrolithiasis
DJD / DDD
Obesity
Sensorineural Hearing Loss
PAD s/p Left Femoral Endarterectomy. Left Fem-Fem Bypass
Chief Complaint
-: Other
Subjective / Review of Systems
Slept well last night. SOB improved.
Vital Signs / Physical Exam
Vital Signs
Vital Signs
Temp Pulse Resp BP Pulse Ox
98.3 F 84 14 88/39 93
02/15/25 11:45 02/15/25 11:45 02/15/25 11:45 02/15/25 11:45 02/15/25 11:45
Physical Exam
Constitutional: No Acute Distress
Eyes: No Conjunctival Hemorrhage and Sclera Anicteric
Cardiovascular: Regular Rate, S1/S2 and Murmur (3/6 RUSB)
Pulmonary: Clear
Gastrointestinal: Soft, Non Tender, Non Distended and Normal Bowel Sounds
Extremities: Negative Edema
Neurological: AO x 3
Objective Data
Lab Data
Lab Results
02/15/25 04:11
02/15/25 04:11
PT 15.8 Sec (11.4-14.6) H 02/12/25 17:57
INR 1.21 02/12/25 17:57
Estimated Creat Clear 74 ml/min 02/15/25 04:11
Total Bilirubin 0.7 mg/dl (0.2-1.3) 02/15/25 04:11
AST 21 U/L (17-59) 02/15/25 04:11
ALT 16 U/L (0-50) 02/15/25 04:11
Alkaline Phosphatase 53 U/L (38-126) 02/15/25 04:11
Most recent labs reviewed.
Micro Results:
02/12/25 20:08 Blood Culture - Preliminary
Blood/Venous No Growth in 48 hours- Final report to follow
02/12/25 20:00 Blood Culture - Preliminary
Blood/Venous No Growth in 48 hours- Final report to follow
02/12/25 18:37 Blood Culture - Preliminary
Blood/Venous No Growth in 48 hours- Final report to follow
02/12/25 CXR: Mild interstitial edema with increased small bilateral pleural effusions and adjacent atelectasis.
--- NOTE | 2025-02-15 12:39 | W.PN.HOSP.TC ---
Today's Communication/Plan
-
Continue diuretic.
INDY 02/16.
Continue Rocephin
Assessment / Plan
Assessment / Plan
Impression:
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
hypertension, CHF, degenerative disease, obesity, sensorineural hearing loss, presenting with progressive shortness of breath, orthopnea and intermittent chest pressure, 35 pound weight loss and feeling unwell. �No fevers or chills.
Patient had TAVR for�severe aortic stenosis in 2021. �In June of this year he was found to have strep agalactiae bacteremia and possible prosthetic valve endocarditis was treated with antibiotics. 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
who noticed a new diastolic murmur in December. �Echocardiogram from January showed at least moderate eccentric posteriorly directed mitral regurgitation. �TAVR with moderate to severe paravalvular leak and regurgitation. �Mild to moderate tricuspid
regurgitation with pulmonary artery pressure .
Seen by cardiology recommended INDY once improved heart failure perspective possible 02/16
Assessment/plan:
Concern for endocarditis with new moderate to severe AI and moderate to severe MR
#Status post TAVR due to endocarditis 2021
Treated for bacteremia trace AI since June 2024 on suppressive [id number] mg twice daily
Increased Sx's sob , orthopnea, cp, wt loss several months
Repeat echo December severe AI severe pulm HTN
- Consulted ID who recommends IV Rocephin 2 g every 24 hours after cultures x 3
- Consult [facility]ology follows with Dr. Nielsen
- PT/OT
2D echo 01/29/2025:1. Normal left ventricular chamber size with mild LVH preserved LV function ejection fraction 60 to 65%.
2. At least moderate, eccentric, posteriorly directed mitral regurgitation.
3. TAVR with mean gradient 23 mmHg, moderate to severe paravalvular leak and regurgitation.
4. Mild to moderate tricuspid regurgitation with pulmonary artery pressure 58 mmHg.
5. Compared to a prior echo from September 2024, aortic regurgitation and tricuspid regurgitation were previously noted to be trace.
Acute on Chronic diastolic heart failure
BNP 5600
I/O, daily weights
-Continue furosemide PO 40 mg twice daily
-Patient took 3 doses total of Lasix yesterday 02/11/2025 per cardiology recommendations
#Pulm HTN
Acute on chronic persistent troponin elevation
Troponin 0.041 prior 0.022 December 2023 with peak 0.235 June 2024
-Trend troponin
-Continue aspirin 81 mg daily
Insomnia.
Added melatonin.
Ambien if no response with melatonin
Acute on chronic anemia, macrocytic
Hgb 11.3 baseline appears 12.4
History of hypertension
Continue amlodipine/benazepril with hold parameters
History of hyperlipidemia
Continue atorvastatin 20 mg daily
#Left femoral endarterectomy
#Left fem- fem bypass
Former smoker quit 1997
Other PMH:
nephrolithiasis
DJD/DDD
obesity
sensorineural hearing loss
CODE STATUS: Full code
DVT prophylaxis: Lovenox
Diet: Regular diet
Disposition: INDY 02/16
Total time spent on today's encounter was 65 minutes which included time spent in counseling the patient/family regarding diagnosis and treatment plan as listed above, goals of care, and symptom management. Case was discussed with nursing staff,
specialists, and care coordinators/case management. All labs and imaging personally reviewed by me. Remainder the time spent in detailed review of previous records, lab data, imaging, and other medical provider documentation.
Anticipated Discharge: > 48 hours
Subjective/Interval History
-
Date of Service: February 15, 2025
Patient seen and examined at bedside, denies any chest pain or shortness of breath, no abdominal pain, no nausea, no vomiting, no diarrhea or constipation.
Objective Data
-
Labs:
Laboratory Results
02/15/25
04:11
WBC 8.5
Hgb 10.5 L
Hct 34.1 L
Plt Count 215
Sodium 140
Potassium 4.7
Chloride 106
Carbon Dioxide 28
BUN 32 H
Creatinine 1.0
Glucose 123 H
Calcium 9.2
Total Bilirubin 0.7
AST 21
ALT 16
Alkaline Phosphatase 53
Vital Signs:
Vital Signs
Temp Pulse Resp BP Pulse Ox
98.3 F 84 14 88/39 93
02/15/25 11:45 02/15/25 11:45 02/15/25 11:45 02/15/25 11:45 02/15/25 11:45
I&O
02/14/25 02/15/25 02/16/25
06:59 06:59 06:59
Intake Total 480 / 480 240 / 240
Balance 480 / 480 240 / 240
Physical Exam
-
General: Well Developed, Well Nourished, No Apparent Distress and Comfortable
HEENT: Normocephalic, Atraumatic, Moist Mucous Membranes, No Ptosis, PERRLA and Nose Appears Normal
Respiratory: Rales, Rhonchi and Non Labored Respirations
Cardiac: Regular Rhythm and S1/S2
Breast: Deferred by me
GI: Soft, Nontender, Nondistended and Normal Bowel Sounds
Genito-urinary: No Costovertebral Tender
Musculoskeletal: No Clubbing, No Cyanosis, Edema, Right Lower Extrem and Edema, Left Lower Extrem
Skin: Warm
Neuro: Awake, Alert, Oriented, AO x 3 and No Motor Deficits
Psych: Calm
[2025-02-15 12:57] VITALS: BP 105/49
[2025-02-15 15:45] VITALS: BP 99/43
[2025-02-15] MEDS: LOVENOX 40 MG SC (17:27)
[2025-02-15] MEDS: ROCEPHIN 2000 MG IV (17:32)
[2025-02-15] MEDS: STERILE WATER FOR INJECTION 20 ML IV (17:33)
[2025-02-15 19:53] VITALS: BP 129/53
[2025-02-15] MEDS: MELATONIN 5 MG PO (22:33)
[2025-02-15 23:18] VITALS: BP 101/56
[2025-02-16] VITALS (16 sets, daily range): BP systolic 86–141; BP diastolic 40–64; BMI 29.5
--- NOTE | 2025-02-16 08:06 | W.PN.ID1 ---
Date of Service
Date of Service: February 16, 2025
Today's Communication
- Await INDY report
- Cardiothoracic surgery following - if taken to the OR please send valve for aerobic, anaerobic, fungal and AFB culture
- c/w Ceftriaxone 2g IV q24h (d5)
- outpatient recommend screening for colon cancer, ideally with colonoscopy however as he is refusing FIT testing could be considered
Assessment / Plan
# New TAVR severe aortic insufficiency; TAVR placed 2021
# New MR
# acute on chronic CHF
# Hx Group B strep bacteremia (06/2024), suspected IE (INDY no gross vege), s/p 4 weeks ceftriaxone followed by suppressive amox 500mg bid
# Anemia
- Repeat blood cx's x 3 neg to date
- Await INDY report
- Cardiothoracic surgery following - if taken to the OR please send valve for aerobic, anaerobic, fungal and AFB culture
- c/w Ceftriaxone 2g IV q24h (d5)
- outpatient recommend screening for colon cancer, ideally with colonoscopy however as he is refusing FIT testing could be considered
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
s/p TAVR 2021
Group B strep bacteremia in June 2024 with suspected IE on suppressive amoxicillin (follows with Dr. Larson)
CHF December 2024
Pulm HTN January 02
ASCVD
Hypertension
Nephrolithiasis
DJD / DDD
Obesity
Sensorineural Hearing Loss
PAD s/p Left Femoral Endarterectomy. Left Fem-Fem Bypass
Chief Complaint
-: Other (Prosthetic Valve Endocarditis)
Subjective / Review of Systems
remains afebrile
bp stable
'I just keep getting worse'
note some shortness of breath - he just returned from INDY
Vital Signs / Physical Exam
Vital Signs
Vital Signs
Temp Pulse Resp BP Pulse Ox
97.5 F 96 18 141/58 95
02/16/25 07:14 02/16/25 07:14 02/16/25 07:14 02/16/25 07:14 02/16/25 07:14
Physical Exam
Constitutional: No Acute Distress and Chronically Ill
Cardiovascular: Regular Rate (distant heart sounds) and S1/S2; Negative Murmur or Rub
Pulmonary: Clear, Symmetric and Other (mildly dyspneic ); Negative Wheezes or Rales
Gastrointestinal: Soft, Non Tender, Non Distended and Normal Bowel Sounds
Skin: Warm and Dry; Negative Rash or Jaundice
Neurological: Awake
Objective Data
Lab Data
PT 15.8 Sec (11.4-14.6) H 02/12/25 17:57
INR 1.21 02/12/25 17:57
Estimated Creat Clear 74 ml/min 02/15/25 04:11
Total Bilirubin 0.7 mg/dl (0.2-1.3) 02/15/25 04:11
AST 21 U/L (17-59) 02/15/25 04:11
ALT 16 U/L (0-50) 02/15/25 04:11
Alkaline Phosphatase 53 U/L (38-126) 02/15/25 04:11
Most recent labs reviewed.
Micro Results:
02/12/25 20:00 Blood Culture - Preliminary
Blood/Venous No Growth in 72 hours- Final report to follow
02/12/25 20:08 Blood Culture - Preliminary
Blood/Venous No Growth in 72 hours- Final report to follow
02/12/25 18:37 Blood Culture - Preliminary
Blood/Venous No Growth in 72 hours- Final report to follow
02/12/25 CXR: Mild interstitial edema with increased small bilateral pleural effusions and adjacent atelectasis.
[2025-02-16] MEDS: ZESTRIL 20 MG PO (10:10)
[2025-02-16] MEDS: NORVASC 10 MG PO (10:10)
[2025-02-16] MEDS: THERAGRAN 1 TABLET PO (10:10)
[2025-02-16] MEDS: ASPIR LOW (ENTERIC COATED) 81 MG PO (10:10)
[2025-02-16] MEDS: LIPITOR 20 MG PO (10:11)
[2025-02-16] MEDS: LASIX 40 MG IV (10:11)
--- NOTE | 2025-02-16 10:21 | CM ---
Patient chart reviewed
INDY today
PT/OT to eval
PLAN: TBD, follow hospital progress, CM to follow for needs
--- NOTE | 2025-02-16 12:32 | W.PN.CARDCBS ---
Addendum entered and electronically signed by Douglas Manzanares DO 02/16/25 14:14:
I saw and examined the patient.
The Production Inspector's note was reviewed and I agree with the note.
Comment:
Plan:
Reviewed INDY with pt and discussed with CT surgery and primary data analytics architect
Agree that pt would benefit from CT surgical intervention of deteriorated TAVR with significant wide open AR. INDY reviewed
Cont IV diuresis for decompression
Pt would be at risk for further decompensated HF without timely intervention of the valve.
Cont IV abx, BC currently negative.
Pt has lost wt since September he states.
Cont supportive care
pt transferred to CVICU.
Original Note:
Today's Communication / Plan
-
INDY today
Multidisciplinary team discussion with CT surgery, cardiology, patient and family with plan for OR on 02/18/2025
labs pending
Continue IV diuresis per CTS
Amlodipine and lisinopril have now been placed on hold
Impression / Plan
-
PCP: Turner Guardado
Primary data analytics architect: Dr. Nielsen
Impression:
Presented 02/13/2025 with generalized weakness, fatigue, shortness of breath
Concern for endocarditis with new moderate to severe AI and moderate to severe MR (new on echo 01/29/2025)
Acute on chronic heart failure with preserved ejection fraction, proBNP 5800
Abnormal troponin, suspect nonischemic myocardial injury secondary to acute heart failure
h/o Strep agalactiae bacteremia, suspicion for prosthetic valve endocarditis 06/2024
On chronic suppressive amoxicillin
Severe
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
Nonobstructive CAD by cath 2021
PVD
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
Hypertension
Hyperlipidemia
Pulmonary HTN on echo 01/29/2025
Sensorineural Hearing Loss
Nephrolithiasis
DJD/DDD
ECHO 06/12/2024: EF 55 to 60%, mild MAC, status post number 29 mm evolute R, well-seated with peak/mean gradients 14/9 mmHg, no AR seen, mild TR, PAP 28 mmHg, no significant change compared to prior
INDY 06/23/2024: LVEF 55 to 60%, mild MR, mild TR, #29 evolute TAVR with no evidence of vegetation and trace aortic regurgitation
Echo 09/22/2024: EF 60 to 65%. Mild MR. TAVR with peak/mean gradient 56/32 mmHg, moderate AAS, trace AI.
Echo 01/29/2025: EF 60 to 65%. Mild LVH. Moderate MR which originates through posterior leaflet. PISA radius is 0.9 cm with an ERO 32 mm2. TAVR with peak/mean gradient 43/23 mmHg with moderate to severe AI. Mild to moderate TR with PAP 58 mmHg.
Compared to prior echo from September 2024 AI and TR have now worsened. Previously both were trace
INDY 02/16/2025: pending. Per preliminary report there is severe aortic regurgitation of TAVR and moderate to severe mitral regurgitation
Cardiac catheterization December 2021: Nonobstructive CAD
Plan:
-Presented 02/13/2025 with progressively worsening generalized weakness, fatigue, shortness of breath.
-Concern for endocarditis with new moderate to severe AI and moderate to severe MR on outpatient echo 01/29/2025. He has known h/o Strep agalactiae bacteremia and was treated with IV antibiotics in June 2024 then maintained on amoxicillin 500 mg
twice daily following completion of antibiotics. ID is following
- Blood cultures with no growth in 72 hours
- Currently getting IV Rocephin
- Preliminary results of INDY show severe aortic regurgitation of TAVR and moderate to severe MR. Official report is pending.
- CT surgery consult reviewed. Multidisciplinary team discussion with conclusion patient will proceed with explant of TAVR, possible aortic valve replacement, possible root placement possible mitral valve replacement on 02/18/2025. Dr. Pantoja
discussed with patient, Dr. Nielsen, his daughters. I reviewed with patient's 2 sons who were in the room and nursing
-Acute on chronic heart failure with preserved ejection fraction, proBNP 5800. This is higher than previous admissions
- Ongoing diuresis with Lasix 40 mg IV twice daily. Weight down 10 pounds since admission. Lasix placed on hold 02/16 and started on Bumex gtt by CTS
- Monitor renal function and electrolytes with diuresis. Labs pending
-Abnormal troponin, peaked at 0.041. suspect nonischemic myocardial injury secondary to acute heart failure and possible endocarditis. He has non-obstructive CAD on cath in 2021.
- History of hypertension. Patient has lost over 35 pounds since September. May need to reduce antihypertensive agents with weight loss. On amlodipine 10 mg and lisinopril 20 mg as outpatient. Amlodipine and Lisinopril placed on hold 02/17/2025.
Continue to monitor and trend and follow closely following surgery
[facility] 02/13/2025:
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 hyperlipidemia presents with
progressively worsening fatigue, weakness, shortness of breath, orthopnea and intermittent chest discomfort and weight loss. Patient was treated for presumed endocarditis with prolonged course of IV antibiotics and chronic treatment of amoxicillin
since June 2024. He was seen in cardiology office approximately 4 weeks ago and noted not feeling well and was found to have new diastolic murmur. He underwent an echocardiogram 01/29/2025 which showed new at least moderate mitral regurgitation
and moderate aortic insufficiency. Given progressively worsening symptoms and abnormal findings on echo it was recommended patient be hospitalized for evaluation. proBNP on admission 5800, troponin 0.041. Hemoglobin stable at 11.3. Chest x-ray
showed mild interstitial edema with increased bilateral pleural effusions and adjacent atelectasis. Blood cultures drawn in emergency department. Started on IV Rocephin.
At time of this evaluation patient resting comfortably in chair on oxygen. Still feels weak and dyspneic with activity. He denies recent fevers or chills. He reports he does often eat healthy choice frozen meals but tries to otherwise watch
sodium in his diet.
Progress Note - Rn Maternal Child
Subjective
Date of Service: February 16, 2025
Patient seen and examined. Patient sitting comfortably in bed. Still wearing oxygen. Detailed discussion with patient and 2 sons in office regarding results of INDY and plan moving forward with surgery on 02/19
Objective
Labs:
Labs
Hgb 10.5 g/dL (13.0-18.0) L 02/15/25 04:11
Hct 34.1 % (39.0-52.0) L 02/15/25 04:11
Plt Count 215 10^3/uL (130-400) 02/15/25 04:11
PT 15.8 Sec (11.4-14.6) H 02/12/25 17:57
INR 1.21 02/12/25 17:57
Sodium 140 mmol/L (135-145) 02/15/25 04:11
Potassium 4.7 mmol/L (3.5-5.1) 02/15/25 04:11
BUN 32 mg/dl (9-20) H 02/15/25 04:11
Creatinine 1.0 mg/dL (0.7-1.3) 02/15/25 04:11
Glucose 123 mg/dl (70-99) H 02/15/25 04:11
Vital Signs and I&O:
Vital Signs
Temp Pulse Resp BP Pulse Ox
97.7 F 90 16 125/55 94
02/16/25 11:59 02/16/25 11:59 02/16/25 11:59 02/16/25 11:59 02/16/25 11:59
Vital Signs
Temp Pulse Resp BP Pulse Ox
97.7 F 90 16 125/55 94
02/16/25 11:59 02/16/25 11:59 02/16/25 11:59 02/16/25 11:59 02/16/25 11:59
Intake & Output
02/14/25 02/15/25 02/16/25 02/17/25
06:59 06:59 06:59 06:59
Intake Total 480 / 480 240 / 240 720 / 720
Output Total 300 / 300
Balance 480 / 480 240 / 240 420 / 420
Physical Exam
Physical Exam
GEN: No distress, awake, Ox3, sitting in chair on O2
HEENT: supple, anicteric, mmm
LUNGS: CTA, no wheezes/rales; on 3 lpm NC
CV: Reg, S1/S2, 2/6 diastolic murmur at apex, 1/6 systolic murmur at RSB
ABD: soft, BS+, NT/ND
EXT:trace to +1 LE edema bilaterally
NEURO: Gross non-focal
SKIN: No rash, warm, dry, pink
--- NOTE | 2025-02-16 12:48 | W.PN.HOSP.TC ---
Today's Communication/Plan
-
CVICU (tele status) transfer for diuresis
potential CTS intervention for Aortic, mitral valves
Assessment / Plan
Assessment / Plan
Assessment:
History of strep agalactiae bacteremia with suspicion for prosthetic valve endocarditis 06/2024
Possible new acute bacterial endocarditis
- on chronic suppressive amoxicillin (s/p 4 weeks Rocephin) in 06/2024
- continue Rocephin per ID
- awaiting final INDY report
- may need surgical intervention - CTS consulted
Acute on chronic heart failure with preserved ejection fraction
- continue IV Lasix - requires intensive monitoring of I/Os, weights, lytes
- CTS planning Bumex drip
- Echo: 01/29/25: EF 60-65%, moderate MR, TAVR regurgitation, TR
- DCA cards following
nonischemic myocardial injury secondary to acute heart failure
severe s/p TAVR 2021 (due to endocarditis)
- now with severe AR on INDY
- may need surgical intervention - CTS consulted
Nonobstructive CAD
PVD s/p left femoral endarterectomy with interposition of bypass graft from MANAGER OF DATA to femoral bifurcation 09/2022
Essential HTN
Pulm HTN
HLD
Sensorineural Hearing Loss
Acute on chronic anemia, macrocytic
DVT ppx: Lovenox
Code: Full
Anticipated Discharge: > 48 hours
Subjective/Interval History
-
Date of Service: February 16, 2025
resting comfortably
s/p INDY which revealed significant AR
Objective Data
-
Vital Signs:
Vital Signs
Temp Pulse Resp BP Pulse Ox
97.7 F 90 16 125/55 94
02/16/25 11:59 02/16/25 11:59 02/16/25 11:59 02/16/25 11:59 02/16/25 11:59
I&O
02/15/25 02/16/25 02/17/25
06:59 06:59 06:59
Intake Total 240 / 240 720 / 720
Output Total 300 / 300
Balance 240 / 240 420 / 420
Physical Exam
-
General: No Apparent Distress
HEENT: Normocephalic and Atraumatic
Respiratory: Clear to Auscultation
Cardiac: Regular Rhythm, S1/S2 and Murmur (diastolic 2/6)
GI: Soft
Musculoskeletal: No Edema
Neuro: AO x 3
Psych: Calm
Data Reviewed
-
Total Time Spent with Patient (in minutes): 51
Labs: Labs Reviewed by me
--- NOTE | 2025-02-16 13:33 | W.PN.UPDATE ---
Update Note
Progress Note Update
I had a very rohith discussion with Mr. Noriega, I reviewed his transesophageal echocardiogram and also discussed his case with his outpatient inspector agricultural commodities. 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 He has been on
antibiotics for long period and likely receive antibiotics here on admission. Fortunately his cultures have been negative. His transesophageal echocardiogram demonstrates essentially wide-open aortic valve insufficiency with total destruction of
his TAVR valve. There is also a piece of calcification that is mobile intra valvular bleed. This is likely an old burned-out vegetation. He has mitral valve insufficiency that to me looks mild to moderate maybe moderate at worst but is
functional. I do not appreciate a significant paravalvular leak. Cardiac function otherwise is preserved at this particular time. On my consultation with him, he was clinically overloaded and requiring oxygenation which is understandable given
his level of aortic valve insufficiency. My recommendation would be to move forward with TAVR explant, possible aortic valve replacement, possible root placement possible mitral valve replacement. This is likely going to give him the best shot in
the meaningful recovery and quality of life. I quoted him a 5% risk of mortality within 30 days and a 2 to 3% risk of stroke. He does have significant arch calcification which may necessitate axillary cutdown for peripheral cannulation. I also
discussed this case with his daughter and answered all questions. Share decision making between Mr. Noriega, Dr. Nielsen, me, and his daughters to move forward with surgery. Will plan for surgery on Sunday, we will have 3 units of PRBCs and 3
units of platelets on hold for him.
Thank you for involving me in the care of this patient. Please feel free to contact me with any questions or concerns.
Dallin Pantoja MD, MS
Cardiothoracic Surgeon
[facility]
This dictation was created using the [employer] dictation system. Please excuse any grammatical, typographical, or 'sound alike' errors.
[2025-02-16] MEDS: BUMEX 100 IV (13:43)
[2025-02-16] MEDS: BUMEX 1 MG IV (13:43)
[2025-02-16 13:54] LABS: Hematocrit 35.4 % (39.0-52.0); Hemoglobin 11.5 g/dL (13.0-18.0); Mean Corp Hgb Conc. 32.5 g/dL (33.0-37.0); Mean Corpuscular Volume 95.9 fL (80.0-94.0); Platelet Count 241 10^3/uL (130-400); Red Cell Dist. Width 14.7 % (11.5-14.5)
[2025-02-16 14:06] LABS: Blood Urea Nitrogen 29 mg/dl (9-20); Calcium 9.4 mg/dl (8.4-10.2); Carbon Dioxide 28 mmol/L (22-30); Chloride 105 mmol/L (98-107); Estimated Creatinine Clearance 83 ml/min; Glucose 119 mg/dl (70-99); Magnesium 2.0 mg/dl (1.6-2.3); Potassium 4.5 mmol/L (3.5-5.1); Sodium 140 mmol/L (135-145); eGFR > 60.00
--- NOTE | 2025-02-16 14:26 | W.PN.UPDATE ---
Update Note
Progress Note Update
Procedure Type:�Isolated AVR
Perioperative Outcome Estimate %
Operative Mortality 1.35%
Morbidity & Mortality 9.86%
Stroke 2.18%
Renal Failure 1.6%
Reoperation 4.46%
Prolonged Ventilation 6.27%
Deep Sternal Wound Infection 0.143%
Long Hospital Stay (>14 days) 6.7%
Short Hospital Stay (<6 days)* 27.3%
[2025-02-16] MEDS: ROCEPHIN 2000 MG IV (18:21)
[2025-02-16] MEDS: STERILE WATER FOR INJECTION 20 ML IV (18:21)
[2025-02-16 20:27] LABS: Blood Urea Nitrogen 38 mg/dl (9-20); Calcium 9.2 mg/dl (8.4-10.2); Carbon Dioxide 29 mmol/L (22-30); Chloride 105 mmol/L (98-107); Estimated Creatinine Clearance 62 ml/min; Glucose 128 mg/dl (70-99); Potassium 4.1 mmol/L (3.5-5.1); Sodium 140 mmol/L (135-145); eGFR > 60.00
--- NOTE | 2025-02-16 21:00 | PTCARENOTE ---
Report received from DANIEL Coronel. Walking rounds completed. Pt sitting in chair. Awake, alert, oriented x 4. + VIEJAS, wearing hearing aids. Speech clear. On 2L/NC. Sats 95%. BBS present. More Decreased L posterior base. R posterior base mildly decreased
with fine rales on inspiration. Helped ambulate to BR while remaining on 2L/NC/O2. +TRAN on return from BR. Sats 88-89% on 2L after walking. O2 increased to 3L. Sats up to 95%. Pt in SR with occasional PACs, PVCs. BP 100's/40-50's in R arm. Audible
heart tones. + Murmur auscultated to 2ICS at R and L sternal border. Bumex gtt at 0.5 mg/hr. + diuresis. Pt c/o burning on urination. Voided 350 mls clear, yellow urine. Removed top hat in toilet stating he thinks that caused his dysuria. PA
notified of dysuria. UA ordered. Afebrile. Belly soft, obese, nontender. Pt had BM 9/8. Passing flatus. No c/o pain. Ongoing plan of care.
[2025-02-16] MEDS: KCL 20 MEQ PO (21:11)
[2025-02-17] VITALS (10 sets, daily range): BP systolic 104–143; BP diastolic 35–73; BMI 29.2
--- NOTE | 2025-02-17 01:30 | PTCARENOTE ---
Assisted to BR multiple times. Remains on 3L/NC while in BR. Voids clear, yellow urine. PA offered monroy catheter. Pt refused. he also refused a condom catheter. Assisted pt in getting UA. UA sent.
[2025-02-17 02:04] LABS: Urine Character Clear (Clear)
--- NOTE | 2025-02-17 02:45 | PTCARENOTE ---
Assisted to BR to void. CHG bath done. Helped back to bed. Attempting to go back to sleep. Remains in SR. O2 at 3L/NC.
--- NOTE | 2025-02-17 04:36 | PTCARENOTE ---
Pt helped to BR to void clear, yellow urine. Assisted to standing scale, weighed and helped back to bed. labs drawn and sent. Ed, PA in to assess pt. VS done. Remains in SR with some PACs. Sats 97% on 3L/NC. States he feels TRAN is mildly better.
[2025-02-17 05:04] LABS: INR 1.22; PT 15.7 Sec (11.4-14.6)
[2025-02-17 05:05] LABS: APTT 29.7 Sec (23.4-35.0)
[2025-02-17 05:22] LABS: Blood Urea Nitrogen 40 mg/dl (9-20); Calcium 9.1 mg/dl (8.4-10.2); Carbon Dioxide 29 mmol/L (22-30); Chloride 104 mmol/L (98-107); Estimated Creatinine Clearance 68 ml/min; Glucose 118 mg/dl (70-99); Potassium 4.5 mmol/L (3.5-5.1); Sodium 141 mmol/L (135-145); eGFR > 60.00
--- NOTE | 2025-02-17 05:33 | W.PN.CT ---
Today's Communication / Plan
-
Plan:
-Cont. medical optimization
-On Lasix gtt @ 0.5 mg/hr
-Cont. abx therapy with Rocephin
-Holding Lisinopril and Norvasc in preparation for OR
-For TAVR explant, possible aortic valve replacement, possible root placement possible mitral valve replacement by Dr. Pantoja tomorrow, 02/18/25
Assessment / Plan
-
Assessment: 74 y/o Male S/P Trans femoral (right) TAVR with a 29mm [employer]onic Evolut device by Dr. Pantoja on 01/12/22. Readmitted on 02/12/25 with c/o increasing fatigue, TRAN, orthopnea, generalized malaise. Hx of suspected endocarditis treated with Abx,
recent cultures negative. INDY obtained yesterday 02/16/25 showed Severe AI, Moderate MR, Mild TR, EF 50-55%. Calcified, mobile echodensity at RCC position, which may represent calcified vegetation.
-Severe symptomatic aortic stenosis S/p Right TF TAVR �01/12/22
-Severe AI
-Moderate MR
-Mild TR
-LVEF 50-55%
-Acute Systolic/Diastolic CHF
-Hx group B strep bactremia/Suspected endocarditis
-TRAN
-HTN
-HLD
Discussed patient care with: Cardiology, Nursing, Respiratory Therapy, Pharmacy and Care Team
Subjective
-
Date of Service: February 17, 2025
C/o mild SOB, Denies CP
Objective Data
-
Lab Results
02/16/25 13:36
02/17/25 04:23
PT 15.7 Sec (11.4-14.6) H 02/17/25 04:23
INR 1.22 02/17/25 04:23
APTT 29.7 Sec (23.4-35.0) 02/17/25 04:23
Vital Signs
Vital Signs
Temp Pulse Resp BP Pulse Ox
97.7 F 81 16 114/48 97
02/17/25 04:17 02/17/25 04:17 02/17/25 04:17 02/17/25 04:17 02/17/25 04:17
CT Intake/Output/Weight
02/16/25 02/16/25 02/17/25
06:59 18:59 06:59
Intake Total 480 / 500 20 / 500
Output Total 500 / 850 350 / 850
Balance -20 / -350 -330 / -350
SaO2: 97 (2L NC)
Physical Exam
-
General: Awake, Oriented and AOx3
Cardiovascular: Regular rate & rhythm and Murmur (3/6 diastolic )
Respiratory: Decreased Breath Sounds (at bases)
Extremities: Other (+trace edema)
Data Reviewed
-
Lab Results: Results Reviewed
Medications: Active Meds Reviewed
Chest X-Ray: Report Reviewed and Image Reviewed
ECG: Report Reviewed and Image Reviewed
--- NOTE | 2025-02-17 07:00 | PTCARENOTE ---
Pt helped to BR. Voided 450 mls clear,yellow urine. Report to DANIEL Padilla. Walking rounds done.
--- NOTE | 2025-02-17 08:16 | PTCARENOTE ---
Received pt from captain/airline pilot RN; pt AAOx3 and resting comfortably in chair; NSR and VSS; Lungs diminished with fine rails in bases; Bumex drip infusing see flow sheet for details; positive bowel sounds; pt voiding yellow urine; palpable pulses
throughout; no edema noted; see nursing documentation for further details.
--- NOTE | 2025-02-17 08:25 | W.PN.ID1 ---
Date of Service
Date of Service: February 17, 2025
Today's Communication
- Cardiothoracic surgery following - if taken to the OR please send valve tissue for aerobic, anaerobic, fungal and AFB culture if feasible
- outpatient recommend screening for colon cancer, ideally with colonoscopy to prevent relapse with new organism
Assessment / Plan
# New TAVR severe aortic insufficiency; TAVR placed 2021
# New MR
# acute on chronic CHF
# Hx Group B strep bacteremia (06/2024), suspected IE (INDY no gross vege), s/p 4 weeks ceftriaxone followed by suppressive amox 500mg bid
# Anemia
- Repeat blood cx's x 3 neg to date
- INDY report - severe aortic regurgitation (intra-valvular), Calcified, mobile echodensity at RCC position, which may represent calcified vegetation. Moderate mitral regurgitation.
- Cardiothoracic surgery following - if taken to the OR please send valve tissue for aerobic, anaerobic, fungal and AFB culture if feasible; note plans for explant tomorrow
- c/w Ceftriaxone 2g IV q24h (d6)
- outpatient recommend screening for colon cancer, ideally with colonoscopy to prevent relapse with new organism - rediscussed with patient today
# Dysuria
- negative UA
-
# Conditions [employer]
s/p TAVR 2021
Group B strep bacteremia in June 2024 with suspected IE on suppressive amoxicillin (follows with Dr. Larson)
CHF new December 2024
Pulm HTN January 02
ASCVD
Hypertension
Nephrolithiasis
DJD / DDD
Obesity
Sensorineural Hearing Loss
PAD s/p Left Femoral Endarterectomy. Left Fem-Fem Bypass
Chief Complaint
-: Other (Prosthetic Valve Endocarditis)
Subjective / Review of Systems
afebrile
BP stable
some improvement in dyspnea on exertion
complained of dysuria and had negative UA last night
'I just dont want a colonoscopy, I dont think its necessary.' Rediscussed and explained GI transloction as risk for future relapse of endocarditis
Vital Signs / Physical Exam
Vital Signs
Vital Signs
Temp Pulse Resp BP Pulse Ox
97.7 F 80 16 114/48 97
02/17/25 04:17 02/17/25 07:00 02/17/25 04:17 02/17/25 04:17 02/17/25 06:37
Physical Exam
Constitutional: No Acute Distress and Chronically Ill
Cardiovascular: Regular Rate and S1/S2; Negative Murmur or Rub
Pulmonary: Clear and Symmetric; Negative Wheezes or Rales
Gastrointestinal: Soft, Non Tender, Non Distended and Normal Bowel Sounds
Extremities: Negative Edema
Skin: Warm and Dry; Negative Rash or Jaundice
Objective Data
Lab Data
Lab Results
02/16/25 13:36
02/17/25 04:23
PT 15.7 Sec (11.4-14.6) H 02/17/25 04:23
INR 1.22 02/17/25 04:23
APTT 29.7 Sec (23.4-35.0) 02/17/25 04:23
Estimated Creat Clear 68 ml/min 02/17/25 04:23
Total Bilirubin 0.7 mg/dl (0.2-1.3) 02/15/25 04:11
AST 21 U/L (17-59) 02/15/25 04:11
ALT 16 U/L (0-50) 02/15/25 04:11
Alkaline Phosphatase 53 U/L (38-126) 02/15/25 04:11
Most recent labs reviewed.
Micro Results:
02/12/25 20:00 Blood Culture - Preliminary
Blood/Venous No Growth in 4 days- Final report to follow
02/12/25 20:08 Blood Culture - Preliminary
Blood/Venous No Growth in 4 days- Final report to follow
02/12/25 18:37 Blood Culture - Preliminary
Blood/Venous No Growth in 4 days- Final report to follow
02/12/25 CXR: Mild interstitial edema with increased small bilateral pleural effusions and adjacent atelectasis.
[2025-02-17] MEDS: THERAGRAN 1 TABLET PO (08:33)
[2025-02-17] MEDS: ASPIR LOW (ENTERIC COATED) 81 MG PO (08:33)
[2025-02-17] MEDS: LIPITOR 20 MG PO (08:33)
--- NOTE | 2025-02-17 12:16 | PTCARENOTE ---
NSR on monitor and VSS; assessment unchanged and pt resting comfortably in chair.
--- NOTE | 2025-02-17 13:41 | W.PN.CARDCBS ---
Addendum entered and electronically signed by Getachew Leavitt MD 02/17/25 14:21:
I saw and examined the patient.
The PENS AND PENCILS DIPPER or PA's note was reviewed and I agree with the note.
Comment: General: Well developed, well nourished in NAD.
Neck: Supple, no JVD, HJR, carotids +2 B/L, no bruits bilaterally.
Heart: Non displaced PMI, RRR, 2/6 basal systolic murmur, No S3, S4, no rubs.
Lungs: Scattered rhonchi
Extremities: No clubbing, cyanosis or edema bilaterally.
Neuro: Grossly nonfocal, awake, alert and oriented x3.
Continue attempts at diuresis with IV Bumex drip. For AVR and removal of TAVR on Sunday 02/18.
Original Note:
Today's Communication / Plan
-
Continue IV Bumex drip
Plan for OR 02/18/2025
Impression / Plan
-
PCP: Turner Guardado
Primary senior visual designer: Dr. Nielsen
Impression:
Presented 02/13/2025 with generalized weakness, fatigue, shortness of breath
Concern for endocarditis with new moderate to severe AI and moderate to severe MR (new on echo 01/29/2025)
Acute on chronic heart failure with preserved ejection fraction, proBNP 5800
Abnormal troponin, suspect nonischemic myocardial injury secondary to acute heart failure
h/o Strep agalactiae bacteremia, suspicion for prosthetic valve endocarditis 06/2024
On chronic suppressive amoxicillin
Severe
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
Nonobstructive CAD by cath 2021
PVD
status post left femoral endarterectomy with interposition of bypass graft from [employer] to femoral bifurcation 09/2022
Hypertension
Hyperlipidemia
Pulmonary HTN on echo 01/29/2025
Sensorineural Hearing Loss
Nephrolithiasis
DJD/DDD
ECHO 06/12/2024: EF 55 to 60%, mild MAC, status post number 29 mm evolute R, well-seated with peak/mean gradients 14/9 mmHg, no AR seen, mild TR, PAP 28 mmHg, no significant change compared to prior
INDY 06/23/2024: LVEF 55 to 60%, mild MR, mild TR, #29 evolute TAVR with no evidence of vegetation and trace aortic regurgitation
Echo 09/22/2024: EF 60 to 65%. Mild MR. TAVR with peak/mean gradient 56/32 mmHg, moderate AAS, trace AI.
Echo 01/29/2025: EF 60 to 65%. Mild LVH. Moderate MR which originates through posterior leaflet. PISA radius is 0.9 cm with an ERO 32 mm2. TAVR with peak/mean gradient 43/23 mmHg with moderate to severe AI. Mild to moderate TR with PAP 58 mmHg.
Compared to prior echo from September 2024 AI and TR have now worsened. Previously both were trace
INDY 02/16/2025: EF preserved at 50 to 55% with normal LV size and function. Ssevere intra valvular aortic regurgitation, calcified mobile echodensity at RCC position which may represent calcified vegetation. Thickening and calcified mitral valve
leaflets with moderate mitral regurgitation, central jet. PISA radius 0.8cm. EROA 0.34 cm2. RV 47 cc. Mean gradient 3 mmHg. Mild to moderate TR.
Cardiac catheterization December 2021: Nonobstructive CAD
Plan:
-Presented 02/13/2025 with progressively worsening generalized weakness, fatigue, shortness of breath.
-Concern for endocarditis with new moderate to severe AI and moderate to severe MR on outpatient echo 01/29/2025.
- INDY 02/16/2025 with severe intra valvular aortic regurgitation, calcified mobile echodensity at RCC position which may represent calcified vegetation.
- Multidisciplinary team discussion with CT surgery, primary senior visual designer, patient and family with conclusion patient will proceed with explant of TAVR, possible aortic valve replacement, possible root placement possible mitral valve replacement on
02/18/2025.
He has known h/o Strep agalactiae bacteremia and was treated with IV antibiotics in June 2024 then maintained on amoxicillin 500 mg twice daily following completion of antibiotics. ID is following
- Blood cultures with no growth x 4 days
- Continue IV Rocephin per ID
- Per recommendations of ID please send explanted valve tissue for aerobic, anaerobic, fungal and AFB culture if feasible
- ID also recommending outpatient colonoscopy once patient has recovered from valve surgery
-Acute on chronic heart failure with preserved ejection fraction, proBNP 5800. This is higher than previous admissions
- Ongoing diuresis: Initially placed on IV Lasix. Transition to Bumex drip on 02/16/2025 by CTS. Weight down 13 pounds since admission.
- Stable renal function and electrolytes. Continue to monitor renal function and electrolytes with diuresis
-Abnormal troponin, peaked at 0.041. suspect nonischemic myocardial injury secondary to acute heart failure and possible endocarditis. He has non-obstructive CAD on cath in 2021.
- History of hypertension. Patient has lost over 50 pounds since September. May need to reduce antihypertensive agents with weight loss. On amlodipine 10 mg and lisinopril 20 mg as outpatient. Amlodipine and Lisinopril placed on hold 02/17/2025.
Continue to monitor and trend and follow closely following surgery
HPI 02/13/2025:
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 hyperlipidemia presents with
progressively worsening fatigue, weakness, shortness of breath, orthopnea and intermittent chest discomfort and weight loss. Patient was treated for presumed endocarditis with prolonged course of IV antibiotics and chronic treatment of amoxicillin
since June 2024. He was seen in cardiology office approximately 4 weeks ago and noted not feeling well and was found to have new diastolic murmur. He underwent an echocardiogram 01/29/2025 which showed new at least moderate mitral regurgitation
and moderate aortic insufficiency. Given progressively worsening symptoms and abnormal findings on echo it was recommended patient be hospitalized for evaluation. proBNP on admission 5800, troponin 0.041. Hemoglobin stable at 11.3. Chest x-ray
showed mild interstitial edema with increased bilateral pleural effusions and adjacent atelectasis. Blood cultures drawn in emergency department. Started on IV Rocephin.
At time of this evaluation patient resting comfortably in chair on oxygen. Still feels weak and dyspneic with activity. He denies recent fevers or chills. He reports he does often eat healthy choice frozen meals but tries to otherwise watch
sodium in his diet.
Progress Note - Doctor Osteopathic
Subjective
Date of Service: February 17, 2025
Patient seen and examined. Patient sitting up in chair reports he is feeling well. Reports he had excellent diuretic response to IV Bumex. Feels less short of breath and bloated.
Objective
Labs:
02/16/25 13:36
02/17/25 04:23
Labs
Hgb 11.5 g/dL (13.0-18.0) L 02/16/25 13:36
Hct 35.4 % (39.0-52.0) L 02/16/25 13:36
Plt Count 241 10^3/uL (130-400) 02/16/25 13:36
PT 15.7 Sec (11.4-14.6) H 02/17/25 04:23
INR 1.22 02/17/25 04:23
APTT 29.7 Sec (23.4-35.0) 02/17/25 04:23
Sodium 141 mmol/L (135-145) 02/17/25 04:23
Potassium 4.5 mmol/L (3.5-5.1) 02/17/25 04:23
BUN 40 mg/dl (9-20) H 02/17/25 04:23
Creatinine 1.1 mg/dL (0.7-1.3) 02/17/25 04:23
Glucose 118 mg/dl (70-99) H 02/17/25 04:23
Vital Signs and I&O:
Vital Signs
Temp Pulse Resp BP Pulse Ox
97.9 F 85 20 120/35 96
02/17/25 08:00 02/17/25 13:00 02/17/25 08:00 02/17/25 12:39 02/17/25 10:30
Vital Signs
Temp Pulse Resp BP Pulse Ox
97.9 F 85 20 120/35 96
02/17/25 08:00 02/17/25 13:00 02/17/25 08:00 02/17/25 12:39 02/17/25 10:30
Intake & Output
02/15/25 02/16/25 02/17/25 02/18/25
06:59 06:59 06:59 06:59
Intake Total 240 / 240 720 / 720 500 / 506 6 / 6
Output Total 300 / 300 1200 / 1650 800 / 800
Balance 240 / 240 420 / 420 -700 / -1144 -794 / -794
Physical Exam
Physical Exam
GEN: No distress, awake, Ox3, sitting in chair on O2
HEENT: supple, anicteric, mmm
LUNGS: CTA, no wheezes/rales; on 3 lpm NC
CV: Reg, S1/S2, 2/6 diastolic murmur at apex, 1/6 systolic murmur at RSB
ABD: soft, BS+, NT/ND
EXT:No significant lower extremity edema bilaterally
NEURO: Gross non-focal
SKIN: No rash, warm, dry, pink
--- NOTE | 2025-02-17 13:45 | CM ---
Chart reviewed. Patient is independent of ADLS, lives with his son in a 1 STH, 1 BEATRIZ, 0 DME. Reviewed preoperative and postoperative instructions and restrictions, along with showering guidelines. Patient is agreeable to a home visit by CT
Transitional RN. Plan is for the patient to return home with his son and CT Transitional RN. CM to follow
--- NOTE | 2025-02-17 14:31 | PTCARENOTE ---
Assumed care of pt from previous RN. AAOx3. NSR with PACs on cardiac tech, HR 80s. VSS. Continues on Bumex gtt at this time. Assessment documented. NPO at midnight for CVOR tomorrow. Pt OOB to chair, call weiss in reach.
[2025-02-17] MEDS: STERILE WATER FOR INJECTION 20 ML IV (17:24)
[2025-02-17] MEDS: ROCEPHIN 2000 MG IV (17:24)
--- NOTE | 2025-02-17 19:30 | PTCARENOTE ---
Report received from Lui SANCHEZ. Walking rounds done. Pt sitting in chair. Awake, alert, oriented x 4. Speech clear. On 3L/NC. Sats 96-97%. BBS present. More decreased to L posterior base compared to R . Pt walked to BR, voided clear yellow urine, then
was helped to bed while on room air. O2 sats after activity were 83%. Pt denies dyspnea. O2 reapplied at 6 L briefly. Sats up to 100%. Then O2 down to 3L/NC. Sats 97%.
Murmur present. See VS flowsheet for BPs. Pt in SR with occasional PVCs. Palpable +2 pulses to B radials and DPs/PTs. +1 pitting edema to pedal areas bilaterally. Afebrile. Belly soft, nontender. Normoactive bs x 4. No c/o pain. Bumex gtt turned off
on day shift. Sister at bedside. Ongoing plan of care.
--- NOTE | 2025-02-17 23:15 | PTCARENOTE ---
Pt clipped and prepped for CVOR per protocol. CHG bed bath and wipe bath given. Linens, gown, and EKG lead change done. VS done. Pt going to sleep for evening. Remains in SR. On 3L/NC. Sats 97%. No c/o pain or dyspnea.
[2025-02-18] VITALS (13 sets, daily range): BP systolic 89–136; BP diastolic 43–61; BMI 28.8
--- NOTE | 2025-02-18 05:00 | PTCARENOTE ---
VS done. Labs drawn and sent. Pt with no complaints.
[2025-02-18 05:45] LABS: Blood Urea Nitrogen 47 mg/dl (9-20); Calcium 9.6 mg/dl (8.4-10.2); Carbon Dioxide 32 mmol/L (22-30); Chloride 104 mmol/L (98-107); Estimated Creatinine Clearance 74 ml/min; Glucose 103 mg/dl (70-99); Potassium 4.3 mmol/L (3.5-5.1); Sodium 142 mmol/L (135-145); eGFR > 60.00
--- NOTE | 2025-02-18 06:14 | W.CVOR.SURPR ---
CVOR Surgeon Immed Pre Op
-
I have examined this patient prior to performance of the scheduled procedure.
The patient's condition is unchanged from the time of the dictated/written History and
Physical and the patient is able to undergo the scheduled procedure.
Sternotomy TAVR explant possible root, possible mitral valve surgery as well. Preserved EF with torrential AI. In acute on chronic heart failure.
--- NOTE | 2025-02-18 06:42 | PTCARENOTE ---
2nd CHG bath done. Pt weighed. Remains NPO since MN. No complaints.
--- NOTE | 2025-02-18 07:59 | W.PN.ID1 ---
Date of Service
Date of Service: February 18, 2025
Today's Communication
- please send valve tissue for aerobic, anaerobic, fungal and AFB culture if feasible
- c/w Ceftriaxone 2g IV q24h (d7)
- outpatient recommend screening for colon cancer, ideally with colonoscopy to prevent relapse with new organism
Assessment / Plan
# New TAVR severe aortic insufficiency; TAVR placed 2021
# New MR
# acute on chronic CHF
# Hx Group B strep bacteremia (06/2024), suspected IE (INDY no gross vege), s/p 4 weeks ceftriaxone followed by suppressive amox 500mg bid
# Anemia
- Repeat blood cx's x 3 neg to date
- INDY report - severe aortic regurgitation (intra-valvular), Calcified, mobile echodensity at RCC position, which may represent calcified vegetation. Moderate mitral regurgitation.
- please send valve tissue for aerobic, anaerobic, fungal and AFB culture if feasible
- c/w Ceftriaxone 2g IV q24h (d7)
- outpatient recommend screening for colon cancer, ideally with colonoscopy to prevent relapse with new organism
# Conditions [employer]QUIFIED [employer]IST
s/p TAVR 2021
Group B strep bacteremia in June 2024 with suspected IE on suppressive amoxicillin (follows with Dr. Larson)
CHF new December 2024
Pulm HTN January 02
ASCVD
Hypertension
Nephrolithiasis
DJD / DDD
Obesity
Sensorineural Hearing Loss
PAD s/p Left Femoral Endarterectomy. Left Fem-Fem Bypass
Chief Complaint
-: Other (Prosthetic Valve Endocarditis)
Subjective / Review of Systems
afebrile
no events overnight
for the OR
no complaints
Vital Signs / Physical Exam
Vital Signs
Vital Signs
Temp Pulse Resp BP Pulse Ox
97.7 F 90 16 134/48 95
02/18/25 04:59 02/18/25 05:00 02/18/25 04:59 02/18/25 04:59 02/18/25 05:00
Physical Exam
Constitutional: No Acute Distress and Chronically Ill
Cardiovascular: Regular Rate and S1/S2; Negative Murmur or Rub
Pulmonary: Clear and Symmetric; Negative Wheezes or Rales
Gastrointestinal: Soft, Non Tender, Non Distended and Normal Bowel Sounds
Extremities: Negative Splinter Hemorrhage or [place]ay Lesions
Skin: Warm and Dry; Negative Rash or Jaundice
Neurological: Awake
Objective Data
Lab Data
Lab Results
02/16/25 13:36
02/18/25 05:07
PT 15.7 Sec (11.4-14.6) H 02/17/25 04:23
INR 1.22 02/17/25 04:23
APTT 29.7 Sec (23.4-35.0) 02/17/25 04:23
Estimated Creat Clear 74 ml/min 02/18/25 05:07
Total Bilirubin 0.7 mg/dl (0.2-1.3) 02/15/25 04:11
AST 21 U/L (17-59) 02/15/25 04:11
ALT 16 U/L (0-50) 02/15/25 04:11
Alkaline Phosphatase 53 U/L (38-126) 02/15/25 04:11
Most recent labs reviewed.
Micro Results:
02/12/25 20:00 Blood Culture - Final
Blood/Venous No Growth - Final Report
02/12/25 20:08 Blood Culture - Final
Blood/Venous No Growth - Final Report
02/12/25 18:37 Blood Culture - Final
Blood/Venous No Growth - Final Report
02/12/25 CXR: Mild interstitial edema with increased small bilateral pleural effusions and adjacent atelectasis.
Chest X-Ray: Image Reviewed and Report Reviewed (small bl pleural effusions)
Other: Report Reviewed (orthopantogram - few remaining teeth no caries, carotid US - minimal stenosis)
[2025-02-18] MEDS: ASPIR LOW (ENTERIC COATED) PO (08:44)
[2025-02-18] MEDS: THERAGRAN PO (08:44)
[2025-02-18] MEDS: LIPITOR PO (08:44)
--- NOTE | 2025-02-18 09:00 | PTCARENOTE ---
Patient received from coconut candy maker RN; AAOx3, responds spontaneously to RN and follows commands; MOHEGAN and hearing aids present; VSS; NSR with PVC's on monitor; Murmur present; +2 radial pulses and DP pulses present; TRAN; Non-productive, occasional
cough; Lung sounds diminished at bases; SpO2 97-100% on 3L NC; Normoactive BS; Patient urinating in bathroom; Skin CDI; PIVx1 - #20 right forearm; See nursing documentation for further information
[2025-02-18] MEDS: PROTONIX 40 MG PO (10:15)
[2025-02-18] MEDS: LOPRESSOR 25 MG PO (10:15)
[2025-02-18] MEDS: MAGNESIUM OXIDE 400 MG PO (10:15)
--- NOTE | 2025-02-18 10:41 | PTCARENOTE ---
Patient sent over to CVOR at 1030 - report given to GC; Patient wiped down with CHG wipes and given ordered pre-op PO medications; Bactroban not present before sending patient over to CVOR - MD Pantoja notified and aware; Patient belongings left on
patient's bedside table
--- NOTE | 2025-02-18 10:41 | W.PN.CARDCBS ---
Today's Communication / Plan
-
Ongoing diuresis
Impression / Plan
-
PCP: Turner Guardado
Primary pattern vault clerk: Dr. Nielsen
Impression:
Presented 02/13/2025 with generalized weakness, fatigue, shortness of breath
Concern for endocarditis with new moderate to severe AI and moderate to severe MR (new on echo 01/29/2025)
Acute on chronic heart failure with preserved ejection fraction, proBNP 5800
Abnormal troponin, suspect nonischemic myocardial injury secondary to acute heart failure
h/o Strep agalactiae bacteremia, suspicion for prosthetic valve endocarditis 06/2024
On chronic suppressive amoxicillin
Severe
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
Nonobstructive CAD by cath 2021
PVD
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
Hypertension
Hyperlipidemia
Pulmonary HTN on echo 01/29/2025
Sensorineural Hearing Loss
Nephrolithiasis
DJD/DDD
ECHO 06/12/2024: EF 55 to 60%, mild MAC, status post number 29 mm evolute R, well-seated with peak/mean gradients 14/9 mmHg, no AR seen, mild TR, PAP 28 mmHg, no significant change compared to prior
INDY 06/23/2024: LVEF 55 to 60%, mild MR, mild TR, #29 evolute TAVR with no evidence of vegetation and trace aortic regurgitation
Echo 09/22/2024: EF 60 to 65%. Mild MR. TAVR with peak/mean gradient 56/32 mmHg, moderate AAS, trace AI.
Echo 01/29/2025: EF 60 to 65%. Mild LVH. Moderate MR which originates through posterior leaflet. PISA radius is 0.9 cm with an ERO 32 mm2. TAVR with peak/mean gradient 43/23 mmHg with moderate to severe AI. Mild to moderate TR with PAP 58 mmHg.
Compared to prior echo from September 2024 AI and TR have now worsened. Previously both were trace
INDY 02/16/2025: EF preserved at 50 to 55% with normal LV size and function. Severe intra valvular aortic regurgitation, calcified mobile echodensity at RCC position which may represent calcified vegetation. Thickening and calcified mitral valve
leaflets with moderate mitral regurgitation, central jet. PISA radius 0.8cm. EROA 0.34 cm2. RV 47 cc. Mean gradient 3 mmHg. Mild to moderate TR.
Cardiac catheterization December 2021: Nonobstructive CAD
Plan:
-Presented 02/13/2025 with progressively worsening generalized weakness, fatigue, shortness of breath. Patient eventually had explant of previously placed TAVR followed by SAVR. Patient had concern for endocarditis with new moderate to severe AI and
moderate to severe MR on outpatient echo 01/29/2025.
-INDY 02/16/2025 with severe intra valvular aortic regurgitation, calcified mobile echodensity at RCC position which may represent calcified vegetation. Multidisciplinary team discussions resulting in explant of TAVR and then SAVR on 02/18/2025.
-CT surgery note reviewed by me on 02/23/2025 and remains HD stable following dobutamine being weaned off 02/22/2025
-Patient with paroxysmal A-fib and now the dobutamine is off he has been restarted on Toprol-XL 12.5 mg twice daily. Also ordered amiodarone 200 mg 3 times daily
-Not currently anticoagulated due to the overall low burden of A-fib.
-Diuresing with Lasix 40 mg IV twice daily and is still about 10 lbs above his dry weight. Patient weighs 228 lbs on 02/23/2025
-Troponin peaked 0.041 this admission.
HPI 02/13/2025:
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 hyperlipidemia presents with
progressively worsening fatigue, weakness, shortness of breath, orthopnea and intermittent chest discomfort and weight loss. Patient was treated for presumed endocarditis with prolonged course of IV antibiotics and chronic treatment of amoxicillin
since June 2024. He was seen in cardiology office approximately 4 weeks ago and noted not feeling well and was found to have new diastolic murmur. He underwent an echocardiogram 01/29/2025 which showed new at least moderate mitral regurgitation
and moderate aortic insufficiency. Given progressively worsening symptoms and abnormal findings on echo it was recommended patient be hospitalized for evaluation. proBNP on admission 5800, troponin 0.041. Hemoglobin stable at 11.3. Chest x-ray
showed mild interstitial edema with increased bilateral pleural effusions and adjacent atelectasis. Blood cultures drawn in emergency department. Started on IV Rocephin.
At time of this evaluation patient resting comfortably in chair on oxygen. Still feels weak and dyspneic with activity. He denies recent fevers or chills. He reports he does often eat healthy choice frozen meals but tries to otherwise watch
sodium in his diet.
Progress Note - Nude Model
Subjective
Date of Service: February 18, 2025
Less SOB
Objective
Labs:
02/16/25 13:36
02/18/25 05:07
Labs
Hgb 11.5 g/dL (13.0-18.0) L 02/16/25 13:36
Hct 35.4 % (39.0-52.0) L 02/16/25 13:36
Plt Count 241 10^3/uL (130-400) 02/16/25 13:36
PT 15.7 Sec (11.4-14.6) H 02/17/25 04:23
INR 1.22 02/17/25 04:23
APTT 29.7 Sec (23.4-35.0) 02/17/25 04:23
Sodium 142 mmol/L (135-145) 02/18/25 05:07
Potassium 4.3 mmol/L (3.5-5.1) 02/18/25 05:07
BUN 47 mg/dl (9-20) H 02/18/25 05:07
Creatinine 1.0 mg/dL (0.7-1.3) 02/18/25 05:07
Glucose 103 mg/dl (70-99) H 02/18/25 05:07
Vital Signs and I&O:
Vital Signs
Temp Pulse Resp BP Pulse Ox
97.9 F 89 17 136/54 98
02/18/25 08:47 02/18/25 10:17 02/18/25 08:47 02/18/25 10:17 02/18/25 09:00
Vital Signs
Temp Pulse Resp BP Pulse Ox
97.9 F 89 17 136/54 98
02/18/25 08:47 02/18/25 10:17 02/18/25 08:47 02/18/25 10:17 02/18/25 09:00
Intake & Output
02/16/25 02/17/25 02/18/25 02/19/25
06:59 06:59 06:59 06:59
Intake Total 720 / 720 500 / 506 6 / 6
Output Total 300 / 300 1200 / 1650 1500 / 1500
Balance 420 / 420 -700 / -1144 -1494 / -1494
Physical Exam
Physical Exam
GEN: NAD
LUNGS: RA. No wheeze
CV: SR on tele.
--- NOTE | 2025-02-18 11:19 | CM ---
Chart reviewed. Patient is in the OR today. Patient is independent of ADLS, lives with his son in a 1 STH, 1 BEATRIZ, 0 DME. Plan is for the patient to return home with CT Transitional RN. CM to follow
[2025-02-18 11:20] LABS: Urine Character Clear (Clear)
[2025-02-18 11:24] LABS: ACT+ - POC 123 Seconds (82-134)
[2025-02-18 11:30] LABS: Urine Red Blood Cell 0-2 /HPF (0-2); Urine Urothelial Cell 0-2 /LPF (FEW); Urine White Cell 0-2 /HPF (0-5)
[2025-02-18 12:03] LABS: B.E. - POC 4.8 mmol/L; Glucose - POC 108 mg/dl (70-99); HCO3 - POC 29 mmol/L (21-28); Hematocrit - POC 29 % PCV (42-52); Hemodilution- POC No; Hemoglobin Calculated - POC 9.8; Ionized Calcium - POC 1.14 mmol/L (1.15-1.33); Lactate - POC 1.06 mmol/L (0.36-0.75); O2 Saturation %Calculated-POC 99.4 % (94-98); PCO2 - POC 43 mmHg (35-48); PO2 - POC 148 mmHg (83-108); POC Comment PRE; Potassium - POC 3.8 mmol/L (3.5-5.1); Sodium - POC 142 mmol/L (136-145); Specimen Type - POC Arterial; pH - POC 7.44 (7.35-7.45)
[2025-02-18 12:08] LABS: ACT+ - POC 459 Seconds (82-134)
[2025-02-18 12:20] LABS: ACT+ - POC 482 Seconds (82-134)
[2025-02-18 12:40] LABS: ACT+ - POC 545 Seconds (82-134)
[2025-02-18 13:07] LABS: ACT+ - POC 527 Seconds (82-134)
[2025-02-18 14:00] LABS: B.E. - POC 8.7 mmol/L; Glucose - POC 123 mg/dl (70-99); HCO3 - POC 33 mmol/L (21-28); Hematocrit - POC 29 % PCV (42-52); Hemodilution- POC Yes; Hemoglobin Calculated - POC 9.7; Ionized Calcium - POC 1.09 mmol/L (1.15-1.33); Lactate - POC 0.40 mmol/L (0.36-0.75); O2 Saturation %Calculated-POC 99.9 % (94-98); PCO2 - POC 43 mmHg (35-48); PO2 - POC 322 mmHg (83-108); Potassium - POC 4.5 mmol/L (3.5-5.1); Sodium - POC 145 mmol/L (136-145); Specimen Type - POC Arterial; pH - POC 7.50 (7.35-7.45)
[2025-02-18 14:09] LABS: ACT+ - POC 140 Seconds (82-134)
[2025-02-18 14:33] LABS: B.E. - POC 4.6 mmol/L; Glucose - POC 138 mg/dl (70-99); HCO3 - POC 29 mmol/L (21-28); Hematocrit - POC 24 % PCV (42-52); Hemodilution- POC Yes; Hemoglobin Calculated - POC 8.2; Ionized Calcium - POC 1.18 mmol/L (1.15-1.33); Lactate - POC 1.69 mmol/L (0.36-0.75); O2 Saturation %Calculated-POC 99.2 % (94-98); PCO2 - POC 40 mmHg (35-48); PO2 - POC 131 mmHg (83-108); Potassium - POC 3.8 mmol/L (3.5-5.1); Sodium - POC 145 mmol/L (136-145); Specimen Type - POC Arterial; pH - POC 7.47 (7.35-7.45)
--- NOTE | 2025-02-18 14:35 | W.PN.CT.SURG ---
CT Surgery Operative Note
-
CARDIAC SURGERY OPERATIVE REPORT
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
Postoperative Diagnosis: Same
Procedure(s) Performed:
1. Status and arm with aortic and right atrial cannulation
2. Epiaortic ultrasound for edification of soft spot for cannulation
3. Explant of prior CoreValve
4. Debridement of heavy calcification in the root and ascending thoracic aorta
5. Surgical aortic valve replacement [23 mm Linares Inspiris Resilia valve]
6. Limited Endarterectomy of ascending thoracic aorta
7. Placement of temporary atrial ventricular pacing wires
8. Drainage of bilateral pleural effusions (left side 1 L, right side 300 mL)
9. Transesophageal echocardiography
Date of Surgery: 02/18/2025
Comorbidities:
1. Acute on chronic congestive heart failure secondary to torrential aortic valve insufficiency
2. 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
3. Nonischemic cardiomyopathy
4. Dilated left ventricle with reduced left ventricular ejection fraction of 40%
5. Diabetes mellitus type 2
6. Hypertension
7. CAD, nonobstructive
8. PAD
9. Hyperlipidemia
Attending Surgeon: Dallin Pantoja MD, MS
Assistants: Leticia Veloz PA-C (present and necessary to heel sprayer first, retraction, suction, exposure, suture management, and wound closure under my direction), Joleen Estes MD (Did portion of the AVR), Eliazar Romero, PGY 2 (Cardiac Surgery Resident,
Opened and Closed)
Anesthesiology: Tyler Lopez MD and Dinorah Mariscal CRNA
Scrub and Circulating RNs: Sona Oneill, RN, Melony Krueger, DANIEL
Hole Digger Truck Driver: Anitha Stoner CCP
Anesthesia: GETA
EBL: per perfusion records
Products: None
CPB Time: 93 minutes
Aortic Cross Clamp Time: 74 minutes
Indication(s) for Procedures: This is a 74-year-old male who had an echo as a follow-up for his prior TAVR. He has suspected endocarditis with his prior TAVR valve as he was bacteremic. On his recent transthoracic echocardiogram he had severe
degeneration of the valve and had torrential aortic valve insufficiency. Transesophageal echocardiogram demonstrated that there was no significant paravalvular leak however he had torrential intra valvular leak. He was in acute heart failure and
was symptomatic and was admitted to the hospital for optimization and workup. Given the findings and calcified mobile vegetation on the aortic valve leaflets, he was referred to surgery for consideration of high risk TAVR explant and aortic valve
replacement. I offered him high risk surgery in the form of an AVR with possible root replacement hypoxia mitral valve replacement. However given that it appeared to be functional I opted to see if it would improve preoperatively with diuresis and
then with offloading from his aortic valve insufficiency.
Aortic Valve Description: TAVR valve, heavily incorporated into the root and ascending thoracic aorta. Fibrinous exudate with endothelialization of the valve into the [place] aorta. The leaflets were essentially destroyed with pieces of vegetation
and torn resulting in severe insufficiency. The [place] aorta was also densely calcified in certain parts including the sinuses and along the greater curve. The [place] aortic valve leaflets were calcified as expected with dense infiltration into
the annulus. The left and right coronary ostia within normal anatomic positions.
Findings: His left ventricular ejection fraction preoperatively was not normal approximately 45% with a dilated left ventricle. Following surgery his EF did not significantly improve and did appear to be 45% but as his LV appeared to be more
vigorous and his contractions. LV was still mildly to moderately dilated. The previous TAVR valve was heavily incorporated into the root as well ascending thoracic aorta as the tines reach past the sinotubular junction. A suture was looped around
the upper portions of the tines and then cinched down with the Rumel in order to provide space and leverage for separation from the [place] anatomy. Once the TAVR valve was removed, the needed leaflets were excised accordingly. There was some
endothelialization of the previous TAVR valve as well as some fibrinous exudate around that area. The area was thoroughly irrigated and then a total of 13 nonpledgeted 2 Ethibond sutures were placed in the usual fashion circumferentially. This
secured a 23 mm bioprosthesis using core knots. Any additional flaps or fibrous tissue was resected sharply. Upon closing the ascending thoracic aorta, there was a dense amount of calcification along the greater curve so a small portion of the
calcium was removed in the form of an endarterectomy. This area was then cleaned up and the aorta was closed in the usual 2 layers. After coming off cardiopulmonary bypass, his cardiac index was greater than 2 on low-dose dobutamine. He did
regain his [place] sinus rhythm after short period of ventricular pacing. He did not require blood products. His EF remained around 45% with mild dilation of his LV however his mitral valve insufficiency did appear to be improved and looked more
mild at this point. Cultures were sent of both his [place] aortic valve tissue and the bioprosthetic tissue from the TAVR valve. Mean gradient across the new bioprosthetic aortic valve was 5 mmHg
Specimen(s): Previous TAVR valve, aortic valve leaflets [[place]].
Prosthesis:
23 mm Linares Inspira's Resilia aortic valve bioprosthesis, serial #[id number].
Description of Procedure: The patient was taken to the operating room. Their identity and procedure to be performed were verified and they were positioned supine on the operating table. Induction via general anesthesia with endotracheal intubation
was performed and central venous access and arterial monitoring were inserted. A preoperative transesophageal echocardiogram was performed to assess cardiac function and valvular function. The patient was then prepped and draped from chin to feet in
a sterile fashion. A preoperative time-out was performed with all members of the team present. A midline chest incision was performed along with median sternotomy. The innominate vein was isolated. Before opening the pericardium, the innominate
artery was isolated and double looped with a vessel loop. Full heparinization was given (a total of 60,000 units). We created a pericardial well. The aortic cannulation site was chosen where it was soft, pliable, and free of calcium. Epiaortic
ultrasound was utilized as he had a heavy degree of arch calcifications so I wanted to avoid any dangerous cannulation sites. Cannulation was performed with an arterial cannula in the ascending aorta and a triple-stage venous cannula through the
right atrial appendage. The arterial cannula line had an appropriate bounce and correlating pressures with test dosing. Next, a retrograde coronary sinus cannula was inserted into the coronary sinus under echo and manual guidance. The ACT was
confirmed to be over 400 and retrograde autologous priming was performed before commencing cardiopulmonary bypass. The pulmonary artery was away from the aorta to facilitate a clamp site and aortotomy. A left ventricular vent was placed at
the right superior pulmonary vein and secured. The aortic cross-clamp was placed after decreasing the flow on the bypass and mean arterial pressure. A total of 1L initial dose of retrograde [place] cardioplegia solution was given and planned for
re-dosing every 75 minutes as necessary. There was rapid electro-mechanical arrest of the heart at 400-500 cc of cardioplegia. The left ventricle was observed for distention on echocardiogram and manual palpation. Cold slush was placed into a sponge
and topically on the RV while we systemically cooled to 34 degrees centigrade.
Carbon dioxide was used to flood the field. We had used the echo identified the beginning of the tines on the TAVR valve. The aortotomy was made just above this and beveled in an oblique fashion. A 2-0 Ethibond was then looped around the tines
and then cinched down the Rumel in order to provide some space to start our dissection. Cold saline was injected over top of the valve and allowed to sit for approximately 15 to [address] Work[address] my way circumferentially using a freer elevator
and with a rongeur for leverage and retraction. The valve was extracted from the root. The area was then further debrided of any fibrinous exudate or endothelialized tissue. The location of both left and right coronary vessels were visualized in
the root and did not appear to be injured. The leaflets of the [place] aortic valve were excised and sent for pathological assessment. The annulus was debrided of any calcium being mindful of the annulus and membranous septum. The root and left
ventricular outflow tract were thoroughly irrigated to remove any debris. A total of 13 non-pledgeted 2-0 ethibond inverted annular sutures were placed [id number] circumferentially. These were brought through the sewing cuff of the prosthetic
valve which as then parachuted into place. The left and right coronary ostia were visualized and were unobstructed by the valve. A Cor-Knot device was used to secure the annular sutures. The valve was inspected and was well seated. The aortotomy was
approximated with 4-0 prolene in two layers. I had to be careful as there was significant calcification of the ascending thoracic aorta at the greater curve. A limited endarterectomy was then performed along the greater curve nor to allow sutures
to pass through. De-airing maneuvers were performed and temporary bipolar ventricular pacing wires were placed on the base of the right ventricle along with temporary atrial pacing wires at the SVC right atrial junction. Root vent was then
inserted. The retrograde coronary sinus catheter was then removed and tied down. The patient was placed in a Trendelenburg position and flows on bypass were lowered. The aortic cross clamp was removed and flows were slowly brought back up. The
aortotomy appeared hemostatic. Transesophageal echocardiography revealed no paravalvular leak and appropriate prosthetic function. Once de-airing was satisfactory, the left ventricular and root vents were removed. After verifying acceptable
parameters, we initiated weaning from cardiopulmonary bypass. Once we were off cardiopulmonary bypass, the venous cannula was clamped and removed. A test dose of protamine was administered and the patient was monitored for any adverse reaction
before resuming protamine. Once half of the protamine dose was delivered, pump suckers were turned off and the systolic blood pressure was lowered for aortic decannulation. The aortic cannula was removed and pursestrings were tied down. All
cannulation sites were oversewn with a 4-0 prolene. The aortotomy suture line was inspected and hemostasis was confirmed. Bilateral pleural cavities were drained. Mediastinal hemostasis was obtained. Two 24Fr Wei drains were placed within the
pericardium along with 219 [place] Wei since each hemithorax. The sternum was approximated with 4#7 single and 3 #8 double stainless steel wires. Fascia was approximated with #1 vicryl suture. The subcutaneous, dermis and epidermis were closed in
layers in a running fashion. The skin wound was cleansed and dressed.
All instrument, sponge, and needle counts were confirmed to be correct x 2 at the end of the operation. The patient was transferred to the cardiac intensive care unit in critical but stable condition.
I, Dr. Dallin Pantoja, was present, scrubbed for, and performed all critical elements of this procedure.
Dallin Pantoja MD, MS
Cardiothoracic Surgeon
[facility]
This operative dictation was created using the [employer] dictation system. Please excuse any grammatical, typographical, or 'sound alike' errors
--- NOTE | 2025-02-18 14:57 | CON.INTV ---
Consultation
Consultation Request
Date/Time Consultation Requested: 02/18/2025 - 1421
Date/Time Consultation Performed: 02/18/2025 - 1443
Requesting Provider: Leticia Veloz PA-C
Performing Provider: Dr. Hernandez
Reason for Consultation: s/p SAVR
Medical History
-
Chief Complaint: SOB
History of Present Illness:
74-year-old male former tobacco smoker (quit 1997 with 35-wdad-fodx history) with a PMHx of chronic HFpEF, history of aortic stenosis s/p TAVR (2021) complicated by severe paravalvular leak and regurgitation, pulmonary hypertension, history of
endocarditis (group B streptococcus bacteremia � June 2024), PAD, pulmonary nodules, hypertension, hyperlipidemia, nonobstructive CAD, hard of hearing with bilateral hearing aids, osteoarthritis, kidney stone, PTSD, and MDD who presents with
worsening SOB for several days. In June 2024 he had septic shock due to group B streptococcus bacteremia with concern for endocarditis, and he also had an acute heart failure exacerbation in September 2024. His most recent echo on 01/29/2025 showed
preserved LVEF at 60-65% with at least moderate, eccentric posteriorly directed mitral regurgitation with evidence of TAVR with mean gradient of 23 mmHg, with moderate to severe paravalvular leak and regurgitation. The aortic insufficiency as well
as tricuspid regurgitation were previously noted to be trace on prior echo in September 2024. Initial troponin slightly elevated at 0.041, proBNP 5800, and CXR showed mild interstitial edema with increased small bilateral pleural effusions. Patient
was admitted to telemetry and cardiology was consulted. ID as well as CT surgery were also consulted. Given the preceding echo results on 01/29/2025, there was concern for relapse of infective endocarditis. Ceftriaxone was started. INDY was
performed on 02/16/2025 showing severe aortic regurgitation which was intra valvular, and a calcified, mobile echodensity at RCC position which may represent a calcified vegetation. CT surgeon reviewed echo findings with the patient as well as his
outpatient senior windows systems administrator, explained that he has essentially wide open aortic valve insufficiency and total destruction of his TAVR valve. Although there is mitral regurgitation, it is functional and does not need to be intervened at this time.
He was changed from intermittent Lasix to Bumex drip on 02/16/2025, and was consented for surgical intervention. Today, patient underwent explantation of his prior CoreValve, debridement of heavy calcification in the root and ascending thoracic
aorta, surgical aortic valve replacement with a 23 mm Linares Inspiris Resilia valve, limited endarterectomy of ascending thoracic aorta and drainage of bilateral pleural effusions (1 L on left, 300 cc on right). There were no complications, and
patient was transferred to the CVICU postoperatively with Real Estate Associate Attorney/Pulmonary service consulted for additional management/recommendations.
When I saw the patient, he was intubated on SIMV at 12/600/40%/5, with PIP 11 cmH2O, VTe 587 cc and breathing at 20 breaths/min. Bilateral pleural chest tubes + mediastinal chest tubes x [address]. Current heart rate 74, BP via A-line 94/46, PAP
34/16, CO/CI: 6.38/2.86, respectively, saturating 99% and BP via NIBP: 109/56. Currently on insulin drip at 4 units/hr, epinephrine at 3.5 mcg/min, Levophed at 12 mcg/min, and dobutamine at 5 mcg/kg/min. Lightly being sedated with Precedex at 0.3
mcg/kg/h.
PMHx: Chronic HFpEF, history of aortic stenosis s/p TAVR (2021) complicated by severe paravalvular leak and regurgitation, pulmonary hypertension, history of endocarditis (group B streptococcus � June 2024), PAD, history of tobacco smoking (quit
in 1997 with approximately a 57-kmht-ufwb history), pulmonary nodules, hypertension, hyperlipidemia, nonobstructive CAD, hard of hearing with bilateral hearing aids, osteoarthritis, kidney stone, inguinal hernia, bilateral knee arthritis, PTSD, MDD
PSHx: Umbilical hernia repair, robotic assisted repair of recurrent right inguinal hernia with mesh (09/2021), TAVR with Evolut Pro Plus valve (01/2022)
Past Medical History
Past Medical History: Other (Above as per HPI)
Past Surgical History: Other (Above as per HPI)
Social History
Tobacco: Former Smoker (Quit in 1997 with approximate 15-iuxw-umsy history)
Alcohol: Former (No alcohol since 1987)
Drug: None
Employment: Employed ([employer] and also works at [employer])
Environmental Exposures: Agent orange while in [employer]
Family History
Family History: CAD (Mother: History of [place]) and Other (Father: Alcohol abuse; Sister: Bicuspid aortic valve)
Allergies / Home Medications
Allergies
Allergy/AdvReac Type Severity Reaction Status Date / Time
No Known Drug Allergies Allergy Unknown Verified 02/12/25 17:45
Home Medications
�Medication �Instructions �Recorded �Confirmed �Last Taken �Type
aspirin 81 mg tablet,delayed 81 mg PO DAILY Blood clot 01/24/16 02/12/25 02/12/25 09:00 History
release prevention/tx
multivitamin 1 tab PO DAILY Supplement 09/15/22 02/13/25 02/12/25 09:00 History
acetaminophen 325 mg tablet 650 mg PO Q6HPRN PRN mild pain 06/20/24 02/12/25 02/10/25 10:00 History
(Tylenol)
amlodipine 10 mg-benazepril 20 mg 1 cap PO DAILY Blood Pressure 06/20/24 02/12/25 02/12/25 09:00 History
capsule
atorvastatin 20 mg tablet 20 mg PO DAILY High Cholesterol 06/20/24 02/12/25 02/12/25 09:00 History
furosemide 40 mg tablet 40 mg PO BID Heart Failure #60 tabs 12/31/24 02/12/25 02/12/25 09:00 Rx
amoxicillin 500 mg capsule 500 mg PO BID Infection 02/12/25 02/12/25 02/12/25 09:00 History
Review of Systems
-
Unable to Obtain full review of systems at this time due to: Patient Intubation
Vitals / Labs / Diagnostic Testing
Vital Signs
Temp Pulse Resp BP Pulse Ox
97.9 F 89 17 136/54 98
02/18/25 08:47 02/18/25 10:17 02/18/25 08:47 02/18/25 10:17 02/18/25 09:00
Microbiology
02/18/25 13:15 Chest - Unspecified Fungal Culture - Preliminary
Culture in progress.
Positive cultures are reported as soon as detected.
Final report to follow in four to five weeks.
02/18/25 13:15 Valve Fungal Culture - Preliminary
Culture in progress.
Positive cultures are reported as soon as detected.
Final report to follow in four to five weeks.
02/12/25 20:00 Blood/Venous Blood Culture - Final
No Growth - Final Report
02/12/25 20:08 Blood/Venous Blood Culture - Final
No Growth - Final Report
02/12/25 18:37 Blood/Venous Blood Culture - Final
No Growth - Final Report
Diagnostic Testing:
Physical Exam
-
HEENT: Normocephalic, Anicteric and Other (ETT in place)
Cardiovascular: S1/S2, Rub (present across anterior precordium) and Peripheral Edema (negative)
Respiratory: Wheeze (negative), Rales (negative), Rhonchi (negative), Non-Labored Respirations and Other (Mechanical breath sounds heard bilaterally)
GI: Soft, Non Distended, Non Tender and Normal Bowel Sounds
Neurology: Tremors (negative) and Other (Sedated)
Skin: Warm and Dry
General: Respiratory Distress (negative), Comfortable, Fever (negative), Chills (negative) and Sweats (negative)
Assessment
-
Assessment: 74-year-old male former tobacco smoker (quit 1997 with 20-dafz-khqu history) with a PMHx of chronic HFpEF, history of aortic stenosis s/p TAVR (2021) complicated by severe paravalvular leak and regurgitation, pulmonary hypertension,
history of endocarditis (group B streptococcus bacteremia � June 2024), PAD, pulmonary nodules, hypertension, hyperlipidemia, nonobstructive CAD, hard of hearing with bilateral hearing aids, osteoarthritis, kidney stone, PTSD, and MDD who
presents with worsening SOB for several days. Patient has history of septic shock in June 2024 due to group B streptococcus bacteremia with concern for endocarditis. Given his worsening aortic insufficiency with increased mean gradient of the
TAVR, ID was consulted and antibiotics were started due to concern for relapse of infective endocarditis. CT surgery consulted, and INDY was performed on 02/16/2025 showing essentially wide-open aortic insufficiency. CT surgery believes that the
patient's TAVR valve is significantly destroyed. Patient was continued on diuresis due to his acute CHF. On 02/18/2025, patient underwent explantation of his prior CoreValve, debridement of heavy calcification in the root and ascending thoracic
aorta, surgical aortic valve replacement with a 23 mm Linares Inspiris Resilia valve, limited endarterectomy of ascending thoracic aorta and drainage of bilateral pleural effusions (1 L on left, 300 cc on right). There were no complications, and
the patient was transferred to the CVICU postoperatively with Real Estate Associate Attorney/Pulmonary service consulted for additional management/recommendations.
Chronic conditions STOCK COUNTER: Chronic HFpEF, history of aortic stenosis s/p TAVR (2021) complicated by severe paravalvular leak and regurgitation, pulmonary hypertension, history of endocarditis (group B streptococcus � June 2024), PAD, history of
tobacco smoking (quit in 1997 with approximately a 37-vkwr-tjru history), pulmonary nodules, hypertension, hyperlipidemia, nonobstructive CAD, hard of hearing with bilateral hearing aids, osteoarthritis, kidney stone, inguinal hernia, bilateral knee
arthritis, PTSD, MDD
Impression:
#Bioprosthetic aortic valve degeneration with severe aortic valve insufficiency secondary to prior endocarditis + moderate mitral valve insufficiency s/p surgical aortic valve replacement (#23 Linares Inspiris Resilia valve) with debridement of
heavy calcification in the root and ascending thoracic aorta, limited endarterectomy of the ascending thoracic aorta and explant of prior CoreValve (POD#0)
#Acute on chronic anemia
#Acute thrombocytopenia
#Mild acute respiratory acidosis while on mechanical ventilation postoperatively
#DM type II c/b hyperglycemia (HbA1C: 5.3 - 02/12/2025)
#Acute on chronic HFpEF in the setting of torrential aortic valve insufficiency s/p bilateral pleural fluid drainage during CVOR on 02/18/2025
#History of group B streptococcus (Streptococcus agalactiae) bacteremia in June 2024
#NICM with dilated CM with chronic systolic CHF
#HTN
#CAD (non-obstructive)
#PAD
#HLD
Plan:
Ventilator settings reviewed
FiO2 will be weaned to maintain SpO2 >90-94%
Minute ventilation will be adjusted
Arterial blood gases will be monitored
Spontaneous breathing trial will be attempted with hopeful extubation after anesthesia/sedation wear off
prn nebulized bronchodilators - not currently bronchospastic
Pulmonary artery catheter parameters will be followed
Pressors/antihypertensive/inotropes/diuretics will be provided as needed
Maintain MAP>65
Replete electrolytes with K>4, Mg>2
Continue with antibiotics as per ID - today ceftriaxone was changed to Ancef; he had been on ceftriaxone since evening of 02/12/2025
Follow-up tissue cultures from the OR
Blood cultures collected on day of admission have shown NGTD
Monitor chest tube output
Monitor hemoglobin
Monitor platelet count and coags
Transfuse blood products as needed to maintain Hb>7g/dL, plt>50k (given post-operative status)
CT surgery managing chest tubes
Monitor blood sugar to maintain euglycemia with goal BG 110-140
Insulin drip per protocol
Aspiration precautions
VAP prevention protocol
DVT prophylaxis
Early nutrition
Early mobilization
Critical care statement: A total of 46 minutes of critical care time was provided for this patient today. This includes management of ventilator, spontaneous breathing trial, arterial blood gases, pressors, of unstable vital signs, evaluation of the
patient at bedside, reviewing the patient's pertinent medical records including radiographs, microbiology, laboratory evaluations, and discussion with primary team and critical care nursing.
[2025-02-18] MEDS: NEURONTIN PO ×3 (15:10→22:12)
[2025-02-18] MEDS: PACERONE PO (15:11)
[2025-02-18] MEDS: TYLENOL PO ×2 (15:11→21:25)
[2025-02-18 15:31] LABS: Glucose - Point of Care 179 mg/dl (70-99)
[2025-02-18 15:41] LABS: B.E. 3.1 mmol/L; HCO3 29.3 mmol/L (21-28); O2 Saturation % 99.2 % (94-98); PCO2 53 mmHg (35-48); PO2 102 mmHg (83-108); Potassium 4.2 mMOL/L (3.5-5.1); Sodium 139 mMOL/L (136-145)
[2025-02-18 15:48] LABS: Hematocrit 25.6 % (39.0-52.0); Hemoglobin 8.2 g/dL (13.0-18.0); Platelet Count 138 10^3/uL (130-400)
[2025-02-18 15:49] LABS: INR 1.67; PT 20.2 Sec (11.4-14.6)
[2025-02-18] MEDS: ANCEF 10 IV ×2 (15:49)
[2025-02-18] MEDS: ADRENALIN 250 IV (15:49)
[2025-02-18] MEDS: NSS 500 IV (15:49)
[2025-02-18 15:50] LABS: APTT 32.3 Sec (23.4-35.0)
--- NOTE | 2025-02-18 15:50 | W.PN.CARDCBS ---
Addendum entered and electronically signed by Daniel Gómez MD 02/18/25 16:42:
I saw and examined the patient.
The Blade Boner's note was reviewed and I agree with the note.
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 Recent transthoracic echocardiogram showed moderate to severe bioprosthetic
aortic regurgitation for which he underwent surgical AVR earlier today.
Patient seen postoperatively in the CVICU where he remained intubated and sedated
Currently on pressor/inotrope support with epi, norepi and dobutamine
Appears euvolemic on exam and filling pressures are reasonable based on invasive hemodynamics
Telemetry reviewed showing normal sinus rhythm with brief run of nonsustained VT
Agree with current cardiac meds
Appreciate infectious disease input regarding possible prosthetic valve endocarditis�cultures pending
Discussed with nursing
Original Note:
Today's Communication / Plan
-
continue post op care
in SR
continue treatment of endocarditis per ID, cultures pending
Impression / Plan
-
PCP: Turner Guardado
Primary principal librarian: Dr. Nielsen
Impression:
Presented 02/13/2025 with generalized weakness, fatigue, shortness of breath
Concern for endocarditis with new moderate to severe AI and moderate to severe MR (new on echo 01/29/2025)
Acute on chronic heart failure with preserved ejection fraction, proBNP 5800
Abnormal troponin, suspect nonischemic myocardial injury secondary to acute heart failure
Status post surgical AVR #23 Linares Inspiris Resilia valve and drainage of bilateral pleural effusions on 02/18/2025
h/o Strep agalactiae bacteremia, suspicion for prosthetic valve endocarditis 06/2024
On chronic suppressive amoxicillin
Severe
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
Nonobstructive CAD by cath 2021
PVD
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
Hypertension
Hyperlipidemia
Pulmonary HTN on echo 01/29/2025
Sensorineural Hearing Loss
Nephrolithiasis
DJD/DDD
ECHO 06/12/2024: EF 55 to 60%, mild MAC, status post number 29 mm evolute R, well-seated with peak/mean gradients 14/9 mmHg, no AR seen, mild TR, PAP 28 mmHg, no significant change compared to prior
INDY 06/23/2024: LVEF 55 to 60%, mild MR, mild TR, #29 evolute TAVR with no evidence of vegetation and trace aortic regurgitation
Echo 09/22/2024: EF 60 to 65%. Mild MR. TAVR with peak/mean gradient 56/32 mmHg, moderate AAS, trace AI.
Echo 01/29/2025: EF 60 to 65%. Mild LVH. Moderate MR which originates through posterior leaflet. PISA radius is 0.9 cm with an ERO 32 mm2. TAVR with peak/mean gradient 43/23 mmHg with moderate to severe AI. Mild to moderate TR with PAP 58 mmHg.
Compared to prior echo from September 2024 AI and TR have now worsened. Previously both were trace
INDY 02/16/2025: EF preserved at 50 to 55% with normal LV size and function. Ssevere intra valvular aortic regurgitation, calcified mobile echodensity at RCC position which may represent calcified vegetation. Thickening and calcified mitral valve
leaflets with moderate mitral regurgitation, central jet. PISA radius 0.8cm. EROA 0.34 cm2. RV 47 cc. Mean gradient 3 mmHg. Mild to moderate TR.
Cardiac catheterization December 2021: Nonobstructive CAD
Plan:
- Presented 02/13/2025 with progressively worsening generalized weakness, fatigue, shortness of breath.
- Concern for endocarditis with new moderate to severe AI and moderate to severe MR on outpatient echo 01/29/2025.
- INDY 02/16/2025 with severe intra valvular aortic regurgitation, calcified mobile echodensity at RCC position which may represent calcified vegetation.
- Abnormal troponin, peaked at 0.041. suspect nonischemic myocardial injury secondary to acute heart failure and possible endocarditis. He has non-obstructive CAD on cath in 2021.
- Status post surgical AVR #23 Linares Inspiris Resilia valve and drainage of bilateral pleural effusions (1L on L and 300cc on R) on 02/18/2025
- intubated, sedated
- on levo@6, epi @2. CI 1.91. wean as able
- He has known h/o Strep agalactiae bacteremia and was treated with IV antibiotics in June 2024 then maintained on amoxicillin 500 mg twice daily following completion of antibiotics. ID following. intraop cultures pending
- post op EKG SR/SB with 1st degree AV block, LVH, and prolonged QTc
- was diuresed pre op. follow volume status post op. 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
- On amlodipine 10 mg and lisinopril 20 mg as outpatient, but has lost over 50 pounds since 09/2024. follow BP trends post op
- ID also recommending outpatient colonoscopy once patient has recovered from valve surgery
- d/w nursing and CT surg PA
HPI 02/13/2025:
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 hyperlipidemia presents with
progressively worsening fatigue, weakness, shortness of breath, orthopnea and intermittent chest discomfort and weight loss. Patient was treated for presumed endocarditis with prolonged course of IV antibiotics and chronic treatment of amoxicillin
since June 2024. He was seen in cardiology office approximately 4 weeks ago and noted not feeling well and was found to have new diastolic murmur. He underwent an echocardiogram 01/29/2025 which showed new at least moderate mitral regurgitation
and moderate aortic insufficiency. Given progressively worsening symptoms and abnormal findings on echo it was recommended patient be hospitalized for evaluation. proBNP on admission 5800, troponin 0.041. Hemoglobin stable at 11.3. Chest x-ray
showed mild interstitial edema with increased bilateral pleural effusions and adjacent atelectasis. Blood cultures drawn in emergency department. Started on IV Rocephin.
At time of this evaluation patient resting comfortably in chair on oxygen. Still feels weak and dyspneic with activity. He denies recent fevers or chills. He reports he does often eat healthy choice frozen meals but tries to otherwise watch
sodium in his diet.
Progress Note - Early Interventionist
Subjective
Date of Service: February 18, 2025
intubated, sedated
Objective
Labs:
Labs
Hgb 8.2 g/dL (13.0-18.0) L D 02/18/25 15:27
Hct 25.6 % (39.0-52.0) L 02/18/25 15:27
Plt Count 138 10^3/uL (130-400) D 02/18/25 15:27
PT 15.7 Sec (11.4-14.6) H 02/17/25 04:23
INR 1.22 02/17/25 04:23
APTT 29.7 Sec (23.4-35.0) 02/17/25 04:23
Sodium 142 mmol/L (135-145) 02/18/25 05:07
Potassium 4.3 mmol/L (3.5-5.1) 02/18/25 05:07
BUN 47 mg/dl (9-20) H 02/18/25 05:07
Creatinine 1.0 mg/dL (0.7-1.3) 02/18/25 05:07
Glucose 103 mg/dl (70-99) H 02/18/25 05:07
Vital Signs and I&O:
Vital Signs
Temp Pulse Resp BP Pulse Ox
97.9 F 69 12 89/57 95
02/18/25 08:47 02/18/25 15:40 02/18/25 15:40 02/18/25 15:39 02/18/25 15:36
Vital Signs
Temp Pulse Resp BP Pulse Ox
97.9 F 69 12 89/57 95
02/18/25 08:47 02/18/25 15:40 02/18/25 15:40 02/18/25 15:39 02/18/25 15:36
Intake & Output
02/16/25 02/17/25 02/18/25 02/19/25
07:59 07:59 07:59 07:59
Intake Total 720 / 720 506 / 506 0 / 0
Output Total 300 / 300 1650 / 2000 1050 / 1050 0 / 0
Balance 420 / 420 -1144 / -1494 -1050 / -1050 0 / 0
Physical Exam
Physical Exam
GEN: No distress, intubated, sedated
HEENT: supple, mmm
LUNGS: CTA B/L, no wheezes/rales
CV: Reg, S1/S2, no murmur, + rub
ABD: soft, ND
EXT: No cyanosis, clubbing, edema
NEURO: sedated
SKIN: Warm, pink, dry. No rash. Sternotomy incision c/d/i. CTs in place
[2025-02-18 15:58] LABS: Blood Urea Nitrogen 37 mg/dl (9-20); Estimated Creatinine Clearance 93 ml/min; Glucose 168 mg/dl (70-99); Magnesium 2.5 mg/dl (1.6-2.3)
[2025-02-18 16:15] LABS: Glucose - Point of Care 197 mg/dl (70-99)
--- NOTE | 2025-02-18 16:27 | W.PN.UPDATE ---
Update Note
Progress Note Update
74-year-old male well-known to us who underwent a right transfemoral 29 mm Medtronic evolut TAVR on 01/12/[address] Pantoja. He unfortunately presented to the hospital in June 2024 with group B strep bacteremia and endocarditis of his TAVR valve.
He received a 4-week course of IV ceftriaxone followed by continued suppression with amoxicillin 500 mg p.o. BID. In September of this year he was readmitted for congestive heart failure, echo at that time demonstrated moderate stenosis of his TAVR
valve with no significant AI. Repeat echo 2 weeks ago unfortunately now demonstrating moderate to severe paravalvular leak with moderately elevated aortic valve gradients with a mean of 23 mmHg. Patient was admitted 02/12/25 for worsening chronic
shortness of breath. INDY on 02/16 reported severe AI and functional MR.
IV fluids: 1500
U.O.:� 500
Blood:� none
Wires:� A + V
Drips: Levo @ 4, Epi @ 2, Dobut @ 5, Precedex, Insulin
�
NEURO: sedated, pupils +2mm B/L
RESP: #8OT @23cm> 500/60%/14/5. Lungs clear B/L. 2 mediastinal (35cc on arrival) and R/L pleural (5cc on arrival) chest tubes to -20cm suction. Sanguineous drainage
CV: RRR +S1, S2, no S3, no�rub, no murmur. Dermabond to median sternotomy. RIJ w/[place] locked @ 49cm. PA 36/13; CVP 8
ABD: round, soft, no BS
EXT: no edema, +2/4 DP pulses B/L, no femoral bruit, left radial A-line intact
: Aviles with clear yellow urine
�
A/P: POD #0 s/p Explant of prior CoreValve, debridement of heavy calcification in the root and ascending thoracic aorta, aortic valve replacement [#23 mm Linares Inspiris Resilia valve], limited Endarterectomy of ascending thoracic aorta, drainage
of bilateral pleural effusions (left side 1 L, right side 300 mL)
INDY: report pending
- wean and extubate
- will need instruction regarding antibiotic prophylaxis for dental and invasive procedures
- wean Levo first
- goal SBP 90-110mmHg
- keep Dobutamine 2 5
- wean Epi
- Insulin x 24 hours (A1C 5.3)
- chronic suppression Amoxil 500mg BID for subacute endocarditis (Strep agalactiae)
- continue Cefritaxone 2G IV q24h post-op per ID
- OR pathology cultures from explanted TAVR sent to lab
- hold Amio/Metoprolol while on Epi/Dobut
�
# acute surgical blood loss anemia-expected
- trend CBC
�
# Hyperlipidemia
- resume�Lipitor when taking solids
[2025-02-18] MEDS: LR 250 ML IV (16:46)
--- NOTE | 2025-02-18 16:46 | PTCARENOTE ---
Patient received from CVOR at 1525; Sedated and intubated; SR with 1st AVB and prolonged QT rhythm on monitor; VSS; Epicardial AV wires present with settings DDI 40/10/0.5 40/10/2.0; +1 B/L ankle edema; +2 DP and radial pulses present; Lungs
diminished at bases; ETT size 8 positioned and secured at 23 cm at center lip; Ventilator settings SIMV 12/600/5/5 FiO2 40%; CTx4 to -20 cm wall suction draining bloody drainage - no air leak, tidaling, or crepitus noted; Hypoactive BS; Aviles
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
insulin, precedex, dobutamine, and epinephrine infusing - see nursing flowsheets for further details; LR bolus given x1; see nursing documentation for further details.
CO: 4.86
CI: 2.18
SVR: 987
[2025-02-18 16:58] LABS: Glucose - Point of Care 187 mg/dl (70-99)
[2025-02-18] MEDS: FLEXBUMIN 50 IV (17:34)
[2025-02-18] MEDS: LR 1000 IV (17:35)
[2025-02-18] MEDS: CALCIUM GLUCONATE 100 IV (18:10)
[2025-02-18 18:12] LABS: Glucose - Point of Care 174 mg/dl (70-99)
[2025-02-18] MEDS: FLUSH (NSS) 1 FLUSH IV ×3 (18:16→18:17)
[2025-02-18] MEDS: ROCEPHIN 2000 MG IV (18:16)
[2025-02-18 18:27] LABS: Hematocrit 25.5 % (39.0-52.0); Hemoglobin 8.2 g/dL (13.0-18.0); Platelet Count 170 10^3/uL (130-400)
[2025-02-18 19:14] LABS: Glucose - Point of Care 166 mg/dl (70-99)
--- NOTE | 2025-02-18 19:22 | PTCARENOTE ---
Patient able to wake up at 1720 and move all extremities; Pupils round, equal, and reactive, +2 B/L; Patient's BP labile and pressors increased as per orders - CVNP Prabha Pro notified and LR bolus given x1, Albumin 25% given, LR infusion started,
Calcium Gluconate 2 gm given, and 1 U PRBC's given; Labs sent for H&H and PLT; Report given to Minor SANCHEZ
--- NOTE | 2025-02-18 19:42 | PTCARENOTE ---
Patient received from RN @1900. Patient intubated and drowsy. Pupils +2 and reactive to light. Responds to verbal stimuli and moves all extremity's. SR on monitor w/ first degree block and prolonged QT. BP 95/50 HR 72. Heart sounds audible w/
rub noted. A/V wires set to DDD V-40/10/2 A-10/10/0.5. Radial and pedal pulses present. +1 bilateral leg edema noted. Lungs diminished bilaterally in bases. Patient intubated 8.0 and 23 @ the lip. POX 99% Vent settings 600/12/50/5/40. 2x
mediastinal and R/L pleural CT set to -20 suction draining red fluid. No crepitus, tidaling, or air leaks noted. Bowel sounds hypoactive. Aviles draining clear yellow urine. Sternal Incision well approximated SUPERVISOR [employer]ESSING. 1 PIV patent and intact. RIJ
cordis w/ swan @ 48 PAP 37/21 CVP 11 CI 2.86 CO 6.38. Left radial A-Line patent and intact. All lines leveled and zeroed. Insulin, Epi, Dobut, Levo, and Precedex infusing per order.
[2025-02-18] MEDS: LEVOPHED 250 IV (20:02)
[2025-02-18 20:06] LABS: Glucose - Point of Care 149 mg/dl (70-99)
--- NOTE | 2025-02-18 20:35 | PTCARENOTE ---
CPAP trial started at 2034.
[2025-02-18] MEDS: PITRESSIN 100 IV (20:48)
[2025-02-18 21:23] LABS: B.E. -0.5 mmol/L; HCO3 24.9 mmol/L (21-28); O2 Saturation % 99.7 % (94-98); PCO2 43 mmHg (35-48); PO2 138 mmHg (83-108); Potassium 3.8 mMOL/L (3.5-5.1)
[2025-02-18] MEDS: SENOKOT PO (21:24)
[2025-02-18] MEDS: BACTROBAN 2% OINTMENT 1 APPLIC NASAL (21:25)
--- NOTE | 2025-02-18 21:40 | PTCARENOTE ---
Addendum entered by Minor Yang RN 02/18/25 21:49:
Extubated to 6L NC POX 98%.
Original Note:
Respiratory therapist at bedside. Patient successfully extubated @ 2140. No complications.
--- NOTE | 2025-02-18 21:58 | RESPNOTE ---
Patient extubated to 6L nasal cannula after succesful weaning trial. No complications during procedure. Pt has strong cough and bilat BS throughout.
[2025-02-18 22:03] LABS: Glucose - Point of Care 173 mg/dl (70-99)
[2025-02-18] MEDS: KCL 50 IV (22:29)
[2025-02-18] MEDS: LOW STRENGTH ASPIRIN 81 MG PO (22:56)
[2025-02-18] MEDS: ROXICODONE 2.5 MG PO (23:20)
--- NOTE | 2025-02-18 23:30 | PTCARENOTE ---
Patient reassessed. SR w/ first degree and prolonged QT. BP 102/50 HR 80 POX 99 6L NC. Patient tolerating ice chips.
[2025-02-18 23:56] LABS: Glucose - Point of Care 156 mg/dl (70-99)
[2025-02-19] VITALS (13 sets, daily range): BP systolic 99–135; BP diastolic 51–74; BMI 29.7
[2025-02-19] MEDS: KCL 50 IV (00:01)
[2025-02-19 00:59] LABS: Glucose - Point of Care 170 mg/dl (70-99)
[2025-02-19 01:01] LABS: Glucose - Point of Care 159 mg/dl (70-99)
[2025-02-19] MEDS: LEVOPHED 250 IV (01:04)
[2025-02-19] MEDS: FLEXBUMIN 50 IV ×2 (01:06→10:22)
[2025-02-19] MEDS: OFIRMEV 100 IV (01:35)
[2025-02-19] MEDS: NOVOLIN R INSULIN INFUSION 100 IV (01:55)
[2025-02-19 02:06] LABS: Glucose - Point of Care 186 mg/dl (70-99)
[2025-02-19 03:15] LABS: Glucose - Point of Care 158 mg/dl (70-99)
[2025-02-19 03:42] LABS: Hematocrit 25.2 % (39.0-52.0); Hemoglobin 8.3 g/dL (13.0-18.0); Mean Corp Hgb Conc. 32.9 g/dL (33.0-37.0); Mean Corpuscular Volume 92.6 fL (80.0-94.0); Platelet Count 142 10^3/uL (130-400); Red Cell Dist. Width 15.7 % (11.5-14.5)
[2025-02-19 04:04] LABS: Blood Urea Nitrogen 33 mg/dl (9-20); Calcium 8.7 mg/dl (8.4-10.2); Carbon Dioxide 27 mmol/L (22-30); Chloride 108 mmol/L (98-107); Estimated Creatinine Clearance 83 ml/min; Glucose 146 mg/dl (70-99); Magnesium 2.2 mg/dl (1.6-2.3); Potassium 4.7 mmol/L (3.5-5.1); Sodium 140 mmol/L (135-145); eGFR > 60.00
[2025-02-19 04:09] LABS: Glucose - Point of Care 137 mg/dl (70-99)
--- NOTE | 2025-02-19 04:48 | PTCARENOTE ---
Patient reassessed. SR on monitor. Labs and EKG obtained. BP 105/55 HR 79 POX 95% 2L NC. Patient states they are comfortable. Insulin, Levo, Dobut, Vaso, and Epi infusing per protocol.
[2025-02-19] MEDS: LR IV ×2 (05:07→13:35)
[2025-02-19 06:07] LABS: Glucose - Point of Care 113 mg/dl (70-99)
[2025-02-19] MEDS: DOBUTREX 500 MG 250 IV (06:29)
[2025-02-19] MEDS: TYLENOL 975 MG PO ×3 (06:45→20:14)
--- NOTE | 2025-02-19 07:38 | W.PN.CT ---
Today's Communication / Plan
-
-pod #1
-no issues overnight
-CI 2.77, CO 6.19. Drips: Epi off, Levo 2, Vaso 0.02, Dobut 4, Insulin
-CT outputs: 2 meds 160/290, 2 pleur 70/130 in 12/24 hrs
-got 1500 LR total postop and 25% Albumin x3
-s/p 1 pRBC on 02/18
-wean off drips as tolerated
-hold BB and Amio while on inotrops
-maintain Aviles while on drips
-current meds (ASA, Lipitor, Gabapentin, Protonix)
-encourage IS, OOB
Assessment / Plan
-
HPI: 74 y/o Male S/P Trans femoral (right) TAVR with a 29mm Medtronic Evolut device by Dr. Pantoja on 01/12/22. Readmitted on 02/12/25 with c/o increasing fatigue, TRAN, orthopnea, generalized malaise. Hx of suspected endocarditis treated with Abx, recent
cultures negative. INDY obtained yesterday 02/16/25 showed Severe AI, Moderate MR, Mild TR, EF 50-55%. Calcified, mobile echodensity at RCC position, which may represent calcified vegetation.
-s/p Explant of prior CoreValve TAVR valve; Debridement of heavy calcification in the root and ascending thoracic aorta; Surgical aortic valve replacement [23 mm Linares Inspiris Resilia valve]; Limited Endarterectomy of ascending thoracic aorta;
Drainage of bilateral pleural effusions (left side 1 L, right side 300 mL) by Dr. Pantoja on 02/18/25, pod #1
-Intraop INDY: LVEF preop was not normal approximately 45% with a dilated left ventricle. Following surgery, his EF did not significantly improve and did appear to be 45% but as his LV appeared to be more vigorous and his contractions. LV was still
mildly to moderately dilated. His EF remained around 45% with mild dilation of his LV however his mitral valve insufficiency did appear to be improved and looked more mild at this point. Mean gradient across the new bioprosthetic aortic valve was 5
mmHg
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
-Acute on chronic congestive heart failure secondary to torrential aortic valve insufficiency
-Nonischemic cardiomyopathy
-Severe symptomatic aortic stenosis S/p Right TF TAVR �01/12/22
-Severe AI
-Moderate MR
-Mild TR
-Dilated left ventricle with reduced left ventricular ejection fraction of 40%
-LVEF 56% by Echo 01/29/25
-Hx group B strep bacteremia/Suspected endocarditis
-TRAN
-HTN
-HLD
-CAD, nonobstructive
-PAD
-Hearing loss
-DDD/DJD
-Acute postop blood loss anemia- s/p 1 pRBC
-Acute postop pulmonary insufficiency/atelectasis
-Acute postop hypovolemia with subsequent hypervolemia
-Suspected acute postop pericarditis/+rub
Discussed patient care with: Nursing and Care Team
Subjective
-
Date of Service: February 19, 2025
Objective Data
-
PT 20.2 Sec (11.4-14.6) H 02/18/25 15:27
INR 1.67 02/18/25 15:27
APTT 32.3 Sec (23.4-35.0) 02/18/25 15:27
Vital Signs
Vital Signs
Temp Pulse Resp BP Pulse Ox
98 F 81 14 113/64 97
02/19/25 01:57 02/19/25 01:00 02/19/25 01:57 02/19/25 01:00 02/19/25 01:57
CT Intake/Output/Weight
02/18/25 02/18/25 02/19/25
06:59 18:59 06:59
Intake Total 1480.0 / 2667.7 1187.7 / 2667.7
Output Total 480 / 1075 595 / 1075
Balance 1000.0 / 1592.7 592.7 / 1592.7
SaO2: 97
Physical Exam
-
General: Awake and AOx3
Cardiovascular: Regular rate & rhythm, No Murmurs and Rub
Respiratory: Decreased Breath Sounds
Sternum: Stable
Incision: Clean, Dry, Intact and Dressing Intact
Extremities: Other (trace edema, 1+ DPs b/l.)
Abdomen: soft, nontender, nondistended, + decreased bowel sounds
Data Reviewed
-
Lab Results: Results Reviewed
Medications: Active Meds Reviewed
Chest X-Ray: Report Reviewed and Image Reviewed
ECG: Report Reviewed and Image Reviewed
--- NOTE | 2025-02-19 07:45 | W.PN.ANS.POP ---
Anesthesia Post Operative
- Anesthesia Post Op Note
Vital Signs Stable-See Nursing Note: Yes
Airway Patent: Yes
Adequate Pain Control: Yes
Change in Mental Status: No
Current Postoperative Nausea & Vomiting: No
Anesthesia Complications: No
General Anesthetic Recall: No
Unplanned Admission: No
Post Op Hydration Adequate: Yes
- -
Pt awake and alert, resting comfortably with no anesthesia related c/o at time of post op visit. No n/v
[2025-02-19 08:08] LABS: Glucose - Point of Care 71 mg/dl (70-99)
[2025-02-19] MEDS: MAGNESIUM OXIDE 400 MG PO ×2 (08:11→20:12)
[2025-02-19] MEDS: PROTONIX 40 MG PO (08:11)
[2025-02-19] MEDS: LIPITOR 20 MG PO (08:11)
[2025-02-19] MEDS: LOW STRENGTH ASPIRIN 81 MG PO (08:11)
[2025-02-19] MEDS: NEURONTIN 100 MG PO ×3 (08:11→22:05)
[2025-02-19] MEDS: BACTROBAN 2% OINTMENT 1 APPLIC NASAL ×2 (08:12→20:12)
[2025-02-19] MEDS: SENOKOT 8.6 MG PO ×2 (08:12→20:12)
--- NOTE | 2025-02-19 08:18 | W.PN.INTV ---
Today's Communication / Plan
Recommendations
Up OOB as tolerated
Continue weaning down dobutamine drip while trending MVO2 with goal >65
Removal of mediastinal chest tubes per CT surgery team
Continue insulin drip per protocol
Goal BG 110�140
Pain control
Encourage incentive spirometer
Cardiac rehab consult
Textile Science Technician services will continue to follow along while patient remains CVICU status. Once transferred to CVICU�telemetry status then we will sign off at that time.
Assessment
-
Assessment: 74-year-old male former tobacco smoker (quit 1997 with 60-[id number] history) with a PMHx of chronic HFpEF, history of aortic stenosis s/p TAVR (2021) complicated by severe paravalvular leak and regurgitation, pulmonary hypertension,
history of endocarditis (group B streptococcus bacteremia � June 2024), PAD, pulmonary nodules, hypertension, hyperlipidemia, nonobstructive CAD, hard of hearing with bilateral hearing aids, osteoarthritis, kidney stone, PTSD, and MDD who
presents with worsening SOB for several days. Patient has history of septic shock in June 2024 due to group B streptococcus bacteremia with concern for endocarditis. Given his worsening aortic insufficiency with increased mean gradient of the
TAVR, ID was consulted and antibiotics were started due to concern for relapse of infective endocarditis. CT surgery consulted, and INDY was performed on 02/16/2025 showing essentially wide-open aortic insufficiency. CT surgery believes that the
patient's TAVR valve is significantly destroyed. Patient was continued on diuresis due to his acute CHF. On 02/18/2025, patient underwent explantation of his prior CoreValve, debridement of heavy calcification in the root and ascending thoracic
aorta, surgical aortic valve replacement with a 23 mm Linares Inspiris Resilia valve, limited endarterectomy of ascending thoracic aorta and drainage of bilateral pleural effusions (1 L on left, 300 cc on right). There were no complications, and
the patient was transferred to the CVICU postoperatively with Textile Science Technician/Pulmonary service consulted for additional management/recommendations.
Chronic conditions SAMPLE STITCHER: Chronic HFpEF, history of aortic stenosis s/p TAVR (2021) complicated by severe paravalvular leak and regurgitation, pulmonary hypertension, history of endocarditis (group B streptococcus � June 2024), PAD, history of
tobacco smoking (quit in 1997 with approximately a 82-tdoq-purr history), pulmonary nodules, hypertension, hyperlipidemia, nonobstructive CAD, hard of hearing with bilateral hearing aids, osteoarthritis, kidney stone, inguinal hernia, bilateral knee
arthritis, PTSD, MDD
Impression:
#Bioprosthetic aortic valve degeneration with severe aortic valve insufficiency secondary to prior endocarditis + moderate mitral valve insufficiency s/p surgical aortic valve replacement (#23 Linares Inspiris Resilia valve) with debridement of
heavy calcification in the root and ascending thoracic aorta, limited endarterectomy of the ascending thoracic aorta and explant of prior CoreValve (POD#1)
#Acute on chronic anemia
#Acute thrombocytopenia
#Mild acute respiratory acidosis while on mechanical ventilation postoperatively
#DM type II c/b hyperglycemia (HbA1C: 5.3 - 02/12/2025)
#Acute on chronic HFpEF in the setting of torrential aortic valve insufficiency s/p bilateral pleural fluid drainage during CVOR on 02/18/2025
#History of group B streptococcus (Streptococcus agalactiae) bacteremia in June 2024
#NICM with dilated CM with chronic systolic CHF
#HTN
#CAD (non-obstructive)
#PAD
#HLD
Plan:
Patient was extubated to nasal cannula on 02/18/2025, and is currently breathing comfortably on 1 L/min saturating 93-94%
Continue weaning down supplemental O2 flow rate while maintaining SpO2 >90-94%
prn nebulized bronchodilators - not currently bronchospastic
Encourage incentive spirometer q1hr while awake
Pulmonary artery catheter parameters will be followed
Pressors/antihypertensive/inotropes/diuretics will be provided as needed
Maintain MAP>65
Replete electrolytes with K>4, Mg>2
Continue with antibiotics as per ID - ceftriaxone, which he has been on since evening of 02/12/2025
Follow-up tissue cultures from the OR
Blood cultures collected on day of admission have shown NGTD
Monitor chest tube output (mediastinal chest tubes x 2)
Monitor hemoglobin
Monitor platelet count and coags
Transfuse blood products as needed to maintain Hb>7g/dL, plt>50k (given post-operative status)
CT surgery managing chest tubes
Monitor blood sugar to maintain euglycemia with goal BG 110-140
Insulin drip per protocol
Aspiration precautions
DVT prophylaxis
Early nutrition
Early mobilization
Textile Science Technician services will continue to follow along while patient remains CVICU status. Once transferred to CVICU�telemetry status then we will sign off at that time.
Critical care statement: A total of 41 minutes of critical care time was provided for this patient today. This includes management of ventilator, spontaneous breathing trial, arterial blood gases, pressors, of unstable vital signs, evaluation of the
patient at bedside, reviewing the patient's pertinent medical records including radiographs, microbiology, laboratory evaluations, and discussion with primary team and critical care nursing.
Subjective Dataa
Subjective Data
Date of Service:
Date of Service: February 19, 2025
Chief Complaint: Textile Science Technician Follow Up
Subjective:
Patient seen and evaluated today at bedside. On dobutamine at 3 mcg/kg/min and insulin drip at 2.6 units/h. Heart rate 92, BP via A-line 137/60, PAP 33/15. Saturating 94% on 1 L/min nasal cannula. He is sitting in chair no acute distress.
Review of Systems
General: Other (Negative unless mentioned above)
Objective Data
Data Reviewed
Vital Signs / I&O / Oxygen:
Vital Signs
Temp Pulse Resp BP Pulse Ox
97.9 F 83 20 106/71 94
02/19/25 10:29 02/19/25 09:50 02/19/25 10:29 02/19/25 08:00 02/19/25 10:29
Intake and Output
02/18/25 02/19/25 02/20/25
06:59 06:59 06:59
Intake Total 6 / 6 3106.9 / 3106.9 98.5 / 98.5
Output Total 1500 / 1500 1540 / 1540 870 / 870
Balance -1494 / -1494 1566.9 / 1566.9 -771.5 / -771.5
SaO2 [CPAP] 99
SaO2 [SIMV] 99
SaO2 94
Nasal Cannula flow liters per 1
minute
Physical Exam
General: Respiratory Distress (negative), Comfortable, Chills (negative) and Sweats (negative)
HEENT: Normocephalic and Anicteric
Cardiovascular: S1-S2 and Peripheral Edema (negative)
Respiratory: Clear, Wheeze (negative), Crackles (negative), Rhonchi (negative) and Non-Labored Respirations
GI: Soft, Non Distended, Non Tender and Normal Bowel Sounds
Neurology: AO x 3 and Tremors (negative)
Skin: Warm, Dry, Cyanosis (negative) and Jaundice (negative)
Labs/Micro/Reports
Lab Data
02/19/25 03:29
02/19/25 03:29
Laboratory Results
02/18/25 02/18/25
15:27 21:12
PT 20.2 H
INR 1.67
APTT 32.3
pH 7.35 7.37
pCO2 53 H 43
pO2 102 138 H
HCO3 29.3 H 24.9
O2 Delivery Level
Microbiology
02/18/25 13:15 Chest - Unspecified Anaerobic Culture - Preliminary
Culture pending. Anaerobic cultures are examined after 3
days incubation. Additional information to follow.
02/18/25 13:15 Chest - Unspecified Tissue Culture - Preliminary
No Growth After 18-24 Hours
02/18/25 13:15 Chest - Unspecified Gram Stain - Preliminary
02/18/25 13:15 Valve Anaerobic Culture - Preliminary
Culture pending. Anaerobic cultures are examined after 3
days incubation. Additional information to follow.
02/18/25 13:15 Valve Tissue Culture - Preliminary
No Growth After 18-24 Hours
02/18/25 13:15 Valve Gram Stain - Preliminary
02/18/25 13:15 Chest - Unspecified Fungal Culture - Preliminary
Culture in progress.
Positive cultures are reported as soon as detected.
Final report to follow in four to five weeks.
02/18/25 13:15 Valve Fungal Culture - Preliminary
Culture in progress.
Positive cultures are reported as soon as detected.
Final report to follow in four to five weeks.
02/12/25 20:00 Blood/Venous Blood Culture - Final
No Growth - Final Report
02/12/25 20:08 Blood/Venous Blood Culture - Final
No Growth - Final Report
02/12/25 18:37 Blood/Venous Blood Culture - Final
No Growth - Final Report
[2025-02-19] MEDS: LASIX 40 MG IV (08:20)
--- NOTE | 2025-02-19 08:30 | W.PN.ID1 ---
Date of Service
Date of Service: February 19, 2025
Today's Communication
- thus far, no evidence of relapse of endocarditis though will continue to follow tissue cultures to finalize the assessment which will direct future suppression/prophylaxis
- continue ceftriaxone for present
Assessment / Plan
# New TAVR severe aortic insufficiency; TAVR placed 2021
# New MR
# acute on chronic CHF
# Hx Group B strep bacteremia (06/2024), suspected IE (INDY no gross vege), s/p 4 weeks ceftriaxone followed by suppressive amox 500 mg bid
# Anemia
- Repeat blood cx's x 3 negative
- INDY report - severe aortic regurgitation (intra-valvular), Calcified, mobile echodensity at RCC position, which may represent calcified vegetation. Moderate mitral regurgitation.
- will follow valve tissue for aerobic, anaerobic, fungal and AFB culture
- gram stains/smears nonrevealing
- c/w Ceftriaxone 2g IV q24h (d8)
- outpatient recommend screening for colon cancer, ideally with colonoscopy to prevent relapse with new organism
- thus far, no evidence of relapse of endocarditis though will continue to follow tissue cultures to finalize the assessment which will direct future suppression/prophylaxis
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
s/p TAVR 2021
Group B strep bacteremia in June 2024 with suspected IE on suppressive amoxicillin (follows with Dr. Larson)
CHF new December 2024
Pulm HTN January 02
ASCVD
Hypertension
Nephrolithiasis
DJD / DDD
Obesity
Sensorineural Hearing Loss
PAD s/p Left Femoral Endarterectomy. Left Fem-Fem Bypass
Chief Complaint
-: Other (Prosthetic Valve Endocarditis)
Subjective / Review of Systems
afebrile
remains on pressors
extubated post op
in good spirits
Vital Signs / Physical Exam
Vital Signs
Vital Signs
Temp Pulse Resp BP Pulse Ox
97.6 F 79 23 100/69 97
02/19/25 07:50 02/19/25 07:50 02/19/25 07:50 02/19/25 07:00 02/19/25 07:50
Physical Exam
Constitutional: No Acute Distress and Chronically Ill
Cardiovascular: Regular Rate and S1/S2; Negative Murmur or Rub
Pulmonary: Clear and Symmetric; Negative Wheezes or Rales
Gastrointestinal: Soft, Non Tender, Non Distended and Normal Bowel Sounds
Skin: Warm and Dry; Negative Rash or Jaundice
Objective Data
Lab Data
Lab Results
02/19/25 03:29
02/19/25 03:29
PT 20.2 Sec (11.4-14.6) H 02/18/25 15:27
INR 1.67 02/18/25 15:27
APTT 32.3 Sec (23.4-35.0) 02/18/25 15:27
Estimated Creat Clear 83 ml/min 02/19/25 03:29
Total Bilirubin 0.7 mg/dl (0.2-1.3) 02/15/25 04:11
AST 21 U/L (17-59) 02/15/25 04:11
ALT 16 U/L (0-50) 02/15/25 04:11
Alkaline Phosphatase 53 U/L (38-126) 02/15/25 04:11
Most recent labs reviewed.
Micro Results:
02/18/25 13:15 Tissue Culture - Pending
Valve Gram Stain - Preliminary
02/18/25 13:15 Tissue Culture - Pending
Chest - Unspecified Gram Stain - Preliminary
02/18/25 13:15 Fungal Smear - Pending
Chest - Unspecified Fungal Culture - Preliminary
Culture in progress.
Positive cultures are reported as soon as detected.
Final report to follow in four to five weeks.
02/18/25 13:15 Fungal Smear - Pending
Valve Fungal Culture - Preliminary
Culture in progress.
Positive cultures are reported as soon as detected.
Final report to follow in four to five weeks.
02/18/25 13:15 Acid Fast Bacilli Smear - Pending
Valve Acid Fast Bacilli Culture - Pending
02/18/25 13:15 Anaerobic Culture - Pending
Valve
02/18/25 13:15 Anaerobic Culture - Pending
Chest - Unspecified
02/18/25 13:15 Acid Fast Bacilli Smear - Pending
Chest - Unspecified Acid Fast Bacilli Culture - Pending
02/12/25 20:00 Blood Culture - Final
Blood/Venous No Growth - Final Report
02/12/25 20:08 Blood Culture - Final
Blood/Venous No Growth - Final Report
02/12/25 18:37 Blood Culture - Final
Blood/Venous No Growth - Final Report
02/12/25 CXR: Mild interstitial edema with increased small bilateral pleural effusions and adjacent atelectasis.
Chest X-Ray: Image Reviewed
[2025-02-19 09:22] LABS: Glucose - Point of Care 119 mg/dl (70-99)
[2025-02-19 10:34] LABS: Glucose - Point of Care 121 mg/dl (70-99)
[2025-02-19] MEDS: TORADOL 15 MG IV (11:26)
--- NOTE | 2025-02-19 11:34 | CM ---
Chart reviewed. Patient was lying in bed with good spirits. Patient is independent of ADLS, lives with his son in a [address], 1 [address]RI[address], 0 DME. Plan is for the patient to return home with CT Transitional RN. CM to follow
--- NOTE | 2025-02-19 12:00 | PTCARENOTE ---
Rec'd pt this shift awake and alert in bed. Pt with Rt IJ swan and left radial A-line. AM meds given. 40mg IV lasix given this am as ordered. Vasopressin weaned to off in am. Dobutamine decreased to 3 mcg/kg/min. Insulin drip titrated according to
glycemic protocol. Plural CT d/c'd and pt assisted OOB up in chair. Aviles cath patent draining clear yellow urine. See worklist for VS/I and O and assessments.
[2025-02-19 12:22] LABS: Glucose - Point of Care 128 mg/dl (70-99)
--- NOTE | 2025-02-19 13:46 | W.PN.CARDCBS ---
Addendum entered and electronically signed by Douglas Manzanares DO 02/19/25 21:04:
I saw and examined the patient.
The Pharmacy Technician Instructor's note was reviewed and I agree with the note.
Comment:
Plan:
Status post surgical AVR #23 Linares Inspiris Resilia valve and drainage of bilateral pleural effusions (1L on L and 300cc on R) on 02/18/2025
Presented 02/13/2025 with progressively worsening generalized weakness, fatigue, shortness of breath.
- Concern for endocarditis with new moderate to severe AI and moderate to severe MR on outpatient echo 01/29/2025.
- INDY 02/16/2025 with severe intra valvular aortic regurgitation, calcified mobile echodensity at RCC position which may represent calcified vegetation.
Cont post op care
Cont abx as per ID
Wean Dobutamine as tolerated.
Remains sinus
He was diuresed pre op. Cont to follow volume status post op.
Prior to admit, was taking po lasix 40mg BID
Original Note:
Today's Communication / Plan
-
continue post op care
abx per ID
Impression / Plan
-
PCP: Turner Guardado
Primary tallow maker: Dr. Nielsen
Impression:
Presented 02/13/2025 with generalized weakness, fatigue, shortness of breath
Concern for endocarditis with new moderate to severe AI and moderate to severe MR (new on echo 01/29/2025)
Acute on chronic heart failure with preserved ejection fraction, proBNP 5800
Abnormal troponin, suspect nonischemic myocardial injury secondary to acute heart failure
Status post surgical AVR #23 Linares Inspiris Resilia valve and drainage of bilateral pleural effusions on 02/18/2025
h/o Strep agalactiae bacteremia, suspicion for prosthetic valve endocarditis 06/2024
On chronic suppressive amoxicillin
Severe
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
Nonobstructive CAD by cath 2021
PVD
status post left femoral endarterectomy with interposition of bypass graft from URBAN ANTHROPOLOGIST to femoral bifurcation 09/2022
Hypertension
Hyperlipidemia
Pulmonary HTN on echo 01/29/2025
Sensorineural Hearing Loss
Nephrolithiasis
DJD/DDD
ECHO 06/12/2024: EF 55 to 60%, mild MAC, status post number 29 mm evolute R, well-seated with peak/mean gradients 14/9 mmHg, no AR seen, mild TR, PAP 28 mmHg, no significant change compared to prior
INDY 06/23/2024: LVEF 55 to 60%, mild MR, mild TR, #29 evolute TAVR with no evidence of vegetation and trace aortic regurgitation
Echo 09/22/2024: EF 60 to 65%. Mild MR. TAVR with peak/mean gradient 56/32 mmHg, moderate AAS, trace AI.
Echo 01/29/2025: EF 60 to 65%. Mild LVH. Moderate MR which originates through posterior leaflet. PISA radius is 0.9 cm with an ERO 32 mm2. TAVR with peak/mean gradient 43/23 mmHg with moderate to severe AI. Mild to moderate TR with PAP 58 mmHg.
Compared to prior echo from September 2024 AI and TR have now worsened. Previously both were trace
INDY 02/16/2025: EF preserved at 50 to 55% with normal LV size and function. Ssevere intra valvular aortic regurgitation, calcified mobile echodensity at RCC position which may represent calcified vegetation. Thickening and calcified mitral valve
leaflets with moderate mitral regurgitation, central jet. PISA radius 0.8cm. EROA 0.34 cm2. RV 47 cc. Mean gradient 3 mmHg. Mild to moderate TR.
Cardiac catheterization December 2021: Nonobstructive CAD
Plan:
- Presented 02/13/2025 with progressively worsening generalized weakness, fatigue, shortness of breath.
- Concern for endocarditis with new moderate to severe AI and moderate to severe MR on outpatient echo 01/29/2025.
- INDY 02/16/2025 with severe intra valvular aortic regurgitation, calcified mobile echodensity at RCC position which may represent calcified vegetation.
- Abnormal troponin, peaked at 0.041. suspect nonischemic myocardial injury secondary to acute heart failure and possible endocarditis. He has non-obstructive CAD on cath in 2021.
- Status post surgical AVR #23 Linares Inspiris Resilia valve and drainage of bilateral pleural effusions (1L on L and 300cc on R) on 02/18/2025
- looks well
- on dobut@3, wean as tolerated
- in SR on review on tele overnight
- He has known h/o Strep agalactiae bacteremia and was treated with IV antibiotics in June 2024 then maintained on amoxicillin 500 mg twice daily following completion of antibiotics. ID following. intraop cultures pending
- in SR on review of tele overnight. EKG 02/19 with evidence of pericarditis
- received 1 U PRBCs 02/18. hgb 8.3
- was diuresed pre op. follow volume status post op. REHABILITATION THERAPY TECHNICIAN was taking po lasix 40mg BID
- On amlodipine 10 mg and lisinopril 20 mg as outpatient, but has lost over 50 pounds since 09/2024 so may need decreased amounts post op. follow BP trends post op
- ID also recommending outpatient colonoscopy once patient has recovered from valve surgery
- d/w nursing. d/w daughter at bedside
HPI 02/13/2025:
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 hyperlipidemia presents with
progressively worsening fatigue, weakness, shortness of breath, orthopnea and intermittent chest discomfort and weight loss. Patient was treated for presumed endocarditis with prolonged course of IV antibiotics and chronic treatment of amoxicillin
since June 2024. He was seen in cardiology office approximately 4 weeks ago and noted not feeling well and was found to have new diastolic murmur. He underwent an echocardiogram 01/29/2025 which showed new at least moderate mitral regurgitation
and moderate aortic insufficiency. Given progressively worsening symptoms and abnormal findings on echo it was recommended patient be hospitalized for evaluation. proBNP on admission 5800, troponin 0.041. Hemoglobin stable at 11.3. Chest x-ray
showed mild interstitial edema with increased bilateral pleural effusions and adjacent atelectasis. Blood cultures drawn in emergency department. Started on IV Rocephin.
At time of this evaluation patient resting comfortably in chair on oxygen. Still feels weak and dyspneic with activity. He denies recent fevers or chills. He reports he does often eat healthy choice frozen meals but tries to otherwise watch
sodium in his diet.
Progress Note - Secretarial Teacher
Subjective
Date of Service: February 19, 2025
feeling well.
Objective
Labs:
02/19/25 03:29
02/19/25 03:
Labs
Hgb 8.3 g/dL (13.0-18.0) L 02/19/25 03:29
Hct 25.2 % (39.0-52.0) L 02/19/25 03:29
Plt Count 142 10^3/uL (130-400) 02/19/25 03:29
PT 20.2 Sec (11.4-14.6) H 02/18/25 15:27
INR 1.67 02/18/25 15:27
APTT 32.3 Sec (23.4-35.0) 02/18/25 15:27
Sodium 140 mmol/L (135-145) 02/19/25 03:29
Potassium 4.7 mmol/L (3.5-5.1) 02/19/25 03:29
BUN 33 mg/dl (9-20) H 02/19/25 03:29
Creatinine 0.9 mg/dL (0.7-1.3) 02/19/25 03:29
Glucose 146 mg/dl (70-99) H 02/19/25 03:29
Vital Signs and I&O:
Vital Signs
Temp Pulse Resp BP Pulse Ox
97.9 F 87 19 108/64 95
02/19/25 10:29 02/19/25 12:18 02/19/25 12:18 02/19/25 12:18 02/19/25 12:00
Vital Signs
Temp Pulse Resp BP Pulse Ox
97.9 F 87 19 108/64 95
02/19/25 10:29 02/19/25 12:18 02/19/25 12:18 02/19/25 12:18 02/19/25 12:00
Intake & Output
02/17/25 02/18/25 02/19/25 02/20/25
07:59 07:59 07:59 07:59
Intake Total 506 / 506 3152.3 / 3152.3 584.3 / 584.3
Output Total 1650 / 2000 1050 / 1050 1710 / 1710 1250 / 1250
Balance -1144 / -1494 -1050 / -1050 1442.3 / 1442.3 -665.7 / -665.7
Physical Exam
Physical Exam
GEN: No distress, awake, alert, oriented x3. sitting in chair. on supp O2
HEENT: supple, anicteric, mmm, eomi
LUNGS: CTA B/L, no wheezes/rales
CV: Reg, S1/S2, no murmur
ABD: soft, NT/ND
EXT: No cyanosis, clubbing, edema
NEURO: Gross non-focal
SKIN: Warm, pink, dry. No rash. Sternotomy incision c/d/i. CT in place
BEBE: porfirio
[2025-02-19 14:05] LABS: B.E. - POC 8.1 mmol/L; Glucose - POC 104 mg/dl (70-99); HCO3 - POC 33 mmol/L (21-28); Hematocrit - POC 29 % PCV (42-52); Hemodilution- POC Yes; Hemoglobin Calculated - POC 9.8; Ionized Calcium - POC 1.04 mmol/L (1.15-1.33); Lactate - POC < 0.30 mmol/L (0.36-0.75); O2 Saturation %Calculated-POC 100.0 % (94-98); PCO2 - POC 48 mmHg (35-48); PO2 - POC 479 mmHg (83-108); Potassium - POC 4.3 mmol/L (3.5-5.1); Sodium - POC 146 mmol/L (136-145); Specimen Type - POC Arterial; pH - POC 7.45 (7.35-7.45)
[2025-02-19] MEDS: NSS 500 IV (14:28)
[2025-02-19 14:34] LABS: Glucose - Point of Care 110 mg/dl (70-99)
[2025-02-19] MEDS: ROCEPHIN 2000 MG IV (17:33)
[2025-02-19] MEDS: FLUSH (NSS) 1 FLUSH IV ×2 (17:34)
[2025-02-19] MEDS: STERILE WATER FOR INJECTION 20 ML IV (17:34)
--- NOTE | 2025-02-19 19:03 | PTCARENOTE ---
Pt sat in chair for 6 hours, tolerated well. Dobutamine remains at 3mcg/kg/min as ordered.
--- NOTE | 2025-02-19 19:38 | PTCARENOTE ---
Patient received from RN @ 1900. Patient lying in bed comfortably w/ call weiss in reach. AOx3. SR w/ PAC's on monitor. BP 114/51 HR 87. Heart sounds audible. Radial and pedal pulses present. A/V wires insulated. +1 bilateral ankle edema
noted. Lungs diminished in bases bilaterally. POX 94% 1L NC. IS 1000. 2x mediastinal chest tubes set to -20 suction draining serosanguineous fluid. No crepitus, tidaling, or air leaks noted. Bowel sounds hypoactive. Aviles draining clear
yellow urine. Sternal incision well approximated IT HELP DESK TECHNICIAN. RIJ cordis w/ swan @ 48 PAP 39/16 CVP 7 CI 2.83. Left radial A-line patent and intact. All lines leveled and zeroed. Dobut infusing per order. See worklist for more details.
[2025-02-19] MEDS: PACERONE 200 MG PO (22:05)
[2025-02-20] VITALS (13 sets, daily range): BP systolic 113–165; BP diastolic 52–80; PULSE 91–103; O2SAT 100; BMI 29.9
[2025-02-20] MEDS: LR IV (01:08)
--- NOTE | 2025-02-20 01:08 | PTCARENOTE ---
Patient reassessed. SR on monitor w/ occasional PVC's. BP 117/47 HR 80 POX 94% 2L NC. Patient states they are comfortable.
[2025-02-20] MEDS: ROXICODONE 5 MG PO (04:19)
[2025-02-20 04:39] LABS: Blood Urea Nitrogen 38 mg/dl (9-20); Calcium 8.2 mg/dl (8.4-10.2); Carbon Dioxide 27 mmol/L (22-30); Chloride 104 mmol/L (98-107); Estimated Creatinine Clearance 93 ml/min; Glucose 126 mg/dl (70-99); Magnesium 2.1 mg/dl (1.6-2.3); Potassium 4.4 mmol/L (3.5-5.1); Sodium 133 mmol/L (135-145); eGFR > 60.00
[2025-02-20 05:41] LABS: Hematocrit 21.5 % (39.0-52.0); Hemoglobin 7.1 g/dL (13.0-18.0); Mean Corp Hgb Conc. 33.0 g/dL (33.0-37.0); Mean Corpuscular Volume 93.1 fL (80.0-94.0); Platelet Count 105 10^3/uL (130-400); Red Cell Dist. Width 15.1 % (11.5-14.5)
[2025-02-20] MEDS: TYLENOL 975 MG PO ×3 (06:28→20:59)
[2025-02-20 06:38] LABS: Hematocrit 21.6 % (39.0-52.0); Hemoglobin 7.1 g/dL (13.0-18.0); Mean Corp Hgb Conc. 32.9 g/dL (33.0-37.0); Mean Corpuscular Volume 91.9 fL (80.0-94.0); Platelet Count 97 10^3/uL (130-400); Red Cell Dist. Width 15.4 % (11.5-14.5)
--- NOTE | 2025-02-20 07:57 | W.PN.CT ---
Today's Communication / Plan
-
-pod #2
-pt states feeling well, no issues overnight, no complaints
-drips: Dobut 3. CI 3.37, CO 7.51
-CT outputs: 2 meds 105/215 in 12/24 hrs
-UO 1030/2630 in 12/24 hrs
-Hg 7.1 today- (recheck Hg is the same) will give [address] Pantoja
-plan is to decrease Dobut by 1 every day to wean per Dr. Pantoja
-CXR today with Small right apical pneumothorax (less than 10% lung volume); Severe soft tissue emphysema in the right lower neck; Small left pleural effusion; Moderate left lower lobe subsegmental atelectasis.- follow closely for possible need of CT
-on Ceftriaxone per ID, afebrile, follow wbc (13.9 on 02/19 postop)
-holding BB. po Amio resumed
-current meds (ASA, Lipitor, Amio, Gabapentin, Mg, Protonix, Ceftriaxone)
-encourage IS, OOB
Assessment / Plan
-
HPI: 74 y/o Male S/P Trans femoral (right) TAVR with a 29mm Medtronic Evolut device by Dr. Pantoja on 01/12/22. Readmitted on 02/12/25 with c/o increasing fatigue, TRAN, orthopnea, generalized malaise. Hx of suspected endocarditis treated with Abx, recent
cultures negative. INDY obtained yesterday 02/16/25 showed Severe AI, Moderate MR, Mild TR, EF 50-55%. Calcified, mobile echodensity at RCC position, which may represent calcified vegetation.
-s/p Explant of prior CoreValve TAVR valve; Debridement of heavy calcification in the root and ascending thoracic aorta; Surgical aortic valve replacement [23 mm Linares Inspiris Resilia valve]; Limited Endarterectomy of ascending thoracic aorta;
Drainage of bilateral pleural effusions (left side 1 L, right side 300 mL) by Dr. Pantoja on 02/18/25, pod #2
-Intraop INDY: LVEF preop was not normal approximately 45% with a dilated left ventricle. Following surgery, his EF did not significantly improve and did appear to be 45% but as his LV appeared to be more vigorous and his contractions. LV was still
mildly to moderately dilated. His EF remained around 45% with mild dilation of his LV however his mitral valve insufficiency did appear to be improved and looked more mild at this point. Mean gradient across the new bioprosthetic aortic valve was 5
mmHg
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
-Acute on chronic congestive heart failure secondary to torrential aortic valve insufficiency
-Nonischemic cardiomyopathy
-Severe symptomatic aortic stenosis S/p Right TF TAVR �01/12/22
-Severe AI
-Moderate MR
-Mild TR
-Dilated left ventricle with reduced left ventricular ejection fraction of 40%
-LVEF 56% by Echo 01/29/25
-Hx group B strep bacteremia/Suspected endocarditis
-TRAN
-HTN
-HLD
-CAD, nonobstructive
-PAD
-Hearing loss
-DDD/DJD
-Acute postop blood loss anemia- s/p 1 pRBC
-Acute postop pulmonary insufficiency/atelectasis
-Acute postop hypovolemia with subsequent hypervolemia
-Suspected acute postop pericarditis/+rub
Discussed patient care with: Nursing and Care Team
Subjective
-
Date of Service: February 20, 2025
Objective Data
-
PT 20.2 Sec (11.4-14.6) H 02/18/25 15:27
INR 1.67 02/18/25 15:27
APTT 32.3 Sec (23.4-35.0) 02/18/25 15:27
Vital Signs
Vital Signs
Temp Pulse Resp BP Pulse Ox
97.5 F 83 16 135/74 94
02/20/25 01:00 02/20/25 01:00 02/20/25 01:00 02/19/25 20:31 02/20/25 01:00
CT Intake/Output/Weight
02/19/25 02/19/25 02/20/25
06:59 18:59 06:59
Intake Total 1626.9 / 3106.9 1049.1 / 1251.4 202.3 / 1251.4
Output Total 1060 / 1540 1720 / 2355 635 / 2355
Balance 566.9 / 1566.9 -670.9 / -1103.6 -432.7 / -1103.6
SaO2: 94
Physical Exam
-
General: Awake and AOx3
Cardiovascular: Regular rate & rhythm, No Murmurs and No Rub
Respiratory: Decreased Breath Sounds
Sternum: Stable
Incision: Clean, Dry and Dressing Intact
Extremities: No Edema
Abdomen: soft, nontender, nondistended, + bowel sounds
Data Reviewed
-
Lab Results: Results Reviewed
Medications: Active Meds Reviewed
Chest X-Ray: Report Reviewed and Image Reviewed
ECG: Report Reviewed and Image Reviewed
--- NOTE | 2025-02-20 08:10 | W.PN.INTV ---
Today's Communication / Plan
Recommendations
Up OOB as tolerated
Continue weaning down dobutamine drip while trending MVO2 with goal >65
Removal of mediastinal chest tubes per CT surgery team
Goal BG 110�140
Pain control
Encourage incentive spirometer
Cardiac rehab consult
[employer] services will continue to follow along while patient remains CVICU status. Once transferred to CVICU�telemetry status then we will sign off at that time.
Assessment
-
Assessment: 74-year-old male former tobacco smoker (quit 1997 with 25-trce-eyyl history) with a PMHx of chronic HFpEF, history of aortic stenosis s/p TAVR (2021) complicated by severe paravalvular leak and regurgitation, pulmonary hypertension,
history of endocarditis (group B streptococcus bacteremia � June 2024), PAD, pulmonary nodules, hypertension, hyperlipidemia, nonobstructive CAD, hard of hearing with bilateral hearing aids, osteoarthritis, kidney stone, PTSD, and MDD who
presents with worsening SOB for several days. Patient has history of septic shock in June 2024 due to group B streptococcus bacteremia with concern for endocarditis. Given his worsening aortic insufficiency with increased mean gradient of the
TAVR, ID was consulted and antibiotics were started due to concern for relapse of infective endocarditis. CT surgery consulted, and INDY was performed on 02/16/2025 showing essentially wide-open aortic insufficiency. CT surgery believes that the
patient's TAVR valve is significantly destroyed. Patient was continued on diuresis due to his acute CHF. On 02/18/2025, patient underwent explantation of his prior CoreValve, debridement of heavy calcification in the root and ascending thoracic
aorta, surgical aortic valve replacement with a 23 mm Linares Inspiris Resilia valve, limited endarterectomy of ascending thoracic aorta and drainage of bilateral pleural effusions (1 L on left, 300 cc on right). There were no complications, and
the patient was transferred to the CVICU postoperatively with [employer]/Pulmonary service consulted for additional management/recommendations.
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
tobacco smoking (quit in 1997 with approximately a 30-smyh-hqln history), pulmonary nodules, hypertension, hyperlipidemia, nonobstructive CAD, hard of hearing with bilateral hearing aids, osteoarthritis, kidney stone, inguinal hernia, bilateral knee
arthritis, PTSD, MDD
Impression:
#Bioprosthetic aortic valve degeneration with severe aortic valve insufficiency secondary to prior endocarditis + moderate mitral valve insufficiency s/p surgical aortic valve replacement (#23 Linares Inspiris Resilia valve) with debridement of
heavy calcification in the root and ascending thoracic aorta, limited endarterectomy of the ascending thoracic aorta and explant of prior CoreValve (POD#2)
#Acute on chronic anemia
#Acute thrombocytopenia
#Mild acute respiratory acidosis while on mechanical ventilation postoperatively
#DM type II c/b hyperglycemia (HbA1C: 5.3 - 02/12/2025)
#Acute on chronic HFpEF in the setting of torrential aortic valve insufficiency s/p bilateral pleural fluid drainage during CVOR on 02/18/2025
#History of group B streptococcus (Streptococcus agalactiae) bacteremia in June 2024
#NICM with dilated CM with chronic systolic CHF
#HTN
#CAD (non-obstructive)
#PAD
#HLD
Plan:
Patient was extubated to nasal cannula on 02/18/2025, and is currently breathing comfortably on 2 L/min saturating 95-96%
Continue weaning down supplemental O2 flow rate while maintaining SpO2 >90-94%
prn nebulized bronchodilators - not currently bronchospastic
Encourage incentive spirometer q1hr while awake
Pulmonary artery catheter parameters will be followed
Pressors/antihypertensive/inotropes/diuretics will be provided as needed
Maintain MAP>65
Replete electrolytes with K>4, Mg>2
Continue with antibiotics as per ID - ceftriaxone, which he has been on since evening of 02/12/2025
Follow-up tissue cultures from the OR
Blood cultures collected on day of admission have shown NGTD
Monitor chest tube output (mediastinal chest tubes x 2)
Monitor hemoglobin
Monitor platelet count and coags
Transfuse blood products as needed to maintain Hb>7g/dL, plt>50k (given post-operative status)
CT surgery managing chest tubes
Monitor blood sugar to maintain euglycemia with goal BG 110-140
Off insulin gtt; rec'd ISS to keep BG at goal as above
Aspiration precautions
DVT prophylaxis
Early nutrition
Early mobilization
[employer] services will continue to follow along while patient remains CVICU status. Once transferred to CVICU�telemetry status then we will sign off at that time.
Critical care statement: A total of 37 minutes of critical care time was provided for this patient today. This includes management of ventilator, spontaneous breathing trial, arterial blood gases, pressors, of unstable vital signs, evaluation of the
patient at bedside, reviewing the patient's pertinent medical records including radiographs, microbiology, laboratory evaluations, and discussion with primary team and critical care nursing.
Subjective Dataa
Subjective Data
Date of Service:
Date of Service: February 20, 2025
Chief Complaint: [employer] Follow Up
Subjective:
Patient seen this morning. Current heart rate 83, BP via A-line 140/63 and CO/CI 6.66/2.39. Currently on dobutamine at 3 mcg/kg/min. He is watching TV in no acute distress, denies AGUSTIN, SOB at rest, nausea, fevers or chills.
Review of Systems
General: Other (Negative unless mentioned above)
Objective Data
Data Reviewed
Vital Signs / I&O / Oxygen:
Vital Signs
Temp Pulse Resp BP Pulse Ox
98.5 F 83 20 145/69 95
02/20/25 16:00 02/20/25 16:00 02/20/25 16:00 02/20/25 16:00 02/20/25 16:00
Intake and Output
02/19/25 02/20/25 02/21/25
06:59 06:59 06:59
Intake Total 3106.9 / 3106.9 1345.9 / 1374.8 412.0 / 412.0
Output Total 1540 / 1540 2855 / 2915 1555 / 1555
Balance 1566.9 / 1566.9 -1509.1 / -1540.2 -1143.0 / -1143.0
SaO2 [CPAP] 99
SaO2 [SIMV] 99
SaO2 95
Nasal Cannula flow liters per 2
minute
Physical Exam
General: Respiratory Distress (negative), Comfortable, Chills (negative) and Sweats (negative)
HEENT: Normocephalic and Anicteric
Cardiovascular: S1-S2 and Peripheral Edema (negative)
Respiratory: Clear, Wheeze (negative), Crackles (negative), Rhonchi (negative) and Non-Labored Respirations
GI: Soft, Non Distended, Non Tender and Normal Bowel Sounds
Neurology: AO x 3 and Tremors (negative)
Skin: Warm, Dry, Cyanosis (negative) and Jaundice (negative)
Labs/Micro/Reports
Lab Data
02/20/25 06:25
02/20/25 03:16
Microbiology
02/18/25 13:15 Valve Tissue Culture - Preliminary
No Growth After 48 Hours
02/18/25 13:15 Valve Gram Stain - Preliminary
02/18/25 13:15 Chest - Unspecified Anaerobic Culture - Preliminary
Culture pending. Anaerobic cultures are examined after 3
days incubation. Additional information to follow.
02/18/25 13:15 Chest - Unspecified Tissue Culture - Preliminary
No Growth After 48 Hours
02/18/25 13:15 Chest - Unspecified Gram Stain - Preliminary
02/18/25 13:15 Chest - Unspecified Fungal Smear - Final
No yeast or fungal elements seen.
02/18/25 13:15 Chest - Unspecified Fungal Culture - Preliminary
Culture in progress.
Positive cultures are reported as soon as detected.
Final report to follow in four to five weeks.
02/18/25 13:15 Valve Fungal Smear - Final
No yeast or fungal elements seen.
02/18/25 13:15 Valve Fungal Culture - Preliminary
Culture in progress.
Positive cultures are reported as soon as detected.
Final report to follow in four to five weeks.
02/18/25 13:15 Valve Anaerobic Culture - Preliminary
Culture pending. Anaerobic cultures are examined after 3
days incubation. Additional information to follow.
02/12/25 20:00 Blood/Venous Blood Culture - Final
No Growth - Final Report
02/12/25 20:08 Blood/Venous Blood Culture - Final
No Growth - Final Report
02/12/25 18:37 Blood/Venous Blood Culture - Final
No Growth - Final Report
[2025-02-20] MEDS: BACTROBAN 2% OINTMENT 1 APPLIC NASAL ×2 (08:16→20:59)
[2025-02-20] MEDS: LIPITOR 20 MG PO (08:16)
[2025-02-20] MEDS: PACERONE 200 MG PO ×3 (08:16→21:29)
[2025-02-20] MEDS: NEURONTIN 100 MG PO ×3 (08:16→21:29)
[2025-02-20] MEDS: MAGNESIUM OXIDE 400 MG PO ×2 (08:16→20:59)
[2025-02-20] MEDS: LOW STRENGTH ASPIRIN 81 MG PO (08:16)
[2025-02-20] MEDS: SENOKOT 8.6 MG PO ×2 (08:16→21:29)
[2025-02-20] MEDS: PROTONIX 40 MG PO (08:19)
--- NOTE | 2025-02-20 09:15 | PTCARENOTE ---
Assumed care of pt from tavia RN. Pt is SR on the tele monitor. HR 80s. Temporary A/V wires insulated. BP stable. PAPs 30s/teens. CVP~5. CI>2. Trace B/L ankle edema present. Pt on 2 L NC. POX 98%. Mediastinal CTx2 to -20 suction. No airleak noted
at this time, and output WNL. Deep breathing and IS encouraged. Abdomen nontender. +BSx4. Aviles catheter intact and draining yellow urine. All surgical sites stable. Right IJ cordis w/ swan, left radial a-line, and PIV x1 intact. All lines leveled,
zeroed, and flushed. 1 Unit PRBC's infused w/o issue. Lasix administered as ordered - see MAR. Pt OOB to chair. Dobutamine infusing as ordered. See worklist for full nursing assessment and interventions. Call weiss within reach.
[2025-02-20] MEDS: DOBUTREX 500 MG 250 IV (09:16)
[2025-02-20] MEDS: LASIX 40 MG IV (09:16)
--- NOTE | 2025-02-20 09:58 | W.PN.ID1 ---
Date of Service
Date of Service: February 20, 2025
Today's Communication
- will follow valve tissue for aerobic, anaerobic, fungal and AFB culture
- gram stains/smears nonrevealing thus far
- c/w Ceftriaxone 2g IV q24h (d9)
Assessment / Plan
# New TAVR severe aortic insufficiency; TAVR placed 2021
# New MR
# acute on chronic CHF
# Hx Group B strep bacteremia (06/2024), suspected IE (INDY no gross vege), s/p 4 weeks ceftriaxone followed by suppressive amox 500 mg bid
# Anemia
- Repeat blood cx's x 3 negative
- INDY report - severe aortic regurgitation (intra-valvular), Calcified, mobile echodensity at RCC position, which may represent calcified vegetation. Moderate mitral regurgitation.
- will follow valve tissue for aerobic, anaerobic, fungal and AFB culture
- gram stains/smears nonrevealing thus far
- c/w Ceftriaxone 2g IV q24h (d9)
- outpatient recommend screening for colon cancer, ideally with colonoscopy to prevent relapse with new organism
- thus far, no evidence of relapse of endocarditis though will continue to follow tissue cultures to finalize the assessment which will direct future suppression/prophylaxis
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
s/p TAVR 2021
Group B strep bacteremia in June 2024 with suspected IE on suppressive amoxicillin (follows with Dr. Larson)
CHF new December 2024
Pulm HTN January 02
ASCVD
Hypertension
Nephrolithiasis
DJD / DDD
Obesity
Sensorineural Hearing Loss
PAD s/p Left Femoral Endarterectomy. Left Fem-Fem Bypass
Chief Complaint
-: Other (Prosthetic Valve Endocarditis)
Subjective / Review of Systems
afebrile
remains on pressors - improving
Vital Signs / Physical Exam
Vital Signs
Vital Signs
Temp Pulse Resp BP Pulse Ox
98.5 F 84 27 112/50 95
02/20/25 09:00 02/20/25 09:16 02/20/25 09:05 02/20/25 09:16 02/20/25 09:05
Physical Exam
Constitutional: No Acute Distress and Chronically Ill
Cardiovascular: Regular Rate
Pulmonary: Symmetric and Non Labored
Gastrointestinal: Non Distended
Skin: Dry; Negative Rash or Jaundice
Neurological: Awake
Objective Data
Lab Data
Lab Results
02/20/25 06:25
02/20/25 03:16
PT 20.2 Sec (11.4-14.6) H 02/18/25 15:27
INR 1.67 02/18/25 15:27
APTT 32.3 Sec (23.4-35.0) 02/18/25 15:27
Estimated Creat Clear 93 ml/min 02/20/25 03:16
Total Bilirubin 0.7 mg/dl (0.2-1.3) 02/15/25 04:11
AST 21 U/L (17-59) 02/15/25 04:11
ALT 16 U/L (0-50) 02/15/25 04:11
Alkaline Phosphatase 53 U/L (38-126) 02/15/25 04:11
Most recent labs reviewed.
Micro Results:
02/18/25 13:15 Tissue Culture - Preliminary
Valve No Growth After 48 Hours
Gram Stain - Preliminary
02/18/25 13:15 Anaerobic Culture - Preliminary
Chest - Unspecified Culture pending. Anaerobic cultures are examined after 3
days incubation. Additional information to follow.
02/18/25 13:15 Tissue Culture - Preliminary
Chest - Unspecified No Growth After 48 Hours
Gram Stain - Preliminary
02/18/25 13:15 Fungal Smear - Final
Chest - Unspecified No yeast or fungal elements seen.
Fungal Culture - Preliminary
Culture in progress.
Positive cultures are reported as soon as detected.
Final report to follow in four to five weeks.
02/18/25 13:15 Fungal Smear - Final
Valve No yeast or fungal elements seen.
Fungal Culture - Preliminary
Culture in progress.
Positive cultures are reported as soon as detected.
Final report to follow in four to five weeks.
02/18/25 13:15 Anaerobic Culture - Preliminary
Valve Culture pending. Anaerobic cultures are examined after 3
days incubation. Additional information to follow.
02/18/25 13:15 Acid Fast Bacilli Smear - Pending
Valve Acid Fast Bacilli Culture - Pending
02/18/25 13:15 Acid Fast Bacilli Smear - Pending
Chest - Unspecified Acid Fast Bacilli Culture - Pending
02/12/25 20:00 Blood Culture - Final
Blood/Venous No Growth - Final Report
02/12/25 20:08 Blood Culture - Final
Blood/Venous No Growth - Final Report
02/12/25 18:37 Blood Culture - Final
Blood/Venous No Growth - Final Report
02/12/25 CXR: Mild interstitial edema with increased small bilateral pleural effusions and adjacent atelectasis.
--- NOTE | 2025-02-20 12:43 | PTCARENOTE ---
Pt reassessed. Pt SR w/ PACs on the tele monitor. HR 80s. BP stable. 120-140s/60s. PAPs 30-40s/teens. CVP ~5. CI>2. Pt RA to 2 L NC. 89-94% on RA. 98% on 2L NC. Mediastinal CTx2 assessment unchanged. Aviles catheter intact and draining clear/yellow
urine. All surgical sites stable. Right IJ cordis w/ swan, L radial a-line, and PIV intact. Lines leveled, zeroed, and flushed. Denies pain at this time. Pt assisted to commode to attempt a BM but was unsuccessful. Pt remains in the chair at this
time. Dobutamine infusing as ordered. Call weiss within reach.
--- NOTE | 2025-02-20 13:04 | CM ---
Chart reviewed. Patient is independent of ADLS, lives with his son in a [address], [address] [place], 0 DME. ID is waiting on valve cultures. CM to assess IV antibiotics needs once addressed by ID. Plan is for the patient to return home with CT Transitional
RN.
--- NOTE | 2025-02-20 14:06 | W.PN.CARDCBS ---
Addendum entered and electronically signed by Baylee Sheppard DO 02/20/25 19:15:
I saw and examined the patient.
The [employer]zen [employer]essert's note was reviewed and I agree with the note.
Comment: Patient seen and examined sitting out of bed to chair without specific complaints.
GEN: No distress, awake, Ox3, lying in bed on oxygen
HEENT: supple, anicteric, mmm
LUNGS:Subcutaneous emphysema on anterior right and left upper chest, no wheezes/rales; wearing oxygen
CV: Reg, S1/S2, no murmur, rub or gallop
Chest: Sternotomy stable without rocking or clicking; mediastinal chest tube in place
ABD: soft, BS+, NT/ND
EXT: Trace bilateral edema
Plan:
-s/p Explant of prior CoreValve TAVR valve; Debridement of heavy calcification in the root and ascending thoracic aorta; Surgical aortic valve replacement [23 mm Linares Inspiris Resilia valve]; Limited Endarterectomy of ascending thoracic aorta;
Drainage of bilateral pleural effusions (left side 1 L, right side 300 mL) by Dr. Pantoja on 02/18/25, pod #2
-Continue dobutamine and wean as tolerated
-Monitor on telemetry, sinus rhythm overnight
-ID following on antibiotics for endocarditis
-IV diuresis
-Transfuse for hemoglobin 7.1 g/dL today
-Chest tube management per CT surgery�small right apical pneumothorax
Original Note:
Today's Communication / Plan
-
Continue to monitor and trend weight and volume status after getting IV Lasix 40 mg today
Monitor and trend hemoglobin status post 1 unit packed RBCs today
Wean dobutamine as able
Blood pressure medicines currently on hold
Impression / Plan
-
PCP: Turner Guardado
Primary communication studies professor: Dr. Nielsen
Impression:
Presented 02/13/2025 with generalized weakness, fatigue, shortness of breath
Concern for endocarditis with new moderate to severe AI and moderate to severe MR (new on echo 01/29/2025)
Acute on chronic heart failure with preserved ejection fraction, proBNP 5800
Abnormal troponin, suspect nonischemic myocardial injury secondary to acute heart failure
Status post surgical AVR #23 Linares Inspiris Resilia valve and drainage of bilateral pleural effusions on 02/18/2025
h/o Strep agalactiae bacteremia, suspicion for prosthetic valve endocarditis 06/2024
On chronic suppressive amoxicillin
Severe
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
Nonobstructive CAD by cath 2021
PVD
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
Hypertension
Hyperlipidemia
Pulmonary HTN on echo 01/29/2025
Sensorineural Hearing Loss
Nephrolithiasis
DJD/DDD
ECHO 06/12/2024: EF 55 to 60%, mild MAC, status post number 29 mm evolute R, well-seated with peak/mean gradients 14/9 mmHg, no AR seen, mild TR, PAP 28 mmHg, no significant change compared to prior
INDY 06/23/2024: LVEF 55 to 60%, mild MR, mild TR, #29 evolute TAVR with no evidence of vegetation and trace aortic regurgitation
Echo 09/22/2024: EF 60 to 65%. Mild MR. TAVR with peak/mean gradient 56/32 mmHg, moderate AAS, trace AI.
Echo 01/29/2025: EF 60 to 65%. Mild LVH. Moderate MR which originates through posterior leaflet. PISA radius is 0.9 cm with an ERO 32 mm2. TAVR with peak/mean gradient 43/23 mmHg with moderate to severe AI. Mild to moderate TR with PAP 58 mmHg.
Compared to prior echo from September 2024 AI and TR have now worsened. Previously both were trace
INDY 02/16/2025: EF preserved at 50 to 55% with normal LV size and function. Ssevere intra valvular aortic regurgitation, calcified mobile echodensity at RCC position which may represent calcified vegetation. Thickening and calcified mitral valve
leaflets with moderate mitral regurgitation, central jet. PISA radius 0.8cm. EROA 0.34 cm2. RV 47 cc. Mean gradient 3 mmHg. Mild to moderate TR.
Cardiac catheterization December 2021: Nonobstructive CAD
Plan:
- Presented 02/13/2025 with progressively worsening generalized weakness, fatigue, shortness of breath.
- Concern for endocarditis with new moderate to severe AI and moderate to severe MR on outpatient echo 01/29/2025.
- INDY 02/16/2025 with severe intra valvular aortic regurgitation, calcified mobile echodensity at RCC position which may represent calcified vegetation.
- Abnormal troponin, peaked at 0.041. suspect nonischemic myocardial injury secondary to acute heart failure and possible endocarditis. He has non-obstructive CAD on cath in 2021.
- Status post surgical AVR #23 Linares Inspiris Resilia valve and drainage of bilateral pleural effusions (1L on L and 300cc on R) on 02/18/2025
- Doing well,
- on dobut@3, wean as tolerated
- in SR on review on tele overnight
- Chest x-ray 02/20/2025 with small right sided pneumothorax and subcu emphysema. Still with mediastinal chest tube in place. Still on 2 L of oxygen with good saturation wean as tolerated
- He has known h/o Strep agalactiae bacteremia and was treated with IV antibiotics in June 2024 then maintained on amoxicillin 500 mg twice daily following completion of antibiotics. ID following. intraop cultures pending
- in SR on review of tele overnight. EKG 02/19 with evidence of pericarditis
- received 1 U PRBCs 02/18 and 1 unit PRBC 02/20 for Hgb 7.1. Repeat Hgb in am
- He was diuresed pre op with IV Bumex drip. Weight postop has continued to trend upward. Patient got IV Lasix 02/20/2025 in am. Continue to monitor and trend response. ASSISTANT was taking po lasix 40mg BID
- Antihypertensive agents remain on hold. He was taking amlodipine 10 mg and lisinopril 20 mg as outpatient, but has lost over 50 pounds since 09/2024 so may need decreased amounts post op. follow BP trends post op
- ID following. Gram stain/smears nonrevealing thus far. Ongoing treatment with IV ceftriaxone. They are also recommending outpatient colonoscopy once patient has recovered from valve surgery
- d/w nursing.
HPI 02/13/2025:
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 hyperlipidemia presents with
progressively worsening fatigue, weakness, shortness of breath, orthopnea and intermittent chest discomfort and weight loss. Patient was treated for presumed endocarditis with prolonged course of IV antibiotics and chronic treatment of amoxicillin
since June 2024. He was seen in cardiology office approximately 4 weeks ago and noted not feeling well and was found to have new diastolic murmur. He underwent an echocardiogram 01/29/2025 which showed new at least moderate mitral regurgitation
and moderate aortic insufficiency. Given progressively worsening symptoms and abnormal findings on echo it was recommended patient be hospitalized for evaluation. proBNP on admission 5800, troponin 0.041. Hemoglobin stable at 11.3. Chest x-ray
showed mild interstitial edema with increased bilateral pleural effusions and adjacent atelectasis. Blood cultures drawn in emergency department. Started on IV Rocephin.
At time of this evaluation patient resting comfortably in chair on oxygen. Still feels weak and dyspneic with activity. He denies recent fevers or chills. He reports he does often eat healthy choice frozen meals but tries to otherwise watch
sodium in his diet.
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
Subjective
Date of Service: February 20, 2025
Patient seen and examined. Patient had been working with PT and sitting in chair most of morning now back in bed. Reports he is tired. Some sternotomy pain otherwise is feeling well
Objective
Labs:
02/20/25 06:25
02/20/25 03:16
Labs
Hgb 7.1 g/dL (13.0-18.0) L 02/20/25 06:25
Hct 21.6 % (39.0-52.0) L 02/20/25 06:25
Plt Count 97 10^3/uL (130-400) L 02/20/25 06:25
PT 20.2 Sec (11.4-14.6) H 02/18/25 15:27
INR 1.67 02/18/25 15:27
APTT 32.3 Sec (23.4-35.0) 02/18/25 15:27
Sodium 133 mmol/L (135-145) L 02/20/25 03:16
Potassium 4.4 mmol/L (3.5-5.1) 02/20/25 03:16
BUN 38 mg/dl (9-20) H 02/20/25 03:16
Creatinine 0.8 mg/dL (0.7-1.3) 02/20/25 03:16
Glucose 126 mg/dl (70-99) H 02/20/25 03:16
Vital Signs and I&O:
Vital Signs
Temp Pulse Resp BP Pulse Ox
98.9 F 86 22 136/65 99
02/20/25 13:00 02/20/25 13:00 02/20/25 13:00 02/20/25 12:13 02/20/25 13:00
Vital Signs
Temp Pulse Resp BP Pulse Ox
98.9 F 86 22 136/65 99
02/20/25 13:00 02/20/25 13:00 02/20/25 13:00 02/20/25 12:13 02/20/25 13:00
Intake & Output
02/18/25 02/19/25 02/20/25 02/21/25
06:59 06:59 06:59 06:59
Intake Total 6 / 6 3106.9 / 3106.9 1345.9 / 1374.8 274.3 / 274.3
Output Total 1500 / 1500 1540 / 1540 2855 / 2915 1170 / 1170
Balance -1494 / -1494 1566.9 / 1566.9 -1509.1 / -1540.2 -895.7 / -895.7
Physical Exam
Physical Exam
GEN: No distress, awake, Ox3, lying in bed on oxygen
HEENT: supple, anicteric, mmm
LUNGS:Subcutaneous emphysema on anterior right and left upper chest, no wheezes/rales; wearing oxygen
CV: Reg, S1/S2, no murmur, rub or gallop
Chest: Sternotomy stable without rocking or clicking; mediastinal chest tube in place
ABD: soft, BS+, NT/ND
EXT: Trace bilateral edema, no clubbing cyanosis
NEURO: Gross non-focal
SKIN: No rash, warm, dry, pink
--- NOTE | 2025-02-20 14:58 | W.PN.UPDATE ---
Update Note
Progress Note Update
No pacing required past 24 hours. Patient maintained sinus rhythm. 2 atrial and 1 ventricular wire removed without difficulty. Bedrest x 1 hour and vital signs every 15 minutes x 1 hour per protocol.
[2025-02-20] MEDS: NSS 500 IV (15:24)
--- NOTE | 2025-02-20 17:26 | PTCARENOTE ---
Pt SR w/ PACs on the tele monitor. HR 80s. Epicardial A/V wires pulled by CTNP. BP stable. PAPs 30-40s/20s. Wave-form does not appear accurate at times - better w/ flushing and re-zeroing. CVP tens. CI>2. Pt on 2 L NC. POX 95-98%. Mediastinal CTx2
dc'd. Aviles catheter intact and draining yellow urine. All surgical sites stable. All lines leveled, zeroed, and flushed. Pt working w/ PT/OT. Pt more comfortable w/ rolling walker at this time. Dobutamine infusing as ordered. Call weiss within
reach.
[2025-02-20] MEDS: ROCEPHIN 2000 MG IV (17:57)
[2025-02-20] MEDS: STERILE WATER FOR INJECTION 20 ML IV (17:57)
[2025-02-20] MEDS: FLUSH (NSS) IV ×2 (17:58)
[2025-02-20] MEDS: FLUSH (NSS) 1 FLUSH IV ×2 (18:00→18:01)
[2025-02-20] MEDS: KCL 20 MEQ PO (20:59)
--- NOTE | 2025-02-20 21:00 | PTCARENOTE ---
Patient received resting in bed watching television. Ate 100% dinner. Patient A+A+Ox3. Wears bilateral hearing aids. O2 2-3L via NC. SpO2 93-96%. No c/o SOB. Chest tube dressing intact. Sinus Rhythm. Heart rate 80's. Cuff blood pressure
131/60 (79). A-Line blood pressure 117/52 (74). Occasional PAC. Occasional PVC. Patient with no c/o chest pain, pressure or discomfort. Normoactive bowel sounds. No BM. Aviles catheter - Temperature sensing - yellow urine - Outputs as
documented. Dobutamine gtt 2 mcq/kg/min 5.9 ml/hr. Right [place] Daniela catheter. C.O. 8.86 C.I. 3.97 SVR 578 PAP 38/23 CVP 11. Left radial arterial line, PAP and CVP - Pressure bag/saline flush - Flush without difficulty - Zeroed
and calibrated - Waveforms within normal limits. Sternal incision intact - Surgical adhesive - Open to air. Assessment as documented.
[2025-02-21] VITALS (23 sets, daily range): BP systolic 122–182; BP diastolic 56–88; O2SAT 97; BMI 30.3
[2025-02-21] MEDS: MELATONIN 3 MG PO (00:37)
--- NOTE | 2025-02-21 00:45 | PTCARENOTE ---
Patient dozing intermittently. Difficulty falling asleep. Patient request for Melatonin. Melatonin 3 mg PO ordered by PA and given to patient. C.O. 7.41 C.I. 3.32 SVR 691 PAP 41/27 (34) CVP 12. No further changes from previous assessment.
--- NOTE | 2025-02-21 03:56 | W.PN.CT ---
Addendum entered and electronically signed by Michael Simons MD 02/21/25 09:39:
I saw and examined the patient.
The PA's note was reviewed and I agree with the note.
Comment:
POD#3 s/p TAVR explant, AVR w/ 23mm Inspiris, drainage of B/L effusions for TAVR endocarditis
No major overnight events. Afebrile. 85 sinus. 120-150s/60-70s. 43/32. CP 10. CI: 3.5. 97% 3L.
GTTS: dobutamine 2. CT: none. UO: 2.7L last 24 hours. Hgb 8.2. Creat 0.6.
- Wean dobutamine to 1 for CI > 2.2; hopefully OFF tomorrow
- Wean O2 as tolerated
- Continue diuresis
- Continue ABX - f/u cultures
- OOB/IS
Original Note:
Today's Communication / Plan
-
Plan:
-No major issues overnight. Hemodynamically and neurologically intact
-On Dobutamine @ 2 mcg/kg/min
-Last CI 3.5, MVO2 54.7%
-Received 1u PRBC yesterday for h/h of 7.1/21.6, h/h 8.2/25.2 today
-Monitor platelets, 98, was 97 yesterday, 142 preop
-Cont. diuresis, on Lasix 40 mg IV daily with KCL. Check wt
-Maintain Lasix for accurate I/O's, 24hr U/O 2750 mL
-Tissues cultures from OR unrevealing thus far, anaerobic pending. ID following, on Rocephin
-Cont. current meds (ASA, Lipitor, Amio, Gabapentin, Mg, Protonix, Rocephin; BB on hold while on dobutamine)
-Encourage use of IS
-Wean off O2
-OOB into chair/Ambulate
-PT/OT evaluating for placement
Assessment / Plan
-
HPI: 74 y/o Male S/P Trans femoral (right) TAVR with a 29mm Medtronic Evolut device by Dr. Pantoja on 01/12/22. Readmitted on 02/12/25 with c/o increasing fatigue, TRAN, orthopnea, generalized malaise. Hx of suspected endocarditis treated with Abx, recent
cultures negative. INDY obtained yesterday 02/16/25 showed Severe AI, Moderate MR, Mild TR, EF 50-55%. Calcified, mobile echodensity at RCC position, which may represent calcified vegetation.
-s/p Explant of prior CoreValve TAVR valve; Debridement of heavy calcification in the root and ascending thoracic aorta; Surgical aortic valve replacement [23 mm Linares Inspiris Resilia valve]; Limited Endarterectomy of ascending thoracic aorta;
Drainage of bilateral pleural effusions (left side 1 L, right side 300 mL) by Dr. Pantoja on 02/18/25, pod #3
-Intraop INDY: LVEF preop was not normal approximately 45% with a dilated left ventricle. Following surgery, his EF did not significantly improve and did appear to be 45% but as his LV appeared to be more vigorous and his contractions. LV was still
mildly to moderately dilated. His EF remained around 45% with mild dilation of his LV however his mitral valve insufficiency did appear to be improved and looked more mild at this point. Mean gradient across the new bioprosthetic aortic valve was 5
mmHg
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
-Acute on chronic congestive heart failure secondary to torrential aortic valve insufficiency
-Nonischemic cardiomyopathy
-Severe symptomatic aortic stenosis S/p Right TF TAVR �01/12/22
-Severe AI
-Moderate MR
-Mild TR
-Dilated left ventricle with reduced left ventricular ejection fraction of 40%
-LVEF 56% by Echo 01/29/25
-Hx group B strep bacteremia/Suspected endocarditis
-TRAN
-HTN
-HLD
-CAD, nonobstructive
-PAD
-Hearing loss
-DDD/DJD
-Acute postop blood loss anemia- s/p 2 pRBCs
-Acute postop pulmonary insufficiency/atelectasis/pleural effusion
-Acute postop small right apical ptx
-Acute postop hypovolemia with subsequent hypervolemia
-Suspected acute postop pericarditis/+rub
-
Discussed patient care with: Cardiology, Nursing, Respiratory Therapy, Pharmacy and Care Team
Subjective
-
Date of Service: February 21, 2025
Objective Data
-
PT 20.2 Sec (11.4-14.6) H 02/18/25 15:27
INR 1.67 02/18/25 15:27
APTT 32.3 Sec (23.4-35.0) 02/18/25 15:27
Vital Signs
Vital Signs
Temp Pulse Resp BP Pulse Ox
98.2 F 76 18 123/67 93
02/21/25 03:00 02/21/25 03:00 02/21/25 03:00 02/21/25 02:00 02/21/25 03:00
CT Intake/Output/Weight
02/20/25 02/20/25 02/21/25
06:59 18:59 06:59
Intake Total 296.8 / 1374.8 493.8 / 1026.9 533.1 / 1026.9
Output Total 1135 / 2915 1805 / 2605 800 / 2605
Balance -838.2 / -1540.2 -1311.2 / -1578.1 -266.9 / -1578.1
SaO2: 93 (3L)
Physical Exam
-
General: Awake, Oriented and AOx3
Cardiovascular: Regular rate & rhythm, No Murmurs, No Rub and No Gallop
Respiratory: Decreased Breath Sounds (at bases, otherwise clear)
Sternum: Stable
Incision: Clean, Dry, Intact and Dressing Intact
Extremities: Other (+trace edema)
Data Reviewed
-
Lab Results: Results Reviewed
Medications: Active Meds Reviewed
Chest X-Ray: Report Reviewed and Image Reviewed
ECG: Report Reviewed and Image Reviewed
[2025-02-21 04:54] LABS: Hematocrit 25.2 % (39.0-52.0); Hemoglobin 8.2 g/dL (13.0-18.0); Mean Corp Hgb Conc. 32.5 g/dL (33.0-37.0); Mean Corpuscular Volume 93.0 fL (80.0-94.0); Platelet Count 98 10^3/uL (130-400); Red Cell Dist. Width 15.7 % (11.5-14.5)
--- NOTE | 2025-02-21 05:00 | PTCARENOTE ---
Patient resting in bed watching television. Patient A+A+Ox3. No c/o pain or discomfort. AM labs collected and sent. Patient given CHG bath and linens changed. Chest tube dressing changed. OOB in AM. Assessment/Interventions as documented.
[2025-02-21 05:02] LABS: Blood Urea Nitrogen 24 mg/dl (9-20); Calcium 7.9 mg/dl (8.4-10.2); Carbon Dioxide 29 mmol/L (22-30); Chloride 105 mmol/L (98-107); Estimated Creatinine Clearance 124 ml/min; Glucose 121 mg/dl (70-99); Magnesium 2.1 mg/dl (1.6-2.3); Potassium 4.5 mmol/L (3.5-5.1); Sodium 135 mmol/L (135-145); eGFR > 60.00
[2025-02-21] MEDS: TYLENOL PO (05:30)
--- NOTE | 2025-02-21 08:22 | W.PN.INTV ---
Today's Communication / Plan
Recommendations
Up OOB as tolerated
Continue weaning down dobutamine drip while trending MVO2 with goal >65 and goal CI>2
Goal BG 110�140
Pain control
Encourage incentive spirometer
Cardiac rehab consult
Computational Sciences Professor services will continue to follow along while patient remains CVICU status. Once transferred to CVICU�telemetry status then we will sign off at that time.
Assessment
-
Assessment: 74-year-old male former tobacco smoker (quit 1997 with 62-fbek-qkuh history) with a PMHx of chronic HFpEF, history of aortic stenosis s/p TAVR (2021) complicated by severe paravalvular leak and regurgitation, pulmonary hypertension,
history of endocarditis (group B streptococcus bacteremia � June 2024), PAD, pulmonary nodules, hypertension, hyperlipidemia, nonobstructive CAD, hard of hearing with bilateral hearing aids, osteoarthritis, kidney stone, PTSD, and MDD who
presents with worsening SOB for several days. Patient has history of septic shock in June 2024 due to group B streptococcus bacteremia with concern for endocarditis. Given his worsening aortic insufficiency with increased mean gradient of the
TAVR, ID was consulted and antibiotics were started due to concern for relapse of infective endocarditis. CT surgery consulted, and INDY was performed on 02/16/2025 showing essentially wide-open aortic insufficiency. CT surgery believes that the
patient's TAVR valve is significantly destroyed. Patient was continued on diuresis due to his acute CHF. On 02/18/2025, patient underwent explantation of his prior CoreValve, debridement of heavy calcification in the root and ascending thoracic
aorta, surgical aortic valve replacement with a 23 mm Linares Inspiris Resilia valve, limited endarterectomy of ascending thoracic aorta and drainage of bilateral pleural effusions (1 L on left, 300 cc on right). There were no complications, and
the patient was transferred to the CVICU postoperatively with Computational Sciences Professor/Pulmonary service consulted for additional management/recommendations.
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
tobacco smoking (quit in 1997 with approximately a 40-jdwd-qeir history), pulmonary nodules, hypertension, hyperlipidemia, nonobstructive CAD, hard of hearing with bilateral hearing aids, osteoarthritis, kidney stone, inguinal hernia, bilateral knee
arthritis, PTSD, MDD
Impression:
#Bioprosthetic aortic valve degeneration with severe aortic valve insufficiency secondary to prior endocarditis + moderate mitral valve insufficiency s/p surgical aortic valve replacement (#23 Linares Inspiris Resilia valve) with debridement of
heavy calcification in the root and ascending thoracic aorta, limited endarterectomy of the ascending thoracic aorta and explant of prior CoreValve (POD#3)
#Acute on chronic anemia
#Acute thrombocytopenia
#Mild acute respiratory acidosis while on mechanical ventilation postoperatively
#DM type II c/b hyperglycemia (HbA1C: 5.3 - 02/12/2025)
#Acute on chronic HFpEF in the setting of torrential aortic valve insufficiency s/p bilateral pleural fluid drainage during CVOR on 02/18/2025
#History of group B streptococcus (Streptococcus agalactiae) bacteremia in June 2024
#NICM with dilated CM with chronic systolic CHF
#HTN
#CAD (non-obstructive)
#PAD
#HLD
Plan:
Patient was extubated to nasal cannula on 02/18/2025, and is currently breathing comfortably on 2 L/min saturating 97-98%
Continue weaning down supplemental O2 flow rate while maintaining SpO2 >90-94%
prn nebulized bronchodilators - not currently bronchospastic
Encourage incentive spirometer q1hr while awake
Pulmonary artery catheter parameters will be followed; continue to wean down dobutamine while trending MVO2 and CI
Pressors/antihypertensive/inotropes/diuretics will be provided as needed
Maintain MAP>65
Replete electrolytes with K>4, Mg>2
Continue with antibiotics as per ID - ceftriaxone, which he has been on since evening of 02/12/2025
Follow-up tissue cultures from the OR
Blood cultures collected on day of admission have shown NGTD
Monitor hemoglobin
Monitor platelet count and coags
Transfuse blood products as needed to maintain Hb>7g/dL, plt>50k (given post-operative status)
Mediastinal chest tubes now DC'd
Monitor blood sugar to maintain euglycemia with goal BG 110-140
Off insulin gtt; rec'd ISS to keep BG at goal as above
Aspiration precautions
DVT prophylaxis
Early nutrition
Early mobilization
Computational Sciences Professor services will continue to follow along while patient remains CVICU status. Once transferred to CVICU�telemetry status then we will sign off at that time.
Critical care statement: A total of 39 minutes of critical care time was provided for this patient today. This includes management of ventilator, spontaneous breathing trial, arterial blood gases, pressors, of unstable vital signs, evaluation of the
patient at bedside, reviewing the patient's pertinent medical records including radiographs, microbiology, laboratory evaluations, and discussion with primary team and critical care nursing.
Subjective Dataa
Subjective Data
Date of Service:
Date of Service: February 21, 2025
Chief Complaint: Computational Sciences Professor Follow Up
Subjective:
Patient seen and evaluated today at bedside. Resting in chair no acute distress. On 2 L/min nasal cannula saturating 97%. Heart rate 80, BP via A-line: 118/57, PAP 31/22, and CO/CI: 7.69/3.45. Patient feels well, denies chest pain, SOB, nausea,
fevers or chills
Review of Systems
General: Other (Negative unless mentioned above)
Objective Data
Data Reviewed
Vital Signs / I&O / Oxygen:
Vital Signs
Temp Pulse Resp BP Pulse Ox
100 F 94 22 182/67 95
02/21/25 09:00 02/21/25 09:00 02/21/25 09:00 02/21/25 08:56 02/21/25 09:35
Intake and Output
02/20/25 02/21/25 02/22/25
06:59 06:59 06:59
Intake Total 1345.9 / 1374.8 1134.6 / 1160.5 107.7 / 107.7
Output Total 2855 / 2915 2915 / 3065 675 / 675
Balance -1509.1 / -1540.2 -1780.4 / -1904.5 -567.3 / -567.3
SaO2 [CPAP] 99
SaO2 [SIMV] 99
SaO2 95
Nasal Cannula flow liters per 3
minute
Physical Exam
General: Respiratory Distress (negative), Comfortable, Chills (negative) and Sweats (negative)
HEENT: Normocephalic and Anicteric
Cardiovascular: S1-S2 and Peripheral Edema (negative)
Respiratory: Clear, Wheeze (negative), Crackles (negative), Rhonchi (negative) and Non-Labored Respirations
GI: Soft, Non Distended, Non Tender and Normal Bowel Sounds
Neurology: AO x 3 and Tremors (negative)
Skin: Warm, Dry, Cyanosis (negative) and Jaundice (negative)
Labs/Micro/Reports
Lab Data
02/21/25 04:05
02/21/25 04:05
Microbiology
02/18/25 13:15 Valve Anaerobic Culture - Preliminary
Culture pending. Anaerobic cultures are examined after 3
days incubation. Additional information to follow.
02/18/25 13:15 Chest - Unspecified Anaerobic Culture - Preliminary
NO ANAEROBES ISOLATED
02/18/25 13:15 Chest - Unspecified Tissue Culture - Preliminary
No Growth After 72 Hours
02/18/25 13:15 Chest - Unspecified Gram Stain - Preliminary
02/18/25 13:15 Valve Tissue Culture - Preliminary
No Growth After 72 Hours
02/18/25 13:15 Valve Gram Stain - Preliminary
02/18/25 13:15 Chest - Unspecified Acid Fast Bacilli Smear - Preliminary
02/18/25 13:15 Chest - Unspecified Acid Fast Bacilli Culture - Preliminary
02/18/25 13:15 Valve Acid Fast Bacilli Smear - Preliminary
02/18/25 13:15 Valve Acid Fast Bacilli Culture - Preliminary
02/18/25 13:15 Chest - Unspecified Fungal Smear - Final
No yeast or fungal elements seen.
02/18/25 13:15 Chest - Unspecified Fungal Culture - Preliminary
Culture in progress.
Positive cultures are reported as soon as detected.
Final report to follow in four to five weeks.
02/18/25 13:15 Valve Fungal Smear - Final
No yeast or fungal elements seen.
02/18/25 13:15 Valve Fungal Culture - Preliminary
Culture in progress.
Positive cultures are reported as soon as detected.
Final report to follow in four to five weeks.
[2025-02-21] MEDS: KCL 20 MEQ PO (08:32)
[2025-02-21] MEDS: LASIX 40 MG IV (08:32)
[2025-02-21] MEDS: PROTONIX 40 MG PO (08:33)
[2025-02-21] MEDS: PACERONE 200 MG PO ×3 (08:33→21:41)
[2025-02-21] MEDS: LIPITOR 20 MG PO (08:33)
[2025-02-21] MEDS: MAGNESIUM OXIDE 400 MG PO ×2 (08:33→20:38)
[2025-02-21] MEDS: NEURONTIN 100 MG PO ×3 (08:33→21:41)
[2025-02-21] MEDS: SENOKOT 8.6 MG PO ×2 (08:33→20:38)
[2025-02-21] MEDS: BACTROBAN 2% OINTMENT 1 APPLIC NASAL ×2 (08:33→20:37)
[2025-02-21] MEDS: LOW STRENGTH ASPIRIN 81 MG PO (08:47)
[2025-02-21] MEDS: TYLENOL 650 MG PO (08:50)
--- NOTE | 2025-02-21 09:00 | PTCARENOTE ---
Assumed care of pt from tavia RN. Walking rounds completed. Pt is AAOx3. Tired. OOB to the chair. SR w/ PVCs on the tele monitor. HR 80-90s. BP elevated. 140s-150/60s. CI>2. CVP ~11. PAPs 40s/30s. Wave form for PAPs does not appear accurate at
times. B/L radial pulses palpable. B/L DP pulses weak on palpation. Trace generalized edema. Pt on 3 L NC. POX 95-98%. CT dressing C/D/I. Deep breathing and IS encouraged. Abdomen nontender. +BSx4. Aviles catheter intact and draining yellow urine.
All surgical sites stable. Right IJ cordis w/ swan, left radial a-line, and PIV intact. All lines leveled, zeroed, and flushed. Dobutamine infusing as ordered. Pt repositioned in the chair. See worklist for full nursing assessment and interventions.
Call weiss within reach.
--- NOTE | 2025-02-21 12:31 | PTCARENOTE ---
Pt reassessed. SR w/ PVCs on the tele monitor. HR 80s. BP lower now. 110's-120s/60s. CVP~7. PAPs 30s/20s. CI>2. Pt on 1 L NC. POX 90-93%. Aviles catheter intact and draining clear/yellow urine. Pt assisted from the chair to the commode and then to
the bed. Unable to have a BM. All lines leveled, zeroed, and flushed. Dobutamine titrated to 1 mcg as ordered ~10am. Call weiss within reach.
[2025-02-21] MEDS: TYLENOL 975 MG PO ×2 (14:43→20:38)
[2025-02-21] MEDS: NSS IV (14:46)
--- NOTE | 2025-02-21 16:40 | PTCARENOTE ---
Pt reassessed. Pt is SR w/ PVCs on the tele monitor. HR 80s. BP stable. CVP tens. PAPs 30s/20s. CI>2. Pt on 1 L NC. POX 93-98%. IS encouraged. Aviles catheter intact and draining yellow urine. Dobutamine infusing as ordered. Pt attempted to have BM
on commode x2 but unsuccessful. No c/o pain at this time. Pt states they feel 'better than this morning.' Call weiss within reach.
[2025-02-21] MEDS: ROCEPHIN 2000 MG IV (17:16)
[2025-02-21] MEDS: STERILE WATER FOR INJECTION 20 ML IV (17:16)
[2025-02-21] MEDS: FLUSH (NSS) 1 FLUSH IV ×2 (17:17)
--- NOTE | 2025-02-21 20:00 | PTCARENOTE ---
Patient received OOB in chair. Patient sleeping. No c/o pain or discomfort. O2 2L via NC. SpO2 98%. Sinus Rhythm. Occasional PVC. Heart rate 80's. Dobutamine gtt infusing at 1 mcq/kg/min (3 ml/hr) per MD order. Right I.J. Cordis/[place]
catheter intact. Left radial arterial line intact. Aviles catheter - Temperature sensing - Hourly outputs. Sternal incision intact. Chest tube dressing intact. Assessment as documented.
[2025-02-21] MEDS: DOBUTREX 500 MG 250 IV (21:20)
--- NOTE | 2025-02-21 23:00 | PTCARENOTE ---
Patient assisted with assist x2 to bed. No c/o pain or discomfort. C.O. 6.17 C.I. 2.77 SVR 1076 PAP (21) CVP 7. No further changes from previous assessment.
[2025-02-22] VITALS (18 sets, daily range): BP systolic 105–149; BP diastolic 60–92; PULSE 89–91; O2SAT 97; BMI 30.4
--- NOTE | 2025-02-22 01:00 | PTCARENOTE ---
Patient sleeping without difficulty. C.O. 6.15 C.I. 2.76 SVR 936 PAP 34/13 (21) CVP 8. No further changes from previous assessment.
--- NOTE | 2025-02-22 04:20 | W.PN.CT ---
Addendum entered and electronically signed by Michael Simons MD 02/22/25 09:33:
I saw and examined the patient.
The PA's note was reviewed and I agree with the note.
Comment:
POD#4
No major overnight events. Afebrile. 85 sinus. 130-140/60-70. 94% RA. CI: 2.97. GTTS: dobutamine 1. No drains. UO: 2500/last 24hr.
- D/C dobutamine
- De-line once stable off dobutamine
- Continue ABX per ID
- Diuresis
- OOB/IS
Original Note:
Today's Communication / Plan
-
Plan:
-No major issues overnight. Hemodynamically and neurologically intact
-On Dobutamine @ 1 mcg/kg/min
-Last CI 2.97, MVO2 59.8%
-Received 1u PRBC on 02/20, h/h stable @ 8.6/25.9 today
-Monitor platelets, 113, was 98 yesterday, 142 preop
-Cont. diuresis (Lasix 40 mg IV BID). Check wt today, was up yesterday
-D/C Aviles once off dobutamine gtt, 24hr U/O 2505 mL
-Tissues cultures from OR unrevealing thus far. ID following, on Rocephin
-Cont. current meds (ASA, Lipitor, Amio, Gabapentin, Mg, Protonix, Rocephin; BB on hold while on dobutamine)
-Encourage use of IS
-Wean off O2
-OOB into chair/Ambulate
-PT/OT evaluating for placement. Wants to go home, lives with son. SNF vs home in 1-2 days
Assessment / Plan
-
HPI: 74 y/o Male S/P Trans femoral (right) TAVR with a 29mm Medtronic Evolut device by Dr. Pantoja on 01/12/22. Readmitted on 02/12/25 with c/o increasing fatigue, TRAN, orthopnea, generalized malaise. Hx of suspected endocarditis treated with Abx, recent
cultures negative. INDY obtained yesterday 02/16/25 showed Severe AI, Moderate MR, Mild TR, EF 50-55%. Calcified, mobile echodensity at RCC position, which may represent calcified vegetation.
-s/p Explant of prior CoreValve TAVR valve; Debridement of heavy calcification in the root and ascending thoracic aorta; Surgical aortic valve replacement [23 mm Linares Inspiris Resilia valve]; Limited Endarterectomy of ascending thoracic aorta;
Drainage of bilateral pleural effusions (left side 1 L, right side 300 mL) by Dr. Pantoja on 02/18/25, pod #4
-Intraop INDY: LVEF preop was not normal approximately 45% with a dilated left ventricle. Following surgery, his EF did not significantly improve and did appear to be 45% but as his LV appeared to be more vigorous and his contractions. LV was still
mildly to moderately dilated. His EF remained around 45% with mild dilation of his LV however his mitral valve insufficiency did appear to be improved and looked more mild at this point. Mean gradient across the new bioprosthetic aortic valve was 5
mmHg
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
-Acute on chronic congestive heart failure secondary to torrential aortic valve insufficiency
-Nonischemic cardiomyopathy
-Severe symptomatic aortic stenosis S/p Right TF TAVR �01/12/22
-Severe AI
-Moderate MR
-Mild TR
-Dilated left ventricle with reduced left ventricular ejection fraction of 40%
-LVEF 56% by Echo 01/29/25
-Hx group B strep bacteremia/Suspected endocarditis
-TRAN
-HTN
-HLD
-CAD, nonobstructive
-PAD
-Hearing loss
-DDD/DJD
-Acute postop blood loss anemia- s/p 2 pRBCs
-Acute postop pulmonary insufficiency/atelectasis/pleural effusion
-Acute postop small right apical ptx
-Acute postop hypovolemia with subsequent hypervolemia
-Suspected acute postop pericarditis/+rub
Discussed patient care with: Cardiology, Nursing, Respiratory Therapy, Pharmacy and Care Team
Subjective
-
Date of Service: February 22, 2025
C/O mild incisional pain, otherwise feels well, feels stronger
Objective Data
-
PT 20.2 Sec (11.4-14.6) H 02/18/25 15:27
INR 1.67 02/18/25 15:27
APTT 32.3 Sec (23.4-35.0) 02/18/25 15:27
Vital Signs
Vital Signs
Temp Pulse Resp BP Pulse Ox
98.6 F 80 16 135/73 94
02/22/25 02:00 02/22/25 02:00 02/22/25 02:00 02/22/25 02:00 02/22/25 02:00
CT Intake/Output/Weight
02/21/25 02/21/25 02/22/25
06:59 18:59 06:59
Intake Total 640.8 / 1160.5 407.6 / 651.6 244 / 651.6
Output Total 1110 / 3065 1710 / 2130 420 / 2130
Balance -469.2 / -1904.5 -1302.4 / -1478.4 -176 / -1478.4
SaO2: 94 (2L)
Physical Exam
-
General: Awake, Oriented and AOx3
Cardiovascular: Regular rate & rhythm, No Murmurs, No Rub and No Gallop
Respiratory: Decreased Breath Sounds (at bases, otherwise clear)
Sternum: Stable
Incision: Clean, Dry, Intact and Dressing Intact
Extremities: Other (+trace edema)
Data Reviewed
-
Lab Results: Results Reviewed
Medications: Active Meds Reviewed
Chest X-Ray: Report Reviewed and Image Reviewed
ECG: Report Reviewed and Image Reviewed
[2025-02-22] MEDS: NSS 500 IV (04:35)
[2025-02-22 04:37] LABS: Hematocrit 25.9 % (39.0-52.0); Hemoglobin 8.6 g/dL (13.0-18.0); Mean Corp Hgb Conc. 33.2 g/dL (33.0-37.0); Mean Corpuscular Volume 93.8 fL (80.0-94.0); Platelet Count 113 10^3/uL (130-400); Red Cell Dist. Width 15.3 % (11.5-14.5)
[2025-02-22 05:01] LABS: Blood Urea Nitrogen 19 mg/dl (9-20); Calcium 8.1 mg/dl (8.4-10.2); Carbon Dioxide 30 mmol/L (22-30); Chloride 106 mmol/L (98-107); Estimated Creatinine Clearance > 125 ml/min; Glucose 125 mg/dl (70-99); Magnesium 2.1 mg/dl (1.6-2.3); Potassium 4.6 mmol/L (3.5-5.1); Sodium 136 mmol/L (135-145); eGFR > 60.00
[2025-02-22] MEDS: TYLENOL 975 MG PO ×2 (05:19→21:07)
--- NOTE | 2025-02-22 06:00 | PTCARENOTE ---
Patient A+A+Ox3. AM lab work collected and sent. Portable CXR completed. Patient given CHG bath and linens changed. Chest tube dressing changed. C.O. 6.63 C.I. 2.97 SVR 1013. OOB to chair. Standing scale weight 104.6 kg.
Assessment/Interventions as documented.
[2025-02-22] MEDS: SENOKOT 8.6 MG PO (08:04)
[2025-02-22] MEDS: MAGNESIUM OXIDE 400 MG PO ×2 (08:04→21:04)
[2025-02-22] MEDS: LOW STRENGTH ASPIRIN 81 MG PO (08:04)
[2025-02-22] MEDS: LIPITOR 20 MG PO (08:04)
[2025-02-22] MEDS: KCL 20 MEQ PO ×2 (08:04→21:04)
[2025-02-22] MEDS: MILK OF MAGNESIA 30 ML PO (08:05)
[2025-02-22] MEDS: PROTONIX 40 MG PO (08:05)
[2025-02-22] MEDS: BACTROBAN 2% OINTMENT 1 APPLIC NASAL (08:05)
[2025-02-22] MEDS: PACERONE 200 MG PO ×3 (08:05→21:03)
[2025-02-22] MEDS: LASIX 40 MG IV ×2 (08:05→16:23)
[2025-02-22] MEDS: NEURONTIN PO ×2 (08:08→15:19)
--- NOTE | 2025-02-22 08:11 | W.PN.INTV ---
Today's Communication / Plan
Recommendations
Up OOB as tolerated
Dobutamin gtt now weaned off
Goal BG 110�140
Pain control
Encourage incentive spirometer
Cardiac rehab consult
Patient to be transferred to CVICU�telemetry status. No additional recommendations at this time. Surveyor Instrument Assistant/Pulmonary service will now sign off. Please reconsult if there are any additional questions/concerns, or if patient's respiratory status
deteriorates.
Assessment
-
Assessment: 74-year-old male former tobacco smoker (quit 1997 with 18-pdaa-gdbh history) with a PMHx of chronic HFpEF, history of aortic stenosis s/p TAVR (2021) complicated by severe paravalvular leak and regurgitation, pulmonary hypertension,
history of endocarditis (group B streptococcus bacteremia � June 2024), PAD, pulmonary nodules, hypertension, hyperlipidemia, nonobstructive CAD, hard of hearing with bilateral hearing aids, osteoarthritis, kidney stone, PTSD, and MDD who
presents with worsening SOB for several days. Patient has history of septic shock in June 2024 due to group B streptococcus bacteremia with concern for endocarditis. Given his worsening aortic insufficiency with increased mean gradient of the
TAVR, ID was consulted and antibiotics were started due to concern for relapse of infective endocarditis. CT surgery consulted, and INDY was performed on 02/16/2025 showing essentially wide-open aortic insufficiency. CT surgery believes that the
patient's TAVR valve is significantly destroyed. Patient was continued on diuresis due to his acute CHF. On 02/18/2025, patient underwent explantation of his prior CoreValve, debridement of heavy calcification in the root and ascending thoracic
aorta, surgical aortic valve replacement with a 23 mm Linares Inspiris Resilia valve, limited endarterectomy of ascending thoracic aorta and drainage of bilateral pleural effusions (1 L on left, 300 cc on right). There were no complications, and
the patient was transferred to the CVICU postoperatively with Surveyor Instrument Assistant/Pulmonary service consulted for additional management/recommendations.
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
tobacco smoking (quit in 1997 with approximately a 26-ogaw-ouen history), pulmonary nodules, hypertension, hyperlipidemia, nonobstructive CAD, hard of hearing with bilateral hearing aids, osteoarthritis, kidney stone, inguinal hernia, bilateral knee
arthritis, PTSD, MDD
Impression:
#Bioprosthetic aortic valve degeneration with severe aortic valve insufficiency secondary to prior endocarditis + moderate mitral valve insufficiency s/p surgical aortic valve replacement (#23 Linares Inspiris Resilia valve) with debridement of
heavy calcification in the root and ascending thoracic aorta, limited endarterectomy of the ascending thoracic aorta and explant of prior CoreValve (POD#4)
#Acute on chronic anemia
#Acute thrombocytopenia
#Mild acute respiratory acidosis while on mechanical ventilation postoperatively
#DM type II c/b hyperglycemia (HbA1C: 5.3 - 02/12/2025)
#Acute on chronic HFpEF in the setting of torrential aortic valve insufficiency s/p bilateral pleural fluid drainage during CVOR on 02/18/2025
#History of group B streptococcus (Streptococcus agalactiae) bacteremia in June 2024
#NICM with dilated CM with chronic systolic CHF
#HTN
#CAD (non-obstructive)
#PAD
#HLD
Plan:
Patient was extubated to nasal cannula on 02/18/2025, and is currently breathing comfortably on 2 L/min saturating 98-99%
Continue weaning down supplemental O2 flow rate while maintaining SpO2 >90-94%
prn nebulized bronchodilators - not currently bronchospastic
Encourage incentive spirometer q1hr while awake
Pulmonary artery catheter parameters will be followed; dobutamine gtt now weaned off
Pressors/antihypertensive/inotropes/diuretics will be provided as needed
Maintain MAP>65
Replete electrolytes with K>4, Mg>2
Continue with antibiotics as per ID - Now on Amoxicillin s/p ceftriaxone (started on evening of 02/12/2025 - 02/21/2025)
Follow-up tissue cultures from the OR
Blood cultures collected on day of admission have shown NGTD
Monitor hemoglobin
Monitor platelet count and coags
Transfuse blood products as needed to maintain Hb>7g/dL, plt>50k (given post-operative status)
Mediastinal chest tubes DC'd
Monitor blood sugar to maintain euglycemia with goal BG 110-140
Off insulin gtt; rec'd ISS to keep BG at goal as above
Aspiration precautions
DVT prophylaxis
Early nutrition
Early mobilization
Patient to be transferred to CVICU�telemetry status. No additional recommendations at this time. Surveyor Instrument Assistant/Pulmonary service will now sign off. Thank you for allowing us to be involved in the care of this patient. Please reconsult if there are
any additional questions/concerns, or if patient's respiratory status deteriorates.
Total time spent today was 56 minutes for this encounter. Time includes reviewing laboratory test/imaging results, reviewing pertinent medical records, obtaining and reviewing medical history, performing an appropriate exam, ordering medications,
tests and procedures. Time also includes documentation of this encounter, coordinating patient care and communicating with other healthcare professionals. Total time does not include separately billed tests performed on this date of service.
Subjective Dataa
Subjective Data
Date of Service:
Date of Service: February 22, 2025
Chief Complaint: Surveyor Instrument Assistant Follow Up
Subjective:
Patient seen and evaluated today at bedside. He feels well. No overnight events reported. Dobutamine weaned off. Heart rate 91, BP via A-line 153/73, PAP 43/26, CO/CI: 5.89/2.64 and saturating 99% on 2 L/min nasal cannula.
Review of Systems
General: Other (Negative unless mentioned above)
Objective Data
Data Reviewed
Vital Signs / I&O / Oxygen:
Vital Signs
Temp Pulse Resp BP Pulse Ox
98.3 F 92 20 126/68 92
02/22/25 09:00 02/22/25 09:00 02/22/25 09:00 02/22/25 08:52 02/22/25 09:00
Intake and Output
02/21/25 02/22/25 02/23/25
06:59 06:59 06:59
Intake Total 1134.6 / 1160.5 773.6 / 796.6 459 / 459
Output Total 2915 / 3065 2530 / 2580 485 / 485
Balance -1780.4 / -1904.5 -1756.4 / -1783.4 - / -26
SaO2 [CPAP] 99
SaO2 [SIMV] 99
SaO2 92
Nasal Cannula flow liters per 2
minute
Physical Exam
General: Respiratory Distress (negative), Comfortable, Chills (negative) and Sweats (negative)
HEENT: Normocephalic and Anicteric
Cardiovascular: S1-S2 and Peripheral Edema (negative)
Respiratory: Clear, Wheeze (negative), Crackles (negative), Rhonchi (negative) and Non-Labored Respirations
GI: Soft, Non Distended, Non Tender and Normal Bowel Sounds
Neurology: AO x 3 and Tremors (negative)
Skin: Warm, Dry, Cyanosis (negative) and Jaundice (negative)
Labs/Micro/Reports
Lab Data
02/22/25 04:21
02/22/25 04:21
Microbiology
02/18/25 13:15 Valve Anaerobic Culture - Preliminary
Culture pending. Anaerobic cultures are examined after 3
days incubation. Additional information to follow.
02/18/25 13:15 Chest - Unspecified Anaerobic Culture - Preliminary
NO ANAEROBES ISOLATED
02/18/25 13:15 Chest - Unspecified Tissue Culture - Preliminary
No Growth After 72 Hours
02/18/25 13:15 Chest - Unspecified Gram Stain - Preliminary
02/18/25 13:15 Valve Tissue Culture - Preliminary
No Growth After 72 Hours
02/18/25 13:15 Valve Gram Stain - Preliminary
02/18/25 13:15 Chest - Unspecified Acid Fast Bacilli Smear - Preliminary
02/18/25 13:15 Chest - Unspecified Acid Fast Bacilli Culture - Preliminary
02/18/25 13:15 Valve Acid Fast Bacilli Smear - Preliminary
02/18/25 13:15 Valve Acid Fast Bacilli Culture - Preliminary
02/18/25 13:15 Chest - Unspecified Fungal Smear - Final
No yeast or fungal elements seen.
02/18/25 13:15 Chest - Unspecified Fungal Culture - Preliminary
Culture in progress.
Positive cultures are reported as soon as detected.
Final report to follow in four to five weeks.
02/18/25 13:15 Valve Fungal Smear - Final
No yeast or fungal elements seen.
02/18/25 13:15 Valve Fungal Culture - Preliminary
Culture in progress.
Positive cultures are reported as soon as detected.
Final report to follow in four to five weeks.
--- NOTE | 2025-02-22 08:30 | PTCARENOTE ---
Patient received from evening or night nurse supervisor RN; AAOx3, responds spontaneously to RN and follows commands; KAW; Anxious, forgetful, and impulsive at times; SR with PAC's and PVC's on monitor; VSS; +1 B/L LE edema and trace generalized anasarca; +1 DP and +2
radial pulses present; Shallow respirations; Lungs diminished at bases; SpO2 92-96% on RA; IS 1000 ml; PRN Milk of Magnesia given for constipation; Aviles catheter in place draining clear, yellow urine; Surgical sites intact; Left radial A-line in
place, Madison Daniela present in [facility] Cordis at 48 cm - all lines zeroed and leveled; PIVx1 - #20 right forearm; Dobutamine infusing - see nursing flowsheets for further details; see nursing documentation for further details.
[2025-02-22] MEDS: AMOXIL 500 MG PO ×2 (10:15→21:04)
--- NOTE | 2025-02-22 12:00 | PTCARENOTE ---
IV Lasix 40 mg ordered and given; Dobutamine infusion turned off; Patient ambulating to bathroom and in room with RW and RN
CO: 5.89
CI: 2.64
SVR: 1,235
--- NOTE | 2025-02-22 12:12 | W.PN.CARDCBS ---
Today's Communication / Plan
-
Continues postop supportive care
Impression / Plan
-
PCP: Turner Guardado
Primary intranet specialist: Dr. Nielsen
Impression:
Presented 02/13/2025 with generalized weakness, fatigue, shortness of breath
Concern for endocarditis with new moderate to severe AI and moderate to severe MR (new on echo 01/29/2025)
Acute on chronic heart failure with preserved ejection fraction, proBNP 5800
Abnormal troponin, suspect nonischemic myocardial injury secondary to acute heart failure
Status post surgical AVR #23 Linares Inspiris Resilia valve and drainage of bilateral pleural effusions on 02/18/2025
h/o Strep agalactiae bacteremia, suspicion for prosthetic valve endocarditis 06/2024
On chronic suppressive amoxicillin
Severe
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
Nonobstructive CAD by cath 2021
PVD
status post left femoral endarterectomy with interposition of bypass graft from [employer] to femoral bifurcation 09/2022
Hypertension
Hyperlipidemia
Pulmonary HTN on echo 01/29/2025
Sensorineural Hearing Loss
Nephrolithiasis
DJD/DDD
ECHO 06/12/2024: EF 55 to 60%, mild MAC, status post number 29 mm evolute R, well-seated with peak/mean gradients 14/9 mmHg, no AR seen, mild TR, PAP 28 mmHg, no significant change compared to prior
INDY 06/23/2024: LVEF 55 to 60%, mild MR, mild TR, #29 evolute TAVR with no evidence of vegetation and trace aortic regurgitation
Echo 09/22/2024: EF 60 to 65%. Mild MR. TAVR with peak/mean gradient 56/32 mmHg, moderate AAS, trace AI.
Echo 01/29/2025: EF 60 to 65%. Mild LVH. Moderate MR which originates through posterior leaflet. PISA radius is 0.9 cm with an ERO 32 mm2. TAVR with peak/mean gradient 43/23 mmHg with moderate to severe AI. Mild to moderate TR with PAP 58 mmHg.
Compared to prior echo from September 2024 AI and TR have now worsened. Previously both were trace
INDY 02/16/2025: EF preserved at 50 to 55% with normal LV size and function. Ssevere intra valvular aortic regurgitation, calcified mobile echodensity at RCC position which may represent calcified vegetation. Thickening and calcified mitral valve
leaflets with moderate mitral regurgitation, central jet. PISA radius 0.8cm. EROA 0.34 cm2. RV 47 cc. Mean gradient 3 mmHg. Mild to moderate TR.
Cardiac catheterization December 2021: Nonobstructive CAD
Plan:
-s/p Explant of prior CoreValve TAVR valve; Debridement of heavy calcification in the root and ascending thoracic aorta; Surgical aortic valve replacement [23 mm Linares Inspiris Resilia valve]; Limited Endarterectomy of ascending thoracic aorta;
Drainage of bilateral pleural effusions (left side 1 L, right side 300 mL) by Dr. Pantoja on 02/18/25
-Doing well and hemodynamically stable now off dobutamine as of this morning
-Plan to DC line once stable off dobutamine
-Monitor on telemetry, sinus rhythm overnight
-ID following on antibiotics for endocarditis
-IV diuresis
-Transfused for hemoglobin 7.1 g/dL 02/20, hemoglobin stable, 8.6 g/dL today
-PT/cardiac rehab efforts
HPI 02/13/2025:
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 hyperlipidemia presents with
progressively worsening fatigue, weakness, shortness of breath, orthopnea and intermittent chest discomfort and weight loss. Patient was treated for presumed endocarditis with prolonged course of IV antibiotics and chronic treatment of amoxicillin
since June 2024. He was seen in cardiology office approximately 4 weeks ago and noted not feeling well and was found to have new diastolic murmur. He underwent an echocardiogram 01/29/2025 which showed new at least moderate mitral regurgitation
and moderate aortic insufficiency. Given progressively worsening symptoms and abnormal findings on echo it was recommended patient be hospitalized for evaluation. proBNP on admission 5800, troponin 0.041. Hemoglobin stable at 11.3. Chest x-ray
showed mild interstitial edema with increased bilateral pleural effusions and adjacent atelectasis. Blood cultures drawn in emergency department. Started on IV Rocephin.
At time of this evaluation patient resting comfortably in chair on oxygen. Still feels weak and dyspneic with activity. He denies recent fevers or chills. He reports he does often eat healthy choice frozen meals but tries to otherwise watch
sodium in his diet.
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
Subjective
Date of Service: February 22, 2025
Seen and examined. Patient sitting out of bed to chair with family, daughter at bedside. In good spirits. Denies chest pain or pressure, shortness of breath
Objective
Labs:
02/22/25 04:21
02/22/25 04:21
Labs
Hgb 8.6 g/dL (13.0-18.0) L 02/22/25 04:21
Hct 25.9 % (39.0-52.0) L 02/22/25 04:21
Plt Count 113 10^3/uL (130-400) L 02/22/25 04:21
PT 20.2 Sec (11.4-14.6) H 02/18/25 15:27
INR 1.67 02/18/25 15:27
APTT 32.3 Sec (23.4-35.0) 02/18/25 15:27
Sodium 136 mmol/L (135-145) 02/22/25 04:21
Potassium 4.6 mmol/L (3.5-5.1) 02/22/25 04:21
BUN 19 mg/dl (9-20) 02/22/25 04:21
Creatinine 0.6 mg/dL (0.7-1.3) L 02/22/25 04:21
Glucose 125 mg/dl (70-99) H 02/22/25 04:21
Vital Signs and I&O:
Vital Signs
Temp Pulse Resp BP Pulse Ox
98.9 F 92 18 126/68 99
02/22/25 12:00 02/22/25 09:00 02/22/25 12:00 02/22/25 08:52 02/22/25 12:00
Vital Signs
Temp Pulse Resp BP Pulse Ox
98.9 F 92 18 126/68 99
02/22/25 12:00 02/22/25 09:00 02/22/25 12:00 02/22/25 08:52 02/22/25 12:00
Intake & Output
02/20/25 02/21/25 02/22/25 02/23/25
06:59 06:59 06:59 06:59
Intake Total 1345.9 / 1374.8 1134.6 / 1160.5 773.6 / 796.6 568 / 568
Output Total 2855 / 2915 2915 / 3065 2530 / 2580 1135 / 1135
Balance -1509.1 / -1540.2 -1780.4 / -1904.5 -1756.4 / -1783.4 -567 / -567
Physical Exam
Physical Exam
GEN: No distress, awake, Ox3, lying in bed on oxygen
HEENT: supple, anicteric, mmm
LUNGS:Subcutaneous emphysema on anterior right and left upper chest, no wheezes/rales; wearing oxygen
CV: Reg, S1/S2, no murmur, rub or gallop
Chest: Sternotomy stable without rocking or clicking; mediastinal chest tube in place
ABD: soft, BS+, NT/ND
EXT: no edema
[2025-02-22] MEDS: TYLENOL PO (15:19)
[2025-02-22] MEDS: FLUSH (NSS) IV ×2 (15:30→15:31)
--- NOTE | 2025-02-22 17:57 | PTCARENOTE ---
IV Lasix 40 mg ordered and given; Zachary-isamar and A-line removed at bedside by RN - no complications noted and VSS; Aviles catheter removed at 1745 - patient due to void at 2345; Patient ambulating in hallway with RN and RW
[2025-02-22] MEDS: SENOKOT PO (21:04)
[2025-02-22] MEDS: NEURONTIN 100 MG PO (21:07)
--- NOTE | 2025-02-22 21:15 | PTCARENOTE ---
Assumed care of pt from dayshift RN. Walking rounds completed. Pt AAOx3. OOB to the chair. SR w/ PVCs on the tele monitor. HR 80s. BP stable. Palpable pulses throughout. Trace edema. Pt on RA. POX 92-94%. Deep breathing and IS encouraged. Lung
sounds diminished in B/L bases. Abdomen nontender. +BS x4. +BM. Pt voided in commode. All surgical sites stable. Sternal precautions reinforced. Right IJ cordis and PIV intact. No c/o pain. See worklist for full nursing assessment and interventions.
Call weiss within reach.
[2025-02-23] VITALS (16 sets, daily range): BP systolic 90–153; BP diastolic 65–104; PULSE 81; O2SAT 94–96; BMI 30.1
--- NOTE | 2025-02-23 00:19 | PTCARENOTE ---
No acute change in assessment. VSS. Pt remains on RA. POX 92-94%. All surgical sites stable. Pt assisted to the commode as needed. No c/o pain. Call weiss within reach.
[2025-02-23] MEDS: LOPRESSOR 2.5 MG IV (01:23)
--- NOTE | 2025-02-23 01:40 | PTCARENOTE ---
Pt in and out of a-fib. CTPA notified. HR 70-90s. 2 L NC applied. BP 116/91. Pt denies heart palpations, lightheadedness, SOB. IV Lopressor administered as ordered. Amio bolus ordered.
[2025-02-23] MEDS: CORDARONE 103 MG IV (02:52)
[2025-02-23 03:28] LABS: Hematocrit 27.0 % (39.0-52.0); Hemoglobin 8.7 g/dL (13.0-18.0); Mean Corp Hgb Conc. 32.2 g/dL (33.0-37.0); Mean Corpuscular Volume 92.2 fL (80.0-94.0); Platelet Count 139 10^3/uL (130-400); Red Cell Dist. Width 15.2 % (11.5-14.5)
[2025-02-23 03:34] LABS: Blood Urea Nitrogen 22 mg/dl (9-20); Calcium 8.5 mg/dl (8.4-10.2); Carbon Dioxide 32 mmol/L (22-30); Chloride 103 mmol/L (98-107); Estimated Creatinine Clearance > 125 ml/min; Glucose 114 mg/dl (70-99); Magnesium 2.2 mg/dl (1.6-2.3); Potassium 5.0 mmol/L (3.5-5.1); Sodium 138 mmol/L (135-145); eGFR > 60.00
[2025-02-23] MEDS: ANESTHETIC LOZENGE 1 LOZENGE PO (03:35)
--- NOTE | 2025-02-23 04:17 | W.PN.CT ---
Today's Communication / Plan
-
Plan:
-No major issues overnight. Hemodynamically and neurologically intact
-Weaned off Dobutamine gtt yesterday 02/22. Bowie and a-line also d/c'd 02/22
-Had ~ 1hr of rate controlled a-fib (70-90's) overnight, which responded to IV Lopressor and Amiodarone bolus x1
-Will resume BB now that off Dobutamine
-MVO2 59.1%
-Received 1u PRBC on 02/20, h/h stable @ 8.01/04 today
-Postop thrombocytopenia has resolve, 98->113->139; was 142 preop
-Cont. diuresis (Lasix 40 mg IV BID). Wt up 10 lbs from preop
-GDMT as tolerated
-D/C Aviles yesterday 02/22. 24hr U/O 2310 mL
-Tissues cultures from OR unrevealing thus far. ID following, on Rocephin
-Cont. current meds (ASA, Lipitor, Amio, Gabapentin, Mg, Protonix, Rocephin, Toprol XL)
-Encourage use of IS
-Wean off O2
-OOB into chair/Ambulate
-PT/OT evaluating for placement. Wants to go home, lives with son. SNF vs home likely tomorrow
Assessment / Plan
-
HPI: 74 y/o Male S/P Trans femoral (right) TAVR with a 29mm Medtronic Evolut device by Dr. Pantoja on 01/12/22. Readmitted on 02/12/25 with c/o increasing fatigue, TRAN, orthopnea, generalized malaise. Hx of suspected endocarditis treated with Abx, recent
cultures negative. INDY obtained yesterday 02/16/25 showed Severe AI, Moderate MR, Mild TR, EF 50-55%. Calcified, mobile echodensity at RCC position, which may represent calcified vegetation.
-s/p Explant of prior CoreValve TAVR valve; Debridement of heavy calcification in the root and ascending thoracic aorta; Surgical aortic valve replacement [23 mm Linares Inspiris Resilia valve]; Limited Endarterectomy of ascending thoracic aorta;
Drainage of bilateral pleural effusions (left side 1 L, right side 300 mL) by Dr. Pantoja on 02/18/25, pod #5
-Intraop INDY: LVEF preop was not normal approximately 45% with a dilated left ventricle. Following surgery, his EF did not significantly improve and did appear to be 45% but as his LV appeared to be more vigorous and his contractions. LV was still
mildly to moderately dilated. His EF remained around 45% with mild dilation of his LV however his mitral valve insufficiency did appear to be improved and looked more mild at this point. Mean gradient across the new bioprosthetic aortic valve was 5
mmHg
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
-Acute on chronic congestive heart failure secondary to torrential aortic valve insufficiency
-Nonischemic cardiomyopathy
-Severe symptomatic aortic stenosis S/p Right TF TAVR �01/12/22
-Severe AI
-Moderate MR
-Mild TR
-Dilated left ventricle with reduced left ventricular ejection fraction of 40%
-LVEF 56% by Echo 01/29/25
-Hx group B strep bacteremia/Suspected endocarditis
-TRAN
-HTN
-HLD
-CAD, nonobstructive
-PAD
-Hearing loss
-DDD/DJD
-Acute postop blood loss anemia- s/p 2 pRBCs
-Acute postop thrombocytopenia
-Acute postop pulmonary insufficiency/atelectasis/pleural effusion
-Acute postop small right apical ptx
-Acute postop hypovolemia with subsequent hypervolemia
-Suspected acute postop pericarditis/+rub
-Acute postop PAF (rate controlled 90's)
Discussed patient care with: Cardiology, Nursing, Respiratory Therapy, Pharmacy and Care Team
Subjective
-
Date of Service: February 23, 2025
Pt c/o mild incisional pain, sore throat, otherwise feels well
Objective Data
-
Lab Results
02/23/25 03:00
02/23/25 02:59
PT 20.2 Sec (11.4-14.6) H 02/18/25 15:27
INR 1.67 02/18/25 15:27
APTT 32.3 Sec (23.4-35.0) 02/18/25 15:27
Vital Signs
Vital Signs
Temp Pulse Resp BP Pulse Ox
98.8 F 72 18 137/80 98
02/23/25 03:23 02/23/25 03:23 02/23/25 03:23 02/23/25 03:23 02/23/25 03:23
CT Intake/Output/Weight
02/22/25 02/22/25 02/23/25
06:59 18:59 06:59
Intake Total 366 / 796.6 644 / 644
Output Total 820 / 2580 1610 / 1960 350 / 1960
Balance -454 / -1783.4 -966 / -1316 -350 / -1316
SaO2: 98 (2L)
Physical Exam
-
General: Awake, Oriented and AOx3
Cardiovascular: Regular rate & rhythm, No Murmurs, No Rub and No Gallop
Respiratory: Decreased Breath Sounds (at bases, otherwise clear)
Sternum: Stable
Incision: Clean, Dry, Intact and Dressing Intact
Extremities: Other (+trace edema)
Data Reviewed
-
Lab Results: Results Reviewed
Medications: Active Meds Reviewed
Chest X-Ray: Report Reviewed and Image Reviewed
ECG: Report Reviewed and Image Reviewed
--- NOTE | 2025-02-23 04:47 | PTCARENOTE ---
Pt currently SR on the tele monitor. HR 70s. Amio bolus administered. Pt out of a-fib since about ~0315. 100% on 2 L NC. All surgical sites stable. Assisted to the commode as needed. No c/o pain. Labs drawn and sent. Call weiss within reach.
[2025-02-23] MEDS: TYLENOL 975 MG PO ×3 (06:42→22:02)
[2025-02-23] MEDS: MAGNESIUM OXIDE 400 MG PO ×2 (08:18→20:25)
[2025-02-23] MEDS: PROTONIX 40 MG PO (08:18)
[2025-02-23] MEDS: LOW STRENGTH ASPIRIN 81 MG PO (08:19)
[2025-02-23] MEDS: AMOXIL 500 MG PO ×2 (08:19→20:25)
[2025-02-23] MEDS: NEURONTIN 100 MG PO ×3 (08:19→22:02)
[2025-02-23] MEDS: LIPITOR 20 MG PO (08:19)
[2025-02-23] MEDS: LASIX 40 MG IV ×2 (08:20→15:20)
[2025-02-23] MEDS: PACERONE 200 MG PO ×3 (08:20→22:03)
[2025-02-23] MEDS: SENOKOT PO (08:21)
--- NOTE | 2025-02-23 08:24 | PTCARENOTE ---
Receive pt from supervisor blast furnace auxiliaries RN; pt AAOx3 and resting comfortably in diana; NSR on monitor and VSS; RIJ cordis and PIV patent; lungs diminished; IS to 1000; positive bowel sounds; pt voiding yellow urine; palpable pulses throughout; trace generalized
edema; all surgical sites C/D/I; see nursing documentation for further details.
--- NOTE | 2025-02-23 08:51 | W.PN.ID1 ---
Date of Service
Date of Service: February 23, 2025
Today's Communication
completed Ceftriaxone 2g IV q24h (d9); now on amoxicillin suppression
Assessment / Plan
# New TAVR severe aortic insufficiency; TAVR placed 2021
# New MR
# acute on chronic CHF
# Hx Group B strep bacteremia (06/2024), suspected IE (INDY no gross vege), s/p 4 weeks ceftriaxone followed by suppressive amox 500 mg bid
# Anemia
- Repeat blood cx's x 3 negative
- INDY report - severe aortic regurgitation (intra-valvular), Calcified, mobile echodensity at RCC position, which may represent calcified vegetation. Moderate mitral regurgitation.
- will follow valve tissue for aerobic, anaerobic, fungal and AFB culture
- gram stains/smears nonrevealing thus far
- completed Ceftriaxone 2g IV q24h (d9); now on amoxicillin suppression
- outpatient recommend screening for colon cancer, ideally with colonoscopy to prevent relapse with new organism
- thus far, no evidence of relapse of endocarditis though will continue to follow tissue cultures for fungus/afb
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
s/p TAVR 2021
Group B strep bacteremia in June 2024 with suspected IE on suppressive amoxicillin (follows with Dr. Larson)
CHF new December 2024
Pulm HTN January 02
ASCVD
Hypertension
Nephrolithiasis
DJD / DDD
Obesity
Sensorineural Hearing Loss
PAD s/p Left Femoral Endarterectomy. Left Fem-Fem Bypass
Chief Complaint
-: Other (Prosthetic Valve Endocarditis)
Subjective / Review of Systems
afebrile
bp stable off of pressors
no significant events overnight
Vital Signs / Physical Exam
Vital Signs
Vital Signs
Temp Pulse Resp BP Pulse Ox
98.2 F 77 20 113/89 96
02/23/25 08:00 02/23/25 08:20 02/23/25 08:00 02/23/25 08:20 02/23/25 08:19
Physical Exam
Constitutional: No Acute Distress and Chronically Ill
Cardiovascular: Regular Rate and S1/S2; Negative Murmur or Rub
Pulmonary: Clear and Symmetric; Negative Wheezes or Rales
Gastrointestinal: Soft, Non Tender, Non Distended and Normal Bowel Sounds
Skin: Warm and Dry; Negative Rash or Jaundice
Objective Data
Lab Data
Lab Results
02/23/25 03:00
02/23/25 02:59
PT 20.2 Sec (11.4-14.6) H 02/18/25 15:27
INR 1.67 02/18/25 15:27
APTT 32.3 Sec (23.4-35.0) 02/18/25 15:27
Estimated Creat Clear > 125 ml/min 02/23/25 02:59
Total Bilirubin 0.7 mg/dl (0.2-1.3) 02/15/25 04:11
AST 21 U/L (17-59) 02/15/25 04:11
ALT 16 U/L (0-50) 02/15/25 04:11
Alkaline Phosphatase 53 U/L (38-126) 02/15/25 04:11
Most recent labs reviewed.
Micro Results:
02/18/25 13:15 Anaerobic Culture - Preliminary
Valve Culture pending. Anaerobic cultures are examined after 3
days incubation. Additional information to follow.
02/18/25 13:15 Anaerobic Culture - Preliminary
Chest - Unspecified NO ANAEROBES ISOLATED
02/18/25 13:15 Tissue Culture - Preliminary
Chest - Unspecified No Growth After 72 Hours
Gram Stain - Preliminary
02/18/25 13:15 Tissue Culture - Preliminary
Valve No Growth After 72 Hours
Gram Stain - Preliminary
02/18/25 13:15 Acid Fast Bacilli Smear - Preliminary
Chest - Unspecified Acid Fast Bacilli Culture - Preliminary
02/18/25 13:15 Acid Fast Bacilli Smear - Preliminary
Valve Acid Fast Bacilli Culture - Preliminary
02/18/25 13:15 Fungal Smear - Final
Chest - Unspecified No yeast or fungal elements seen.
Fungal Culture - Preliminary
Culture in progress.
Positive cultures are reported as soon as detected.
Final report to follow in four to five weeks.
02/18/25 13:15 Fungal Smear - Final
Valve No yeast or fungal elements seen.
Fungal Culture - Preliminary
Culture in progress.
Positive cultures are reported as soon as detected.
Final report to follow in four to five weeks.
02/12/25 20:00 Blood Culture - Final
Blood/Venous No Growth - Final Report
02/12/25 20:08 Blood Culture - Final
Blood/Venous No Growth - Final Report
02/12/25 18:37 Blood Culture - Final
Blood/Venous No Growth - Final Report
02/12/25 CXR: Mild interstitial edema with increased small bilateral pleural effusions and adjacent atelectasis.
[2025-02-23] MEDS: TOPROL XL 12.5 MG PO ×2 (09:41→20:23)
--- NOTE | 2025-02-23 11:14 | PTCARENOTE ---
NSR on monitor and VSS; assessment unchanged and pt resting comfortably in chair; pt worked with PT/OT.
[2025-02-23] MEDS: NSS IV (15:25)
--- NOTE | 2025-02-23 15:41 | PTCARENOTE ---
Assessment unchanged; NSR on monitor and VSS; RIJ Cordis removed per CTNP order; pt ambulating in room with RN; pt resting comfortably in chair.
--- NOTE | 2025-02-23 16:28 | CM ---
spoke to pt in room, PT/OT is recomm acute rehab. he is agreeable to sending a referral to [facility]/. awaiting bed avail.
--- NOTE | 2025-02-23 17:58 | W.PN.CARDCBS ---
Today's Communication / Plan
-
RECOMMENDATIONS:
-continue amiodarone
-anticoagulate if we see longer episodes of afib
-Planned possible rehab at [facility]
Impression / Plan
-
PCP: Turner Guardado
Primary foreign food specialty cook: Dr. Nielsen
Impression:
-Post Op atrial fibrillation:
Relatively short episodes 02/23 lasting about 1 hour.
-Presented 02/13/2025 with generalized weakness, fatigue, shortness of breath
-Concern for endocarditis with new moderate to severe AI and moderate to severe MR (new on echo 01/29/2025)
-Acute on chronic heart failure with preserved ejection fraction, proBNP 5800
-Abnormal troponin, suspect nonischemic myocardial injury secondary to acute heart failure
-h/o Strep agalactiae bacteremia, suspicion for prosthetic valve endocarditis 06/2024
On chronic suppressive amoxicillin
-Prior Hx of severe
s/p TAVR 01/2022 #29 Evolut Pro+
-Nonobstructive CAD by cath 2021
-PVD
status post left femoral endarterectomy with interposition of bypass graft from [employer] to femoral bifurcation 09/2022
-Hypertension
-Hyperlipidemia
-Pulmonary HTN on echo 01/29/2025
-Hearing Loss
-Nephrolithiasis
-DJD/DDD
ECHO 06/12/2024: EF 55 to 60%, mild MAC, status post number 29 mm evolute R, well-seated with peak/mean gradients 14/9 mmHg, no AR seen, mild TR, PAP 28 mmHg, no significant change compared to prior
INDY 06/23/2024: LVEF 55 to 60%, mild MR, mild TR, #29 evolute TAVR with no evidence of vegetation and trace aortic regurgitation
Echo 09/22/2024: EF 60 to 65%. Mild MR. TAVR with peak/mean gradient 56/32 mmHg, moderate AAS, trace AI.
Echo 01/29/2025: EF 60 to 65%. Mild LVH. Moderate MR which originates through posterior leaflet. PISA radius is 0.9 cm with an ERO 32 mm2. TAVR with peak/mean gradient 43/23 mmHg with moderate to severe AI. Mild to moderate TR with PAP 58 mmHg.
Compared to prior echo from September 2024 AI and TR have now worsened. Previously both were trace
INDY 02/16/2025: EF preserved at 50 to 55% with normal LV size and function. Severe intra valvular aortic regurgitation, calcified mobile echodensity at RCC position which may represent calcified vegetation. Thickening and calcified mitral valve
leaflets with moderate mitral regurgitation, central jet. PISA radius 0.8cm. EROA 0.34 cm2. RV 47 cc. Mean gradient 3 mmHg. Mild to moderate TR.
Cardiac catheterization December 2021: Nonobstructive CAD
Plan:
-Post Op explant of TAVR/Evolut Pro+ valve with severe AI:
Surgical AVR with 23 mm Linares Inspirin Resilia valve
-Post op Atrial fibrillation on 02/23 and earlier in hospital stay
Continue oral amiodarone loading
Not currently anticoagulated
-Presented 02/13/2025 with progressively worsening generalized weakness, fatigue, shortness of breath. Patient eventually had explant of previously placed TAVR followed by SAVR. Patient had concern for endocarditis with new moderate to severe AI and
moderate to severe MR on outpatient echo 01/29/2025.
-INDY 02/16/2025 with severe intra valvular aortic regurgitation, calcified mobile echodensity at RCC position which may represent calcified vegetation. Multidisciplinary team discussions resulting in explant of TAVR and then SAVR on 02/18/2025.
-Patient with paroxysmal A-fib and now the dobutamine is off he has been restarted on Toprol-XL 12.5 mg twice daily. Also ordered amiodarone 200 mg 3 times daily
-Not currently anticoagulated due to the overall low burden of A-fib.
-Diuresing with Lasix 40 mg IV twice daily and is still about 10 lbs above his dry weight. Patient weighs 228 lbs on 02/23/2025
-Troponin peaked 0.041 this admission.
HPI 02/13/2025:
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 hyperlipidemia presents with
progressively worsening fatigue, weakness, shortness of breath, orthopnea and intermittent chest discomfort and weight loss. Patient was treated for presumed endocarditis with prolonged course of IV antibiotics and chronic treatment of amoxicillin
since June 2024. He was seen in cardiology office approximately 4 weeks ago and noted not feeling well and was found to have new diastolic murmur. He underwent an echocardiogram 01/29/2025 which showed new at least moderate mitral regurgitation
and moderate aortic insufficiency. Given progressively worsening symptoms and abnormal findings on echo it was recommended patient be hospitalized for evaluation. proBNP on admission 5800, troponin 0.041. Hemoglobin stable at 11.3. Chest x-ray
showed mild interstitial edema with increased bilateral pleural effusions and adjacent atelectasis. Blood cultures drawn in emergency department. Started on IV Rocephin.
At time of this evaluation patient resting comfortably in chair on oxygen. Still feels weak and dyspneic with activity. He denies recent fevers or chills. He reports he does often eat healthy choice frozen meals but tries to otherwise watch
sodium in his diet.
Progress Note - [place] [employer]
Subjective
Date of Service: February 23, 2025
Sleeping in chair but awakens and interactive
Objective
Labs:
02/23/25 03:00
02/23/25 02:59
Labs
Hgb 8.7 g/dL (13.0-18.0) L 02/23/25 03:00
Hct 27.0 % (39.0-52.0) L 02/23/25 03:00
Plt Count 139 10^3/uL (130-400) D 02/23/25 03:00
PT 20.2 Sec (11.4-14.6) H 02/18/25 15:27
INR 1.67 02/18/25 15:27
APTT 32.3 Sec (23.4-35.0) 02/18/25 15:27
Sodium 138 mmol/L (135-145) 02/23/25 02:59
Potassium 5.0 mmol/L (3.5-5.1) 02/23/25 02:59
BUN 22 mg/dl (9-20) H 02/23/25 02:59
Creatinine 0.6 mg/dL (0.7-1.3) L 02/23/25 02:59
Glucose 114 mg/dl (70-99) H 02/23/25 02:59
Vital Signs and I&O:
Vital Signs
Temp Pulse Resp BP Pulse Ox
98.2 F 79 20 153/79 96
02/23/25 15:41 02/23/25 15:30 02/23/25 15:41 02/23/25 15:25 02/23/25 15:41
Vital Signs
Temp Pulse Resp BP Pulse Ox
98.2 F 79 20 153/79 96
02/23/25 15:41 02/23/25 15:30 02/23/25 15:41 02/23/25 15:25 02/23/25 15:41
Intake & Output
02/20/25 02/21/25 02/22/25 02/23/25
23:59 23:59 23:59 23:59
Intake Total 1006.7 / 1062.6 793.9 / 846.9 865 / 865
Output Total 2855 / 2955 2605 / 2655 2420 / 2420 1100 / 1100
Balance -1848.3 / -1892.4 -1811.1 / -1808.1 -1555 / -1555 -1100 / -1100
Physical Exam
Physical Exam
GEN: AAO x 3. No acute distress
HEENT: NC/AT, sclera are anicteric
LUNGS: Clear anterior. Diminished breath sounds at bases. No wheezing
CV: Regular rate and rhythm. Normal S1/S2. No S3, No S4. Murmur: None
ABD : Soft, Bowel sounds are present.
EXT: No CCE
NEURO: No focal neurologic deficits
--- NOTE | 2025-02-23 20:00 | PTCARENOTE ---
Assummed care of patient at 1900. Patient OOB to chair, denies pain, Vital signs stable. walks with walker stands by assist. Ambulated in room. Normal sinus rhythm. +Pulses,Lungs sound clear. Tolerating PO intake, +BM,Voiding clear yellow.
surgical sites CDI and open to air, CT dressing CDI.
See Workflow for full assessment details
[2025-02-23] MEDS: SENOKOT 8.6 MG PO (20:25)
[2025-02-24] VITALS (8 sets, daily range): BP systolic 115–154; BP diastolic 65–109; BMI 29.9
[2025-02-24] MEDS: ANESTHETIC LOZENGE 1 LOZENGE PO (00:06)
--- NOTE | 2025-02-24 01:21 | PTCARENOTE ---
Reassed patient, OOB ambulating in room, alert and oriented, vital sign stable, voided and is now resting in bed.
--- NOTE | 2025-02-24 04:23 | W.PN.CT ---
Today's Communication / Plan
-
Plan:
-No major issues overnight. Hemodynamically and neurologically intact
-Weaned off Dobutamine gtt on 02/22. [place] and a-line also d/c'd 02/22
-Had ~1hr of rate controlled a-fib (70-90's) early AM of 02/23, no further A-fib since
-Tolerating resumption of BB, also on PO amiodarone
-Received 1u PRBC on 02/20, h/h pending this AM, was 8.01/04 yesterday
-Postop thrombocytopenia has resolved, 98->113->139-> pending; was 142 preop
-AM labs pending
-Cont. diuresis, will transition from IV to PO in preparation for [facility] rehab (Lasix 40 mg PO BID). Check wt today
-GDMT as tolerated
-D/C'd [facility] 02/22. 24hr U/O 1300 mL
-Tissues cultures from OR unrevealing thus far. ID following, on Rocephin
-Cont. current meds (ASA, Lipitor, Amio, Gabapentin, Mg, Protonix, Rocephin, Toprol XL)
-F/U 2-view cxr
-Encourage use of IS
-OOB into chair/Ambulate
-PT/OT evaluating, recommend acute rehab
-Awaiting bed @ [facility]
Assessment / Plan
-
HPI: 74 y/o Male S/P Trans femoral (right) TAVR with a 29mm Medtronic Evolut device by Dr. Pantoja on 01/12/22. Readmitted on 02/12/25 with c/o increasing fatigue, TRAN, orthopnea, generalized malaise. Hx of suspected endocarditis treated with Abx, recent
cultures negative. INDY obtained yesterday 02/16/25 showed Severe AI, Moderate MR, Mild TR, EF 50-55%. Calcified, mobile echodensity at RCC position, which may represent calcified vegetation.
-s/p Explant of prior CoreValve TAVR valve; Debridement of heavy calcification in the root and ascending thoracic aorta; Surgical aortic valve replacement [23 mm Linares Inspiris Resilia valve]; Limited Endarterectomy of ascending thoracic aorta;
Drainage of bilateral pleural effusions (left side 1 L, right side 300 mL) by Dr. Pantoja on 02/18/25, pod #6
-Intraop INDY: LVEF preop was not normal approximately 45% with a dilated left ventricle. Following surgery, his EF did not significantly improve and did appear to be 45% but as his LV appeared to be more vigorous and his contractions. LV was still
mildly to moderately dilated. His EF remained around 45% with mild dilation of his LV however his mitral valve insufficiency did appear to be improved and looked more mild at this point. Mean gradient across the new bioprosthetic aortic valve was 5
mmHg
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
-Acute on chronic congestive heart failure secondary to torrential aortic valve insufficiency
-Nonischemic cardiomyopathy
-Severe symptomatic aortic stenosis S/p Right TF TAVR �01/12/22
-Severe AI
-Moderate MR
-Mild TR
-Dilated left ventricle with reduced left ventricular ejection fraction of 40%
-LVEF 56% by Echo 01/29/25
-Hx group B strep bacteremia/Suspected endocarditis
-TRAN
-HTN
-HLD
-CAD, nonobstructive
-PAD
-Hearing loss
-DDD/DJD
-Acute postop blood loss anemia- s/p 2 pRBCs
-Acute postop thrombocytopenia
-Acute postop pulmonary insufficiency/atelectasis/pleural effusion
-Acute postop small right apical ptx
-Acute postop hypovolemia with subsequent hypervolemia
-Suspected acute postop pericarditis/+rub
-Acute postop PAF (rate controlled 90's)
Discussed patient care with: Cardiology, Nursing, Respiratory Therapy, Pharmacy and Care Team
Subjective
-
Date of Service: February 24, 2025
Pt c/o mild incisional pain and decondition, otherwise feels well
Objective Data
-
PT 20.2 Sec (11.4-14.6) H 02/18/25 15:27
INR 1.67 02/18/25 15:27
APTT 32.3 Sec (23.4-35.0) 02/18/25 15:27
Vital Signs
Vital Signs
Temp Pulse Resp BP Pulse Ox
97.8 F 61 16 122/109 95
02/23/25 23:00 02/24/25 03:10 02/24/25 03:15 02/24/25 00:25 02/24/25 03:15
CT Intake/Output/Weight
02/23/25 02/23/25 02/24/25
06:59 18:59 06:59
Intake Total 100 / 100
Output Total 600 / 2210 1050 / 1300 250 / 1300
Balance -600 / -1566 -1050 / -1200 -150 / -1200
SaO2: 95 (RA)
Physical Exam
-
General: Awake, Oriented and AOx3
Cardiovascular: Regular rate & rhythm, No Murmurs and No Gallop
Respiratory: Decreased Breath Sounds (at bases, otherwise clear)
Sternum: Stable
Incision: Clean, Dry, Intact and Dressing Intact
Extremities: Edema +1
Data Reviewed
-
Lab Results: Results Reviewed
Medications: Active Meds Reviewed
Chest X-Ray: Report Reviewed and Image Reviewed
ECG: Report Reviewed and Image Reviewed
[2025-02-24] MEDS: TYLENOL 975 MG PO ×2 (05:26→13:36)
[2025-02-24 05:39] LABS: Hematocrit 29.5 % (39.0-52.0); Hemoglobin 9.5 g/dL (13.0-18.0); Mean Corp Hgb Conc. 32.2 g/dL (33.0-37.0); Mean Corpuscular Volume 95.2 fL (80.0-94.0); Platelet Count 191 10^3/uL (130-400); Red Cell Dist. Width 14.8 % (11.5-14.5)
[2025-02-24 06:04] LABS: Blood Urea Nitrogen 22 mg/dl (9-20); Calcium 8.7 mg/dl (8.4-10.2); Carbon Dioxide 33 mmol/L (22-30); Chloride 100 mmol/L (98-107); Estimated Creatinine Clearance 106 ml/min; Glucose 123 mg/dl (70-99); Magnesium 2.2 mg/dl (1.6-2.3); Potassium 4.6 mmol/L (3.5-5.1); Sodium 138 mmol/L (135-145); eGFR > 60.00
[2025-02-24] MEDS: PROTONIX 40 MG PO (07:53)
[2025-02-24] MEDS: LIPITOR 20 MG PO (07:53)
[2025-02-24] MEDS: TOPROL XL 25 MG PO (07:53)
[2025-02-24] MEDS: NEURONTIN 100 MG PO (07:53)
[2025-02-24] MEDS: MAGNESIUM OXIDE 400 MG PO (07:53)
[2025-02-24] MEDS: LASIX 40 MG PO (07:55)
[2025-02-24] MEDS: PACERONE 200 MG PO (07:55)
[2025-02-24] MEDS: AMOXIL 500 MG PO (07:55)
[2025-02-24] MEDS: SENOKOT PO (07:55)
[2025-02-24] MEDS: LOW STRENGTH ASPIRIN 81 MG PO (07:55)
--- NOTE | 2025-02-24 08:00 | PTCARENOTE ---
Addendum entered by Carmen Rogers RN 02/24/25 08:14:
hearing aids in place.
Original Note:
pt received from previous RN, oriented, OOB in chair. SR on the monitor, HR 60s. SBP 110s. palpable pulses. trace/+1 LE edema. pt on RA, 95% POX. lungs diminished in bases. IS 1500ml. denies cough or SOB. pt abdomen s/n, +BS. +BM today. diet
tolerated well. voids. ambulates w/ RW and assist. sternal incision [employer]ODUC[employer], approximated. chest tube dressing c/d/i. PIV. pt denies pain. see worklist for VS, I&O, and assessment.
--- NOTE | 2025-02-24 08:37 | W.PN.ID1 ---
Date of Service
Date of Service: February 24, 2025
Today's Communication
- now on amoxicillin suppression to continue indefinitely
- follow up with GI outpatient
Assessment / Plan
# New TAVR severe aortic insufficiency; TAVR placed 2021
# New MR
# acute on chronic CHF
# Hx Group B strep bacteremia (06/2024), suspected IE (INDY no gross vege), s/p 4 weeks ceftriaxone followed by suppressive amox 500 mg bid
# Anemia
- will follow valve tissue for fungal and AFB culture
- smears nonrevealing thus far
- now on amoxicillin suppression to continue indefinitely
- follow up with GI outpatient - outpatient recommend screening for polyps/colon cancer, ideally with colonoscopy to prevent relapse with new organism
# Conditions [employer]
s/p TAVR 2021
Group B strep bacteremia in June 2024 with suspected IE on suppressive amoxicillin (follows with Dr. Larson)
CHF new December 2024
Pulm HTN January 02
ASCVD
Hypertension
Nephrolithiasis
DJD / DDD
Obesity
Sensorineural Hearing Loss
PAD s/p Left Femoral Endarterectomy. Left Fem-Fem Bypass
Chief Complaint
-: Other (Prosthetic Valve Endocarditis)
Subjective / Review of Systems
afebrile
bp stable
no events overnight
in good spirits
Vital Signs / Physical Exam
Vital Signs
Vital Signs
Temp Pulse Resp BP Pulse Ox
98 F 71 18 119/65 95
02/24/25 08:00 02/24/25 08:00 02/24/25 08:00 02/24/25 07:53 02/24/25 08:16
Physical Exam
Constitutional: No Acute Distress and Chronically Ill
Cardiovascular: Regular Rate and S1/S2; Negative Murmur or Rub
Pulmonary: Clear and Symmetric; Negative Wheezes or Rales
Gastrointestinal: Soft, Non Tender, Non Distended and Normal Bowel Sounds
Skin: Warm and Dry; Negative Rash or Jaundice
Objective Data
Lab Data
Lab Results
02/24/25 05:21
02/24/25 05:21
PT 20.2 Sec (11.4-14.6) H 02/18/25 15:27
INR 1.67 02/18/25 15:27
APTT 32.3 Sec (23.4-35.0) 02/18/25 15:27
Estimated Creat Clear 106 ml/min 02/24/25 05:21
Total Bilirubin 0.7 mg/dl (0.2-1.3) 02/15/25 04:11
AST 21 U/L (17-59) 02/15/25 04:11
ALT 16 U/L (0-50) 02/15/25 04:11
Alkaline Phosphatase 53 U/L (38-126) 02/15/25 04:11
Most recent labs reviewed.
Micro Results:
02/18/25 13:15 Anaerobic Culture - Final
Chest - Unspecified NO ANAEROBES ISOLATED
02/18/25 13:15 Tissue Culture - Final
Chest - Unspecified No Growth After 72 Hours
Gram Stain - Final
02/18/25 13:15 Tissue Culture - Final
Valve No Growth After 72 Hours
Gram Stain - Final
02/18/25 13:15 Anaerobic Culture - Final
Valve NO ANAEROBES ISOLATED
02/18/25 13:15 Acid Fast Bacilli Smear - Preliminary
Chest - Unspecified Acid Fast Bacilli Culture - Preliminary
02/18/25 13:15 Acid Fast Bacilli Smear - Preliminary
Valve Acid Fast Bacilli Culture - Preliminary
02/18/25 13:15 Fungal Smear - Final
Chest - Unspecified No yeast or fungal elements seen.
Fungal Culture - Preliminary
Culture in progress.
Positive cultures are reported as soon as detected.
Final report to follow in four to five weeks.
02/18/25 13:15 Fungal Smear - Final
Valve No yeast or fungal elements seen.
Fungal Culture - Preliminary
Culture in progress.
Positive cultures are reported as soon as detected.
Final report to follow in four to five weeks.
02/12/25 20:00 Blood Culture - Final
Blood/Venous No Growth - Final Report
02/12/25 20:08 Blood Culture - Final
Blood/Venous No Growth - Final Report
02/12/25 18:37 Blood Culture - Final
Blood/Venous No Growth - Final Report
02/12/25 CXR: Mild interstitial edema with increased small bilateral pleural effusions and adjacent atelectasis.
[2025-02-24] MEDS: NSS IV (10:51)
--- NOTE | 2025-02-24 11:35 | PTCARENOTE ---
VS obtained, assessment stable. Patient resting comfortably oob, awaiting lunch.
--- NOTE | 2025-02-24 13:50 | W.DCSUMMARY ---
Discharge Summary
Discharge Data
Date of Admission: 02/12/25
Date of Discharge: 02/24/25
-
Pending Results: No
Hospital Course
Primary care physician: Dr. Turner Guardado
Outpatient extractor puller: Dr. Douglas Manzanares
Inpatient consultants: [facility], Infectious Disease, Cloth Worker/Bushing And Broach Operator
Procedures:
By Dr. Dallin Pantoja on 02/18/25
1. Explant of prior CoreValve TAVR valve
2. Debridement of heavy calcification in the root and ascending thoracic aorta
3. Surgical aortic valve replacement [23 mm Linares Inspiris Resilia valve]
4. Limited Endarterectomy of ascending thoracic aorta
5. Drainage of bilateral pleural effusions (left side 1 L, right side 300 mL)
Primary Diagnosis:
1. 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
Secondary Diagnoses:
Acute blood loss anemia s/p 2 pRBC's transfused
Acute postoperative thrombocytopenia
Acute postop pulmonary insufficiency/atelectasis/pleural effusion
Acute postop small right apical PTX
Acute postop hypovolemia with subsequent hypervolemia
Acute postop PAF, rate controlled in the 90s
Prior endocarditis of TAVR valve with degeneration
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
Nonischemic cardiomyopathy
Severe symptomatic status post right transfemoral TAVR 01/12/2022
Severe AI
Moderate MR
Mild TR
Dilated LV with reduced LVEF of 40%
History group B strep bacteremia/suspected endocarditis, treated
TRAN
Hypertension/hyperlipidemia
Nonobstructive CAD
PAD s/p L femoral endarterectomy with interposition graft (RADIOLOGY ORDERLY to bifurcation) (2022)
DDD/DJD
sensorineural hearing loss
HPI: Mr. Getachew Noriega is a 74-year-old male status post right transfemoral TAVR with 29 mm Medtronic Evolut device by Dr. Pantoja on 01/12/2022 who was readmitted on 02/12/2025 with complaints of increasing fatigue, TRAN, orthopnea, generalized malaise. He
has a history of suspected endocarditis treated with 500 mg of amoxicillin twice daily since June 2024. On 02/16/2025 he underwent a INDY which showed severe aortic insufficiency, moderate mitral regurgitation, and mild tricuspid regurgitation,
with LVEF of 50 to 55%; further report of calcified, mobile echodensity at RCC position concerning for calcified vegetation. Infectious disease was consulted in which cultures were negative, and patient was started on Rocephin with transition to
amoxicillin suppressive therapy. Cardiothoracic surgery was consulted in which he was referred for TAVR valve explant and surgical AVR with Dr. Pantoja. On 02/18/2025, patient underwent explant of TAVR valve with SAVR with #23 Inspiris valve,
debridement of aortic root and ascending aorta, and drainage of bilateral pleural effusions with Dr. Dallin Pantoja.
.
Hospital course: Mr. Noriega was admitted on 02/12/2025 with complaints of increased fatigue, TRAN, orthopnea, and generalized malaise. He ruled in with acute on chronic CHF secondary to torrential AI. He underwent a INDY on 02/16/2025 which showed severe
aortic insufficiency, moderate mitral regurgitation, and mild tricuspid regurgitation, with LVEF of 50 to 55%; further report of calcified, mobile echodensity at RCC position concerning for calcified vegetation. He was transferred to the CVICU for
aggressive diuresis with Bumex infusion. Infectious disease was consulted in which cultures were negative, and patient was started on Rocephin daily with transition to amoxicillin 500 mg twice daily, indefinitely. Cardiac surgery was consulted for
severe AI in which he was referred for TAVR valve explant and surgical AVR with Dr. Pantoja.
Patient went to CVR on 02/18/2025 and underwent explant of explant of prior CoreValve TAVR valve; Debridement of heavy calcification in the root and ascending thoracic aorta; Surgical aortic valve replacement [23 mm Linares Inspiris Resilia valve];
Limited Endarterectomy of ascending thoracic aorta; Drainage of bilateral pleural effusions (left side 1 L, right side 300 mL) by Dr. Dallin Pantoja. Intraoperative INDY reported the following, LVEF preop was not normal approximately 45% with a
dilated left ventricle. Following surgery, his EF did not significantly improve and did appear to be 45% but as his LV appeared to be more vigorous and his contractions. LV was still mildly to moderately dilated. His EF remained around 45% with
mild dilation of his LV however his mitral valve insufficiency did appear to be improved and looked more mild at this point. Mean gradient across the new bioprosthetic aortic valve was 5 mmHg. Please see surgeons operative report for complete
dictation of surgery. In progressive fashion, inotropic support, vasopressor support, central lines, chest tubes, and epicardial pacing wires were discontinued. An insulin drip was initiated following surgery and was transition to low-dose sliding
scale insulin 24 hours postop and then discontinued. Patient's hemoglobin A1c was 5.3 preoperatively. Postoperative course was complicated by blood loss anemia in which a total of 2 units packed red blood cells were transfused.
On postoperative day 5, patient endured 1 hour of paroxysmal A-fib for 1 hour in which he was maintained on beta-denny therapy and amiodarone upon discharge. Physical therapy and Occupational Therapy were consulted postoperatively for discharge
planning. On postoperative day 6, patient was tolerating his diet, ambulating, and hemodynamically stable for discharge to longterm facility. Pain was well-controlled with regimen of Tylenol 650 mg every 6 hours and gabapentin 100 mg 3
times daily. Amiodarone will be continued at 200 mg twice a day for 2 weeks then decreased to 200 mg daily until further follow-up with cardiology. Patient was hypervolemic postoperatively in which he was diuresed with IV Lasix. Upon discharge,
he was 4 pounds above his preoperative weight of 100.8 kg. He was discharged with plan to continue Lasix 40 mg twice daily for 5 days then decrease to 40 mg daily with low-dose potassium chloride 10 mEq daily for serum K trend of 4.6-5.1 with
diuresing. He was ordered to obtain a BMP in 3 days to assess electrolytes and continue to check his weight in the morning daily. Explanted TAVR valve tissue culture from [facility] was unrevealing. Amoxicillin 500 mg twice daily will be continued
indefinitely for suppressive therapy as per infectious disease. He was referred to follow-up with gastrointestinal as an outpatient for screening for polyps and/or colon cancer with colonoscopy to prevent relapse with new organism. He was
discharged to [facility] with plan to follow-up with Dr. Pantoja in 4 weeks following surgery. Transitional care nursing will follow-up in 2 to 3 days following discharge.
Home medication changes:
See discharge medication list below
Discharge Plan
-
Patient Disposition: Acute Rehab Facility
Discharge Diagnosis/Procedures: Severe Aortic Insufficiency s/p explant of TAVR valve, SAVR (#23 mm Linares Inspiris Resilia) with debridement of calcification in aortic root/ascending thoracic aorta and drainage of bilateral pleural effusion on
02/18/[address] Pantoja
Condition: Good
Diet: Low Fat, Low Cholesterol, 2 Gram Sodium and Restrict fluids to 48 oz
Activity: As tolerated and No strenuous activity
Additional Activity: No heavy lifting, pushing, pulling anything over 15 pounds for one month
Driving Restrictions: Not until seen by your Dr
Bathing Restrictions: OK to Shower
Blood Work: Obtain BMP in 3-days to assess electrolytes with diuresis.
Other Services: Cardiac Rehab
Wound Care: Shower daily with soap and water. No lotions, creams, or powders on procedural sites.
Specialty Instructions: Weigh Daily- Call MD for wt gain/loss 3 lbs overnight/5 lbs in 1 week
Activity Restrictions/Additional Instructions:
ACTIVITY:
- No strenuous activity: no heavy lifting, pushing, pulling anything over 15 pounds for one month
- Continue to use stairs as tolerated
DRIVING RESTRICTIONS:
- No driving for one month or until approved by your surgeon
WOUND CARE:
- Shower daily. Use soap & water.
- No lotions, creams or powders on incision area.
DIET:
- continue a low fat/low cholesterol diet.
- IF you are diabetic, continue carb controlled diet.
CARDIAC REHAB:
- Please make appointment to start in 5-6 weeks with your local hospital program. (See Cardiac Rehabilitation Discharge Booklet).
- Please call to make appointments for Phase II Cardiac Rehab: (if/when PT/OT nursing is no longer needed)
1) [facility] [place]: (9min away)
[address] [place]
[phone]
2) [facility]
[phone] (24 min away)
SPECIALTY INSTRUCTIONS:
- Weigh yourself daily. Call your physician for any weight gain/loss of 3 lbs overnight or 5 lbs in one week.
- REPORT any clicking noise or uneven appearance of your sternum to your surgeon immediately.
- If you smoke, you are instructed to quit. The [place] smoking hotline phone number is [phone]
Referrals:
[facility] [Provider Group]
Referral Note: To obtain screening for Polyps/Colon Ca with Colonoscopy to prevent relapse of endocarditis with new organism
CT Transitional Care Nurse [Outside]
Referral Note: The Cardiothoracic Transitional Care Nurse will call you to set up a visit in 1-2 days.
Turner Guardado MD [Family Provider, Family Practice]
Chiara Ortiz CRNP [Specified Professional Personl, Cardiology] - 03/31/25 3:00 pm
Imelda Mccray CRNP [Specified Professional Personl, Cardiac Surgery] - 03/18/25 11:30 am
Prescriptions:
New
amiodarone [Pacerone] 200 mg Tablet
200 mg PO BID 30 Days Qty: 60 0RF
Rx Instructions:
Take 200 mg twice a day for 14-days, On 03/11/25 decrease to 200 mg daily
sennosides [Phyllis-jim] 8.6 mg Tablet
8.6 mg PO [id number] PRN (Reason: Constipation) Qty: 0 0RF
acetaminophen 325 mg Tablet
650 mg PO Q6HPRN PRN (Reason: mild pain,headache,temp >101F ) Qty: 0 0RF
metoprolol succinate 25 mg Tablet Extended Release 24 Hr
25 mg PO DAILY Qty: 60 0RF
furosemide 40 mg Tablet
40 mg PO BID AT 0800,1600 Qty: 30 0RF
Rx Instructions:
Take 40 mg twice a day for 4-days, then 40 mg daily
potassium chloride 20 mEq Tablet,Er Particles/Crystals
10 meq PO DAILY Qty: 30 0RF
gabapentin 100 mg Capsule
100 mg PO TID 7 Days Qty: 21 0RF
Continued
aspirin 81 MG tablet,delayed release (DR/EC)
81 mg PO DAILY
multivitamin Tablet
1 tab PO DAILY
atorvastatin 20 mg tablet
20 mg PO DAILY
amoxicillin 500 mg capsule
500 mg PO BID
Rx Instructions:
been on since jun for endocarditis
Discontinued
amlodipine-benazepril 10-20 mg Capsule
1 cap PO DAILY
acetaminophen [Tylenol] 325 mg Tablet
650 mg PO Q6HPRN PRN (Reason: mild pain)
furosemide 40 mg Tablet
40 mg PO BID Qty: 60 2RF
Discharge Orders:
Discharge Patient (As Directed); Ordered 02/24/25
Ordered By: Taty Ham
Care Plan Goals
Care Plan Goals:
Problem: Readiness for enhanced knowledge related to diagnosis and treatment plan
Goal: Understand your diagnosis and treatment plan needs, including medications if applicable.
Instructions: Know your diagnosis, underlying causes and treatment plan options, including medications if applicable. Consult with your health care team to learn about your diagnosis and treatment plan, including medications if applicable.
Discharge Date and Time
Print Language: SLOVENIAN
--- NOTE | 2025-02-24 15:58 | CM ---
no beds at [facility], pt requested to [facility]. referral faxed, pt accepted and bed avail today. transportation [facility] van set up for 4pm. pt aware that the [facility] van will not be covered and they will send him the bill.
--- NOTE | 2025-02-24 16:25 | PTCARENOTE ---
Report called to DANIEL Jeter @ [facility]. PIV, school lunch monitor removed. Patient and all belongings transported via wheelchair van to facility.
== END 2025-02-24 17:58 | DRG 219 ==
LOC: CVICU 20:24
PROVIDERS: Anesthesiology; Clinical Nurse Specialist Family Health; Emergency Medicine; General Practice; Nurse Practitioner; Nurse Practitioner Family; Physician Assistant Medical; ADMITTING PHYSICIAN Hospitalist; ATTENDING PHYSICIAN Thoracic Surgery (Cardiothoracic Vascular Surgery); CONSULT PHYSICIAN Internal Medicine Critical Care Medicine; CONSULT PHYSICIAN Internal Medicine Infectious Disease; CONSULT PHYSICIAN Internal Medicine Interventional Cardiology; EMERGENCY PHYSICIAN Emergency Medicine; FAMILY PHYSICIAN Family Medicine
PROC: 02RF08Z Replacement of Aortic Valve with Zooplastic Tissue, Open Approach (ICD-10-PCS; 2025-02-18)
PROC: 5A1221Z Performance of Cardiac Output, Continuous (ICD-10-PCS; 2025-02-18)
PROC: 0W990ZZ Drainage of Right Pleural Cavity, Open Approach (ICD-10-PCS; 2025-02-18)
PROC: B24BZZ4 Ultrasonography of Heart with Aorta, Transesophageal (ICD-10-PCS; 2025-02-18)
PROC: 30233N1 Transfusion of Nonautologous Red Blood Cells into Peripheral Vein, Percutaneous Approach (ICD-10-PCS; 2025-02-18)
PROC: 02CX0ZZ Extirpation of Matter from Thoracic Aorta, Ascending/Arch, Open Approach (ICD-10-PCS; 2025-02-18)
PROC: 0W9B0ZZ Drainage of Left Pleural Cavity, Open Approach (ICD-10-PCS; 2025-02-18)
DX: T82.6XXA Infection and inflammatory reaction due to cardiac valve prosthesis, initial encounter (principal); I33.0 Acute and subacute infective endocarditis; I50.33 Acute on chronic diastolic (congestive) heart failure; J95.2 Acute pulmonary insufficiency following nonthoracic surgery; J96.02 Acute respiratory failure with hypercapnia; T82.01XA Breakdown (mechanical) of heart valve prosthesis, initial encounter; I5A Non-ischemic myocardial injury (non-traumatic); I42.0 Dilated cardiomyopathy; D62 Acute posthemorrhagic anemia; J98.11 Atelectasis; J95.811 Postprocedural pneumothorax; I30.8 Other forms of acute pericarditis; D69.59 Other secondary thrombocytopenia; E86.1 Hypovolemia; I48.0 Paroxysmal atrial fibrillation; Y83.1 Surgical operation with implant of artificial internal device as the cause of abnormal reaction of the patient, or of later complication, without mention of misadventure at the time of the procedure; I08.1 Rheumatic disorders of both mitral and tricuspid valves; I27.20 Pulmonary hypertension, unspecified; I11.0 Hypertensive heart disease with heart failure; E78.00 Pure hypercholesterolemia, unspecified; I25.10 Atherosclerotic heart disease of native coronary artery without angina pectoris; D53.9 Nutritional anemia, unspecified; I70.0 Atherosclerosis of aorta; M19.90 Unspecified osteoarthritis, unspecified site; E66.9 Obesity, unspecified; E11.51 Type 2 diabetes mellitus with diabetic peripheral angiopathy without gangrene; E11.65 Type 2 diabetes mellitus with hyperglycemia; G47.00 Insomnia, unspecified; Y83.8 Other surgical procedures as the cause of abnormal reaction of the patient, or of later complication, without mention of misadventure at the time of the procedure; H90.5 Unspecified sensorineural hearing loss; Z68.30 Body mass index [BMI] 30.0-30.9, adult; Z86.19 Personal history of other infectious and parasitic diseases; Z86.79 Personal history of other diseases of the circulatory system; Z79.82 Long term (current) use of aspirin; Z87.891 Personal history of nicotine dependence; Z82.49 Family history of ischemic heart disease and other diseases of the circulatory system
CPT/HCPCS: 36415; 70355; 71045; 71046; 80048; 80053; 80061; 81003; 81015; 82330; 82565; 82805; 82810; 82947; 82962; 83036; 83735; 83880; 84132; 84302; 84484; 84520; 85014; 85018; 85025; 85027; 85049; 85610; 85730; 86850; 86900; 86901; 86920; 87015; 87040; 87070; 87075; 87102; 87116; 87176; 87205; 87206; 88304; 88305; 88311; 93005; 93312; 93320; 93325; 93880; 94002; 96374; 97110; 97116; 97163; 97164; 97166; 97168; 97530; 97535; 99285; G0103; J1939; P9016; P9045; P9047

== ENCOUNTER → 2025-02-27 10:28 | Outpatient (REF) | payer OTHER, MEDICARE, BC, SELFPAY ==
[2025-02-27 12:02] LABS: Hematocrit 29.0 % (39.0-52.0); Hemoglobin 9.1 g/dL (13.0-18.0); Mean Corp Hgb Conc. 31.4 g/dL (33.0-37.0); Mean Corpuscular Volume 93.9 fL (80.0-94.0); Platelet Count 326 10^3/uL (130-400); Red Cell Dist. Width 15.0 % (11.5-14.5)
[2025-02-27 13:02] LABS: Blood Urea Nitrogen 18 mg/dl (9-20); Calcium 8.8 mg/dl (8.4-10.2); Carbon Dioxide 33 mmol/L (22-30); Chloride 100 mmol/L (98-107); Glucose 97 mg/dl (70-99); Potassium 4.6 mmol/L (3.5-5.1); Sodium 136 mmol/L (135-145); eGFR > 60.00
== END ==
LOC: OLABP 10:28
PROVIDERS: ATTENDING PHYSICIAN Family Medicine
DX: J95.1 Acute pulmonary insufficiency following thoracic surgery (principal); E11.9 Type 2 diabetes mellitus without complications; E66.9 Obesity, unspecified; E78.5 Hyperlipidemia, unspecified; I10 Essential (primary) hypertension; I31.9 Disease of pericardium, unspecified; I35.2 Nonrheumatic aortic (valve) stenosis with insufficiency; I50.31 Acute diastolic (congestive) heart failure; I73.9 Peripheral vascular disease, unspecified; J98.11 Atelectasis
CPT/HCPCS: 36415; 80048; 85027

== ENCOUNTER 2025-04-09 11:30 | Outpatient (RCR) | payer MEDICARE, BC, SELFPAY | END 2025-04-09 23:59 | disposition home or self-care (01) | LOC: CRHB 11:30 | PROVIDERS: ATTENDING PHYSICIAN Internal Medicine Interventional Cardiology; FAMILY PHYSICIAN Family Medicine | DX: Z95.4 Presence of other heart-valve replacement (principal) | CPT/HCPCS: G0422; G0423 ==

== ENCOUNTER 2025-05-04 15:43 | Outpatient (RCR) | payer MEDICARE, BC, SELFPAY | END 2025-05-04 23:59 | disposition home or self-care (01) | LOC: CRHB 15:43 | PROVIDERS: ATTENDING PHYSICIAN Internal Medicine Interventional Cardiology; FAMILY PHYSICIAN Family Medicine | DX: Z95.4 Presence of other heart-valve replacement (principal) | CPT/HCPCS: G0422; G0423 ==

== ENCOUNTER → 2025-05-21 09:06 | Outpatient (REF) | payer MEDICARE, BC, SELFPAY | LOC: HWRCS 09:06 | PROVIDERS: ATTENDING PHYSICIAN Nurse Practitioner; FAMILY PHYSICIAN Family Medicine | DX: I35.1 Nonrheumatic aortic (valve) insufficiency (principal) | CPT/HCPCS: 93306 ==

== ENCOUNTER 2025-06-01 16:26 | Outpatient (RCR) | payer MEDICARE, BC, SELFPAY | END 2025-06-01 23:59 | disposition home or self-care (01) | LOC: CRHB 16:26 | PROVIDERS: ATTENDING PHYSICIAN Internal Medicine Interventional Cardiology; FAMILY PHYSICIAN Family Medicine | DX: Z95.4 Presence of other heart-valve replacement (principal) | CPT/HCPCS: G0422; G0423 ==